=== PATIENT | female | born 1945 | race Caucasian/White ===

== ENCOUNTER → 2017-06-22 11:02 | Outpatient (CLI) | payer MEDICARE, SELFPAY ==
[2017-06-22 11:22] LABS: Anion Gap 8 (5-15); BUN 22 mg/dL (7-18); BUN/Creat Ratio 17.2 RATIO (10-20); Calcium,Total 9.9 mg/dL (8.5-10.1); Chloride 98 mmol/L (98-107); Creatinine, Serum 1.28 mg/dL (0.55-1.02); EST Glomerular Filtration Rate 43 mL/min (>60); Est Glom Filt Rate - Afr Amer 53 mL/min (>60); Glucose 176 mg/dL (74-106); Potassium 4.4 mmol/L (3.5-5.1); Sodium Level 137 mmol/L (136-145)
== END ==
PROVIDERS: Family Provider Internal Medicine; PCP Internal Medicine; Visit Provider Internal Medicine
DX: E87.5 Hyperkalemia (principal)
CPT/HCPCS: 80048

== ENCOUNTER → 2017-07-21 08:28 | Outpatient (CLI) | payer MEDICARE, SELFPAY ==
--- NOTE | 2017-07-21 08:35 | BD_ITS ---
STUDY: DUAL ENERGY X-RAY ABSORPTIOMETRY / DXA REASON FOR EXAM: Female, 72 years old. The patient is postmenopausal. Loss of height. TECHNIQUE: Bone Mineral Density (BMD) measurements of lumbar spine and bilateral hips were obtained. COMPARISON: Comparison is made with prior study dated April 03, 2015. FINDINGS: Lumbar Spine (L1-L4): g/cm2 (1.152) / T-score (-0.2) / Z-score (1.5) Findings are suggestive of normal bone density with a low fracture risk. Left Femur Total: g/cm2 (0.714) / T-score (-2.3) / Z-score (-0.7) Left Femoral Neck: g/cm2 (0.644) / T-score (-2.8) / Z-score (-1.0) Right Femur Total: g/cm2 (0.765) / T-score (-1.9) / Z-score (-0.3) Right Femoral Neck: g/cm2 (0.712) / T-score (-2.3) / Z-score (-0.5) The T-Scores on the most recent prior examination were: Lumbar Spine (L1-L4): There has been improvement of bone density since the previous examination. Left Femur Total: which represents no significant change. . Right Femur Total: which represents a worsening of 0.9%. BD/Dexa Bone Density Study IMPRESSION: The patient is considered osteoporotic as outlined below according to World [place] Organization (WHO) criteria with a high fracture risk. There has been improvement of bone density since the previous examination. Reference Information: The T-score is the number of standard deviations above or below the standard which is normal for young adults at their peak bone mineral density. The World Health Organization (WHO) interprets the T-scores as follows: Above -1 Normal bone density Between -1 and -2.5 Osteopenia Equal to / or below -2.5 Osteoporosis As a practical clinical guideline, osteopenia may be graded as follows: Mild -1 through -1.5 Moderate -1.6 through -2.0 Severe -2.1 through -2.4 The Z-score is the number of standard deviations above or below age-matched controls. A Z-score of less than -1.5 would be considered abnormal. References: 1. NIH Osteoporosis and Related Bone Diseases http://www.osteo.org 2. International Society for Clinical Densitometry http://www.iscd.org 3. National Osteoporosis Foundation http://www.nof.org Electronically Signed: Nishant Hansen MD at 10:28 EDT Tel [phone], Service support ,
== END ==
PROVIDERS: Family Provider Internal Medicine; PCP Internal Medicine; Visit Provider Internal Medicine
DX: M81.0 Age-related osteoporosis without current pathological fracture (principal)
CPT/HCPCS: 77080

== ENCOUNTER → 2018-12-01 05:00 | Outpatient (REF) | payer MEDICARE, SELFPAY ==
[2018-12-01 08:35] LABS: Hemoglobin A1c 6.4 % (4.2-6.3)
[2018-12-01 08:38] LABS: Anion Gap 5 (5-15); BUN 25 mg/dL (7-18); BUN/Creat Ratio 21.4 RATIO (10-20); Calcium,Total 9.2 mg/dL (8.5-10.1); Chloride 106 mmol/L (98-107); Cholesterol 166 mg/dL (200); Creatinine, Serum 1.17 mg/dL (0.55-1.02); EST Glomerular Filtration Rate 48 mL/min (>60); Est Glom Filt Rate - Afr Amer 58 mL/min (>60); Glucose 128 mg/dL (74-106); High Density Lipoprotein 37 mg/dL; Potassium 3.4 mmol/L (3.5-5.1); Sodium Level 138 mmol/L (136-145); Triglycerides 175 mg/dL; Very Low Density Lipoprotein 35 mg/dL (5-40)
[2018-12-02 08:31] LABS: Microalbumin,Random Urine 19.1 mg/L (NO RANGE EST.)
== END ==
LOC: OLS.BROOKB 05:00
PROVIDERS: Visit Provider Family Medicine
DX: E11.9 Type 2 diabetes mellitus without complications (principal)
CPT/HCPCS: 36415; 80048; 80061; 82043; 83036

== ENCOUNTER → 2019-01-06 05:00 | Outpatient (REF) | payer MEDICARE, SELFPAY ==
[2019-01-06 09:02] LABS: Absolute Lymphocyte Count 1.86 X10^3/uL (0.83-4.51); Absolute Neutrophil Count 5.8 X10^3/uL (2.0-7.7); Basophil# 0.06 X10^3/uL; Basophil% 0.7 % (0-1); Eosinophil# 0.38 X10^3/uL; Eosinophils% 4.3 % (0-5); Hematocrit 35.9 % (37-47); Hemoglobin 11.3 g/dL (12.0-15.0); Lymphocyte # 1.86 X10^3/ul (4.0); Lymphocyte % 21.1 % (19-41); Mean Corp Hgb Conc 31.5 g/dL (32-36); Mean Corpuscular Hgb 29.7 pg (27.0-32.0); Mean Corpuscular Volume 94.5 fL (81-99); Mean Platelet Vol. 10.2 fl (6.2-12.0); Monocyte# 0.65 X10^3/uL; Monocyte% 7.4 % (0-10); NRBC Flagged by Analyzer 0 % (0-5); Neutrophil # 5.84 X10^3/uL (2.7-7.7); Neutrophil % 66.2 % (47-70); Platelet Count 296 K/mm3 (150-450); RBC Distribution Width CV 14.5 % (11.6-14.6); RBC Distribution Width SD 49.9 fl (35.1-43.9); White Blood Count 8.8 K/mm3 (4.4-11.0)
[2019-01-06 09:08] LABS: ALB/GLOB Ratio 0.5 RATIO (0.9-2.4); AST(SGOT) 15 U/L (15-37); Alanine Aminotransfer ALT/SGPT 25 U/L (13-56); Albumin, Serum 2.6 g/dL (3.2-5.0); Alkaline Phosphatase 62 U/L (45-117); Anion Gap 8 (5-15); BUN 25 mg/dL (7-18); Calcium,Total 8.9 mg/dL (8.5-10.1); Chloride 105 mmol/L (98-107); Creatinine, Serum 1.19 mg/dL (0.55-1.02); EST Glomerular Filtration Rate 47 mL/min (>60); Est Glom Filt Rate - Afr Amer 57 mL/min (>60); Globulin 5.1 g/dL (2.2-4.2); Glucose 114 mg/dL (74-106); Potassium 4.1 mmol/L (3.5-5.1); Protein, Total 7.7 g/dL (6.4-8.2); Sodium Level 139 mmol/L (136-145)
[2019-01-06 09:56] LABS: Vitamin B12 227 pg/mL (211-911)
== END ==
LOC: OLS.BROOKB 05:00
PROVIDERS: Visit Provider Family Medicine
DX: F07.0 Personality change due to known physiological condition (principal)
CPT/HCPCS: 36415; 80053; 82607; 85025

== ENCOUNTER 2019-01-19 11:22 | Emergency (ER) | payer MEDICARE, SELFPAY ==
[2019-01-19 11:24] VITALS: BP 134/78; PULSE 108; RESP 18; TEMP 35.8; O2SAT 98; BMI 25.4
--- NOTE | 2019-01-19 13:05 | ED.VIS.GEN ---
History of Present Illness <Haroldo Keen - Last Filed: 01/19/19 15:37> Informant: Patient, Family, SNF Limited by: Dementia Onset: Today Context: Sudden Onset Timing: Continuous Quality: Bright red blood Location: diaper Current Severity: Mild Maximum Severity: Mild Worsened by: Nothing Relieved by: nothing Associated Symptoms: denies Narrative: 73-year-old female history of dementia [facility] the staff [facility] found bright red blood in her diaper. Patient at this time has no complaints but she does have a history of dementia and therefore history from the patient is limited. Family is at the bedside. Patient has not had any recent illnesses. She is not having abdominal pain or vomiting. No blood in her stool that they have noticed. She is not on blood thinners. No history of blood transfusion. Otherwise has been well and no other complaints at this time Prior similar symptoms: No Recent Illness/Hospitalization: No <Champ Yeboah - Last Filed: 01/19/19 17:50> Chief Complaint: Vag Bleeding Past Medical History <Haroldo Keen - Last Filed: 01/19/19 15:37> Prior records reviewed: Yes Past Medical History: - - Insulin-dependent diabetes Surgical History: no surgical history Lives: Skilled Nursing Smoking Status: Never smoker <Champ Yeboah - Last Filed: 01/19/19 17:50> - Allergies and Home Meds Allergies/Adverse Reactions: Allergies penicillin V [From Pen-Vee K] Allergy (Verified 01/19/19 11:26) Unknown Primary Care Physician: Libia Valdivia MD [Primary Care Provider] - Review of Systems All systems negative except as indicated General: Denies: Chills, Fever Eyes: Denies: Visual changes - left, Visual changes - right Cardiovascular: Denies: Chest pain Respiratory: Denies: Paroxysmal nocturnal dyspnea Gastrointestinal: Denies: Abdominal pain, Nausea, Vomiting, Melena, Hematochezia Genitourinary: Denies: Dysuria, Hematuria, Frequency Musculoskeletal: Denies: Neck pain, Back pain Skin: Reports: Rash Neurological: Denies: Headache, Weakness, Parasthesia <Champ Yeboah - Last Filed: 01/19/19 17:50> Physical Exam Vital Signs/Narrative: Vital Signs Temp Pulse Resp BP Pulse Ox 01/19/19 11:24 96.4 F L 108 H 18 134/78 H 98 Inital Vital Signs reviewed: Yes General: Well nourished, Well developed, No Acute Distress Head: Normocephalic, Atraumatic Eyes: Perrl, EOMI ENT: Moist mucous membranes Neck: Supple, Nontender, No lymphadenopathy, No JVD Cardiovascular: Regular rate, Regular rhythm Respiratory: No distress, CTA bilaterally, Chest nontender Abdomen: Soft, Nontender, Nondistended, Normal bowel sounds, No masses : - - Patient has an ulcerative rash in the folds of both groins. They are red lesions with 1 of them oozing blood. No sign of a yeast infection no vesicles no pustules no petechiae or purpura there are no lesions on the labia there are no lesions around the rectum and there is no necrotic or gangrenous skin or tissue noted. Back: Nontender, Normal Inspection Extremities: Nontender, No edema Skin: Rash Neurological: Alert - X1 which is baseline <Champ Yeboah - Last Filed: 01/19/19 17:50> Diagnostic/Tx/Re-eval - Medical Decision Making Patient evaluated with our physician university administrative assistant. Sent in for bleeding in her groin region. Patient is a demented female that they were changing her adult diaper today and noticed bleeding. Older female no acute distress. Lungs are clear. Heart regular rhythm. Abdomen soft and nontender. With female nurse is present in the room I examined her external area there is irritation of the skin lateral to both labia that could be early breakdown. There is really not cellulitis and there is no drainable abscess. Otherwise she is moving her extremities. At this time I do not see any obvious vaginal bleeding. Patient will be placed on Keflex 4 times daily for 10 days and follow-up. <Haroldo Keen - Last Filed: 01/19/19 15:37> ED Disposition <Haroldo Keen - Last Filed: 01/19/19 15:37> <Champ Yeboah - Last Filed: 01/19/19 17:50> - Plan for ED Patient: Disposition: Home or Assisted Living Diagnosis: Rash and nonspecific skin eruption Instructions: Cellulitis Prescriptions: Smz/Tmp Ds [Bactrim Ds] 1 tab PO BID #14 tab Prescription Printed Referrals: Libia Valdivia MD [Primary Care Provider] -
[2019-01-19 15:42] VITALS: BP 128/78; PULSE 79; RESP 16; O2SAT 99
--- NOTE | 2019-01-19 16:03 | ED.RN ---
ATTEMPTED TO CALL NURSE TO NURSE REPORT TO [facility]. PT'S PRIMARY NURSE ON ANOTHER PHONE CALL. STAMP MOUNTER STATES PRIMARY RN WILL CALL BACK FOR REPORT. THIS RN ADVISED THAT PT WAS ON HER WAY BACK TO FACILITY WITH SISTER.
== END 2019-01-19 15:42 | disposition home or self-care (01) ==
PROVIDERS: Emergency Provider Physician Assistant Medical; Family Provider Family Medicine; PCP Family Medicine
DX: R21 Rash and other nonspecific skin eruption (principal); F03.90 Unspecified dementia, unspecified severity, without behavioral disturbance, psychotic disturbance, mood disturbance, and anxiety; E11.9 Type 2 diabetes mellitus without complications; Z79.4 Long term (current) use of insulin
CPT/HCPCS: 99282

== ENCOUNTER → 2019-02-01 05:00 | Outpatient (REF) | payer MEDICARE, SELFPAY ==
[2019-01-19 11:24] VITALS: BMI 25.4
[2019-02-01 08:16] LABS: Anion Gap 9 (5-15); BUN 28 mg/dL (7-18); BUN/Creat Ratio 24.6 RATIO (10-20); Calcium,Total 8.5 mg/dL (8.5-10.1); Chloride 103 mmol/L (98-107); Creatinine, Serum 1.14 mg/dL (0.55-1.02); EST Glomerular Filtration Rate 49 mL/min (>60); Est Glom Filt Rate - Afr Amer 60 mL/min (>60); Glucose 103 mg/dL (74-106); Potassium 3.9 mmol/L (3.5-5.1); Sodium Level 136 mmol/L (136-145)
== END ==
LOC: OLS.BROOKB 05:00
PROVIDERS: Visit Provider Family Medicine
DX: R50.9 Fever, unspecified (principal)
CPT/HCPCS: 36415; 80048

== ENCOUNTER → 2019-04-05 05:00 | Outpatient (REF) | payer MEDICARE, SELFPAY ==
[2019-04-05 07:56] LABS: Absolute Lymphocyte Count 1.53 X10^3/uL (0.83-4.51); Absolute Neutrophil Count 5.3 X10^3/uL (2.0-7.7); Basophil# 0.07 X10^3/uL; Basophil% 0.9 % (0-1); Eosinophils% 6.2 % (0-5); Hematocrit 34.4 % (37-47); Hemoglobin 10.7 g/dL (12.0-15.0); Lymphocyte # 1.53 X10^3/ul (4.0); Lymphocyte % 18.9 % (19-41); Mean Corp Hgb Conc 31.1 g/dL (32-36); Mean Corpuscular Hgb 29.2 pg (27.0-32.0); Mean Corpuscular Volume 93.7 fL (81-99); Mean Platelet Vol. 9.5 fl (6.2-12.0); Monocyte# 0.66 X10^3/uL; Monocyte% 8.1 % (0-10); NRBC Flagged by Analyzer 0 % (0-5); Neutrophil # 5.34 X10^3/uL (2.7-7.7); Neutrophil % 65.8 % (47-70); Platelet Count 317 K/mm3 (150-450); RBC Distribution Width CV 14.3 % (11.6-14.6); RBC Distribution Width SD 49.5 fl (35.1-43.9); Red Blood Count 3.67 M/mm3 (4.2-5.4); White Blood Count 8.1 K/mm3 (4.4-11.0)
[2019-04-05 08:19] LABS: Anion Gap 4 (5-15); BUN 23 mg/dL (7-18); BUN/Creat Ratio 20.4 RATIO (10-20); Calcium,Total 8.7 mg/dL (8.5-10.1); Chloride 106 mmol/L (98-107); Creatinine, Serum 1.13 mg/dL (0.55-1.02); EST Glomerular Filtration Rate 50 mL/min (>60); Est Glom Filt Rate - Afr Amer 60 mL/min (>60); Glucose 99 mg/dL (74-106); Potassium 3.9 mmol/L (3.5-5.1); Sodium Level 138 mmol/L (136-145)
[2019-04-06 05:02] LABS: Ferritin 23 ng/mL (8-252); Iron 35 ug/dL (50-170); Iron Binding Capacity,Total 275 ug/dL (250-450)
== END ==
LOC: OLS.BROOKB 05:00
PROVIDERS: PCP Family Medicine; Visit Provider Family Medicine
DX: E10.9 Type 1 diabetes mellitus without complications (principal); F50.89 Other specified eating disorder
CPT/HCPCS: 36415; 80048; 82728; 82746; 83540; 83550; 85025

== ENCOUNTER → 2019-07-13 12:00 | Outpatient (REF) | payer MEDICARE, SELFPAY | LOC: OLS.BROOKB 12:00 | PROVIDERS: PCP Family Medicine; Referring Provider Family Medicine; Visit Provider Family Medicine | DX: R19.7 Diarrhea, unspecified (principal) | CPT/HCPCS: 87804 ==

== ENCOUNTER 2019-12-02 13:00 | Outpatient (RCR) | payer MEDICARE, SELFPAY ==
[2019-11-18 13:10] VITALS: BP 138/74; PULSE 108; RESP 20; TEMP 36.1
--- NOTE | 2019-11-18 13:26 | WC ---
PT WITH [facility]. DID NOT COMPLETE RISK ASSESSMENTS.
--- NOTE | 2019-11-18 14:16 | HP.PCM_ITS ---
(1) Vulval hidradenitis suppurativa Status: Chronic Current Visit: Yes Code(s): L73.2 - Hidradenitis suppurativa (2) Hidradenitis suppurativa Status: Chronic Current Visit: Yes Code(s): L73.2 - Hidradenitis suppurativa (3) Pressure ulcer of coccygeal region, stage 1 Status: Chronic Current Visit: Yes Code(s): L89.151 - Pressure ulcer of sacral region, stage 1 (4) Ulcer of left groin with fat layer exposed Status: Chronic Current Visit: Yes Code(s): L98.492 - Non-pressure chronic ulcer of skin of other sites with fat layer exposed History of Present Illness Date of Service: 11/18/19 Chief Complaint: Nonhealing ulcers of labia/groin bilaterally and coccyx History of Wound: Jovana is a pleasant 74 yo woman that presents to the wound healing center for evaluation and treatment of nonhealing ulcers to her groin/labia bilaterally and her coccyx. She is a poor histoian due to dementia. She is accompanied by her sister Faina who provides the majority of her history. The areas have been present for approx. 8 months and the staff at the SNF and other wound specialists have been consulted by the staff at the SNF for evaluation and treatment of the areas but there has not been healing. The areas have improved in size but have never healed. Most recently they have been applying triple antibiotic ointment to the areas and using Allevyn on her coccyx. She is unsure of other treatments that have been applied but knows that they have tried multiple different things. She is unsure of whether a wound culture has ever been performed. She has never been told she has hidradenitis. She has moderate drainage from the areas but denies erythema. They are sometimes painful. She has a history of diabetes and is on Trulicity for management. She is unsure of her most recent A1C. She is incontinent of urine and wears an adult diaper for management of her incontinence. She has been residing at [facility] for approx. one year. She denies fever, chills or other signs of infection. Past Medical History Past Medical History: Chronic Problems (Last Updated 10/01/17 @ 09:58 by nEa Estrada) Hypergammaglobulinemia (Chronic) Vulval hidradenitis suppurativa (Chronic) Hidradenitis suppurativa (Chronic) Pressure ulcer of coccygeal region, stage 1 (Chronic) Ulcer of left groin with fat layer exposed (Chronic) Surgical History: no surgical history Allergies/Adverse Reactions: Allergies penicillin V [From Pen-Vee K] Allergy (Verified 11/18/19 13:31) Unknown Home Medications: Ambulatory Orders Medication Instructions Recorded Allopurinol [Zyloprim] 100 mg PO DAILYCM 06/09/16 Torsemide [Demadex] 20 mg PO DAILY 06/09/16 metFORMIN HCl [Glucophage] 850 mg PO BIDCM 06/09/16 Dulaglutide [Trulicity] 0.75 mg SQ QWEEK 10/09/16 Cetirizine HCl 10 mg PO DAILY 01/19/19 Fluticasone 0.05% [Flonase Nasal 2 spray NASAL DAILY 01/19/19 [place]] Galantamine HBr 4 mg PO BID 01/19/19 Quetiapine Fumarate 25 mg PO BID 01/19/19 Sertraline HCl 50 mg PO QHS 01/19/19 Smz/Tmp Ds [Bactrim Ds] 1 tab PO BID #14 tab 01/19/19 Dulaglutide [Trulicity] 11/18/19 traMADol [Ultram (G)] 50 mg PO Q4H PRN PRN 11/18/19 - Family History Sibling Family History: Family History (Last Updated 10/01/17 @ 09:59 by Ena Estrada) Mother Bone cancer Father Heart disease Diabetes - - hidradenitis Lives: [facility] Smoking Status: Never smoker Tobacco Use: Non-smoker Alcohol: None Drugs: None Review of Systems Constitutional: Denies: Chills, Fever, Weight Change Eyes: Denies: Pain, Vision Change HEENT: Reports: Difficulty Swallowing. Denies: Difficulty Hearing, Sinus Congestion Cardiovascular: Denies: Chest Pain, Palpitations Respiratory: Denies: Cough, Shortness of Breath Gastrointestinal: Denies: Diarrhea, Nausea, Vomiting Genitourinary: Reports: Incontinence Skin: Reports: Wounds Psychiatric: Reports: Depression Endocrine: Denies: Heat/ Cold Intolerance, Polydipsia, Polyuria Hematologic/ Lymphatic: Denies: Easy Bruising, Easy Bleeding - Physical Exam Vital Signs Temp Pulse Resp BP 96.9 F L 108 H 20 H 138/74 H 11/18/19 13:10 11/18/19 13:10 11/18/19 13:10 11/18/19 13:10 General: Alert, Cooperative, No apparent distress HEENT: Atraumatic, Normocephalic Oral: Moist Mucosa Abdomen: Obese Extremities: No edema Skin: Ulcer/ Wound Wound Measurements and Assessment WC - Nurse 1 - General Ulcer Measurement Start: 11/18/19 13:09 Freq: Status: Active Protocol: Activity Type Activity Date Activity User E-Sign Co-Sign Detail Recorded Client Recorded Date Recorded By Document 11/18/19 13:10 [facility] [id number] 11/18/19 13:25 [facility] 11/18/19 13:10 Wound Center Nurse 1 [Ulcer Assessment] #3- R GROIN CLUSTER -Combined with other wound No -Current Size (cm) - Length 0.2 -Current Size (cm) - Width 0.2 -Current Size (cm) - Depth 0.2 -Total Square Cm 0.04 -Date of Last Picture (Recall this 11/18/19 field) -Photo Taken Yes -Epithelialization None Present -Tunneling No -Undermining/Tunneling No -Circular Undermining No -Exudate Amt None Present -Wound Margin Distinct, Outline Attached -Granulation Amt Large (67-100%) -Granulation Quality Red -Slough/Fibrin No -Necrosis Amt None Present (0 %) -Texture (Rachel-wound Skin Appearance) Assessed, Scarring -Moisture (Rachel-wound Skin Appearance Assessed ) -Color (Rachel-wound Skin Appearance) Assessed -Temperature (Rachel-wound Skin No Abnormality Appearance) (Pt Warm) -Tenderness on Palpation (Rachel-wound Yes Skin Appearance) -Ulcer Cleansing Rinsed/ Irrigated with Saline -Foul Odor after Cleansing No -Anesthetic Used 4% Lidocaine Solution #2- L GROIN CLUSTER -Combined with other wound No -Current Size (cm) - Length 0.5 -Current Size (cm) - Width 0.6 -Current Size (cm) - Depth 0.1 -Total Square Cm 0.30 -Date of Last Picture (Recall this 11/18/19 field) -Photo Taken Yes -Epithelialization None Present -Tunneling No -Undermining/Tunneling No -Circular Undermining No -Exudate Amt None Present -Wound Margin Distinct, Outline Attached -Granulation Amt Large (67-100%) -Granulation Quality Red -Slough/Fibrin No -Necrosis Amt None Present (0 %) -Texture (Rachel-wound Skin Appearance) Assessed, Scarring -Moisture (Rachel-wound Skin Appearance Assessed ) -Color (Rachel-wound Skin Appearance) Assessed -Temperature (Rachel-wound Skin No Abnormality Appearance) (Pt Warm) -Tenderness on Palpation (Rachel-wound Yes Skin Appearance) -Ulcer Cleansing Rinsed/ Irrigated with Saline -Foul Odor after Cleansing No -Anesthetic Used 4% Lidocaine Solution #1- coccyx -Combined with other wound No -Current Size (cm) - Length 0.8 -Current Size (cm) - Width 0.7 -Current Size (cm) - Depth 0.2 -Total Square Cm 0.56 -Date of Last Picture (Recall this 11/18/19 field) -Photo Taken Yes -Epithelialization None Present -Tunneling No -Undermining/Tunneling No -Circular Undermining No -Wound Margin Distinct, Outline Attached -Granulation Amt Large (67-100%) -Granulation Quality Red -Slough/Fibrin Yes -Necrosis Amt Small (1-33%) -Necrotic Tissue Type Adherent Slough -Texture (Rachel-wound Skin Appearance) Assessed, Scarring -Moisture (Rachel-wound Skin Appearance Assessed ) -Color (Rachel-wound Skin Appearance) Assessed -Temperature (Rachel-wound Skin No Abnormality Appearance) (Pt Warm) -Tenderness on Palpation (Rachel-wound Yes Skin Appearance) -Ulcer Cleansing soapy water -Foul Odor after Cleansing No -Anesthetic Used 4% Lidocaine Solution WC - Nurse 2 - General Ulcer CM Notes Start: 11/18/19 13:09 Freq: Status: Active Protocol: Activity Type Activity Date Activity User E-Sign Co-Sign Detail Recorded Client Recorded Date Recorded By Document 11/18/19 13:35 MW [id number] 11/18/19 13:55 MW 11/18/19 13:35 Wound Center Nurse 2 [Procedure/Treatment] #3- R GROIN CLUSTER -Time 13:51 -Correct Patient Yes -Correct Side, Site, Position Yes -Correct Procedure Yes -Procedure Performed No -Post Debridement (cm) - Length 0.2 -Post Debridement (cm) - Width 0.2 -Post Debridement (cm) - Depth 0.3 -Total Square (Post) (cm) 0.04 -Area of Debridement (cm) - Length 0.2 -Area of Debridement (cm) - Width 0.2 -Total Square (Area) (cm) 0.04 -Tunneling No -Undermining/Tunneling No -Circular Undermining No -Wound/Ulcer Outcome Not Healed -Ulcer Cleansing Rinsed/ Irrigated with Saline -Foul Odor after Cleansing No -Bioengineered Tissue No -Bleeding Controlled with NA -Offloading No #2- L GROIN CLUSTER -Time 13:52 -Correct Patient Yes -Correct Side, Site, Position Yes -Correct Procedure Yes -Procedure Performed No -Post Debridement (cm) - Length 0.5 -Post Debridement (cm) - Width 0.6 -Post Debridement (cm) - Depth 0.3 -Total Square (Post) (cm) 0.30 -Area of Debridement (cm) - Length 0.5 -Area of Debridement (cm) - Width 0.6 -Total Square (Area) (cm) 0.30 -Tunneling No -Undermining/Tunneling No -Circular Undermining No -Wound/Ulcer Outcome Not Healed -Offloading No -Treatment Response Procedure Tolerated Well #1- coccyx -Time 13:52 -Correct Patient Yes -Correct Side, Site, Position Yes -Correct Procedure Yes -Procedure Performed No -Post Debridement (cm) - Length 0.8 -Post Debridement (cm) - Width 0.7 -Post Debridement (cm) - Depth 0.2 -Total Square (Post) (cm) 0.56 -Area of Debridement (cm) - Length 0.8 -Area of Debridement (cm) - Width 0.7 -Total Square (Area) (cm) 0.56 -Tunneling No -Undermining/Tunneling No -Circular Undermining No -Wound/Ulcer Outcome Not Healed -Ulcer Cleansing Rinsed/ Irrigated with Saline -Foul Odor after Cleansing No -Bioengineered Tissue No -Bleeding Controlled with NA -Offloading No -Treatment Response Procedure Tolerated Well [See Physician Procedure note for Specifics] WC - Nurse 3 - General Ulcer D/C NN Start: 11/18/19 13:09 Freq: Status: Active Protocol: Activity Type Activity Date Activity User E-Sign Co-Sign Detail Recorded Client Recorded Date Recorded By Document 11/18/19 13:56 MW [id number] 11/18/19 13:58 MW 11/18/19 13:56 Wound Care Nurse 3 [Wound Dressing] #3- R GROIN CLUSTER -Ulcer Cleansing Rinsed/ Irrigated with Saline -Foul Odor after Cleansing No -Negative Pressure Wound Therapy N/A -Primary Dressing Covered/Secured Dry Gauze, with Secured with Tape #2- L GROIN CLUSTER -Ulcer Cleansing Rinsed/ Irrigated with Saline -Foul Odor after Cleansing No -Negative Pressure Wound Therapy N/A -Primary Dressing Applied Promogran -Primary Dressing Covered/Secured Dry Gauze, with Secured with Tape -Promogran 1 #1- coccyx -Ulcer Cleansing Rinsed/ Irrigated with Saline -Foul Odor after Cleansing No -Negative Pressure Wound Therapy N/A -Primary Dressing Applied Mepilex Border -Other Dressing PROMOGRAN -Mepilex Border 1 [Post Procedure Tolerated] -Treatment Response Procedure Tolerated Well Pain Scale: 0-10 Numeric [Pain] -Is Patient Pain Free? Yes Teaching: Wound Center [Wound Center Education] (Items with an * have Printed Materials Available- Please identify what is given to patient under the Teaching materials given to patient and caregiver Section. Dressing Your Wound -Person Taught Patient -Teaching Method Discussion -Response to teaching Verbalize understanding WC - Visit Discharge [Visit Discharge Information] -Discharge Condition Stable -Ambulatory Status Ambulatory -Transportation Private Auto -Accompanied by SISTER -Medication Reconcilliation completed No & provided to patient/care provider -Clinical Summary of Care Provided Yes Psych/Mental Status: Normal Affect, Appropriate Debridement Note Post-Debridement Measurements/Treatment WC - Nurse 2 - General Ulcer CM Notes Start: 11/18/19 13:09 Freq: Status: Active Protocol: Activity Type Activity Date Activity User E-Sign Co-Sign Detail Recorded Client Recorded Date Recorded By Document 11/18/19 13:35 MW [id number] 11/18/19 13:55 MW 11/18/19 13:35 Wound Center Nurse 2 #3- R GROIN CLUSTER -Time 13:51 -Correct Patient Yes -Correct Side, Site, Position Yes -Correct Procedure Yes -Procedure Performed No -Post Debridement (cm) - Length 0.2 -Post Debridement (cm) - Width 0.2 -Post Debridement (cm) - Depth 0.3 -Total Square (Post) (cm) 0.04 -Area of Debridement (cm) - Length 0.2 -Area of Debridement (cm) - Width 0.2 -Total Square (Area) (cm) 0.04 -Tunneling No -Undermining/Tunneling No -Circular Undermining No -Wound/Ulcer Outcome Not Healed -Ulcer Cleansing Rinsed/ Irrigated with Saline -Foul Odor after Cleansing No -Bioengineered Tissue No -Bleeding Controlled with NA -Offloading No #2- L GROIN CLUSTER -Time 13:52 -Correct Patient Yes -Correct Side, Site, Position Yes -Correct Procedure Yes -Procedure Performed No -Post Debridement (cm) - Length 0.5 -Post Debridement (cm) - Width 0.6 -Post Debridement (cm) - Depth 0.3 -Total Square (Post) (cm) 0.30 -Area of Debridement (cm) - Length 0.5 -Area of Debridement (cm) - Width 0.6 -Total Square (Area) (cm) 0.30 -Tunneling No -Undermining/Tunneling No -Circular Undermining No -Wound/Ulcer Outcome Not Healed -Offloading No -Treatment Response Procedure Tolerated Well #1- coccyx -Time 13:52 -Correct Patient Yes -Correct Side, Site, Position Yes -Correct Procedure Yes -Procedure Performed No -Post Debridement (cm) - Length 0.8 -Post Debridement (cm) - Width 0.7 -Post Debridement (cm) - Depth 0.2 -Total Square (Post) (cm) 0.56 -Area of Debridement (cm) - Length 0.8 -Area of Debridement (cm) - Width 0.7 -Total Square (Area) (cm) 0.56 -Tunneling No -Undermining/Tunneling No -Circular Undermining No -Wound/Ulcer Outcome Not Healed -Ulcer Cleansing Rinsed/ Irrigated with Saline -Foul Odor after Cleansing No -Bioengineered Tissue No -Bleeding Controlled with NA -Offloading No -Treatment Response Procedure Tolerated Well WC - Nurse 3 - General Ulcer D/C NN Start: 11/18/19 13:09 Freq: Status: Active Protocol: Activity Type Activity Date Activity User E-Sign Co-Sign Detail Recorded Client Recorded Date Recorded By Document 11/18/19 13:56 MW [id number] 11/18/19 13:58 MW 11/18/19 13:56 Wound Care Nurse 3 #3- R GROIN CLUSTER -Ulcer Cleansing Rinsed/ Irrigated with Saline -Foul Odor after Cleansing No -Negative Pressure Wound Therapy N/A -Primary Dressing Covered/Secured with Dry Gauze, Secured with Tape #2- L GROIN CLUSTER -Ulcer Cleansing Rinsed/ Irrigated with Saline -Foul Odor after Cleansing No -Negative Pressure Wound Therapy N/A -Primary Dressing Applied Promogran -Primary Dressing Covered/Secured with Dry Gauze, Secured with Tape -Promogran 1 #1- coccyx -Ulcer Cleansing Rinsed/ Irrigated with Saline -Foul Odor after Cleansing No -Negative Pressure Wound Therapy N/A -Primary Dressing Applied Mepilex Border -Other Dressing PROMOGRAN -Mepilex Border 1 Treatment Response Procedure Tolerated Well Pain Scale: 0-10 Numeric Is Patient Pain Free? Yes Teaching: Wound Center Dressing Your Wound -Person Taught Patient -Teaching Method Discussion -Response to teaching Verbalize understanding WC - Visit Discharge Discharge Condition Stable Ambulatory Status Ambulatory Transportation Private Auto Accompanied by SISTER Medication Reconcilliation completed & No provided to patient/care provider Clinical Summary of Care Provided Yes Wound debrided: right groin cluster Laterality: Right Patient tolerated procedure well no debridement completed as there was no slough or devitlaized tissue present - Additional Wound Wound debrided: left groin cluster Laterality: Left Patient tolerated procedure: Patient tolerated procedure well Operative Diagnosis: no debridement completed as there was no slough or devitlaized tissue - Additional Wound Wound debrided: coccyx Laterality: Not Applicable Wound Grade/Stage: Grade 1 Patient tolerated procedure: Patient tolerated procedure well Operative Diagnosis: no debridement completed as there was no slough or devitlaized tissue Assessment/Plan Active Problems (Last Updated 10/01/17 @ 09:58 by Ena Estrada) Vulval hidradenitis suppurativa (Chronic) Hidradenitis suppurativa (Chronic) Pressure ulcer of coccygeal region, stage 1 (Chronic) Ulcer of left groin with fat layer exposed (Chronic) Assessment: hidradenitis suppurativa of the groin and labia bilaterally. Pilonidal cyst. Pressure ulcer Stage 1 coccyx Plan: Jovana's ulcers were evaluated and examined today. The coccyx has an area that has a tunnel that communicates from one open area to an area that is open distally. There is no obvious purulence or depth to the areas. Wound culture was taken to evaluate for infection and will treat based on results. Will try treatment with Promogran to the larger areas and Clindamycin gel to the right groin areas. Will have her use Allevyn or optifoam to the coccyx area to help offload. Discussed offloading importance. Discussed that these areas are caused by a chronic condition that waxes and wanes and that resolution would require a significant surgery to remove tissue and sweat glands that may fail to heal or have a prolonged complicated healing time and I do not recommend this for her given her comorbidities and feel that she would benefit from a more palliative approach to treatment as opposed to aggressive treatment. Will consider surgical treatment if infection or worsening develops. She will be placed on palliative treatment plan at this time. Advised to call if worsening or increased erythema or drainage develop. F/U in 1 week.
[2019-11-25 11:41] VITALS: BP 130/65; PULSE 95; RESP 16; TEMP 36.5; BMI 25.4
--- NOTE | 2019-11-25 15:15 | PCM.WC.PN ---
(1) Vulval hidradenitis suppurativa Status: Chronic Current Visit: Yes Code(s): L73.2 - Hidradenitis suppurativa (2) Hidradenitis suppurativa Status: Chronic Current Visit: Yes Code(s): L73.2 - Hidradenitis suppurativa (3) Pressure ulcer of coccygeal region, stage 1 Status: Chronic Current Visit: Yes Code(s): L89.151 - Pressure ulcer of sacral region, stage 1 (4) Ulcer of left groin with fat layer exposed Status: Chronic Current Visit: Yes Code(s): L98.492 - Non-pressure chronic ulcer of skin of other sites with fat layer exposed Type of Wound Date of Service: 11/25/19 Chief Complaint: Nonhealing ulcers of labia/groin bilaterally and coccyx History of Wound: Jovana is a pleasant 74 yo woman that presents to the wound healing center for evaluation and treatment of nonhealing ulcers to her groin/labia bilaterally and her coccyx. She is a poor histoian due to dementia. She is accompanied by her sister Faina who provides the majority of her history. The areas have been present for approx. 8 months and the staff at the SNF and other wound specialists have been consulted by the staff at the SNF for evaluation and treatment of the areas but there has not been healing. The areas have improved in size but have never healed. Most recently they have been applying triple antibiotic ointment to the areas and using Allevyn on her coccyx. She is unsure of other treatments that have been applied but knows that they have tried multiple different things. She is unsure of whether a wound culture has ever been performed. She has never been told she has hidradenitis. She has moderate drainage from the areas but denies erythema. They are sometimes painful. She has a history of diabetes and is on Trulicity for management. She is unsure of her most recent A1C. She is incontinent of urine and wears an adult diaper for management of her incontinence. She has been residing at [facility] for approx. one year. She denies fever, chills or other signs of infection. Progress of Wound: Jovana is here for follow up of ulcers related to hidradenitis. She tolerated treatment with Promogran and clindamycin gel with improvement in the areas. She denies fever or chills or increased drainage or pain. - Physical Exam Vital Signs Temp Pulse Resp BP 97.7 F L 95 16 130/65 H 11/25/19 11:41 11/25/19 11:41 11/25/19 11:41 11/25/19 11:41 General: Alert, Oriented x3, Cooperative, No apparent distress HEENT: Atraumatic, Normocephalic Oral: Moist Mucosa Neck: Supple Abdomen: Obese Extremities: No edema Skin: Ulcer/ Wound Wound Measurements and Assessment WC - Nurse 1 - General Ulcer Measurement Start: 11/18/19 13:09 Freq: Status: Active Protocol: Activity Type Activity Date Activity User E-Sign Co-Sign Detail Recorded Client Recorded Date Recorded By Document 11/25/19 11:41 [facility] [id number] 11/25/19 11:55 [facility] 11/25/19 11:41 Wound Center Nurse 1 [Ulcer Assessment] #3- R GROIN CLUSTER -Combined with other wound No -Current Size (cm) - Length 0.1 -Current Size (cm) - Width 0.1 -Current Size (cm) - Depth 0.1 -Total Square Cm 0.01 -Photo Taken No -Epithelialization Large 67-100% -Tunneling No -Undermining/Tunneling No -Circular Undermining No -Exudate Amt None Present -Texture (Rachel-wound Skin Appearance) Assessed, Scarring -Moisture (Rachel-wound Skin Appearance Assessed ) -Color (Rachel-wound Skin Appearance) Assessed -Temperature (Rachel-wound Skin No Abnormality Appearance) (Pt Warm) -Tenderness on Palpation (Rachel-wound No Skin Appearance) -Ulcer Cleansing soapy water -Foul Odor after Cleansing No -Anesthetic Used 5% Lidocaine Gel #2- L GROIN CLUSTER -Combined with other wound No -Current Size (cm) - Length 0.6 -Current Size (cm) - Width 0.4 -Current Size (cm) - Depth 0.1 -Total Square Cm 0.24 -Photo Taken No -Epithelialization Small 1-33% -Tunneling No -Undermining/Tunneling No -Circular Undermining No -Exudate Amt Small -Exudate Type Serous -Wound Margin Distinct, Outline Attached -Granulation Amt Large (67-100%) -Granulation Quality Red -Slough/Fibrin No -Necrosis Amt None Present (0 %) -Texture (Rachel-wound Skin Appearance) Assessed, Scarring -Moisture (Rachel-wound Skin Appearance Assessed ) -Color (Rachel-wound Skin Appearance) Assessed -Temperature (Rachel-wound Skin No Abnormality Appearance) (Pt Warm) -Tenderness on Palpation (Rachel-wound Yes Skin Appearance) -Ulcer Cleansing soapy water -Foul Odor after Cleansing No -Anesthetic Used 5% Lidocaine Gel #1- coccyx -Combined with other wound No -Current Size (cm) - Length 0.6 -Current Size (cm) - Width 0.3 -Current Size (cm) - Depth 0.2 -Total Square Cm 0.18 -Photo Taken No -Epithelialization Small 1-33% -Tunneling No -Undermining/Tunneling No -Circular Undermining No -Exudate Amt Small -Exudate Type Serosanguineous -Wound Margin Distinct, Outline Attached -Granulation Amt Large (67-100%) -Granulation Quality Red -Slough/Fibrin No -Necrosis Amt None Present (0 %) -Texture (Rachel-wound Skin Appearance) Assessed, Scarring -Moisture (Rachel-wound Skin Appearance Assessed ) -Color (Rachel-wound Skin Appearance) Assessed -Temperature (Rachel-wound Skin No Abnormality Appearance) (Pt Warm) -Tenderness on Palpation (Rachel-wound Yes Skin Appearance) -Ulcer Cleansing soapy water -Foul Odor after Cleansing No -Anesthetic Used 5% Lidocaine Gel WC - Nurse 2 - General Ulcer CM Notes Start: 11/18/19 13:09 Freq: Status: Active Protocol: Activity Type Activity Date Activity User E-Sign Co-Sign Detail Recorded Client Recorded Date Recorded By Document 11/25/19 12:02 MW [id number] 11/25/19 12:11 MW 11/25/19 12:02 Wound Center Nurse 2 [Procedure/Treatment] #3- R GROIN CLUSTER -Time 12:08 -Correct Patient Yes -Correct Side, Site, Position Yes -Correct Procedure Yes -Procedure Performed No -Tunneling No -Undermining/Tunneling No -Circular Undermining No -Ulcer Cleansing Not Cleansed -Foul Odor after Cleansing No -Bioengineered Tissue No -Bleeding Controlled with NA -Offloading No -Treatment Response Procedure Tolerated Well #2- L GROIN CLUSTER -Time 12:08 -Correct Patient Yes -Correct Side, Site, Position Yes -Correct Procedure Yes -Procedure Performed No -Tunneling No -Undermining/Tunneling No -Circular Undermining No -Wound/Ulcer Outcome Not Healed -Ulcer Cleansing Not Cleansed -Foul Odor after Cleansing No -Bioengineered Tissue No -Bleeding Controlled with NA -Offloading No -Treatment Response Procedure Tolerated Well #1- coccyx -Time 12:05 -Correct Patient Yes -Correct Side, Site, Position Yes -Correct Procedure Yes -Procedure Performed No -Tunneling No -Undermining/Tunneling No -Circular Undermining No -Wound/Ulcer Outcome Not Healed -Ulcer Cleansing Rinsed/ Irrigated with Saline -Foul Odor after Cleansing No -Bioengineered Tissue No -Bleeding Controlled with NA -Offloading No [See Physician Procedure note for Specifics] Pain Scale: 0-10 Numeric [Pain] -Is Patient Pain Free? Yes - Nurse 3 - General Ulcer D/C NN Start: 11/18/19 13:09 Freq: Status: Active Protocol: Activity Type Activity Date Activity User E-Sign Co-Sign Detail Recorded Client Recorded Date Recorded By Document 11/25/19 12:20 [facility] [id number] 11/25/19 12:22 [facility] 11/25/19 12:20 Wound Care Nurse 3 [Wound Dressing] #3- R GROIN CLUSTER -Ulcer Cleansing Rinsed/ Irrigated with Saline -Foul Odor after Cleansing No -Primary Dressing Applied Other -Other Dressing staff to apply clindamycin oint at assisted living #2- L GROIN CLUSTER -Ulcer Cleansing Rinsed/ Irrigated with Saline -Foul Odor after Cleansing No -Primary Dressing Applied Promogran -Primary Dressing Covered/Secured Dry Gauze, with Secured with Tape -Promogran 1 #1- coccyx -Ulcer Cleansing Rinsed/ Irrigated with Saline -Foul Odor after Cleansing No -Primary Dressing Applied Mepilex Border, Promogran -Mepilex Border 1 -Promogran 0 [Post Procedure Tolerated] -Treatment Response Procedure Tolerated Well Pain Scale: 0-10 Numeric [Pain] -Is Patient Pain Free? Yes - Visit Discharge [Visit Discharge Information] -Discharge Condition Stable -Ambulatory Status Ambulatory -Transportation Private Auto -Accompanied by sister [Facility Notification] -Other assisted living Psych/Mental Status: Normal Affect, Appropriate Debridement Note Post-Debridement Measurements/Treatment JUSTIN - Nurse 2 - General Ulcer CM Notes Start: 11/18/19 13:09 Freq: Status: Active Protocol: Activity Type Activity Date Activity User E-Sign Co-Sign Detail Recorded Client Recorded Date Recorded By Document 11/18/19 13:35 MW [id number] 11/18/19 13:55 MW Document 11/25/19 12:02 MW [id number] 11/25/19 12:11 MW 11/18/19 11/25/19 13:35 12:02 Wound Center Nurse 2 #3- R GROIN CLUSTER -Time 13:51 12:08 -Correct Patient Yes Yes -Correct Side, Site, Position Yes Yes -Correct Procedure Yes Yes -Procedure Performed No No -Post Debridement (cm) - Length 0.2 -Post Debridement (cm) - Width 0.2 -Post Debridement (cm) - Depth 0.3 -Total Square (Post) (cm) 0.04 -Area of Debridement (cm) - Length 0.2 -Area of Debridement (cm) - Width 0.2 -Total Square (Area) (cm) 0.04 -Tunneling No No -Undermining/Tunneling No No -Circular Undermining No No -Wound/Ulcer Outcome Not Healed -Ulcer Cleansing Rinsed/ Not Cleansed Irrigated with Saline -Foul Odor after Cleansing No No -Bioengineered Tissue No No -Bleeding Controlled with NA NA -Offloading No No -Treatment Response Procedure Tolerated Well #2- L GROIN CLUSTER -Time 13:52 12:08 -Correct Patient Yes Yes -Correct Side, Site, Position Yes Yes -Correct Procedure Yes Yes -Procedure Performed No No -Post Debridement (cm) - Length 0.5 -Post Debridement (cm) - Width 0.6 -Post Debridement (cm) - Depth 0.3 -Total Square (Post) (cm) 0.30 -Area of Debridement (cm) - Length 0.5 -Area of Debridement (cm) - Width 0.6 -Total Square (Area) (cm) 0.30 -Tunneling No No -Undermining/Tunneling No No -Circular Undermining No No -Wound/Ulcer Outcome Not Healed Not Healed -Ulcer Cleansing Not Cleansed -Foul Odor after Cleansing No -Bioengineered Tissue No -Bleeding Controlled with NA -Offloading No No -Treatment Response Procedure Procedure Tolerated Well Tolerated Well #1- coccyx -Time 13:52 12:05 -Correct Patient Yes Yes -Correct Side, Site, Position Yes Yes -Correct Procedure Yes Yes -Procedure Performed No No -Post Debridement (cm) - Length 0.8 -Post Debridement (cm) - Width 0.7 -Post Debridement (cm) - Depth 0.2 -Total Square (Post) (cm) 0.56 -Area of Debridement (cm) - Length 0.8 -Area of Debridement (cm) - Width 0.7 -Total Square (Area) (cm) 0.56 -Tunneling No No -Undermining/Tunneling No No -Circular Undermining No No -Wound/Ulcer Outcome Not Healed Not Healed -Ulcer Cleansing Rinsed/ Rinsed/ Irrigated with Irrigated with Saline Saline -Foul Odor after Cleansing No No -Bioengineered Tissue No No -Bleeding Controlled with NA NA -Offloading No No -Treatment Response Procedure Tolerated Well Pain Scale: 0-10 Numeric Is Patient Pain Free? Yes WC - Nurse 3 - General Ulcer D/C NN Start: 11/18/19 13:09 Freq: Status: Active Protocol: Activity Type Activity Date Activity User E-Sign Co-Sign Detail Recorded Client Recorded Date Recorded By Document 11/18/19 13:56 MW [id number] 11/18/19 13:58 MW Document 11/25/19 12:20 BM [id number] 11/25/19 12:22 BM 11/18/19 11/25/19 13:56 12:20 Wound Care Nurse 3 #3- R GROIN CLUSTER -Ulcer Cleansing Rinsed/ Rinsed/ Irrigated with Irrigated with Saline Saline -Foul Odor after Cleansing No No -Negative Pressure Wound Therapy N/A -Primary Dressing Applied Other -Other Dressing staff to apply clindamycin oint at assisted living -Primary Dressing Covered/Secured with Dry Gauze, Secured with Tape #2- L GROIN CLUSTER -Ulcer Cleansing Rinsed/ Rinsed/ Irrigated with Irrigated with Saline Saline -Foul Odor after Cleansing No No -Negative Pressure Wound Therapy N/A -Primary Dressing Applied Promogran Promogran -Primary Dressing Covered/Secured with Dry Gauze, Dry Gauze, Secured with Secured with Tape Tape -Promogran 1 1 #1- coccyx -Ulcer Cleansing Rinsed/ Rinsed/ Irrigated with Irrigated with Saline Saline -Foul Odor after Cleansing No No -Negative Pressure Wound Therapy N/A -Primary Dressing Applied Mepilex Border Mepilex Border, Promogran -Other Dressing PROMOGRAN -Mepilex Border 1 1 -Promogran 0 Treatment Response Procedure Procedure Tolerated Well Tolerated Well Pain Scale: 0-10 Numeric Is Patient Pain Free? Yes Yes Teaching: Wound Center Dressing Your Wound -Person Taught Patient -Teaching Method Discussion -Response to teaching Verbalize understanding WC - Visit Discharge Discharge Condition Stable Stable Ambulatory Status Ambulatory Ambulatory Transportation Private Auto Private Auto Accompanied by SISTER sister Medication Reconcilliation completed & No provided to patient/care provider Clinical Summary of Care Provided Yes Other assisted living Wound debrided: right groin cluster Laterality: Right Severity: Limited To Skin Breakdown No debridement was completed today - Additional Wound Wound debrided: left groin cluster Laterality: Left Patient tolerated procedure: Patient tolerated procedure well Operative Diagnosis: no debridement completed today - no slough present - Additional Wound Wound debrided: coccyx Laterality: Not Applicable Type of Debridement: Selective debridement Anesthesia Used: 4% Lidocaine Solution, 5% Lidocaine Gel Depth: Down to and including healthy tissue, in the subcutaneous layer Percentage of wound debrided: 100 Instrument Used: - - gauze Tissue Removed: Yellow slough, devitalized tissue Severity: Fat Layer Exposed Amount of bleeding with debridement: Mild Bleeding Controlled with: Compression and gauze Patient tolerated procedure: Patient tolerated procedure well Assessment/Plan Active Problems (Last Updated 10/01/17 @ 09:58 by Ena Estrada) Vulval hidradenitis suppurativa (Chronic) Hidradenitis suppurativa (Chronic) Pressure ulcer of coccygeal region, stage 1 (Chronic) Ulcer of left groin with fat layer exposed (Chronic) Assessment: hidradenitis suppurativa of the groin and labia bilaterally. Pilonidal cyst. Pressure ulcer Stage 1 coccyx Plan: Jovana's ulcers were evaluated and examined today. The coccyx has an area that has a tunnel that communicates from one open area to an area that is open distally. There is no obvious purulence or depth to the areas. Wound culture was taken to evaluate for infection and she was started on Flagyl. Will continue treatment with Promogran to the larger areas and Clindamycin gel to the right groin areas. Will have her use Allevyn or optifoam to the coccyx area to help offload. Discussed offloading importance. Discussed that these areas are caused by a chronic condition that waxes and wanes and that resolution would require a significant surgery to remove tissue and sweat glands that may fail to heal or have a prolonged complicated healing time and I do not recommend this for her given her comorbidities and feel that she would benefit from a more palliative approach to treatment as opposed to aggressive treatment. Will consider surgical treatment if infection or worsening develops. She will be placed on palliative treatment plan at this time. Advised to call if worsening or increased erythema or drainage develop. F/U in 1 week.
[2019-12-02 13:25] VITALS: BP 142/72; PULSE 117; RESP 20; TEMP 36.9; BMI 25.4
--- NOTE | 2019-12-02 16:37 | PN.PCM_ITS ---
(1) Vulval hidradenitis suppurativa Status: Chronic Code(s): L73.2 - Hidradenitis suppurativa (2) Hidradenitis suppurativa Status: Chronic Code(s): L73.2 - Hidradenitis suppurativa (3) Pressure ulcer of coccygeal region, stage 1 Status: Chronic Code(s): L89.151 - Pressure ulcer of sacral region, stage 1 (4) Ulcer of left groin with fat layer exposed Status: Chronic Code(s): L98.492 - Non-pressure chronic ulcer of skin of other sites with fat layer exposed Type of Wound Date of Service: 12/02/19 Chief Complaint: Nonhealing ulcers of labia/groin bilaterally and coccyx History of Wound: Jovana is a pleasant 74 yo woman that presents to the wound healing center for evaluation and treatment of nonhealing ulcers to her groin/labia bilaterally and her coccyx. She is a poor histoian due to dementia. She is accompanied by her sister Faina who provides the majority of her history. The areas have been present for approx. 8 months and the staff at the SNF and other wound specialists have been consulted by the staff at the SNF for evaluation and treatment of the areas but there has not been healing. The areas have improved in size but have never healed. Most recently they have been applying triple antibiotic ointment to the areas and using Allevyn on her coccyx. She is unsure of other treatments that have been applied but knows that they have tried multiple different things. She is unsure of whether a wound cul ture has ever been performed. She has never been told she has hidradenitis. She has moderate drainage from the areas but denies erythema. They are sometimes painful. She has a history of diabetes and is on Trulicity for management. She is unsure of her most recent A1C. She is incontinent of urine and wears an adult diaper for management of her incontinence. She has been residing at [facility] for approx. one year. She denies fever, chills or other signs of infection. Progress of Wound: Jovana is here for follow up of ulcers related to hidradenitis. She tolerated treatment with Promogran and clindamycin gel with improvement in the areas and they are healed today. She denies fever or chills or increased drainage or pain. - Physical Exam Vital Signs Temp Pulse Resp BP 98.4 F 117 H 20 H 142/72 H 12/02/19 13:25 12/02/19 13:25 12/02/19 13:25 12/02/19 13:25 General: Alert, Oriented x3, Cooperative, No apparent distress HEENT: Atraumatic, Normocephalic Oral: Moist Mucosa Skin: Ulcer/ Wound Wound Measurements and Assessment WC - Nurse 1 - General Ulcer Measurement Start: 11/18/19 13:09 Freq: Status: Discharge Protocol: Activity Type Activity Date Activity User E-Sign Co-Sign Detail Recorded Client Recorded Date Recorded By Document 12/02/19 13:25 DL [id number] 12/02/19 13:38 DL Edit Status 12/02/19 14:19 BKG DAEMON Active=>Discharge [id number] 12/02/19 14:19 BKG DAEMON 12/02/19 13:25 Wound Center Nurse 1 [Ulcer Assessment] #3- R GROIN CLUSTER -Current Size (cm) - Length 0.1 -Current Size (cm) - Width 0.1 -Current Size (cm) - Depth 0.1 -Total Square Cm 0.01 -Photo Taken No -Exudate Amt Small -Exudate Type Serosanguineous -Wound Margin Thickened -Granulation Amt Large (67-100%) -Granulation Quality [place] -Necrosis Amt Small (1-33%) -Necrotic Tissue Type Adherent Slough -Structure Exposed N/A -Texture (Rachel-wound Skin Appearance) Scarring -Moisture (Rachel-wound Skin Appearance No Abnormality ) -Color (Rachel-wound Skin Appearance) Ecchymosis, Rubor -Temperature (Rachel-wound Skin No Abnormality Appearance) (Pt Warm) -Tenderness on Palpation (Rachel-wound Yes Skin Appearance) -Ulcer Cleansing Rinsed/ Irrigated with Saline -Foul Odor after Cleansing No -Anesthetic Used 4% Lidocaine Solution #2- L GROIN CLUSTER -Current Size (cm) - Length 0.2 -Current Size (cm) - Width 0.2 -Current Size (cm) - Depth 0.2 -Total Square Cm 0.04 -Photo Taken No -Exudate Amt None Present -Wound Margin Thickened -Granulation Amt Large (67-100%) -Granulation Quality [place] -Necrosis Amt None Present (0 %) -Structure Exposed N/A -Texture (Rachel-wound Skin Appearance) Scarring -Color (Rachel-wound Skin Appearance) Ecchymosis, Rubor -Temperature (Rachel-wound Skin No Abnormality Appearance) (Pt Warm) -Tenderness on Palpation (Rachel-wound Yes Skin Appearance) -Ulcer Cleansing Rinsed/ Irrigated with Saline -Foul Odor after Cleansing No -Anesthetic Used 4% Lidocaine Solution #1- coccyx -Current Size (cm) - Length 0.1 -Current Size (cm) - Width 0.1 -Current Size (cm) - Depth 0.1 -Total Square Cm 0.01 -Photo Taken No -Exudate Amt Small -Exudate Type Serosanguineous -Wound Margin Flat & Intact -Granulation Amt Large (67-100%) -Necrosis Amt None Present (0 %) -Structure Exposed N/A -Texture (Rachel-wound Skin Appearance) Excoriation, Scarring -Moisture (Rachel-wound Skin Appearance Weeping ) -Color (Rachel-wound Skin Appearance) Ecchymosis, Rubor -Tenderness on Palpation (Rachel-wound Yes Skin Appearance) -Ulcer Cleansing Rinsed/ Irrigated with Saline -Foul Odor after Cleansing No -Anesthetic Used 4% Lidocaine Solution WC - Nurse 2 - General Ulcer CM Notes Start: 11/18/19 13:09 Freq: Status: Discharge Protocol: Activity Type Activity Date Activity User E-Sign Co-Sign Detail Recorded Client Recorded Date Recorded By Document 12/02/19 14:06 MW [id number] 12/02/19 14:11 MW Edit Status 12/02/19 14:19 VICTORINO DAVILA Active=>Discharge [id number] 12/02/19 14:19 VICTORINO DAVILA 12/02/19 14:06 Wound Center Nurse 2 [Procedure/Treatment] #3- R GROIN CLUSTER -Time 14:09 -Correct Patient Yes -Correct Side, Site, Position Yes -Correct Procedure Yes -Procedure Performed No -Post Debridement (cm) - Length 0 -Post Debridement (cm) - Width 0 -Post Debridement (cm) - Depth 0 -Total Square (Post) (cm) 0 -Wound/Ulcer Outcome Healed- Epithelialized #2- L GROIN CLUSTER -Time 14:10 -Correct Patient Yes -Correct Side, Site, Position Yes -Correct Procedure Yes -Procedure Performed No -Post Debridement (cm) - Length 0 -Post Debridement (cm) - Width 0 -Post Debridement (cm) - Depth 0 -Total Square (Post) (cm) 0 -Wound/Ulcer Outcome Healed- Epithelialized #1- coccyx -Time 14:08 -Correct Patient Yes -Correct Side, Site, Position Yes -Correct Procedure Yes -Procedure Performed No -Post Debridement (cm) - Length 0 -Post Debridement (cm) - Width 0 -Post Debridement (cm) - Depth 0 -Total Square (Post) (cm) 0 -Wound/Ulcer Outcome Healed- Epithelialized [See Physician Procedure note for Specifics] Pain Scale: 0-10 Numeric [Pain] -Is Patient Pain Free? No WC - Nurse 3 - General Ulcer D/C NN Start: 11/18/19 13:09 Freq: Status: Discharge Protocol: Activity Type Activity Date Activity User E-Sign Co-Sign Detail Recorded Client Recorded Date Recorded By Document 12/02/19 14:18 RB [id number] 12/02/19 14:19 RB Edit Status 12/02/19 14:19 BKG DAEMON Active=>Discharge [id number] 12/02/19 14:19 BKG DAEMON 12/02/19 14:18 Wound Care Nurse 3 [Post Procedure Tolerated] -Treatment Response Procedure Tolerated Well Pain Scale: 0-10 Numeric [Pain] -Is Patient Pain Free? Yes Teaching: Wound Center [Wound Center Education] (Items with an * have Printed Materials Available- Please identify what is given to patient under the Teaching materials given to patient and caregiver Section. Discharge Instructions -Person Taught Patient -Teaching Method Discussion -Response to teaching Verbalize understanding WC - Visit Discharge [Visit Discharge Information] -Discharge Condition Stable -Ambulatory Status Ambulatory -Transportation Private Auto -Medication Reconcilliation completed No & provided to patient/care provider -Clinical Summary of Care Provided Yes -Notes: healed photos taken x3 Psych/Mental Status: Normal Affect, Appropriate Debridement Note Post-Debridement Measurements/Treatment WC - Nurse 2 - General Ulcer CM Notes Start: 11/18/19 13:09 Freq: Status: Discharge Protocol: Activity Type Activity Date Activity User E-Sign Co-Sign Detail Recorded Client Recorded Date Recorded By Document 11/18/19 13:35 MW [id number] 11/18/19 13:55 MW Document 11/25/19 12:02 MW [id number] 11/25/19 12:11 MW Document 12/02/19 14:06 MW [id number] 12/02/19 14:11 MW 11/18/19 11/25/19 12/02/19 13:35 12:02 14:06 Wound Center Nurse 2 #3- R GROIN CLUSTER -Time 13:51 12:08 14:09 -Correct Patient Yes Yes Yes -Correct Side, Site, Position Yes Yes Yes -Correct Procedure Yes Yes Yes -Procedure Performed No No No -Post Debridement (cm) - Length 0.2 0 -Post Debridement (cm) - Width 0.2 0 -Post Debridement (cm) - Depth 0.3 0 -Total Square (Post) (cm) 0.04 0 -Area of Debridement (cm) - Length 0.2 -Area of Debridement (cm) - Width 0.2 -Total Square (Area) (cm) 0.04 -Tunneling No No -Undermining/Tunneling No No -Circular Undermining No No -Wound/Ulcer Outcome Not Healed Healed- Epithelialized -Ulcer Cleansing Rinsed/ Not Cleansed Irrigated with Saline -Foul Odor after Cleansing No No -Bioengineered Tissue No No -Bleeding Controlled with NA NA -Offloading No No -Treatment Response Procedure Tolerated Well #2- L GROIN CLUSTER -Time 13:52 12:08 14:10 -Correct Patient Yes Yes Yes -Correct Side, Site, Position Yes Yes Yes -Correct Procedure Yes Yes Yes -Procedure Performed No No No -Post Debridement (cm) - Length 0.5 0 -Post Debridement (cm) - Width 0.6 0 -Post Debridement (cm) - Depth 0.3 0 -Total Square (Post) (cm) 0.30 0 -Area of Debridement (cm) - Length 0.5 -Area of Debridement (cm) - Width 0.6 -Total Square (Area) (cm) 0.30 -Tunneling No No -Undermining/Tunneling No No -Circular Undermining No No -Wound/Ulcer Outcome Not Healed Not Healed Healed- Epithelialized -Ulcer Cleansing Not Cleansed -Foul Odor after Cleansing No -Bioengineered Tissue No -Bleeding Controlled with NA -Offloading No No -Treatment Response Procedure Procedure Tolerated Well Tolerated Well #1- coccyx -Time 13:52 12:05 14:08 -Correct Patient Yes Yes Yes -Correct Side, Site, Position Yes Yes Yes -Correct Procedure Yes Yes Yes -Procedure Performed No No No -Post Debridement (cm) - Length 0.8 0 -Post Debridement (cm) - Width 0.7 0 -Post Debridement (cm) - Depth 0.2 0 -Total Square (Post) (cm) 0.56 0 -Area of Debridement (cm) - Length 0.8 -Area of Debridement (cm) - Width 0.7 -Total Square (Area) (cm) 0.56 -Tunneling No No -Undermining/Tunneling No No -Circular Undermining No No -Wound/Ulcer Outcome Not Healed Not Healed Healed- Epithelialized -Ulcer Cleansing Rinsed/ Rinsed/ Irrigated with Irrigated with Saline Saline -Foul Odor after Cleansing No No -Bioengineered Tissue No No -Bleeding Controlled with NA NA -Offloading No No -Treatment Response Procedure Tolerated Well Pain Scale: 0-10 Numeric Is Patient Pain Free? Yes No WC - Nurse 3 - General Ulcer D/C NN Start: 11/18/19 13:09 Freq: Status: Discharge Protocol: Activity Type Activity Date Activity User E-Sign Co-Sign Detail Recorded Client Recorded Date Recorded By Document 11/18/19 13:56 MW [id number] 11/18/19 13:58 MW Document 11/25/19 12:20 [facility] [id number] 11/25/19 12:22 BM Document 12/02/19 14:18 RB [id number] 12/02/19 14:19 RB 11/18/19 11/25/19 12/02/19 13:56 12:20 14:18 Wound Care Nurse 3 #3- R GROIN CLUSTER -Ulcer Cleansing Rinsed/ Rinsed/ Irrigated with Irrigated with Saline Saline -Foul Odor after Cleansing No No -Negative Pressure Wound Therapy N/A -Primary Dressing Applied Other -Other Dressing staff to apply clindamycin oint at assisted living -Primary Dressing Covered/Secured with Dry Gauze, Secured with Tape #2- L GROIN CLUSTER -Ulcer Cleansing Rinsed/ Rinsed/ Irrigated with Irrigated with Saline Saline -Foul Odor after Cleansing No No -Negative Pressure Wound Therapy N/A -Primary Dressing Applied Promogran Promogran -Primary Dressing Covered/Secured with Dry Gauze, Dry Gauze, Secured with Secured with Tape Tape -Promogran 1 1 #1- coccyx -Ulcer Cleansing Rinsed/ Rinsed/ Irrigated with Irrigated with Saline Saline -Foul Odor after Cleansing No No -Negative Pressure Wound Therapy N/A -Primary Dressing Applied Mepilex Border Mepilex Border, Promogran -Other Dressing PROMOGRAN -Mepilex Border 1 1 -Promogran 0 Treatment Response Procedure Procedure Procedure Tolerated Well Tolerated Well Tolerated Well Pain Scale: 0-10 Numeric Is Patient Pain Free? Yes Yes Yes Teaching: Wound Center Discharge Instructions -Person Taught Patient -Teaching Method Discussion -Response to teaching Verbalize understanding Dressing Your Wound -Person Taught Patient -Teaching Method Discussion -Response to teaching Verbalize understanding WC - Visit Discharge Discharge Condition Stable Stable Stable Ambulatory Status Ambulatory Ambulatory Ambulatory Transportation Private Auto Private Auto Private Auto Accompanied by SISTER sister Medication Reconcilliation completed & No No provided to patient/care provider Clinical Summary of Care Provided Yes Yes Notes: healed photos taken x3 Other assisted living Wound debrided: right groin cluster Laterality: Right Patient tolerated procedure well No debridement was completed today - Additional Wound Wound debrided: left groin cluster Laterality: Left Operative Diagnosis: no debridement completed. Healed - Additional Wound Wound debrided: coccyx Laterality: Not Applicable Operative Diagnosis: no debridement completed. Healed Assessment/Plan Assessment: hidradenitis suppurativa of the groin and labia bilaterally. Pilonidal cyst. Pressure ulcer Stage 1 coccyx Plan: Jovana's ulcers were evaluated and are healed today. Will continue Clidamycin to her groin as needed. Discussed offloading importance. Discussed that these areas are caused by a chronic condition that waxes and wanes and that resolution would require a significant surgery to remove tissue and sweat glands that may fail to heal or have a prolonged complicated healing time and I do not recommend this for her given her comorbidities and feel that she would benefit from a more palliative approach to treatment as opposed to aggressive treatment. Will consider surgical treatment if infection or worsening develops. She will be placed on palliative treatment plan at this time. Advised to call if worsening or increased erythema or drainage develop. F/U as needed. Discharged from treatment at this time.
== END 2019-12-02 14:19 | disposition home or self-care (01) ==
LOC: WC 13:00
PROVIDERS: PCP Family Medicine; Visit Provider Family Medicine
DX: L73.2 Hidradenitis suppurativa (principal); L89.151 Pressure ulcer of sacral region, stage 1; F03.90 Unspecified dementia, unspecified severity, without behavioral disturbance, psychotic disturbance, mood disturbance, and anxiety; E11.9 Type 2 diabetes mellitus without complications; R32 Unspecified urinary incontinence; L05.91 Pilonidal cyst without abscess; Z79.84 Long term (current) use of oral hypoglycemic drugs; Z79.899 Other long term (current) drug therapy; Z82.49 Family history of ischemic heart disease and other diseases of the circulatory system; Z88.0 Allergy status to penicillin
CPT/HCPCS: 87070; 87075; 87077; 87186; 87205; 99203; 99212; 99213; G0463

== ENCOUNTER → 2019-12-06 08:55 | Outpatient (REF) | payer MEDICARE, SELFPAY ==
[2019-12-02 13:25] VITALS: BMI 25.4
[2019-12-06 10:58] LABS: Absolute Neutrophil Count 5.2 X10^3/uL (2.0-7.7); Basophil# 0.04 X10^3/uL; Basophil% 0.5 % (0-1); Eosinophil# 0.31 X10^3/uL; Eosinophils% 4.1 % (0-5); Hematocrit 38.2 % (37-47); Hemoglobin 11.6 g/dL (12.0-15.0); Lymphocyte % 18.7 % (19-41); Mean Corp Hgb Conc 30.4 g/dL (32-36); Mean Corpuscular Volume 95.5 fL (81-99); Mean Platelet Vol. 10.3 fl (6.2-12.0); Monocyte# 0.48 X10^3/uL; Monocyte% 6.4 % (0-10); NRBC Flagged by Analyzer 0 % (0-5); Neutrophil # 5.22 X10^3/uL (2.7-7.7); Neutrophil % 69.8 % (47-70); Platelet Count 355 K/mm3 (150-450); RBC Distribution Width CV 14.9 % (11.6-14.6); RBC Distribution Width SD 51.8 fl (35.1-43.9); White Blood Count 7.5 K/mm3 (4.4-11.0)
[2019-12-06 11:00] LABS: Anion Gap 4 (5-15); BUN 26 mg/dL (7-18); BUN/Creat Ratio 24.5 RATIO (10-20); Calcium,Total 9.2 mg/dL (8.5-10.1); Chloride 106 mmol/L (98-107); Cholesterol 201 mg/dL (200); Creatinine, Serum 1.06 mg/dL (0.55-1.02); EST Glomerular Filtration Rate 54 mL/min (>60); Est Glom Filt Rate - Afr Amer 65 mL/min (>60); Glucose 101 mg/dL (74-106); High Density Lipoprotein 36 mg/dL; Iron 55 ug/dL (50-170); Potassium 3.7 mmol/L (3.5-5.1); Sodium Level 140 mmol/L (136-145); Triglycerides 197 mg/dL; Very Low Density Lipoprotein 39 mg/dL (5-40)
[2019-12-06 11:26] LABS: Hemoglobin A1c 6.1 % (3.8-5.6)
== END ==
LOC: OLS.BROOKB 08:55
PROVIDERS: PCP Family Medicine; Referring Provider Family Medicine; Visit Provider Family Medicine
DX: D64.9 Anemia, unspecified (principal); E11.9 Type 2 diabetes mellitus without complications
CPT/HCPCS: 80048; 80061; 83036; 83540; 85025

== ENCOUNTER → 2019-12-15 08:45 | Outpatient (REF) | payer MEDICARE, SELFPAY ==
[2019-12-02 13:25] VITALS: BMI 25.4
[2019-12-15 12:08] LABS: Anion Gap 8 (5-15); BUN 22 mg/dL (7-18); BUN/Creat Ratio 23.1 RATIO (10-20); Calcium,Total 8.7 mg/dL (8.5-10.1); Chloride 105 mmol/L (98-107); Creatinine, Serum 0.95 mg/dL (0.55-1.02); EST Glomerular Filtration Rate 61 mL/min (>60); Est Glom Filt Rate - Afr Amer 73 mL/min (>60); Glucose 88 mg/dL (74-106); Potassium 3.4 mmol/L (3.5-5.1); Sodium Level 139 mmol/L (136-145)
== END ==
LOC: OLS.BROOKB 08:45
PROVIDERS: PCP Family Medicine; Visit Provider Family Medicine
DX: E11.9 Type 2 diabetes mellitus without complications (principal); Z79.899 Other long term (current) drug therapy
CPT/HCPCS: 80048; 83036

== ENCOUNTER 2020-01-26 17:27 | Inpatient (IN) | payer MEDICARE, SELFPAY ==
[2020-01-26 17:28] VITALS: BP 197/96; PULSE 105; RESP 20; TEMP 36.6; O2SAT 98; BMI 26.9
--- NOTE | 2020-01-26 17:31 | EKG12_ITS ---
Test Reason : FALL Blood Pressure : / mmHG Vent. Rate : 092 BPM Atrial Rate : 092 BPM P-R Int : 170 ms QRS Dur : 088 ms QT Int : 388 ms P-R-T Axes : 008 -36 099 degrees QTc Int : 479 ms Normal sinus rhythm with sinus arrhythmia Left axis deviation Nonspecific T wave abnormality Prolonged QT Poor R wave progression Abnormal ECG Confirmed by SERA ADHIKARI, GARRETT ([id number]), loan expeditor IMELDA TORRES ([id number]) on 01/27/2020 11:11:03 AM Referred By: Eddy Burroughs Confirmed By:GARRETT ZAMORA MD
--- NOTE | 2020-01-26 17:35 | ED.VIS.GEN ---
History of Present Illness Chief Complaint: Fall Informant: Patient, Continuous Improvement Intern Onset: Today Timing: Continuous Current Severity: Moderate Maximum Severity: Moderate Narrative: The patient is a 74-year-old female that presents to the emergency department left hip pain. Patient has history of dementia. She lives at [facility]. She had a fall today. She was found on the ground complaining of significant pain in her left hip. She cannot recall the details of the fall. She was unable to stand or bear weight. She denies other injury. History is hard to gather from the patient given her history of dementia. She is not on anticoagulants. She has not received anything for pain prior. She denies headache or vision change. Prior similar symptoms: No Recent Illness/Hospitalization: No Past Medical History - Allergies and Home Meds Allergies/Adverse Reactions: Allergies penicillin V [From Pen-Vee K] Allergy (Verified 11/18/19 13:31) Unknown Primary Care Physician: Libia Valdivia MD [Primary Care Provider] - Prior records reviewed: Yes Past Medical History: - - Dementia, hypertension, diabetes Surgical History: no surgical history Smoking Status: Never smoker - Family History Sibling Family History: Family History (Last Updated 10/01/17 @ 09:59 by Ena Estrada) Mother Bone cancer Father Heart disease Diabetes Family History: Reports: - - hidradenitis Review of Systems General: Denies: Chills, Fever, Sweats Eyes: Denies: Visual changes - bilaterally, Diplopia ENT: Denies: Rhinorrhea, Sore throat Cardiovascular: Denies: Chest pain, Palpitations Respiratory: Denies: Dyspnea, Cough, Dyspnea on exertion Gastrointestinal: Denies: Abdominal pain, Nausea, Vomiting, Diarrhea, Melena, Hematochezia Genitourinary: Denies: Dysuria, Hematuria, Frequency Musculoskeletal: Denies: Back pain, Extremity Pain Skin: Denies: Rash, Wounds Neurological: Denies: Headache, Weakness, Numbness Physical Exam Vital Signs/Narrative: Vital Signs Temp Pulse Resp BP Pulse Ox 01/26/20 17:28 97.8 F 105 H 20 H 197/96 H 98 Inital Vital Signs reviewed: Yes General: Well nourished, Well developed, No Acute Distress Head: Normocephalic, Atraumatic Eyes: Perrl, EOMI ENT: Moist mucous membranes, No rhinorrhea Neck: Supple, Nontender Cardiovascular: Regular rate, Regular rhythm, No murmurs Respiratory: No distress, CTA bilaterally, Chest nontender Abdomen: Soft, Nontender, Nondistended, Normal bowel sounds Back: Nontender, Normal Inspection Extremities: No edema, Tenderness - Tender over the left hip. Shortened and externally rotated. Neurovascularly intact. Pelvis stable. Skin: Normal color, No rash Neurological: Alert, Oriented x3, Cranial nerves II-XII grossly intact, Normal Strength, Normal Sensation Psychological: Normal affect, Normal Mood Diagnostic/Tx/Re-eval Clinical Impression(s) from Imaging Studies Chest X-Ray 01/26/20 17:58 IMPRESSION: No acute cardiopulmonary findings or changes. Negative for pneumothorax, pleural effusion or other acute pulmonary findings. Normal heart size. Atherosclerotic changes of the thoracic aorta. Demineralized osseous structures are without a demonstrated thoracic fracture Electronically Signed: Theodora Campos MD at 18:22 EST , Service support , Hip/Pelvis X-Ray 01/26/20 17:58 IMPRESSION: Acute left intertrochanteric fracture with mild impaction and external rotation. Negative for pelvic fracture. Degenerative changes as stated above. Electronically Signed: Theodora Campos MD at 18:23 EST , Service support , Abnormal Lab Results 01/26/20 01/26/20 01/26/20 17:40 17:40 17:40 WBC 11.9 H RBC 4.02 L Hgb 11.9 L Hct 38.4 MCV 95.5 MCH 29.6 MCHC 31.0 L RDW Std Deviation 52.1 H RDW Coeff of Moy 15.0 H Plt Count 359 MPV 9.7 Immature Gran % (Auto) 0.500 Neut % (Auto) 60.1 Lymph % (Auto) 29.5 Stearns % (Auto) 6.7 Eos % (Auto) 2.6 Baso % (Auto) 0.6 Absolute Neuts (auto) 7.1 Absolute Lymphs (auto) 3.50 Nucleated RBC % 0 PT 12.6 INR 1.0 Sodium 140 Potassium 3.4 L Chloride 105 Carbon Dioxide 26.0 Anion Gap 9 BUN 27 H Creatinine 1.26 H Estim Creat Clear Calc 33.31 Est GFR (MDRD) Af Amer 53 L Est GFR (MDRD) Non-Af 44 L BUN/Creatinine Ratio 21.4 H Glucose 110 H Calcium 9.6 Total Bilirubin 0.20 AST 22 ALT 32 Alkaline Phosphatase 68 Total Protein 8.3 H Albumin 2.8 L Globulin 5.5 H Albumin/Globulin Ratio 0.5 L - Rhythm Strip Rhythm Strip: Sinus Rhythm Rate: 80 Ectopy: None - EKG Initial EKG Interpretation: Sinus Rhythm, No Acute Injury Pattern Prior: Unchanged - Medical Decision Making Patient presents after mechanical fall. She is complaining of pain in her hip. She cannot recall the details of the fall. She does have rather advanced dementia on review of the records. EKG was obtained. It showed sinus rhythm without acute ischemia. The patient underwent imaging. Chest x-ray reviewed by myself shows no acute abnormalities. X-ray of the hip and pelvis demonstrate a left mildly impacted intertrochanteric fracture. Screening labs are unremarkable. I did discuss this with Dr. Castaneda, on-call for orthopedics. He agreed with plan for hospitalization for orthopedic intervention. Patient was discussed with the hospitalist. Covid testing is pending. Impression 1. Mechanical fall 2. Left intertrochanteric hip fracture ED Disposition - Plan for ED Patient: Referrals: Libia Valdivia MD [Primary Care Provider] -
[2020-01-26] MEDS: Ondansetron 4 MG/2 ML Vial IV (17:41)
[2020-01-26] MEDS: fentaNYL 100 MCG/2 ML Ampul 25 MCG IV (17:41)
--- NOTE | 2020-01-26 17:43 | NURSING ---
NO OLD EKGS
[2020-01-26 17:53] LABS: Absolute Neutrophil Count 7.1 X10^3/uL (2.0-7.7); Basophil# 0.07 X10^3/uL; Basophil% 0.6 % (0-1); Eosinophil# 0.31 X10^3/uL; Eosinophils% 2.6 % (0-5); Hematocrit 38.4 % (37-47); Hemoglobin 11.9 g/dL (12.0-15.0); Lymphocyte % 29.5 % (19-41); Mean Corpuscular Hgb 29.6 pg (27.0-32.0); Mean Corpuscular Volume 95.5 fL (81-99); Mean Platelet Vol. 9.7 fl (6.2-12.0); Monocyte# 0.79 X10^3/uL; Monocyte% 6.7 % (0-10); NRBC Flagged by Analyzer 0 % (0-5); Neutrophil # 7.13 X10^3/uL (2.7-7.7); Neutrophil % 60.1 % (47-70); Platelet Count 359 K/mm3 (150-450); RBC Distribution Width SD 52.1 fl (35.1-43.9); Red Blood Count 4.02 M/mm3 (4.2-5.4); White Blood Count 11.9 K/mm3 (4.4-11.0)
--- NOTE | 2020-01-26 17:58 | RAD_ITS ---
STUDY: X-RAY CHEST REASON FOR EXAM: Female, 74 years old. COUGH; UNWITNESSED FALL TECHNIQUE: 1 view COMPARISON: Prior chest radiograph of 08/12/2013 FINDINGS: The lungs are clear and expanded. There is no demonstrated pleural abnormality. Normal size heart. Hiatal hernia. Normal visualized pulmonary arteries. There is atherosclerotic calcification of the aortic arch with tortuosity. There are diffuse degenerative changes of the visualized thoracic spine. Normal visualized ribs, clavicles, and shoulders. There is no demonstrated abnormality of the visualized soft tissue structures of the upper abdomen. RAD/Chest 1 View (Portable) IMPRESSION: No acute cardiopulmonary findings or changes. Negative for pneumothorax, pleural effusion or other acute pulmonary findings. Normal heart size. Atherosclerotic changes of the thoracic aorta. Demineralized osseous structures are without a demonstrated thoracic fracture Electronically Signed: Theodora Campos MD at 18:22 EST , Service support ,
--- NOTE | 2020-01-26 17:58 | RAD_ITS ---
STUDY: X-RAY - PELVIS AND LEFT HIP REASON FOR EXAM: Female, 74 years old. UNWITNESSED FALL; PAIN LEFT HIP/FEMUR TECHNIQUE: 3 views of the pelvis and hip. COMPARISON: None. FINDINGS: There is a non-specific bowel gas pattern. Normal visualized soft tissue structures. Atherosclerotic vascular calcifications. The pelvic ring is intact without acute fracture deformity. Degenerative changes of the sacroiliac joints. Normal bilateral superior and inferior pubic rami. There are degenerative changes of the pubic symphysis with articular narrowing and sclerosis. Normal bilateral ischial tuberosities. Acute intertrochanteric fracture of the proximal left femur with mild impaction and external rotation. Normal acetabulum. There is mild articular joint space narrowing of the hip. RAD/HIP, UNI W/ Pelvis 2-3 Views IMPRESSION: Acute left intertrochanteric fracture with mild impaction and external rotation. Negative for pelvic fracture. Degenerative changes as stated above. Electronically Signed: Theodora Campos MD at 18:23 EST , Service support ,
[2020-01-26 18:05] LABS: Prothrombin Time (Protime)PT. 12.6 SECONDS (11.7-14.9)
[2020-01-26 18:09] LABS: ALB/GLOB Ratio 0.5 RATIO (0.9-2.4); AST(SGOT) 22 U/L (15-37); Alanine Aminotransfer ALT/SGPT 32 U/L (13-56); Albumin, Serum 2.8 g/dL (3.2-5.0); Alkaline Phosphatase 68 U/L (45-117); Anion Gap 9 (5-15); BUN 27 mg/dL (7-18); BUN/Creat Ratio 21.4 RATIO (10-20); Calcium,Total 9.6 mg/dL (8.5-10.1); Chloride 105 mmol/L (98-107); Creatinine, Serum 1.26 mg/dL (0.55-1.02); EST Glomerular Filtration Rate 44 mL/min (>60); Est Glom Filt Rate - Afr Amer 53 mL/min (>60); Estimated Creatinine Clearance 33.31 ml/min; Globulin 5.5 g/dL (2.2-4.2); Glucose 110 mg/dL (74-106); Potassium 3.4 mmol/L (3.5-5.1); Protein, Total 8.3 g/dL (6.4-8.2); Sodium Level 140 mmol/L (136-145)
[2020-01-26] MEDS: fentaNYL 100 MCG/2 ML Ampul 50 MCG IV (20:28)
[2020-01-26 20:31] VITALS: BP 129/81; PULSE 108; RESP 17; O2SAT 96
--- NOTE | 2020-01-26 20:33 | PCM.HP.STD ---
Problem List (1) Intertrochanteric fracture Status: Acute Qualifiers: Encounter type: initial encounter Fracture type: closed Laterality: left (2) Hypergammaglobulinemia Status: Chronic (3) Left thyroid nodule Status: Chronic (4) Right thyroid nodule Status: Chronic (5) Vulval hidradenitis suppurativa Status: Chronic (6) Hidradenitis suppurativa Status: Chronic (7) Pressure ulcer of coccygeal region, stage 1 Status: Chronic (8) Ulcer of left groin with fat layer exposed Status: Chronic History of Present Illness Date of Admission: 01/26/20 Chief Complaint: fall The patient is a 74 year old F with a significant history of diabetes; gout; hypergammaglobulinemia; hypertension; and short-term memory loss who presented to emergency department with a fall. [facility] and she walks with an assistive device. Reportedly she had a mechanical fall. History was taken for emergency department doctor because patient has dementia and is unable to provide accurate information. Patient thinks that she may have fallen but she is normal 100% sure. She reports pain in her left hip. She described the pain as 'it is just there'. Past Medical History Past Medical History (Chronic Problems): Chronic Problems (Last Reviewed 01/26/20 @ 22:[address] Eddy Burroughs MD) Hypergammaglobulinemia (Chronic) Left thyroid nodule (Chronic) Right thyroid nodule (Chronic) Vulval hidradenitis suppurativa (Chronic) Hidradenitis suppurativa (Chronic) Pressure ulcer of coccygeal region, stage 1 (Chronic) Ulcer of left groin with fat layer exposed (Chronic) Medical History: Medical History (Last Reviewed 01/26/20 @ 22:[address] Eddy Burroughs MD) Diabetes E11.9 Gout M10.9 Hypergammaglobulinemia D89.2 Short-term memory loss R41.3 Hypertension I10 Allergies penicillin V [From Pen-Vee K] Allergy (Verified 11/18/19 13:31) Unknown Home Medications: Ambulatory Orders Medication Instructions Recorded Allopurinol [Zyloprim] 100 mg PO DAILY 06/09/16 Torsemide [Demadex] 20 mg PO DAILY 06/09/16 metFORMIN HCl [Glucophage] 850 mg PO BIDCM 06/09/16 Dulaglutide [Trulicity] 0.75 mg SQ TU 10/09/16 Cetirizine HCl 10 mg PO DAILY 01/19/19 Galantamine HBr 4 mg PO BID 01/19/19 Quetiapine Fumarate 12.5 mg PO DAILY 01/19/19 Ferrous Sulfate 325 mg PO DAILY 01/26/20 Fluoxetine HCl 40 mg PO DAILY PRN PRN 01/26/20 Multivitamins,Therapeutic 1 tab PO DAILY 01/26/20 [Multivitamin] Quetiapine Fumarate [Seroquel] 50 mg PO QHS 01/26/20 Surgical History: Surgical History (Last Reviewed 01/26/20 @ 22:[address] Eddy Burroughs MD) History of cholecystectomy Z90.49 History of hysterectomy Z90.710 Smoking Status: Never smoker - *Family History Sibling Family History: Family History (Last Reviewed 01/26/20 @ 22:[address] Eddy Burroughs MD) Mother Bone cancer Father Heart disease Diabetes History Items: - - hidradenitis Review of Systems Constitutional: Denies: Chills, Fever, Weight Change HEENT: Denies: Head Aches, Sinus Congestion, Sinus Drainage Cardiovascular: Denies: Chest Pain, Palpitations Respiratory: Denies: Cough, Shortness of breath at rest, Sputum production Gastrointestinal: Denies: Abdominal Pain, Nausea, Vomiting Genitourinary: Denies: Dysuria Musculoskeletal: Reports: Joint Pain - Left hip, Joint Tenderness - Left Hip Skin: Denies: Rash, Wounds Neurological: Denies: Numbness, Tingling, Focal weakness Psychiatric: Denies: Anxiety, Depression, Homicidal Ideations, Suicidal Ideations Hematologic/ Lymphatic: Denies: Easy Bruising, Easy Bleeding VTE Information - Inpt Only VTE Present on Admission: No VTE Mechan Device Prophylaxis: SCD's VTE Pharm Prophylaxis ordered?: No Patient Problems: Active and Suspected Problems (Last Reviewed 01/26/20 @ 22:[address] Eddy Burroughs MD) Intertrochanteric fracture (Acute) - Physical Exam Vitals/I&O's: Vital Signs Temp Pulse Resp BP Pulse Ox 97.8 F 108 H 17 129/81 H 96 01/26/20 17:28 01/26/20 20:31 01/26/20 20:31 01/26/20 20:31 01/26/20 20:31 Oxygen Delivery Method Room Air Weight: 71.3 kg Body Mass Index (BMI) 26.9 General: Alert, Oriented x3, Cooperative HEENT: Atraumatic, PERRLA, EOMI, Normocephalic Neck: Supple, No JVD, Negative Carotid Bruits Lungs: Clear to auscultation, Normal air movement Cardiovascular: Regular rate, No murmurs Abdomen: Bowel Sounds Present, Soft, Non Tender Extremities: No edema, Capillary Refill Less than 3 Seconds Skin: No rashes, No breakdown Musculoskeletal: - - Rotated left leg. Neurological: Cranial nerves II-XII grossly intact Psych/Mental Status: Normal Affect, Appropriate Laboratory Results 01/26/20 17:40: WBC 11.9 H, RBC 4.02 L, Hgb 11.9 L, Hct 38.4, MCV 95.5, MCH 29.6, MCHC 31.0 L, RDW Std Deviation 52.1 H, RDW Coeff of Moy 15.0 H, Plt Count 359, MPV 9.7, Immature Gran % (Auto) 0.500, Neut % (Auto) 60.1, Lymph % (Auto) 29.5, Hodgeman % (Auto) 6.7, Eos % (Auto) 2.6, Baso % (Auto) 0.6, Absolute Neuts (auto) 7.1, Absolute Lymphs (auto) 3.50, Nucleated RBC % 0 01/26/20 17:40: PT 12.6, INR 1.0 01/26/20 17:40: Sodium 140, Potassium 3.4 L, Chloride 105, Carbon Dioxide 26.0, Anion Gap 9, BUN 27 H, Creatinine 1.26 H, Estim Creat Clear Calc 33.31, Est GFR (MDRD) Af Amer 53 L, Est GFR (MDRD) Non-Af 44 L, BUN/Creatinine Ratio 21.4 H, Glucose 110 H, Calcium 9.6, Total Bilirubin 0.20, AST 22, ALT 32, Alkaline Phosphatase 68, Total Protein 8.3 H, Albumin 2.8 L, Globulin 5.5 H, Albumin/Globulin Ratio 0.5 L 01/26/20 18:30: COVID-19 ([facility]) Pending Assessment/Plan All Active Problems (Last Reviewed 01/26/20 @ 22:[address] Eddy Burroughs MD) Intertrochanteric fracture (Acute) Fall with acute left intertrochanteric fracture Radiologist impression of hip/pelvis x-ray: Acute left intertrochanteric fracture with mild impaction and external rotation. Actual hip/pelvis x-ray image was independently reviewed. I agree with radiologist interpretation. Emergency department doctor reported discussed the case with Dr. Sadi Castaneda, orthopedic surgeon who will follow on consult. Orthopedic surgery consult placed. We will keep patient n.p.o. except meds for possible surgical intervention. Covid test was negative. Vitamin B12 and vitamin D level ordered. EKG showed sinus rhythm with nonspecific T wave abnormalities. ACS NSQIP stratification showed above average risk for cardiac complications; she has complications and any other complication. Will place patient at PCU cardiac telemetry for lisa-operative management. Received of fentanyl at emergency department. As needed morphine ordered. Bowel protocol and antiemetics in place. No weightbearing on left leg. Depression/anxiety Fluoxetine continued Quetiapine continued. History of bilateral leg edema Hold home torsemide in the setting of patient being kept n.p.o. Resume when appropriate. Leukocytosis white count of 11.9 Likely reactive. Trend. Complete urinalysis ordered. Hypertensive urgency With blood pressure of 197/96. Likely pain contributing. As needed labetalol ordered. Diabetes mellitus Blood glucose was elevated on presentation On home Trulicity weekly Metformin held in the hospital settings Accu-Chek with correction scale insulin ordered. Dementia Galantamine continued. DVT prophylaxis SCD ordered no chemical thromboprophylaxis because of possible surgical intervention. Inpatient E&M: 17753 Init Hosp L3
[2020-01-26 21:38] VITALS: BP 174/84; PULSE 97; RESP 16; TEMP 36.6; O2SAT 96
[2020-01-26 22:25] VITALS: BMI 26.1
[2020-01-26 22:30] VITALS: BP 164/100; PULSE 97; RESP 18; TEMP 36.9; O2SAT 97
[2020-01-26 22:48] VITALS: PULSE 115
[2020-01-26] MEDS: Acetaminophen 325 MG Tablet 650 MG PO (22:51)
[2020-01-26] MEDS: Morphine 2 MG/ML Syringe 1 MG IV (22:52)
[2020-01-26 23:24] LABS: Bacteria 0 SEEN /hpf (None Seen); Mucous, Urine 0 SEEN /hpf (<or=2+); White Blood Cells 0 SEEN /hpf (0-5)
[2020-01-26 23:27] LABS: Color, Urine Yellow (Yellow); Glucose, Dipstick Normal (Normal); Ketone-Dipstick Negative (Negative); Leukocyte Esterase-Dipstick 500 /ul (Negative); Nitrite-Dipstick Negative (Negative); Occult Blood-Urine 50 /ul (Negative); Protein-Dipstick 30 mg/dl (Negative); Urine Bilirubin Dipstick Negative (Negative); Urine Clarity Clear (Clear); Urine Urobilinogen Normal (Normal)
[2020-01-26 23:36] LABS: Bedside Glucose 150 mg/dL (70-110)
[2020-01-26 23:37] LABS: Red Blood Cells-Urine 5-10 SEEN /hpf (0-5); Squamous Epithelial Cells - UA 25-50 SEEN /hpf (5-10)
[2020-01-26] MEDS: Galantamine Hydrobromide 4 MG Tablet PO (23:38)
[2020-01-26] MEDS: QUEtiapine 25 MG Tablet 50 MG PO (23:39)
[2020-01-27] VITALS (14 sets, daily range): BP systolic 108–170; BP diastolic 60–89; PULSE 75–117; RESP 13–18; TEMP 36.3–36.9; O2SAT 88–98; BMI 26.1
[2020-01-27] MEDS: Morphine 2 MG/ML Syringe 1 MG IV ×2 (04:06→11:51)
[2020-01-27] MEDS: 0.9% Saline Lock 10 ML Syringe IV (04:07)
[2020-01-27 06:03] LABS: Absolute Lymphocyte Count 1.58 X10^3/uL (0.83-4.51); Absolute Neutrophil Count 11.4 X10^3/uL (2.0-7.7); Basophil# 0.05 X10^3/uL; Basophil% 0.4 % (0-1); Eosinophils% 1.4 % (0-5); Hematocrit 36.4 % (37-47); Hemoglobin 11.2 g/dL (12.0-15.0); Lymphocyte # 1.58 X10^3/ul (4.0); Lymphocyte % 11.3 % (19-41); Mean Corp Hgb Conc 30.8 g/dL (32-36); Mean Corpuscular Hgb 29.4 pg (27.0-32.0); Mean Corpuscular Volume 95.5 fL (81-99); Monocyte# 0.82 X10^3/uL; Monocyte% 5.8 % (0-10); NRBC Flagged by Analyzer 0 % (0-5); Neutrophil # 11.36 X10^3/uL (2.7-7.7); Neutrophil % 80.9 % (47-70); Platelet Count 305 K/mm3 (150-450); RBC Distribution Width CV 15.1 % (11.6-14.6); RBC Distribution Width SD 53.3 fl (35.1-43.9); Red Blood Count 3.81 M/mm3 (4.2-5.4)
[2020-01-27 06:26] LABS: Bedside Glucose 141 mg/dL (70-110)
[2020-01-27 06:28] LABS: Anion Gap 5 (5-15); BUN 26 mg/dL (7-18); BUN/Creat Ratio 23.6 RATIO (10-20); Calcium,Total 9.1 mg/dL (8.5-10.1); Chloride 110 mmol/L (98-107); EST Glomerular Filtration Rate 51 mL/min (>60); Est Glom Filt Rate - Afr Amer 62 mL/min (>60); Estimated Creatinine Clearance 36.55 ml/min; Glucose 132 mg/dL (74-106); Potassium 4.2 mmol/L (3.5-5.1); Sodium Level 142 mmol/L (136-145)
[2020-01-27 10:11] LABS: Vitamin B12 282 pg/mL (211-911); Vitamin D,25 Hydroxy 26.8 ng/mL
--- NOTE | 2020-01-27 10:46 | NURSING ---
Was asked to see patient for pressure injury to sacrum. pt refusing to let this nurse turn patient at this time d/t left hip pain. pt has a left intertrochanteric fracture according to the x-ray. pt is NPO for possible surgical intervention later today. this nurse will try to reassess sacrum after surgery. pattern finisher RN had placed dressing last pm. according to report, pressure injury appears to be small.
[2020-01-27] MEDS: Multivitamins,Therapeutic Tablet 1 TABLET PO (11:46)
[2020-01-27] MEDS: Ferrous Sulfate 325 MG Tablet PO (11:46)
[2020-01-27] MEDS: Allopurinol 100 MG Tablet PO (11:47)
[2020-01-27] MEDS: Loratadine 10 MG Tablet PO (11:47)
[2020-01-27] MEDS: QUEtiapine 25 MG Tablet 12.5 MG PO (11:50)
[2020-01-27] MEDS: Galantamine Hydrobromide 4 MG Tablet PO ×2 (11:50→20:25)
--- NOTE | 2020-01-27 12:01 | CASEMGMT ---
Pt is here from [facility], she has dementia as documented in the chart. As per chart, pt's sister Vita Ochoa is the POA for healthcare, form is on chart. SW called Vita to inquire about pt's prior level of function and discharge plan. Vita has not spoken w/the doctor yet, and is focused on that; she has not heard yet what type of surgery pt will be having. SW explained we will be back in touch with her after the surgery to discuss the plan, as pt will likely not be able to return to [facility] at discharge. Pt's sister states understanding, but at this point is focused on the next steps here and at this time not appropriate for SW to proceed with conversation about halfway choices. SW let RN and PA know sister is concerned about what is going on and would like to speak w/the surgeon. SW will follow up w/pt's sister after surgery. RADHA [address]
[2020-01-27 12:26] LABS: Bedside Glucose 117 mg/dL (70-110)
--- NOTE | 2020-01-27 13:47 | PN_ITS ---
<Michelet Jade - Last Filed: 01/27/20 13:47> Patient Problems: Active and Suspected Problems (Last Reviewed 01/26/20 @ 22:[address] Eddy Burroughs MD) Intertrochanteric fracture (Acute) Reason for Visit: Hip fracture-left Subjective: Patient resting comfortably in bed no acute distress. Seen and examined prior to surgery. No shortness of breath, cough, fever, chill, chest pain, lightheadedness, dizziness, lower extremity edema, nausea, vomiting, abdominal pain. She states she has no pain at rest, and states that she has mild pain when moving in bed. She denies numbness or tingling in the lower extremities. Vitals/I&O's: Vital Signs Temp Pulse Resp BP Pulse Ox 97.8 F 83 13 134/60 H 95 01/27/20 09:45 01/27/20 09:45 01/27/20 09:45 01/27/20 09:45 01/27/20 09:45 Oxygen Delivery Method Room Air Weight: 147 lb 7.828 oz Body Mass Index (BMI) 26.1 Intake and Output for Last 24 Hours 01/25/20 01/26/20 01/27/20 23:59 23:59 23:59 Intake Total 30 / 30 Output Total 900 / 900 Balance -870 / -870 General: Alert, Oriented x3, Cooperative HEENT: Atraumatic, PERRLA, EOMI, Normocephalic Neck: Supple, No JVD, Negative Carotid Bruits Lungs: Clear to auscultation, Normal air movement Cardiovascular: Regular rate, No murmurs Abdomen: Bowel Sounds Present, Soft, Non Tender Extremities: No edema, Capillary Refill Less than 3 Seconds Skin: No rashes, No breakdown Musculoskeletal: No Tenderness to Palpation of Joints or Extremities Neurological: Cranial nerves II-XII grossly intact Psych/Mental Status: Normal Affect, Appropriate, Alert and oriented to time, p lace, person, mood and affect Laboratory Results 01/26/20 17:40: WBC 11.9 H, RBC 4.02 L, Hgb 11.9 L, Hct 38.4, MCV 95.5, MCH 29.6, MCHC 31.0 L, RDW Std Deviation 52.1 H, RDW Coeff of Moy 15.0 H, Plt Count 359, MPV 9.7, Immature Gran % (Auto) 0.500, Neut % (Auto) 60.1, Lymph % (Auto) 29.5, Greenlee % (Auto) 6.7, Eos % (Auto) 2.6, Baso % (Auto) 0.6, Absolute Neuts (auto) 7.1, Absolute Lymphs (auto) 3.50, Nucleated RBC % 0 01/26/20 17:40: PT 12.6, INR 1.0 01/26/20 17:40: Sodium 140, Potassium 3.4 L, Chloride 105, Carbon Dioxide 26.0, Anion Gap 9, BUN 27 H, Creatinine 1.26 H, Estim Creat Clear Calc 33.31, Est GFR (MDRD) Af Amer 53 L, Est GFR (MDRD) Non-Af 44 L, BUN/Creatinine Ratio 21.4 H, Glucose 110 H, Calcium 9.6, Total Bilirubin 0.20, AST 22, ALT 32, Alkaline Phosphatase 68, Total Protein 8.3 H, Albumin 2.8 L, Globulin 5.5 H, Albumin/Globulin Ratio 0.5 L 01/26/20 18:30: COVID-19 ([facility]) Not Detected 01/26/20 23:15: Urine Color Yellow, Urine Clarity Clear, Urine pH 6.0, Ur Specific [place] 1.010, Urine Protein 30 H, Urine Glucose (UA) Normal, Urine Ketones Negative, Urine Occult Blood 50 H, Urine Nitrite Negative, Urine Bilirubin Negative, Urine Urobilinogen Normal, Ur Leukocyte Esterase 500 H, Urine RBC 5-10 SEEN, Urine WBC 0 SEEN, Ur Squamous Epith Cells 25-50 SEEN, Urine Bacteria 0 SEEN, Urine Mucus 0 SEEN 01/26/20 23:28: POC Glucose 150 H 01/27/20 05:17: Vitamin B12 282, Vitamin D 25-Hydroxy 26.8 01/27/20 05:17: WBC 14.0 H, RBC 3.81 L, Hgb 11.2 L, Hct 36.4 L, MCV 95.5, MCH 29.4, MCHC 30.8 L, RDW Std Deviation 53.3 H, RDW Coeff of Moy 15.1 H, Plt Count 305, MPV 10.0, Immature Gran % (Auto) 0.200, Neut % (Auto) 80.9 H, Lymph % (Auto) 11.3 L, Greenlee % (Auto) 5.8, Eos % (Auto) 1.4, Baso % (Auto) 0.4, Absolute Neuts (auto) 11.4 H, Absolute Lymphs (auto) 1.58, Nucleated RBC % 0 01/27/20 05:17: Sodium 142, Potassium 4.2, Chloride 110 H, Carbon Dioxide 27.0, Anion Gap 5, BUN 26 H, Creatinine 1.10 H, Estim Creat Clear Calc 36.55, Est GFR (MDRD) Af Amer 62, Est GFR (MDRD) Non-Af 51 L, BUN/Creatinine Ratio 23.6 H, Glucose 132 H, Calcium 9.1 01/27/20 06:15: POC Glucose 141 H 01/27/20 12:19: POC Glucose 117 H Current Medications Acetaminophen (Acetaminophen 325 Mg Tablet) 650 mg PO Q6H PRN PRN PRN Reason: Pain Score 1-10/Temp > 100.7 F Last Admin: 01/26/20 22:51 Dose: 650 mg Documented by: Allopurinol (Allopurinol 100 Mg Tablet) [facility] Last Admin: 01/27/20 11:47 Dose: 100 mg Documented by: Dextrose (Dextrose 50%-Water 25 Gm/50 Ml Disp.Syrin) 0 gm IV X1 PRN; Protocol PRN Reason: Hypoglycemia Ferrous Sulfate (Ferrous Sulfate 325 Mg Tablet) 325 [facility] Last Admin: 01/27/20 11:46 Dose: 325 mg Documented by: Fluoxetine HCl (Fluoxetine 20 Mg Capsule) 40 mg PO DAILY PRN PRN PRN Reason: depression Galantamine Hydrobromide (Galantamine Hydrobromide 4 Mg Tablet) 4 mg PO BID [facility] Last Admin: 01/27/20 11:50 Dose: 4 mg Documented by: Glucagon (Glucagon 1 Mg/Ml Syringe) 1 mg IM .X1 PRN PRN Reason: Hypoglycemia Sodium Chloride () 250 mls @ 15 mls/hr IV .[id number] PRN PRN Reason: Saline Flush Sodium Chloride () 250 mls @ 15 mls/hr IV .[id number] PRN PRN Reason: Additional IVPB Infusion Insulin Human Lispro (Insulin Lispro 100 Unit/Ml Insuln.Pen) 0 unit SC Q6 [facility]; Protocol Last Admin: 01/27/20 13:17 Dose: Not Given Documented by: Labetalol HCl (Labetalol (Prefilled) 20 Mg/4 Ml) 10 mg IV Q6H PRN PRN PRN Reason: SBP > 160; OR DBP > 120 Loratadine (Loratadine 10 Mg Tablet) 10 mg PO DAILY [facility] Last Admin: 01/27/20 11:47 Dose: 10 mg Documented by: Melatonin (Melatonin 3 Mg Tablet) 3 mg PO QHS PRN PRN PRN Reason: INSOMNIA Morphine Sulfate (Morphine 2 Mg/Ml Syringe) 1 mg IV Q3H PRN PRN PRN Reason: Pain Score 6-10 Last Admin: 01/27/20 11:51 Dose: 1 mg Documented by: Multivitamins (Multivitamins,Therapeutic Tablet) [facility] Last Admin: 01/27/20 11:46 Dose: 1 tablet Documented by: Ondansetron HCl (Ondansetron 4 Mg/2 Ml Vial) 4 mg IV Q8H PRN PRN PRN Reason: NAUSEA/VOMITING Quetiapine Fumarate (Quetiapine 25 Mg Tablet) 12.5 mg PO DAILY [facility] Last Admin: 01/27/20 11:50 Dose: 12.5 mg Documented by: Quetiapine Fumarate (Quetiapine 25 Mg Tablet) 50 mg PO QHS [facility] Last Admin: 01/26/20 23:39 Dose: 50 mg Documented by: Senna/Docusate Sodium (Senna/Docusate Sodium 1 Tablet) 2 tablet PO DAILY PRN P RN PRN Reason: CONSTIPATION Sodium Chloride (0.9% Saline Lock 10 Ml Syringe) 10 - 40 ml IV UD PRN PRN Reason: SALINE FLUSH Last Admin: 01/27/20 04:07 Dose: 10 ml Documented by: Medical Necessity - Tobacco Use Smoking Status: Never smoker Tobacco Use: Non-smoker Assessment/Plan All Active Problems (Last Reviewed 01/26/20 @ 22:[address] Eddy Burroughs MD) Intertrochanteric fracture (Acute) 1. Acute left intertrochanteric fracture-orthopedics consulted. Minimal pain. 2. Leukocytosis-likely reactive to fall and fracture, no evidence of acute infectious process at this time. 3. Hypertensive urgency-resolved 4. Dementia-at baseline. Continue galantamine. 5. Type 2 diabetes mellitus-Metformin held. Continue sliding scale insulin. Resume Trulicity at discharge. DVT prophylaxis: Per orthopedics. Discharge planning: SNF This patient was seen by Michelet Jade PA-C under the supervision of Doctor Cary. <Juana Townsend - Last Filed: 01/27/20 18:26> Vitals/I&O's: Vital Signs Temp Pulse Resp BP Pulse Ox 97.8 F 87 13 134/60 H 95 01/27/20 09:45 01/27/20 14:52 01/27/20 09:45 01/27/20 09:45 01/27/20 09:45 Oxygen Delivery Method Room Air Weight: 66.9 kg Body Mass Index (BMI) 26.1 Intake and Output for Last 24 Hours 01/25/20 01/26/20 01/27/20 23:59 23:59 23:59 Intake Total 30 / 30 Output Total 900 / 900 Balance -870 / -870 Laboratory Results 01/26/20 18:30: COVID-19 ([facility]) Not Detected 01/26/20 23:15: Urine Color Yellow, Urine Clarity Clear, Urine pH 6.0, Ur Specific [place] 1.010, Urine Protein 30 H, Urine Glucose (UA) Normal, Urine Ketones Negative, Urine Occult Blood 50 H, Urine Nitrite Negative, Urine Bilirubin Negative, Urine Urobilinogen Normal, Ur Leukocyte Esterase 500 H, Urine RBC 5-10 SEEN, Urine WBC 0 SEEN, Ur Squamous Epith Cells 25-50 SEEN, Urine Bacteria 0 SEEN, Urine Mucus 0 SEEN 01/26/20 23:28: POC Glucose 150 H 01/27/20 05:17: Vitamin B12 282, Vitamin D 25-Hydroxy 26.8 01/27/20 05:17: WBC 14.0 H, RBC 3.81 L, Hgb 11.2 L, Hct 36.4 L, MCV 95.5, MCH 29.4, MCHC 30.8 L, RDW Std Deviation 53.3 H, RDW Coeff of Moy 15.1 H, Plt Count 305, MPV 10.0, Immature Gran % (Auto) 0.200, Neut % (Auto) 80.9 H, Lymph % (Auto) 11.3 L, Greenlee % (Auto) 5.8, Eos % (Auto) 1.4, Baso % (Auto) 0.4, Absolute Neuts (auto) 11.4 H, Absolute Lymphs (auto) 1.58, Nucleated RBC % 0 01/27/20 05:17: Sodium 142, Potassium 4.2, Chloride 110 H, Carbon Dioxide 27.0, Anion Gap 5, BUN 26 H, Creatinine 1.10 H, Estim Creat Clear Calc 36.55, Est GFR (MDRD) Af Amer 62, Est GFR (MDRD) Non-Af 51 L, BUN/Creatinine Ratio 23.6 H, Glucose 132 H, Calcium 9.1 01/27/20 06:15: POC Glucose 141 H 01/27/20 12:19: POC Glucose 117 H Current Medications Acetaminophen (Acetaminophen 325 Mg Tablet) 650 mg PO Q6H PRN PRN PRN Reason: Pain Score 1-10/Temp > 100.7 F Last Admin: 01/26/20 22:51 Dose: 650 mg Documented by: Allopurinol (Allopurinol 100 Mg Tablet) [facility] Last Admin: 01/27/20 11:47 Dose: 100 mg Documented by: Dextrose (Dextrose 50%-Water 25 Gm/50 Ml Disp.Syrin) 0 gm IV X1 PRN; Protocol PRN Reason: Hypoglycemia Ferrous Sulfate (Ferrous Sulfate 325 Mg Tablet) 325 [facility] Last Admin: 01/27/20 11:46 Dose: 325 mg Documented by: Fluoxetine HCl (Fluoxetine 20 Mg Capsule) 40 mg PO DAILY PRN PRN PRN Reason: depression Galantamine Hydrobromide (Galantamine Hydrobromide 4 Mg Tablet) 4 mg PO BID [facility] Last Admin: 01/27/20 11:50 Dose: 4 mg Documented by: Glucagon (Glucagon 1 Mg/Ml Syringe) 1 mg IM .X1 PRN PRN Reason: Hypoglycemia Sodium Chloride () 250 mls @ 15 mls/hr IV .[id number] PRN PRN Reason: Saline Flush Sodium Chloride () 250 mls @ 15 mls/hr IV .[id number] PRN PRN Reason: Additional IVPB Infusion Lactated Ringer's () 1,000 mls @ 100 mls/hr IV .Q10H [facility] Last Admin: 01/27/20 16:10 Dose: 100 mls/hr Documented by: Insulin Human Lispro (Insulin Lispro 100 Unit/Ml Insuln.Pen) 0 unit SC Q6 [facility]; Protocol Last Admin: 01/27/20 13:17 Dose: Not Given Documented by: Labetalol HCl (Labetalol (Prefilled) 20 Mg/4 Ml) 10 mg IV Q6H PRN PRN PRN Reason: SBP > 160; OR DBP > 120 Loratadine (Loratadine 10 Mg Tablet) 10 mg PO DAILY [facility] Last Admin: 01/27/20 11:47 Dose: 10 mg Documented by: Melatonin (Melatonin 3 Mg Tablet) 3 mg PO QHS PRN PRN PRN Reason: INSOMNIA Morphine Sulfate (Morphine 2 Mg/Ml Syringe) 1 mg IV Q3H PRN PRN PRN Reason: Pain Score 6-10 Last Admin: 01/27/20 11:51 Dose: 1 mg Documented by: Multivitamins (Multivitamins,Therapeutic Tablet) [facility] Last Admin: 01/27/20 11:46 Dose: 1 tablet Documented by: Ondansetron HCl (Ondansetron 4 Mg/2 Ml Vial) 4 mg IV Q8H PRN PRN PRN Reason: NAUSEA/VOMITING Quetiapine Fumarate (Quetiapine 25 Mg Tablet) 12.5 mg PO DAILY [facility] Last Admin: 01/27/20 11:50 Dose: 12.5 mg Documented by: Quetiapine Fumarate (Quetiapine 25 Mg Tablet) 50 mg PO QHS [facility] Last Admin: 01/26/20 23:39 Dose: 50 mg Documented by: Senna/Docusate Sodium (Senna/Docusate Sodium 1 Tablet) 2 tablet PO DAILY PRN PRN PRN Reason: CONSTIPATION Sodium Chloride (0.9% Saline Lock 10 Ml Syringe) 10 - 40 ml IV UD PRN PRN Reason: SALINE FLUSH Last Admin: 01/27/20 04:07 Dose: 10 ml Documented by: STROKE Vital Signs/Narrative: Vital Signs Pulse 01/27/20 14:52 87 Assessment/Plan This patient was seen in conjunction with SAMANTA Pulliam. I have independently interviewed and examined the patient and reviewed pertinent historical, laboratory, and other data. Please refer to SAMANTA Pulliam note for his patient's presentation, findings, and recommendations. I have reviewed and his note and concur with his documentation Patient was seen and examined. Her pain is fairly controlled. No other acute events overnight. Physical Exam: Gen: Comfortable, not pale, not jaundiced CVS:HS I +II, regular, no murmurs RESP: Diminished at lung bases GI: BS present and normal, soft, nontender, no palpable organs EXT:No edema, tenderness over the left hip ASSESSMENT: 1. Acute left intertrochanteric hip fracture 2. Leukocytosis, likely reactive 3. Uncontrolled hypertension, resolved 4. Dementia 5. Type II DM Plan: Continue per orthopedic recommendations Continue to monitor blood sugars Inpatient E&M: [id number] Subs Hosp L2
--- NOTE | 2020-01-27 14:31 | NURSING ---
Read and reviewed SN documentation
[2020-01-27] MEDS: Lactated Ringers 1,000 ML 100 ML IV ×2 (16:10→19:22)
--- NOTE | 2020-01-27 16:58 | PCM.CONS.GEN ---
Reason for Consult Date of Consultation: 01/27/20 History of Present Illness: The patient is a 74 year old female resident of local [place] [facility] that reportedly fell yesterday fracturing her left hip. She was brought to [facility] and diagnosed with a left hip intertrochanteric fracture. Orthopedics was consulted. She is undergoing evaluation by the medical service. She has been cleared for surgery. [] Past Medical History Past Medical History (Chronic Problems): Chronic Problems (Last Reviewed 01/26/20 @ 22:[address] Eddy Burroughs MD) Hypergammaglobulinemia (Chronic) Left thyroid nodule (Chronic) Right thyroid nodule (Chronic) Vulval hidradenitis suppurativa (Chronic) Hidradenitis suppurativa (Chronic) Pressure ulcer of coccygeal region, stage 1 (Chronic) Ulcer of left groin with fat layer exposed (Chronic) Medical History: Medical History (Last Reviewed 01/26/20 @ 22:[address] Eddy Burroughs MD) Diabetes E11.9 Gout M10.9 Hypergammaglobulinemia D89.2 Short-term memory loss R41.3 Hypertension I10 Allergies penicillin V [From Pen-Vee K] Allergy (Verified 11/18/19 13:31) Unknown Home Medications: Ambulatory Orders Medication Instructions Recorded Allopurinol [Zyloprim] 100 mg PO DAILYCM 06/09/16 Torsemide [Demadex] 20 mg PO DAILY 06/09/16 metFORMIN HCl [Glucophage] 850 mg PO BIDCM 06/09/16 Dulaglutide [Trulicity] 0.75 mg SQ TU 10/09/16 Cetirizine HCl 10 mg PO DAILY 01/19/19 Galantamine HBr 4 mg PO BID 01/19/19 Quetiapine Fumarate 12.5 mg PO DAILY 01/19/19 Ferrous Sulfate 325 mg PO DAILY 01/26/20 Fluoxetine HCl 40 mg PO DAILY PRN PRN 01/26/20 Multivitamins,Therapeutic 1 tab PO DAILY 01/26/20 [Multivitamin] Quetiapine Fumarate [Seroquel] 50 mg PO QHS 01/26/20 Surgical History: Surgical History (Last Reviewed 01/26/20 @ 22:[address] Eddy Burroughs MD) History of cholecystectomy Z90.49 History of hysterectomy Z90.710 Surgical History: no surgical history Smoking Status: Never smoker Tobacco Use: Non-smoker - *Family History Sibling Family History: Family History (Last Reviewed 01/26/20 @ 22:[address] Eddy Burroughs MD) Mother Bone cancer Father Heart disease Diabetes History Items: - - hidradenitis Patient Problems: Active and Suspected Problems (Last Reviewed 01/26/20 @ 22:[address] Eddy Burroughs MD) Intertrochanteric fracture (Acute) Objective: Left hip has shortening and mild external rotation. Left hip has pain on palpation. Right hip had no pain on palpation. Right hip has no pain with rotation or axial loading. Distally pulses and sensation are intact. She can plantarflex and dorsiflex toes and ankles nicely. No calf pain. Skin is intact about the left hip. Review of systems patient is a poor historian and could not answer questions. X-rays AP pelvis AP and lateral of left hip shows a mildly displaced intertrochanteric left hip fracture. Some osteoporosis noted. No severe arthritis noted. Laboratory work reviewed - Physical Exam Vitals/I&O's: Vital Signs Temp Pulse Resp BP Pulse Ox 97.8 F 87 13 134/60 H 95 01/27/20 09:45 01/27/20 14:52 01/27/20 09:45 01/27/20 09:45 01/27/20 09:45 Oxygen Delivery Method Room Air Weight: 66.9 kg Body Mass Index (BMI) 26.1 Intake and Output for Last 24 Hours 01/25/20 01/26/20 01/27/20 23:59 23:59 23:59 Intake Total 30 / 30 Output Total 900 / 900 Balance -870 / -870 Laboratory Results 01/26/20 17:40: WBC 11.9 H, RBC 4.02 L, Hgb 11.9 L, Hct 38.4, MCV 95.5, MCH 29.6, MCHC 31.0 L, RDW Std Deviation 52.1 H, RDW Coeff of Moy 15.0 H, Plt Count 359, MPV 9.7, Immature Gran % (Auto) 0.500, Neut % (Auto) 60.1, Lymph % (Auto) 29.5, [place] % (Auto) 6.7, Eos % (Auto) 2.6, Baso % (Auto) 0.6, Absolute Neuts (auto) 7.1, Absolute Lymphs (auto) 3.50, Nucleated RBC % 0 01/26/20 17:40: PT 12.6, INR 1.0 01/26/20 17:40: Sodium 140, Potassium 3.4 L, Chloride 105, Carbon Dioxide 26.0, Anion Gap 9, BUN 27 H, Creatinine 1.26 H, Estim Creat Clear Calc 33.31, Est GFR (MDRD) Af Amer 53 L, Est GFR (MDRD) Non-Af 44 L, BUN/Creatinine Ratio 21.4 H, Glucose 110 H, Calcium 9.6, Total Bilirubin 0.20, AST 22, ALT 32, Alkaline Phosphatase 68, Total Protein 8.3 H, Albumin 2.8 L, Globulin 5.5 H, Albumin/Globulin Ratio 0.5 L 01/26/20 18:30: COVID-19 (STEPHON) Not Detected 01/26/20 23:15: Urine Color Yellow, Urine Clarity Clear, Urine pH 6.0, Ur Specific [facility] 1.010, Urine Protein 30 H, Urine Glucose (UA) Normal, Urine Ketones Negative, Urine Occult Blood 50 H, Urine Nitrite Negative, Urine Bilirubin Negative, Urine Urobilinogen Normal, Ur Leukocyte Esterase 500 H, Urine RBC 5-10 SEEN, Urine WBC 0 SEEN, Ur Squamous Epith Cells 25-50 SEEN, Urine Bacteria 0 SEEN, Urine Mucus 0 SEEN 01/26/20 23:28: POC Glucose 150 H 01/27/20 05:17: Vitamin B12 282, Vitamin D 25-Hydroxy 26.8 01/27/20 05:17: WBC 14.0 H, RBC 3.81 L, Hgb 11.2 L, Hct 36.4 L, MCV 95.5, MCH 29.4, MCHC 30.8 L, RDW Std Deviation 53.3 H, RDW Coeff of Moy 15.1 H, Plt Count 305, MPV 10.0, Immature Gran % (Auto) 0.200, Neut % (Auto) 80.9 H, Lymph % (Auto) 11.3 L, [place] % (Auto) 5.8, Eos % (Auto) 1.4, Baso % (Auto) 0.4, Absolute Neuts (auto) 11.4 H, Absolute Lymphs (auto) 1.58, Nucleated RBC % 0 01/27/20 05:17: Sodium 142, Potassium 4.2, Chloride 110 H, Carbon Dioxide 27.0, Anion Gap 5, BUN 26 H, Creatinine 1.10 H, Estim Creat Clear Calc 36.55, Est GFR (MDRD) Af Amer 62, Est GFR (MDRD) Non-Af 51 L, BUN/Creatinine Ratio 23.6 H, Glucose 132 H, Calcium 9.1 01/27/20 06:15: POC Glucose 141 H 01/27/20 12:19: POC Glucose 117 H Current Medications Acetaminophen (Acetaminophen 325 Mg Tablet) 650 mg PO Q6H PRN PRN PRN Reason: Pain Score 1-10/Temp > 100.7 F Last Admin: 01/26/20 22:51 Dose: 650 mg Documented by: Allopurinol ([facility] 100 Mg Tablet) [facility] Last Admin: 01/27/20 11:47 Dose: 100 mg Documented by: Dextrose (Dextrose 50%-Water 25 Gm/50 Ml Disp.Syrin) 0 gm IV X1 PRN; Protocol PRN Reason: Hypoglycemia Ferrous Sulfate (Ferrous Sulfate 325 Mg Tablet) 325 mg PO DAILYCM [facility] Last Admin: 01/27/20 11:46 Dose: 325 mg Documented by: Fluoxetine HCl (Fluoxetine 20 Mg Capsule) 40 mg PO DAILY PRN PRN PRN Reason: depression Galantamine Hydrobromide (Galantamine Hydrobromide 4 Mg Tablet) 4 mg PO BID [facility] Last Admin: 01/27/20 11:50 Dose: 4 mg Documented by: Glucagon (Glucagon 1 Mg/Ml Syringe) 1 mg IM .X1 PRN PRN Reason: Hypoglycemia Sodium Chloride () 250 mls @ 15 mls/hr IV .[id number] PRN PRN Reason: Saline Flush Sodium Chloride () 250 mls @ 15 mls/hr IV .[id number] PRN PRN Reason: Additional IVPB Infusion Lactated Ringer's () 1,000 mls @ 100 mls/hr IV .Q10H [facility] Last Admin: 01/27/20 16:10 Dose: 100 mls/hr Documented by: Insulin Human Lispro (Insulin Lispro 100 Unit/Ml Insuln.Pen) 0 unit SC Q6 [facility]; Protocol Last Admin: 01/27/20 13:17 Dose: Not Given Documented by: Labetalol HCl (Labetalol (Prefilled) 20 Mg/4 Ml) 10 mg IV Q6H PRN PRN PRN Reason: SBP > 160; OR DBP > 120 Loratadine (Loratadine 10 Mg Tablet) 10 mg PO DAILY [facility] Last Admin: 01/27/20 11:47 Dose: 10 mg Documented by: Melatonin (Melatonin 3 Mg Tablet) 3 mg PO QHS PRN PRN PRN Reason: INSOMNIA Morphine Sulfate (Morphine 2 Mg/Ml Syringe) 1 mg IV Q3H PRN PRN PRN Reason: Pain Score 6-10 Last Admin: 01/27/20 11:51 Dose: 1 mg Documented by: Multivitamins (Multivitamins,Therapeutic Tablet) [facility] Last Admin: 01/27/20 11:46 Dose: 1 tablet Documented by: Ondansetron HCl (Ondansetron 4 Mg/2 Ml Vial) 4 mg IV Q8H PRN PRN PRN Reason: NAUSEA/VOMITING Quetiapine Fumarate (Quetiapine 25 Mg Tablet) 12.5 mg PO DAILY [facility] Last Admin: 01/27/20 11:50 Dose: 12.5 mg Documented by: Quetiapine Fumarate (Quetiapine 25 Mg Tablet) 50 mg PO QHS [facility] Last Admin: 01/26/20 23:39 Dose: 50 mg Documented by: Senna/Docusate Sodium (Senna/Docusate Sodium 1 Tablet) 2 tablet PO DAILY PRN PRN PRN Reason: CONSTIPATION Sodium Chloride (0.9% Saline Lock 10 Ml Syringe) 10 - 40 ml IV UD PRN PRN Reason: SALINE FLUSH Last Admin: 01/27/20 04:07 Dose: 10 ml Documented by: Assessment/Plan All Active Problems (Last Reviewed 01/26/20 @ 22:[address] Eddy Burroughs MD) Intertrochanteric fracture (Acute) Left hip intertrochanteric fracture case was discussed with her and her sister Vita. Surgical intervention, short intramedullary nail was recommended. Risk of surgery including but not limited to from operative or postoperative complications. Risk of anesthetic complications such as heart attacks, strokes, seizures, or . Risk of infections. Risk of damage to nerves arteries tendons. Risk of inadvertent fractures or dislocations. Risk of bone or wound healing complications. Possibility of nonunion malunion pain stiffness weakness. Possible need for further surgery such as hardware removal. Risk of DVT PE and other potential complications could lead to or disability explained. No guarantees were stated or implied. All of their questions were answered. Appropriate informed consent was obtained and signed for surgical intervention. Patient and her sister would like to proceed with surgical intervention. She will continue on the medical service for medical management. We are planning [facility] for the perioperative antibiotic. Most likely aspirin postoperatively for DVT prevention.
--- NOTE | 2020-01-27 17:25 | RAD_ITS ---
STUDY: X-RAY - PELVIS AND LEFT HIP REASON FOR EXAM: Female, 74 years old. post op left hip TECHNIQUE: 15 fluoroscopic views of the pelvis and hip. COMPARISON: Pelvic and hip x-ray dated January 26, 2020 FINDINGS: The fluoroscopic view shows surgical instrumentation of the left hip with subsequent placement of an intramedullary kadie and proximal locking blade screw along the long axis of the intertrochanteric region, femoral neck, and femoral head. Interval reduction and surgical fixation of the intertrochanteric fracture fragments. RAD/Hip Min 2 Views (Portable) IMPRESSION: Status post intramedullary nailing of the left hip. Electronically Signed: Herman Peng MD at 19:55 EST , Service support ,
[2020-01-27] MEDS: Cefazolin 1 GM/50 ML BAG IV ×2 (17:27→23:59)
--- NOTE | 2020-01-27 18:21 | PRO.PCM_ITS ---
Procedure Report Date of Procedure: 01/27/20 Preoperative diagnosis: Left hip displaced intertrochanteric fracture Postoperative diagnosis: Same Title of operation: Left hip open reduction internal fixation, intramedullary nail fixation, locked Surgeon: Dr. Sadi [employer] Teacher: Haroldo KULKARNI Anesthesia: General Medications: [facility] Anesthesiologist: Dr. Milner Complications: None EBL: 50 Indications for surgery: Patient is an 74-year-old female sustained a hip fracture yesterday. Patient and their family explained diagnosis and treatment options. Patient evaluated by the medical services. Patient did wish to have surgery. Appropriate informed consent obtained and signed. Findings: Patient had a displaced intertrochanteric hip fracture. They underwent standard reduction, internal fixation using a Johnston short gamma nail. X-rays taken throughout. bilingual legal assistant, CAYLA, was utilized throughout the entire procedure. They were vital to the procedure from beginning to end. They help with patient transfer, patient padding and positioning, fracture reduction, maintenance of fracture reduction, internal fixation of implants, wound closure, bandage application, patient transfer. Without ophthalmology surgical technician, surgical time would have been significantly increased and surgical outcome could have been less optimal. Procedure: Patient was taken to the operating room. Placed under a general anesthetic and transferred to the operating table with the help of the chemistry research assistant. With the help of the chemistry research assistant patient was prepped and padded for surgery. Operative side foot was well-padded and placed in the traction boot. Uninjured lower extremity was abducted and flexed out of harms way. NIRMALA hose and SCDs utilized. Fluoroscopy was brought in. With the help of the chemistry research assistant and manipulation of the limb, reduction was nicely obtained as verified under AP lateral and oblique fluoroscopic images. . Operative hip/thigh was prepped padded draped in usual orthopedic sterile fashion for the procedure. Longitudinal incision was made just proximal to the greater trochanter. Taken through skin and subcutaneous tissue. Sharp awl was placed on the tip of the greater trochanter. Position verified under AP and lateral fluoroscopic images. This was then taken down inside the bone. Slightly bent ball-tipped guide kadie was then placed from the tip of the greater trochanter into the intra-medullary canal of the femur. Its position verified radiographically. Reamer was then done over the tip of this with the help of the chemistry research assistant holding the soft tissue protector appropriately. Once reaming was done we placed the short 125? angle device over the guidepin. This was easily introduced. Guide kadie removed. Outrigger device was utilized to position a guidepin from the lateral cortex of the femur across the fracture site and into the femoral head in a good position centrally, as noted on AP lateral and oblique fluoroscopic images. This was measured. Appropriate reaming done. Appreciate length lag screw was placed from the lateral cortex of the femur into the femoral head. A small amount of the screw was noted to be protruding laterally as planned. No cartilage penetration of the femoral head noted on any x-ray. Fracture was then compressed with the outrigger device. Proximal cap screw was placed by the chemistry research assistant seated down completely, confirmed, and then loosened one fourth turn. We then used the outrigger device to place distal cross locking screw under sta ndard technique. This was confirmed to be of adequate length in good position on AP and lateral images. Outrigger device removed. Final set of AP and lateral proximal x-rays taken and saved. Incisions thoroughly irrigated. Closing by the chemistry research assistant with deep 0 Vicryl, mid layer 0 Vicryl, inverted 2-0 Vicryl, skin amanda. Puncture wounds closed with inverted 2-0 Vicryl and amanda. Xeroform 4 x 4's ABD tape applied. Patient was awoken from their anesthetic, transferred back to their own bed with the help of the chemistry research assistant and into recovery room in satisfactory condition. Patient will continue to be admitted to the hospital under the hospitalist service. Ancef 1 g was given IV preoperatively. Aspirin 81 mg twice daily will be started postoperatively for DVT prevention This note was generated with [employer] dictation software. It may contain incorrect words, spelling, and punctuation that were not noted in checking the note before signing.
[2020-01-27 19:31] LABS: Bedside Glucose 157 mg/dL (70-110)
[2020-01-27] MEDS: QUEtiapine 25 MG Tablet 50 MG PO (20:25)
[2020-01-27 20:36] LABS: Bedside Glucose 166 mg/dL (70-110)
[2020-01-28] VITALS (12 sets, daily range): BP systolic 136–161; BP diastolic 55–79; PULSE 89–113; RESP 16–18; TEMP 37.2–37.8; O2SAT 88–98
[2020-01-28 00:31] LABS: Bedside Glucose 137 mg/dL (70-110)
[2020-01-28] MEDS: 0.9% Saline Lock 10 ML Syringe IV ×2 (02:49→06:45)
[2020-01-28] MEDS: Morphine 2 MG/ML Syringe 1 MG IV ×2 (02:49→06:45)
[2020-01-28] MEDS: HYDROcodone Bitartrate/Apap 5/325 Tablet PO ×2 (05:18→16:43)
[2020-01-28] MEDS: Cefazolin 1 GM/50 ML BAG IV ×2 (05:24→11:33)
[2020-01-28 06:06] LABS: Bedside Glucose 124 mg/dL (70-110)
[2020-01-28] MEDS: Lactated Ringers 1,000 ML 100 ML IV ×2 (06:45→16:50)
--- NOTE | 2020-01-28 08:17 | CPS ---
Pt placed on 2 lpm. Nurse aware of change
[2020-01-28] MEDS: Ferrous Sulfate 325 MG Tablet PO (08:18)
[2020-01-28] MEDS: Galantamine Hydrobromide 4 MG Tablet PO ×2 (08:18→22:28)
[2020-01-28] MEDS: Loratadine 10 MG Tablet PO (08:18)
[2020-01-28] MEDS: Allopurinol 100 MG Tablet PO (08:18)
[2020-01-28] MEDS: QUEtiapine 25 MG Tablet 12.5 MG PO (08:18)
[2020-01-28] MEDS: Multivitamins,Therapeutic Tablet 1 TABLET PO (08:18)
[2020-01-28] MEDS: Aspirin E.C. 81 MG Tablet PO ×2 (08:18→16:43)
[2020-01-28 08:55] LABS: Absolute Lymphocyte Count 1.49 X10^3/uL (0.83-4.51); Absolute Neutrophil Count 9.2 X10^3/uL (2.0-7.7); Basophil# 0.06 X10^3/uL; Basophil% 0.5 % (0-1); Eosinophil# 0.48 X10^3/uL; Hematocrit 33.4 % (37-47); Hemoglobin 10.2 g/dL (12.0-15.0); Lymphocyte # 1.49 X10^3/ul (4.0); Lymphocyte % 12.3 % (19-41); Mean Corp Hgb Conc 30.5 g/dL (32-36); Mean Corpuscular Hgb 29.8 pg (27.0-32.0); Mean Corpuscular Volume 97.7 fL (81-99); Mean Platelet Vol. 10.2 fl (6.2-12.0); Monocyte# 0.85 X10^3/uL; NRBC Flagged by Analyzer 0 % (0-5); Neutrophil # 9.19 X10^3/uL (2.7-7.7); Neutrophil % 75.7 % (47-70); Platelet Count 229 K/mm3 (150-450); RBC Distribution Width CV 15.2 % (11.6-14.6); RBC Distribution Width SD 54.7 fl (35.1-43.9); Red Blood Count 3.42 M/mm3 (4.2-5.4); White Blood Count 12.1 K/mm3 (4.4-11.0)
[2020-01-28 09:14] LABS: Anion Gap 6 (5-15); BUN 16 mg/dL (7-18); BUN/Creat Ratio 15.4 RATIO (10-20); Calcium,Total 8.4 mg/dL (8.5-10.1); Chloride 106 mmol/L (98-107); Creatinine, Serum 1.04 mg/dL (0.55-1.02); EST Glomerular Filtration Rate 55 mL/min (>60); Est Glom Filt Rate - Afr Amer 66 mL/min (>60); Estimated Creatinine Clearance 38.66 ml/min; Glucose 118 mg/dL (74-106); Potassium 3.7 mmol/L (3.5-5.1); Sodium Level 138 mmol/L (136-145)
--- NOTE | 2020-01-28 10:37 | PCM.PN.ORT ---
Patient Problems: Active and Suspected Problems (Last Reviewed 01/26/20 @ 22:[address] Eddy Burroughs MD) Intertrochanteric fracture (Acute) Subjective: Patient is postoperative day #1 from left hip intertrochanteric fracture surgery. She denies rest pain. She states her hip does hurt if she moves it. Better than before surgery. Pain currently 0 out of 10 resting. Patient denies chest pain shortness of breath or productive cough. Objective: Left hip bandages are on clean and dry. Left lower extremity clinically is well aligned. Hip flexion to 45 degrees did cause some discomfort. Hip internal and external rotation 20 degrees did cause mild discomfort. No severe pain with axial loading the hip. Legs are neurovascular intact. No calf pain or swelling bilaterally. Negative Homans' sign bilaterally. Distal pulses and sensation intact. Laboratory work and vital signs reviewed - Physical Exam Vitals/I&O's: Vital Signs Temp Pulse Resp BP Pulse Ox 99.7 F H 102 H 18 136/62 H 95 01/28/20 08:08 01/28/20 10:05 01/28/20 08:08 01/28/20 08:08 01/28/20 08:08 Oxygen Flow Rate (L/min) 2 Oxygen Delivery Method Room Air Weight: 66.9 kg Body Mass Index (BMI) 26.1 Finger Stick Blood Glucose 157 Intake and Output for Last 24 Hours 01/26/20 01/27/20 01/28/20 23:59 23:59 23:59 Intake Total 1080 / 1080 1100.00 / 1100.00 Output Total 1150 / 1350 450 / 450 Balance -70 / -270 650.00 / 650.00 Laboratory Results 01/27/20 12:19: POC Glucose 117 H 01/27/20 19:24: POC Glucose 157 H 01/27/20 20:24: POC Glucose 166 H 01/27/20 23:56: POC Glucose 137 H 01/28/20 05:22: POC Glucose 124 H 01/28/20 08:28: WBC 12.1 H, RBC 3.42 L, Hgb 10.2 L, Hct 33.4 L, MCV 97.7, MCH 29.8, MCHC 30.5 L, RDW Std Deviation 54.7 H, RDW Coeff of Moy 15.2 H, Plt Count 229, MPV 10.2, Immature Gran % (Auto) 0.500, Neut % (Auto) 75.7 H, Lymph % (Auto) 12.3 L, [place] % (Auto) 7.0, Eos % (Auto) 4.0, Baso % (Auto) 0.5, Absolute Neuts (auto) 9.2 H, Absolute Lymphs (auto) 1.49, Nucleated RBC % 0 01/28/20 08:28: Sodium 138, Potassium 3.7, Chloride 106, Carbon Dioxide 26.0, Anion Gap 6, BUN 16, Creatinine 1.04 H, Estim Creat Clear Calc 38.66, Est GFR (MDRD) Af Amer 66, Est GFR (MDRD) Non-Af 55 L, BUN/Creatinine Ratio 15.4, Glucose 118 H, Calcium 8.4 L Current Medications Acetaminophen (Acetaminophen 325 Mg Tablet) 650 mg PO Q6H PRN PRN PRN Reason: Pain Score 1-10/Temp > 100.7 F Last Admin: 01/26/20 22:51 Dose: 650 mg Documented by: Hydrocodone Bitart/Acetaminophen (Hydrocodone Bitartrate/Apap 5/325 Tablet) 1 tablet PO Q4H PRN PRN PRN Reason: Pain Score 4-10 Last Admin: 01/28/20 05:18 Dose: 1 tablet Documented by: Allopurinol ([facility]ol 100 Mg Tablet) [facility] Last Admin: 01/28/20 08:18 Dose: 100 mg Documented by: Aspirin (Aspirin E.C. 81 Mg Tablet) [facility] Last Admin: 01/28/20 08:18 Dose: 81 mg Documented by: Dextrose (Dextrose 50%-Water 25 Gm/50 Ml Disp.Syrin) 0 gm IV X1 PRN; Protocol PRN Reason: Hypoglycemia Ferrous Sulfate (Ferrous Sulfate 325 Mg Tablet) [facility] Last Admin: 01/28/20 08:18 Dose: 325 mg Documented by: Fluoxetine HCl (Fluoxetine 20 Mg Capsule) 40 mg PO DAILY PRN PRN PRN Reason: depression Galantamine Hydrobromide (Galantamine Hydrobromide 4 Mg Tablet) 4 mg PO BID [facility] Last Admin: 01/28/20 08:18 Dose: 4 mg Documented by: Glucagon (Glucagon 1 Mg/Ml Syringe) 1 mg IM .X1 PRN PRN Reason: Hypoglycemia Sodium Chloride () 250 mls @ 15 mls/hr IV .[id number] PRN PRN Reason: Saline Flush Sodium Chloride () 250 mls @ 15 mls/hr IV .[id number] PRN PRN Reason: Additional IVPB Infusion Lactated Ringer's () 1,000 mls @ 100 mls/hr IV .Q10H [facility] Last Admin: 01/28/20 06:45 Dose: 100 mls/hr Documented by: Cefazolin Sodium () 1 gm in 50 mls @ 100 mls/hr IV Q6 [facility] Stop: 01/28/20 12:29 Last Infusion: 01/28/20 05:59 Dose: Infused Documented by: Insulin Human Lispro (Insulin Lispro 100 Unit/Ml Insuln.Pen) 0 unit SC Q6 [facility]; Protocol Last Admin: 01/28/20 05:24 Dose: Not Given Documented by: Labetalol HCl (Labetalol (Prefilled) 20 Mg/4 Ml) 10 mg IV Q6H PRN PRN PRN Reason: SBP > 160; OR DBP > 120 Loratadine (Loratadine 10 Mg Tablet) 10 mg PO DAILY [facility] Last Admin: 01/28/20 08:18 Dose: 10 mg Documented by: Melatonin (Melatonin 3 Mg Tablet) 3 mg PO QHS PRN PRN PRN Reason: INSOMNIA Morphine Sulfate (Morphine 2 Mg/Ml Syringe) 1 mg IV Q3H PRN PRN PRN Reason: Pain Score 6-10 Last Admin: 01/28/20 06:45 Dose: 1 mg Documented by: Multivitamins (Multivitamins,Therapeutic Tablet) [facility] Last Admin: 01/28/20 08:18 Dose: 1 tablet Documented by: Ondansetron HCl (Ondansetron 4 Mg/2 Ml Vial) 4 mg IV Q8H PRN PRN PRN Reason: NAUSEA/VOMITING Quetiapine Fumarate (Quetiapine 25 Mg Tablet) 12.5 mg PO DAILY [facility] Last Admin: 01/28/20 08:18 Dose: 12.5 mg Documented by: Quetiapine Fumarate (Quetiapine 25 Mg Tablet) 50 mg PO QHS [facility] Last Admin: 01/27/20 20:25 Dose: 50 mg Documented by: Senna/Docusate Sodium (Senna/Docusate Sodium 1 Tablet) 2 tablet PO DAILY PRN PRN PRN Reason: CONSTIPATION Sodium Chloride (0.9% Saline Lock 10 Ml Syringe) 10 - 40 ml IV UD PRN PRN Reason: SALINE FLUSH Last Admin: 01/28/20 06:45 Dose: 10 ml Documented by: Medical Necessity - Tobacco Use Smoking Status: Never smoker Tobacco Use: Non-smoker Assessment/Plan All Active Problems (Last Reviewed 01/26/20 @ 22:[address] Eddy Burroughs MD) Intertrochanteric fracture (Acute) Postoperative day #1 left hip internal fixation for intertrochanteric fracture. Continue aspirin 81 mg twice a day for DVT prevention for 1 month. Ice. Pain medication as needed. Okay for weightbearing as tolerated on the left hip. Okay for full range of motion of the left hip. Can shower over the current adhesive bandages in 1 to 2 days. Bandages can be removed in 7 days and new bandages applied if needed. Williamson can be removed in 2 weeks. Can schedule a telemedicine visit with our office to be seen in 2 to 3 weeks with hopeful portable x-rays of the left hip just prior to that appointment. Orthopedic service signing off and can be renotified if needed. Continue medical management for her other comorbidities
--- NOTE | 2020-01-28 10:37 | PCM.PN.HOSP ---
<Michelet Jade - Last Filed: 01/28/20 10:37> Patient Problems: Active and Suspected Problems (Last Reviewed 01/26/20 @ 22:[address] Eddy Burroughs MD) Intertrochanteric fracture (Acute) Reason for Visit: hip fx Subjective: Pt pleasantly confused. A/Ox2 at this time. Denies cough, fever, chills, dysuria, n/v/d. Reports that she at breakfast without issue but cannot remember what she ate. She reports minimal pain in the hip. Vitals/I&O's: Vital Signs Temp Pulse Resp BP Pulse Ox 99.7 F H 102 H 18 136/62 H 95 01/28/20 08:08 01/28/20 10:05 01/28/20 08:08 01/28/20 08:08 01/28/20 08:08 Oxygen Flow Rate (L/min) 2 Oxygen Delivery Method Room Air Weight: 147 lb 7.828 oz Body Mass Index (BMI) 26.1 Finger Stick Blood Glucose 157 Intake and Output for Last 24 Hours 01/26/20 01/27/20 01/28/20 23:59 23:59 23:59 Intake Total 1080 / 1080 1100.00 / 1100.00 Output Total 1150 / 1350 450 / 450 Balance -70 / -270 650.00 / 650.00 General: Alert, Cooperative, Confused HEENT: Atraumatic, PERRLA, EOMI, Normocephalic Neck: Supple, No JVD, Negative Carotid Bruits Lungs: Clear to auscultation, Normal air movement Cardiovascular: Regular rate, No murmurs Abdomen: Bowel Sounds Present, Soft, Non Tender Extremities: No edema, Capillary Refill Less than 3 Seconds Skin: No rashes, No breakdown Musculoskeletal: No Tenderness to Palpation of Joints or Extremities Neurological: Cranial nerves II-XII grossly intact Psych/Mental Status: Normal Affect, Appropriate Laboratory Results 01/27/20 12:19: POC Glucose 117 H 01/27/20 19:24: POC Glucose 157 H 01/27/20 20:24: POC Glucose 166 H 01/27/20 23:56: POC Glucose 137 H 01/28/20 05:22: POC Glucose 124 H 01/28/20 08:28: WBC 12.1 H, RBC 3.42 L, Hgb 10.2 L, Hct 33.4 L, MCV 97.7, MCH 29.8, MCHC 30.5 L, RDW Std Deviation 54.7 H, RDW Coeff of Moy 15.2 H, Plt Count 229, MPV 10.2, Immature Gran % (Auto) 0.500, Neut % (Auto) 75.7 H, Lymph % (Auto) 12.3 L, [place] % (Auto) 7.0, Eos % (Auto) 4.0, Baso % (Auto) 0.5, Absolute Neuts (auto) 9.2 H, Absolute Lymphs (auto) 1.49, Nucleated RBC % 0 01/28/20 08:28: Sodium 138, Potassium 3.7, Chloride 106, Carbon Dioxide 26.0, Anion Gap 6, BUN 16, Creatinine 1.04 H, Estim Creat Clear Calc 38.66, Est GFR (MDRD) Af Amer 66, Est GFR (MDRD) Non-Af 55 L, BUN/Creatinine Ratio 15.4, Glucose 118 H, Calcium 8.4 L Current Medications Acetaminophen (Acetaminophen 325 Mg Tablet) 650 mg PO Q6H PRN PRN PRN Reason: Pain Score 1-10/Temp > 100.7 F Last Admin: 01/26/20 22:51 Dose: 650 mg Documented by: Hydrocodone Bitart/Acetaminophen (Hydrocodone Bitartrate/Apap 5/325 Tablet) 1 tablet PO Q4H PRN PRN PRN Reason: Pain Score 4-10 Last Admin: 01/28/20 05:18 Dose: 1 tablet Documented by: Allopurinol (All[facility]ol 100 Mg Tablet) [facility] Last Admin: 01/28/20 08:18 Dose: 100 mg Documented by: Aspirin (Aspirin E.C. 81 Mg Tablet) 81 [facility] Last Admin: 01/28/20 08:18 Dose: 81 mg Documented by: Dextrose (Dextrose 50%-Water 25 Gm/50 Ml Disp.Syrin) 0 gm IV X1 PRN; Protocol PRN Reason: Hypoglycemia Ferrous Sulfate (Ferrous Sulfate 325 Mg Tablet) 325 [facility] Last Admin: 01/28/20 08:18 Dose: 325 mg Documented by: Fluoxetine HCl (Fluoxetine 20 Mg Capsule) 40 mg PO DAILY PRN PRN PRN Reason: depression Galantamine Hydrobromide (Galantamine Hydrobromide 4 Mg Tablet) 4 mg PO BID [facility] Last Admin: 01/28/20 08:18 Dose: 4 mg Documented by: Glucagon (Glucagon 1 Mg/Ml Syringe) 1 mg IM .X1 PRN PRN Reason: Hypoglycemia Sodium Chloride () 250 mls @ 15 mls/hr IV .[id number] PRN PRN Reason: Saline Flush Sodium Chloride () 250 mls @ 15 mls/hr IV .[id number] PRN PRN Reason: Additional IVPB Infusion Lactated Ringer's () 1,000 mls @ 100 mls/hr IV .Q10H [facility] Last Admin: 01/28/20 06:45 Dose: 100 mls/hr Documented by: Cefazolin Sodium () 1 gm in 50 mls @ 100 mls/hr IV Q6 [facility] Stop: 01/28/20 12:29 Last Infusion: 01/28/20 05:59 Dose: Infused Documented by: Insulin Human Lispro (Insulin Lispro 100 Unit/Ml Insuln.Pen) 0 unit SC Q6 [facility]; Protocol Last Admin: 01/28/20 05:24 Dose: Not Given Documented by: Labetalol HCl (Labetalol (Prefilled) 20 Mg/4 Ml) 10 mg IV Q6H PRN PRN PRN Reason: SBP > 160; OR DBP > 120 Loratadine (Loratadine 10 Mg Tablet) 10 mg PO DAILY [facility] Last Admin: 01/28/20 08:18 Dose: 10 mg Documented by: Melatonin (Melatonin 3 Mg Tablet) 3 mg PO QHS PRN PRN PRN Reason: INSOMNIA Morphine Sulfate (Morphine 2 Mg/Ml Syringe) 1 mg IV Q3H PRN PRN PRN Reason: Pain Score 6-10 Last Admin: 01/28/20 06:45 Dose: 1 mg Documented by: Multivitamins (Multivitamins,Therapeutic Tablet) 1 tablet PO [facility]ILYB[facility] Last Admin: 01/28/20 08:18 Dose: 1 tablet Documented by: Ondansetron HCl (Ondansetron 4 Mg/2 Ml Vial) 4 mg IV Q8H PRN PRN PRN Reason: NAUSEA/VOMITING Quetiapine Fumarate (Quetiapine 25 Mg Tablet) 12.5 mg PO DAILY [facility] Last Admin: 01/28/20 08:18 Dose: 12.5 mg Documented by: Quetiapine Fumarate (Quetiapine 25 Mg Tablet) 50 mg PO QHS [facility] Last Admin: 01/27/20 20:25 Dose: 50 mg Documented by: Senna/Docusate Sodium (Senna/Docusate Sodium 1 Tablet) 2 tablet PO DAILY PRN PRN PRN Reason: CONSTIPATION Sodium Chloride (0.9% Saline Lock 10 Ml Syringe) 10 - 40 ml IV UD PRN PRN Reason: SALINE FLUSH Last Admin: 01/28/20 06:45 Dose: 10 ml Documented by: STROKE Vital Signs/Narrative: Vital Signs Temp Pulse Resp BP Pulse Ox 01/28/20 10:05 102 H 01/28/20 08:11 89 01/28/20 08:08 99.7 F H 89 18 136/62 H 95 01/28/20 07:55 88 01/28/20 06:44 99.6 F H 100 18 151/59 H 94 Medical Necessity - Tobacco Use Smoking Status: Never smoker Tobacco Use: Non-smoker Assessment/Plan All Active Problems (Last Reviewed 01/26/20 @ 22:[address] Eddy Burroughs MD) Intertrochanteric fracture (Acute) 1. Acute left intertrochanteric fracture-orthopedics consulted. Minimal pain. POD#1 left hip ORIF with intramedullary nail fixation. 2. Leukocytosis-likely reactive to fall and fracture, improved. Temp 100.1. Mild hypoxia overnight. Will obtain CXR. Suspect atelectasis. 3. Hypertensive urgency-resolved 4. Dementia-at baseline. Continue galantamine. 5. Type 2 diabetes mellitus-Metformin held. Continue sliding scale insulin. Resume Trulicity at discharge. DVT prophylaxis: Per orthopedics. Discharge planning: SNF This patient was seen by Michelet Jade PA-C under the supervision of Doctor Townsend. <CaryDenton - Last Filed: 01/28/20 14:57> Vitals/I&O's: Vital Signs Temp Pulse Resp BP Pulse Ox 99.9 F H 102 H 18 144/55 H 93 01/28/20 14:09 01/28/20 14:09 01/28/20 14:09 01/28/20 14:09 01/28/20 14:09 Oxygen Flow Rate (L/min) 3 Oxygen Delivery Method Room Air Weight: 66.9 kg Body Mass Index (BMI) 26.1 Finger Stick Blood Glucose 157 Intake and Output for Last 24 Hours 01/26/20 01/27/20 01/28/20 23:59 23:59 23:59 Intake Total 1080 / 1080 2030.00 / 2030.00 Output Total 1150 / 1350 700 / 700 Balance -70 / -270 1330.00 / 1330.00 Laboratory Results 01/27/20 19:24: POC Glucose 157 H 01/27/20 20:24: POC Glucose 166 H 01/27/20 23:56: POC Glucose 137 H 01/28/20 05:22: POC Glucose 124 H 01/28/20 08:28: WBC 12.1 H, RBC 3.42 L, Hgb 10.2 L, Hct 33.4 L, MCV 97.7, MCH 29.8, MCHC 30.5 L, RDW Std Deviation 54.7 H, RDW Coeff of Moy 15.2 H, Plt Count 229, MPV 10.2, Immature Gran % (Auto) 0.500, Neut % (Auto) 75.7 H, Lymph % (Auto) 12.3 L, [place] % (Auto) 7.0, Eos % (Auto) 4.0, Baso % (Auto) 0.5, Absolute Neuts (auto) 9.2 H, Absolute Lymphs (auto) 1.49, Nucleated RBC % 0 01/28/20 08:28: Sodium 138, Potassium 3.7, Chloride 106, Carbon Dioxide 26.0, Anion Gap 6, BUN 16, Creatinine 1.04 H, Estim Creat Clear Calc 38.66, Est GFR (MDRD) Af Amer 66, Est GFR (MDRD) Non-Af 55 L, BUN/Creatinine Ratio 15.4, Glucose 118 H, Calcium 8.4 L 01/28/20 11:35: POC Glucose 144 H Current Medications Acetaminophen (Acetaminophen 325 Mg Tablet) 650 mg PO Q6H PRN PRN PRN Reason: Pain Score 1-10/Temp > 100.7 F Last Admin: 01/26/20 22:51 Dose: 650 mg Documented by: Hydrocodone Bitart/Acetaminophen (Hydrocodone Bitartrate/Apap 5/325 Tablet) 1 tablet PO Q4H PRN PRN PRN Reason: Pain Score 4-10 Last Admin: 01/28/20 05:18 Dose: 1 tablet Documented by: Allopurinol (Allopurinol 100 Mg Tablet) [facility] Last Admin: 01/28/20 08:18 Dose: 100 mg Documented by: Aspirin (Aspirin E.C. 81 Mg Tablet) 81 [facility] Last Admin: 01/28/20 08:18 Dose: 81 mg Documented by: Dextrose (Dextrose 50%-Water 25 Gm/50 Ml Disp.Syrin) 0 gm IV X1 PRN; Protocol PRN Reason: Hypoglycemia Ferrous Sulfate (Ferrous Sulfate 325 Mg Tablet) 325 mg PO [facility]ILYB[facility] Last Admin: 01/28/20 08:18 Dose: 325 mg Documented by: Fluoxetine HCl (Fluoxetine 20 Mg Capsule) 40 mg PO DAILY PRN PRN PRN Reason: depression Galantamine Hydrobromide (Galantamine Hydrobromide 4 Mg Tablet) 4 mg PO BID [facility] Last Admin: 01/28/20 08:18 Dose: 4 mg Documented by: Glucagon (Glucagon 1 Mg/Ml Syringe) 1 mg IM .X1 PRN PRN Reason: Hypoglycemia Sodium Chloride () 250 mls @ 15 mls/hr IV .[id number] PRN PRN Reason: Saline Flush Sodium Chloride () 250 mls @ 15 mls/hr IV .[id number] PRN PRN Reason: Additional IVPB Infusion Lactated Ringer's () 1,000 mls @ 100 mls/hr IV .Q10H [facility] Last Infusion: 01/28/20 12:05 Dose: 100 mls/hr Documented by: Insulin Human Lispro (Insulin Lispro 100 Unit/Ml Insuln.Pen) 0 unit SC Q6 [facility]; Protocol Last Admin: 01/28/20 11:36 Dose: Not Given Documented by: Labetalol HCl (Labetalol (Prefilled) 20 Mg/4 Ml) 10 mg IV Q6H PRN PRN PRN Reason: SBP > 160; OR DBP > 120 Loratadine (Loratadine 10 Mg Tablet) 10 mg PO DAILY [facility] Last Admin: 01/28/20 08:18 Dose: 10 mg Documented by: Melatonin (Melatonin 3 Mg Tablet) 3 mg PO QHS PRN PRN PRN Reason: INSOMNIA Morphine Sulfate (Morphine 2 Mg/Ml Syringe) 1 mg IV Q3H PRN PRN PRN Reason: Pain Score 6-10 Last Admin: 01/28/20 06:45 Dose: 1 mg Documented by: Multivitamins (Multivitamins,Therapeutic Tablet) 1 tablet PO DAILYCM [facility] Last Admin: 01/28/20 08:18 Dose: 1 tablet Documented by: Ondansetron HCl (Ondansetron 4 Mg/2 Ml Vial) 4 mg IV Q8H PRN PRN PRN Reason: NAUSEA/VOMITING Quetiapine Fumarate (Quetiapine 25 Mg Tablet) 12.5 mg PO DAILY [facility] Last Admin: 01/28/20 08:18 Dose: 12.5 mg Documented by: Quetiapine Fumarate (Quetiapine 25 Mg Tablet) 50 mg PO QHS [facility] Last Admin: 01/27/20 20:25 Dose: 50 mg Documented by: Senna/Docusate Sodium (Senna/Docusate Sodium 1 Tablet) 2 tablet PO DAILY PRN PRN PRN Reason: CONSTIPATION Sodium Chloride (0.9% Saline Lock 10 Ml Syringe) 10 - 40 ml IV UD PRN PRN Reason: SALINE FLUSH Last Admin: 01/28/20 06:45 Dose: 10 ml Documented by: STROKE Vital Signs/Narrative: Vital Signs Temp Pulse Resp BP Pulse Ox 01/28/20 14:09 99.9 F H 102 H 18 144/55 H 93 Assessment/Plan This patient was seen in conjunction with SAMANTA Pulliam. I have independently interviewed and examined the patient and reviewed pertinent historical, laboratory, and other data. Please refer to SAMANTA Pulliam note for his patient's presentation, findings, and recommendations. I have reviewed and his note and concur with his documentation Patient was seen and examined. She had left hip open reduction internal fixation, intramedullary nail fixation done yesterday. No acute events overnight. Patient denies any acute pain. Physical Exam: Gen: Comfortable, not pale, not jaundiced CVS:HS I +II, regular, no murmurs RESP: Diminished at lung bases GI: BS present and normal, soft, nontender, no palpable organs EXT:No edema, tenderness over the left hip ASSESSMENT: 1. POD #1, status post left hip ORIF/intra-medullary nailing for acute left intertrochanteric hip fracture 2. Leukocytosis, likely reactive 3. Uncontrolled hypertension, resolved 4. Dementia 5. Type II DM Plan: Continue per orthopedic recommendations Continue to monitor blood sugars PT/OT to evaluate and treat Inpatient E&M: [id number] Subs Hosp L2
--- NOTE | 2020-01-28 11:00 | RAD_ITS ---
STUDY: X-RAY CHEST REASON FOR EXAM: Female, 74 years old. hypoxia TECHNIQUE: Single AP portable view of the chest. COMPARISON: 01/26/2020 FINDINGS: The lungs are clear and expanded. There is no demonstrated pleural abnormality. Normal size heart. Normal mediastinum and alexys. Normal visualized pulmonary arteries. Normal visualized aortic arch and descending thoracic aorta. Normal visualized thoracic spine. Normal visualized ribs, clavicles, and shoulders. There is no demonstrated abnormality of the visualized soft tissue structures of the upper abdomen. RAD/Chest 1 View (Portable) IMPRESSION: Normal x-ray examination of the chest. Electronically Signed: Dashawn Giang MD at 11:19 EST Tel , Service support ,
[2020-01-28 11:55] LABS: Bedside Glucose 144 mg/dL (70-110)
--- NOTE | 2020-01-28 13:59 | CASEMGMT ---
Social Work Telephone call to patient sister/Vita DENISE. No answer. This social service technician left voicemail requesting return phone call. Sanju JANE, ELAS
--- NOTE | 2020-01-28 15:47 | CASEMGMT ---
Social Work Return phone call received from patient sister, Vita (HCPOA). Vita requesting for referral to be made to [facility]. Telephone call to TCU referral line, voicemail left with referral information. Sanju JANE, RADHA
[2020-01-28 17:16] LABS: Bedside Glucose 145 mg/dL (70-110)
[2020-01-28] MEDS: Acetaminophen 325 MG Tablet 650 MG PO (22:27)
[2020-01-28] MEDS: QUEtiapine 25 MG Tablet 50 MG PO (22:28)
[2020-01-29] VITALS (10 sets, daily range): BP systolic 136–176; BP diastolic 61–65; PULSE 79–93; RESP 16–17; TEMP 36.7–37.1; O2SAT 94–98
[2020-01-29 00:51] LABS: Bedside Glucose 126 mg/dL (70-110)
[2020-01-29] MEDS: Lactated Ringers 1,000 ML 100 ML IV (02:54)
[2020-01-29 06:35] LABS: Bedside Glucose 114 mg/dL (70-110)
[2020-01-29 06:36] LABS: Absolute Lymphocyte Count 1.81 X10^3/uL (0.83-4.51); Absolute Neutrophil Count 6.7 X10^3/uL (2.0-7.7); Basophil# 0.05 X10^3/uL; Basophil% 0.5 % (0-1); Eosinophil# 0.54 X10^3/uL; Eosinophils% 5.4 % (0-5); Hematocrit 31.2 % (37-47); Hemoglobin 9.8 g/dL (12.0-15.0); Lymphocyte # 1.81 X10^3/ul (4.0); Lymphocyte % 18.3 % (19-41); Mean Corp Hgb Conc 31.4 g/dL (32-36); Mean Corpuscular Hgb 30.2 pg (27.0-32.0); Mean Corpuscular Volume 96.3 fL (81-99); Mean Platelet Vol. 10.3 fl (6.2-12.0); Monocyte# 0.81 X10^3/uL; Monocyte% 8.2 % (0-10); NRBC Flagged by Analyzer 0 % (0-5); Neutrophil # 6.67 X10^3/uL (2.7-7.7); Neutrophil % 67.3 % (47-70); Platelet Count 203 K/mm3 (150-450); RBC Distribution Width CV 14.9 % (11.6-14.6); RBC Distribution Width SD 52.7 fl (35.1-43.9); Red Blood Count 3.24 M/mm3 (4.2-5.4); White Blood Count 9.9 K/mm3 (4.4-11.0)
[2020-01-29] MEDS: QUEtiapine 25 MG Tablet 12.5 MG PO (08:57)
[2020-01-29] MEDS: Galantamine Hydrobromide 4 MG Tablet PO ×2 (08:57→20:55)
[2020-01-29] MEDS: Loratadine 10 MG Tablet PO (08:58)
[2020-01-29] MEDS: Aspirin E.C. 81 MG Tablet PO ×2 (08:58→17:13)
[2020-01-29] MEDS: Ferrous Sulfate 325 MG Tablet PO (08:58)
[2020-01-29] MEDS: Allopurinol 100 MG Tablet PO (08:58)
[2020-01-29] MEDS: Multivitamins,Therapeutic Tablet 1 TABLET PO (08:58)
--- NOTE | 2020-01-29 10:57 | PCM.PN.HOSP ---
<Michelet Jade - Last Filed: 01/29/20 10:57> Patient Problems: Active and Suspected Problems (Last Reviewed 01/26/20 @ 22:[address] Eddy Burroughs MD) Intertrochanteric fracture (Acute) Reason for Visit: Left hip fx Subjective: No pain today. No fever/chills/cough/sob/nausea/vomiting. Doing well with no complaints. Vitals/I&O's: Vital Signs Temp Pulse Resp BP Pulse Ox 98.2 F 93 16 176/65 H 95 01/29/20 08:50 01/29/20 08:50 01/29/20 08:50 01/29/20 08:50 01/29/20 08:50 Oxygen Flow Rate (L/min) 2 Oxygen Delivery Method Room Air Weight: 147 lb 7.828 oz Body Mass Index (BMI) 26.1 Finger Stick Blood Glucose 157 Intake and Output for Last 24 Hours 01/27/20 01/28/20 01/29/20 23:59 23:59 23:59 Intake Total 1080 / 1080 3005.00 / 3505.00 1740 / 1740 Output Total 1150 / 1350 1300 / 1700 700 / 700 Balance -70 / -270 1705.00 / 1805.00 1040 / 1040 General: Alert, Cooperative HEENT: Atraumatic, PERRLA, EOMI, Normocephalic Neck: Supple, No JVD, Negative Carotid Bruits Lungs: Clear to auscultation, Normal air movement Cardiovascular: Regular rate, No murmurs Abdomen: Bowel Sounds Present, Soft, Non Tender Extremities: No edema, Capillary Refill Less than 3 Seconds Skin: No rashes, No breakdown Musculoskeletal: No Tenderness to Palpation of Joints or Extremities Neurological: Cranial nerves II-XII grossly intact Psych/Mental Status: Normal Affect, Appropriate Laboratory Results 01/28/20 11:35: POC Glucose 144 H 01/28/20 16:47: POC Glucose 145 H 01/29/20 00:42: POC Glucose 126 H 01/29/20 05:40: WBC 9.9, RBC 3.24 L, Hgb 9.8 L, Hct 31.2 L, MCV 96.3, MCH 30.2, MCHC 31.4 L, RDW Std Deviation 52.7 H, RDW Coeff of Moy 14.9 H, Plt Count 203, MPV 10.3, Immature Gran % (Auto) 0.300, Neut % (Auto) 67.3, Lymph % (Auto) 18.3 L, [place] % (Auto) 8.2, Eos % (Auto) 5.4 H, Baso % (Auto) 0.5, Absolute Neuts (auto) 6.7, Absolute Lymphs (auto) 1.81, Nucleated RBC % 0 01/29/20 06:20: POC Glucose 114 H Current Medications Acetaminophen (Acetaminophen 325 Mg Tablet) 650 mg PO Q6H PRN PRN PRN Reason: Pain Score 1-10/Temp > 100.7 F Last Admin: 01/28/20 22:27 Dose: 650 mg Documented by: Hydrocodone Bitart/Acetaminophen (Hydrocodone Bitartrate/Apap 5/325 Tablet) 1 tablet PO Q4H PRN PRN PRN Reason: Pain Score 4-10 Last Admin: 01/28/20 16:43 Dose: 1 tablet Documented by: Allopurinol (Allopurinol 100 Mg Tablet) [facility] Last Admin: 01/29/20 08:58 Dose: 100 mg Documented by: Aspirin (Aspirin E.C. 81 Mg Tablet) 81 [facility] Last Admin: 01/29/20 08:58 Dose: 81 mg Documented by: Dextrose (Dextrose 50%-Water 25 Gm/50 Ml Disp.Syrin) 0 gm IV X1 PRN; Protocol PRN Reason: Hypoglycemia Ferrous Sulfate (Ferrous Sulfate 325 Mg Tablet) 325 mg [facility] Last Admin: 01/29/20 08:58 Dose: 325 mg Documented by: Fluoxetine HCl (Fluoxetine 20 Mg Capsule) 40 mg PO DAILY PRN PRN PRN Reason: depression Galantamine Hydrobromide (Galantamine Hydrobromide 4 Mg Tablet) 4 mg PO BID [facility] Last Admin: 01/29/20 08:57 Dose: 4 mg Documented by: Glucagon (Glucagon 1 Mg/Ml Syringe) 1 mg IM .X1 PRN PRN Reason: Hypoglycemia Sodium Chloride () 250 mls @ 15 mls/hr IV .[id number] PRN PRN Reason: Saline Flush Sodium Chloride () 250 mls @ 15 mls/hr IV .[id number] PRN PRN Reason: Additional IVPB Infusion Insulin Human Lispro (Insulin Lispro 100 Unit/Ml Insuln.Pen) 0 unit SC Q6 [facility]; Protocol Last Admin: 01/29/20 06:21 Dose: Not Given Documented by: Labetalol HCl (Labetalol (Prefilled) 20 Mg/4 Ml) 10 mg IV Q6H PRN PRN PRN Reason: SBP > 160; OR DBP > 120 Loratadine (Loratadine 10 Mg Tablet) 10 mg PO DAILY [facility] Last Admin: 01/29/20 08:58 Dose: 10 mg Documented by: Melatonin (Melatonin 3 Mg Tablet) 3 mg PO QHS PRN PRN PRN Reason: INSOMNIA Morphine Sulfate (Morphine 2 Mg/Ml Syringe) 1 mg IV Q3H PRN PRN PRN Reason: Pain Score 6-10 Last Admin: 01/28/20 06:45 Dose: 1 mg Documented by: Multivitamins (Multivitamins,Therapeutic Tablet) 1 tablet [facility] Last Admin: 01/29/20 08:58 Dose: 1 tablet Documented by: Ondansetron HCl (Ondansetron 4 Mg/2 Ml Vial) 4 mg IV Q8H PRN PRN PRN Reason: NAUSEA/VOMITING Quetiapine Fumarate (Quetiapine 25 Mg Tablet) 12.5 mg PO DAILY [facility] Last Admin: 01/29/20 08:57 Dose: 12.5 mg Documented by: Quetiapine Fumarate (Quetiapine 25 Mg Tablet) 50 mg PO QHS [facility] Last Admin: 01/28/20 22:28 Dose: 50 mg Documented by: Senna/Docusate Sodium (Senna/Docusate Sodium 1 Tablet) 2 tablet PO DAILY PRN PRN PRN Reason: CONSTIPATION Sodium Chloride (0.9% Saline Lock 10 Ml Syringe) 10 - 40 ml IV UD PRN PRN Reason: SALINE FLUSH Last Admin: 01/28/20 06:45 Dose: 10 ml Documented by: STROKE Vital Signs/Narrative: Vital Signs Temp Pulse Resp BP Pulse Ox 01/29/20 08:50 98.2 F 93 16 176/65 H 95 01/29/20 07:30 94 01/29/20 06:59 79 Medical Necessity - Tobacco Use Smoking Status: Never smoker Tobacco Use: Non-smoker Assessment/Plan All Active Problems (Last Reviewed 01/26/20 @ 22:[address] Eddy Burroughs MD) Intertrochanteric fracture (Acute) 1. Acute left intertrochanteric fracture-orthopedics consulted. No pain today. POD#2 left hip ORIF with intramedullary nail fixation. 2. Leukocytosis-likely reactive to fall and fracture, resolved. no further fever. cxr negative. UA negative. 3. Hypertensive urgency-resolved 4. Dementia-at baseline. Continue galantamine. 5. Type 2 diabetes mellitus-Metformin held. Continue sliding scale insulin. Resume Trulicity at discharge. DVT prophylaxis: Per orthopedics. Discharge planning: SNF This patient was seen by Michelet Jade PA-C under the supervision of Doctor Townsend. <Cary,Emerson - Last Filed: 01/29/20 13:20> Vitals/I&O's: Vital Signs Temp Pulse Resp BP Pulse Ox 98.2 F 93 16 176/65 H 95 01/29/20 08:50 01/29/20 08:50 01/29/20 08:50 01/29/20 08:50 01/29/20 08:50 Oxygen Flow Rate (L/min) 2 Oxygen Delivery Method Room Air Weight: 66.9 kg Body Mass Index (BMI) 26.1 Finger Stick Blood Glucose 157 Intake and Output for Last 24 Hours 01/27/20 01/28/20 01/29/20 23:59 23:59 23:59 Intake Total 1080 / 1080 3005.00 / 3505.00 2681.67 / 2681.67 Output Total 1150 / 1350 1300 / 1700 925 / 925 Balance -70 / -270 1705.00 / 1805.00 1756.67 / 1756.67 Laboratory Results 01/28/20 16:47: POC Glucose 145 H 01/29/20 00:42: POC Glucose 126 H 01/29/20 05:40: WBC 9.9, RBC 3.24 L, Hgb 9.8 L, Hct 31.2 L, MCV 96.3, MCH 30.2, MCHC 31.4 L, RDW Std Deviation 52.7 H, RDW Coeff of Moy 14.9 H, Plt Count 203, MPV 10.3, Immature Gran % (Auto) 0.300, Neut % (Auto) 67.3, Lymph % (Auto) 18.3 L, Pan[place] % (Auto) 8.2, Eos % (Auto) 5.4 H, Baso % (Auto) 0.5, Absolute Neuts (auto) 6.7, Absolute Lymphs (auto) 1.81, Nucleated RBC % 0 01/29/20 06:20: POC Glucose 114 H 01/29/20 12:11: POC Glucose 125 H Current Medications Acetaminophen (Acetaminophen 325 Mg Tablet) 650 mg PO Q6H PRN PRN PRN Reason: Pain Score 1-10/Temp > 100.7 F Last Admin: 01/28/20 22:27 Dose: 650 mg Documented by: Hydrocodone Bitart/Acetaminophen (Hydrocodone Bitartrate/Apap 5/325 Tablet) 1 tablet PO Q4H PRN PRN PRN Reason: Pain Score 4-10 Last Admin: 01/28/20 16:43 Dose: 1 tablet Documented by: Allopurinol (Allopurinol 100 Mg Tablet) [facility] Last Admin: 01/29/20 08:58 Dose: 100 mg Documented by: Aspirin (Aspirin E.C. 81 Mg Tablet) 81 [facility] Last Admin: 01/29/20 08:58 Dose: 81 mg Documented by: Dextrose (Dextrose 50%-Water 25 Gm/50 Ml Disp.Syrin) 0 gm IV X1 PRN; Protocol PRN Reason: Hypoglycemia Ferrous Sulfate (Ferrous Sulfate 325 Mg Tablet) 325 mg PO [facility] Last Admin: 01/29/20 08:58 Dose: 325 mg Documented by: Fluoxetine HCl (Fluoxetine 20 Mg Capsule) 40 mg PO DAILY PRN PRN PRN Reason: depression Galantamine Hydrobromide (Galantamine Hydrobromide 4 Mg Tablet) 4 mg PO BID [facility] Last Admin: 01/29/20 08:57 Dose: 4 mg Documented by: Glucagon (Glucagon 1 Mg/Ml Syringe) 1 mg IM .X1 PRN PRN Reason: Hypoglycemia Sodium Chloride () 250 mls @ 15 mls/hr IV .[id number] PRN PRN Reason: Saline Flush Sodium Chloride () 250 mls @ 15 mls/hr IV .[id number] PRN PRN Reason: Additional IVPB Infusion Insulin Human Lispro (Insulin Lispro 100 Unit/Ml Insuln.Pen) 0 unit SC Q6 [facility]; Protocol Last Admin: 01/29/20 12:27 Dose: Not Given Documented by: Labetalol HCl (Labetalol (Prefilled) 20 Mg/4 Ml) 10 mg IV Q6H PRN PRN PRN Reason: SBP > 160; OR DBP > 120 Loratadine (Loratadine 10 Mg Tablet) 10 mg PO DAILY [facility] Last Admin: 01/29/20 08:58 Dose: 10 mg Documented by: Melatonin (Melatonin 3 Mg Tablet) 3 mg PO QHS PRN PRN PRN Reason: INSOMNIA Morphine Sulfate (Morphine 2 Mg/Ml Syringe) 1 mg IV Q3H PRN PRN PRN Reason: Pain Score 6-10 Last Admin: 01/28/20 06:45 Dose: 1 mg Documented by: Multivitamins (Multivitamins,Therapeutic Tablet) 1 tablet PO DAILYCM [facility] Last Admin: 01/29/20 08:58 Dose: 1 tablet Documented by: Ondansetron HCl (Ondansetron 4 Mg/2 Ml Vial) 4 mg IV Q8H PRN PRN PRN Reason: NAUSEA/VOMITING Quetiapine Fumarate (Quetiapine 25 Mg Tablet) 12.5 mg PO DAILY [facility] Last Admin: 01/29/20 08:57 Dose: 12.5 mg Documented by: Quetiapine Fumarate (Quetiapine 25 Mg Tablet) 50 mg PO QHS [facility] Last Admin: 01/28/20 22:28 Dose: 50 mg Documented by: Senna/Docusate Sodium (Senna/Docusate Sodium 1 Tablet) 2 tablet PO DAILY PRN PRN PRN Reason: CONSTIPATION Sodium Chloride (0.9% Saline Lock 10 Ml Syringe) 10 - 40 ml IV UD PRN PRN Reason: SALINE FLUSH Last Admin: 01/28/20 06:45 Dose: 10 ml Documented by: Assessment/Plan This patient was seen in conjunction with SAMANTA Pulliam. I have independently interviewed and examined the patient and reviewed pertinent historical, laboratory, and other data. Please refer to SAMANTA Pulliam note for his patient's presentation, findings, and recommendations. I have reviewed and his note and concur with his documentation Patient was seen and examined. She denies any pain. No acute events overnight. Physical Exam: Gen: Comfortable, not pale, not jaundiced CVS:HS I +II, regular, no murmurs RESP: Diminished at lung bases GI: BS present and normal, soft, nontender, no palpable organs EXT:No edema, tenderness over the left hip ASSESSMENT: 1. POD #2, status post left hip ORIF/intra-medullary nailing for acute left intertrochanteric hip fracture 2. Leukocytosis, likely reactive 3. Uncontrolled hypertension, resolved 4. Dementia 5. Type II DM Plan: Continue per orthopedic recommendations Resume back on her home Metformin PT/OT to evaluate and treat Awaiting discharge planning Inpatient E&M: [id number] [facility] Hosp L2
[2020-01-29 12:20] LABS: Bedside Glucose 125 mg/dL (70-110)
[2020-01-29] MEDS: HYDROcodone Bitartrate/Apap 5/325 Tablet PO ×2 (14:10→20:54)
[2020-01-29] MEDS: metFORMIN HCl 850 MG Tablet PO (17:13)
[2020-01-29 17:20] LABS: Bedside Glucose 115 mg/dL (70-110)
[2020-01-29] MEDS: QUEtiapine 25 MG Tablet 50 MG PO (20:55)
[2020-01-30] VITALS (8 sets, daily range): BP systolic 141–166; BP diastolic 58–74; PULSE 85–106; RESP 16–18; TEMP 36.6–37; O2SAT 95–98
[2020-01-30 00:50] LABS: Bedside Glucose 130 mg/dL (70-110)
[2020-01-30] MEDS: 0.9% Saline Lock 10 ML Syringe IV (03:09)
[2020-01-30] MEDS: Morphine 2 MG/ML Syringe 1 MG IV (03:09)
[2020-01-30 06:08] LABS: Absolute Lymphocyte Count 1.38 X10^3/uL (0.83-4.51); Absolute Neutrophil Count 7.4 X10^3/uL (2.0-7.7); Basophil# 0.03 X10^3/uL; Basophil% 0.3 % (0-1); Eosinophil# 0.51 X10^3/uL; Hematocrit 30.3 % (37-47); Hemoglobin 9.5 g/dL (12.0-15.0); Lymphocyte # 1.38 X10^3/ul (4.0); Lymphocyte % 13.6 % (19-41); Mean Corp Hgb Conc 31.4 g/dL (32-36); Mean Corpuscular Hgb 30.1 pg (27.0-32.0); Mean Corpuscular Volume 95.9 fL (81-99); Monocyte# 0.79 X10^3/uL; Monocyte% 7.8 % (0-10); NRBC Flagged by Analyzer 0 % (0-5); Neutrophil # 7.43 X10^3/uL (2.7-7.7); Platelet Count 238 K/mm3 (150-450); RBC Distribution Width SD 52.8 fl (35.1-43.9); Red Blood Count 3.16 M/mm3 (4.2-5.4); White Blood Count 10.2 K/mm3 (4.4-11.0)
[2020-01-30 06:11] LABS: Bedside Glucose 131 mg/dL (70-110)
[2020-01-30 06:38] LABS: ALB/GLOB Ratio 0.4 RATIO (0.9-2.4); AST(SGOT) 24 U/L (15-37); Alanine Aminotransfer ALT/SGPT 23 U/L (13-56); Alkaline Phosphatase 72 U/L (45-117); Anion Gap 5 (5-15); BUN 16 mg/dL (7-18); BUN/Creat Ratio 21.5 RATIO (10-20); Calcium,Total 8.8 mg/dL (8.5-10.1); Chloride 109 mmol/L (98-107); Creatinine, Serum 0.74 mg/dL (0.55-1.02); EST Glomerular Filtration Rate 81 mL/min (>60); Est Glom Filt Rate - Afr Amer 98 mL/min (>60); Estimated Creatinine Clearance 40.21 ml/min; Glucose 113 mg/dL (74-106); Potassium 3.6 mmol/L (3.5-5.1); Sodium Level 141 mmol/L (136-145)
[2020-01-30] MEDS: Aspirin E.C. 81 MG Tablet PO ×2 (09:20→16:34)
[2020-01-30] MEDS: Allopurinol 100 MG Tablet PO (09:20)
[2020-01-30] MEDS: metFORMIN HCl 850 MG Tablet PO ×2 (09:20→16:34)
[2020-01-30] MEDS: Galantamine Hydrobromide 4 MG Tablet PO (09:20)
[2020-01-30] MEDS: QUEtiapine 25 MG Tablet 12.5 MG PO (09:20)
[2020-01-30] MEDS: Multivitamins,Therapeutic Tablet 1 TABLET PO (09:20)
[2020-01-30] MEDS: Loratadine 10 MG Tablet PO (09:20)
[2020-01-30] MEDS: Ferrous Sulfate 325 MG Tablet PO (09:21)
--- NOTE | 2020-01-30 10:37 | CASEMGMT ---
Addendum entered by Loraine Wallace 01/30/20 10:51: MATEUS called patient's sister Vita and let her know TCU can take patient and we are just waiting on insurance to approve. MATEUS told her she can drop off clothing for patient as she will be able to wear regular clothes. MATEUS told her SW will let her know when SW hears something. MATEUS also faxed information to [facility] to keep them updated. MATEUS wrote on fax face sheet that patient will be going to [facility] at d/c for rehab. Loraine JANE Original Note: MATEUS received a return call from [facility] in TCU and they can accept patient. She will start the pre-cert. MATEUS will notify patient's sister, Vita. Plan: [facility] pending insurance approval. Loraine JANE
[2020-01-30] MEDS: HYDROcodone Bitartrate/Apap 5/325 Tablet PO (12:11)
[2020-01-30] MEDS: Insulin Lispro 100 UNIT/ML INSULN.PEN SC (12:14)
[2020-01-30 12:21] LABS: Bedside Glucose 162 mg/dL (70-110)
--- NOTE | 2020-01-30 12:54 | TREXTCA.CO_ITS ---
- Diet 01/30/20 11:57 Diet: Carbohydrate Controlled Dietary Modifications:: Cardiac / Heart Healthy Is pt able to select menu?: No - Routine Orders/Code Status Suppository Type: Dulcolax 10mg Suppository Frequency: Daily PRN Routine Lab Work: CBC - 5 days, BMP - 5 days Code Status: Full Code - Wound(s) Coccyx Wound Type: Pressure Injury LEFT HIP Wound Type: Surgical Incision - Therapies Weight Bearing: full Physical Therapy: Eval and Treat Occupational Therapy: Eval and Treat - Problem/Diagnosis (1) Intertrochanteric fracture Status: Acute (2) Dementia Status: Chronic - Allergies/Procedures Done in Hospital Allergies/Adverse Reactions: Allergies penicillin V [From Pen-Vee K] Allergy (Verified 11/18/19 13:31) Unknown Procedures: None - Type of Care/Length of Stay Estimated LOS: Convalescent Care Less Than 30 days Type of Care Needed: Skilled Rehab Potential: Fair Prognosis: Fair - Additional Orders/Day of Discharge Day of Discharge: 01/30/20 - Dietary and Speech Recommendations Dietitian Recommendations/Changes: Will change diet to Carbohydrate- Controlled/Cardiac. Will add Anshu bid & 120 ml glucerna shake TID w/ meals for extra protein/wound healing. - Follow Up Care Primary Care Physician: Libia Valdivia MD [Primary Care Provider] - Please follow up with your Primary Care Physician in: 2 weeks Please Follow Up With: Sadi Castaneda MD When: 2 weeks
--- NOTE | 2020-01-30 13:12 | CASEMGMT ---
MATEUS received call from [facility] and patient was approved. MATEUS notified physician. Plan: d/c to [facility]. Loraien JANE
--- NOTE | 2020-01-30 13:58 | NURSING ---
wound photo: sacrum
--- NOTE | 2020-01-30 14:04 | DS.PCM_ITS ---
Discharge Date and Diagnosis - Problem List Patient Problems: Active and Suspected Problems (Last Reviewed 01/26/20 @ 22:[address] Eddy Burroughs MD) Intertrochanteric fracture (Acute) Date of Admission: 01/26/20 Date of Discharge: 01/30/20 - Primary Discharge Diagnosis Acute Problems: Active Problems (Last Reviewed 01/26/20 @ 22:[address] Eddy Burroughs MD) Acute left intertrochanteric fracture (Acute) secondary to mechanical fall Dementia - Secondary Discharge Diagnosis Chronic Problems: Chronic Problems (Last Reviewed 01/26/20 @ 22:[address] Eddy Burroughs MD) Hypergammaglobulinemia (Chronic) Left thyroid nodule (Chronic) Right thyroid nodule (Chronic) Vulval hidradenitis suppurativa (Chronic) Hidradenitis suppurativa (Chronic) Pressure ulcer of coccygeal region, stage 1 (Chronic) Ulcer of left groin with fat layer exposed (Chronic) Dementia (Chronic) Hospital Course and Treatment Imaging Results: RAD/Chest 1 View (Portable) IMPRESSION: No acute cardiopulmonary findings or changes. Negative for pneumothorax, pleural effusion or other acute pulmonary findings. Normal heart size. Atherosclerotic changes of the thoracic aorta. Demineralized osseous structures are without a demonstrated thoracic fracture RAD/HIP, UNI W/ Pelvis 2-3 Views IMPRESSION: Acute left intertrochanteric fracture with mild impaction and external rotation. Negative for pelvic fracture. Degenerative changes as stated above. RAD/Hip Min 2 Views (Portable) IMPRESSION: Status post intramedullary nailing of the left hip. RAD/Chest 1 View (Portable) IMPRESSION: Normal x-ray examination of the chest. 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 Procedures: None Summary of Care Provided: Hospital course: The patient is a 74 year old F past medical history significant for dementia from assisted living who sustained a left hip fracture after mechanical fall. She was sent to the emergency room, fracture was confirmed with x-ray. She was admitted to the PCU and orthopedic surgery was consulted. She underwent a left hip ORIF intramedullary nail fixation on 01/27/2020 and tolerated the procedure well. She has minimal pain at this time. She has significant dementia and is pleasantly confused. She will need ongoing PT and OT and fci was recommended. She was discharged to [facility] in stable condition and will need to follow-up with her PCP in 2 weeks, orthopedic surgery in 2 weeks. She was placed on baby aspirin aspirin twice daily by orthopedics for DVT prophylaxis. This patient was seen by Michelet Jade PA-C under the supervision of Doctor Nguyen. [] Patient Problems: Active and Suspected Problems (Last Reviewed 01/26/20 @ 22:[address] Eddy Burroughs MD) Intertrochanteric fracture (Acute) - Physical Exam Vitals/I&O's: Vital Signs Temp Pulse Resp BP Pulse Ox 98.0 F 95 16 141/58 H 96 01/30/20 09:17 01/30/20 09:17 01/30/20 09:17 01/30/20 09:17 01/30/20 09:52 Oxygen Flow Rate (L/min) 2 Oxygen Delivery Method Room Air Weight: 147 lb 7.828 oz Body Mass Index (BMI) 26.1 Finger Stick Blood Glucose 157 Intake and Output for Last 24 Hours 01/28/20 01/29/20 01/30/20 23:59 23:59 23:59 Intake Total 3005.00 / 3505.00 2801.67 / 2861.67 180 / 180 Output Total 1300 / 1700 925 / 1025 700 / 700 Balance 1705.00 / 1805.00 1876.67 / 1836.67 -520 / -520 General: Alert, Oriented x3, Cooperative HEENT: Atraumatic, PERRLA, EOMI, Normocephalic Neck: Supple, No JVD, Negative Carotid Bruits Lungs: Clear to auscultation, Normal air movement Cardiovascular: Regular rate, No murmurs Abdomen: Bowel Sounds Present, Soft, Non Tender Extremities: No edema, Capillary Refill Less than 3 Seconds Skin: No rashes, No breakdown Musculoskeletal: No Tenderness to Palpation of Joints or Extremities Neurological: Cranial nerves II-XII grossly intact Psych/Mental Status: Normal Affect, Appropriate, Alert and oriented to time, place, person, mood and affect Laboratory Results 01/29/20 17:12: POC Glucose 115 H 01/30/20 00:44: POC Glucose 130 H 01/30/20 05:43: WBC 10.2, RBC 3.16 L, Hgb 9.5 L, Hct 30.3 L, MCV 95.9, MCH 30.1, MCHC 31.4 L, RDW Std Deviation 52.8 H, RDW Coeff of Moy 15.0 H, Plt Count 238, MPV 10.0, Immature Gran % (Auto) 0.300, Neut % (Auto) 73.0 H, Lymph % (Auto) 13.6 L, Russell % (Auto) 7.8, Eos % (Auto) 5.0, Baso % (Auto) 0.3, Absolute Neuts (auto) 7.4, Absolute Lymphs (auto) 1.38, Nucleated RBC % 0 01/30/20 05:43: Sodium 141, Potassium 3.6, Chloride 109 H, Carbon Dioxide 27.0, Anion Gap 5, BUN 16, Creatinine 0.74, Estim Creat Clear Calc 40.21, Est GFR (MDRD) Af Amer 98, Est GFR (MDRD) Non-Af 81, BUN/Creatinine Ratio 21.5 H, Glucose 113 H, Calcium 8.8, Total Bilirubin 0.40, AST 24, ALT 23, Alkaline Phosphatase 72, Total Protein 7.0, Albumin 2.0 L, Globulin 5.0 H, Albumin/Globulin Ratio 0.4 L 01/30/20 06:07: POC Glucose 131 H 01/30/20 12:09: POC Glucose 162 H Current Medications Acetaminophen (Acetaminophen 325 Mg Tablet) 650 mg PO Q6H PRN PRN PRN Reason: Pain Score 1-10/Temp > 100.7 F Last Admin: 01/28/20 22:27 Dose: 650 mg Documented by: Hydrocodone Bitart/Acetaminophen (Hydrocodone Bitartrate/Apap 5/325 Tablet) 1 tablet PO Q4H PRN PRN PRN Reason: Pain Score 4-10 Last Admin: 01/30/20 12:11 Dose: 1 tablet Documented by: Allopurinol (Allopurinol 100 Mg Tablet) 100 mg PO DAILYCM [facility] Last Admin: 01/30/20 09:20 Dose: 100 mg Documented by: Aspirin (Aspirin E.C. 81 Mg Tablet) [facility] Admin: 01/30/20 09:20 Dose: 81 mg Documented by: Dextrose (Dextrose 50%-Water 25 Gm/50 Ml Disp.Syrin) 0 gm IV X1 PRN; Protocol PRN Reason: Hypoglycemia Ferrous Sulfate (Ferrous Sulfate 325 Mg Tablet) [facility] Last Admin: 01/30/20 09:21 Dose: 325 mg Documented by: Fluoxetine HCl (Fluoxetine 20 Mg Capsule) 40 mg PO DAILY PRN PRN PRN Reason: depression Galantamine Hydrobromide (Galantamine Hydrobromide 4 Mg Tablet) 4 mg PO BID [facility] Last Admin: 01/30/20 09:20 Dose: 4 mg Documented by: Glucagon (Glucagon 1 Mg/Ml Syringe) 1 mg IM .X1 PRN PRN Reason: Hypoglycemia Sodium Chloride () 250 mls @ 15 mls/hr IV .[id number] PRN PRN Reason: Saline Flush Sodium Chloride () 250 mls @ 15 mls/hr IV .[id number] PRN PRN Reason: Additional IVPB Infusion Insulin Human Lispro (Insulin Lispro 100 Unit/Ml Insuln.Pen) 0 unit SC Q6 [facility]; Protocol Last Admin: 01/30/20 12:14 Dose: 1 u Documented by: Labetalol HCl (Labetalol (Prefilled) 20 Mg/4 Ml) 10 mg IV Q6H PRN PRN PRN Reason: SBP > 160; OR DBP > 120 Loratadine (Loratadine 10 Mg Tablet) 10 mg PO DAILY [facility] Last Admin: 01/30/20 09:20 Dose: 10 mg Documented by: Melatonin (Melatonin 3 Mg Tablet) 3 mg PO QHS PRN PRN PRN Reason: INSOMNIA Metformin HCl (Metformin Hcl 850 Mg Tablet) [facility] Last Admin: 01/30/20 09:20 Dose: 850 mg Documented by: Morphine Sulfate (Morphine 2 Mg/Ml Syringe) 1 mg IV Q3H PRN PRN PRN Reason: Pain Score 6-10 Last Admin: 01/30/20 03:09 Dose: 1 mg Documented by: Multivitamins (Multivitamins,Therapeutic Tablet) [facility] Last Admin: 01/30/20 09:20 Dose: 1 tablet Documented by: Nutritional Formula (Nutritional Supplement (Anshu) Packet) [facility] Ondansetron HCl (Ondansetron 4 Mg/2 Ml Vial) 4 mg IV Q8H PRN PRN PRN Reason: NAUSEA/VOMITING Quetiapine Fumarate (Quetiapine 25 Mg Tablet) 12.5 mg PO DAILY [facility] Last Admin: 01/30/20 09:20 Dose: 12.5 mg Documented by: Quetiapine Fumarate (Quetiapine 25 Mg Tablet) 50 mg PO QHS [facility] Last Admin: 01/29/20 20:55 Dose: 50 mg Documented by: Senna/Docusate Sodium (Senna/Docusate Sodium 1 Tablet) 2 tablet PO DAILY PRN PRN PRN Reason: CONSTIPATION Sodium Chloride (0.9% Saline Lock 10 Ml Syringe) 10 - 40 ml IV UD PRN PRN Reason: SALINE FLUSH Last Admin: 01/30/20 03:09 Dose: 10 ml Documented by: Discharge Diet: Low fat/ Low Cholesterol, 2000 mg Sodium Diet Discharge Activity: Return to Normal Activity Home Medications: Medications to take at Discharge Allopurinol [Zyloprim] 100 mg PO DAILY 06/09/16 Torsemide [Demadex] 20 mg PO DAILY 06/09/16 metFORMIN HCl [Glucophage] 850 mg PO BID 06/09/16 Dulaglutide [Trulicity] 0.75 mg SQ TU 10/09/16 Cetirizine HCl 10 mg PO DAILY 01/19/19 Galantamine HBr 4 mg PO BID 01/19/19 Quetiapine Fumarate 12.5 mg PO DAILY 01/19/19 Ferrous Sulfate 325 mg PO DAILY 01/26/20 Fluoxetine HCl 40 mg PO DAILY PRN PRN 01/26/20 Multivitamins,Therapeutic [Multivitamin] 1 tab PO DAILY 01/26/20 Quetiapine Fumarate [Seroquel] 50 mg PO QHS 01/26/20 Acetaminophen [Tylenol Tablet] 650 mg PO Q6H PRN PRN tab 01/30/20 Aspirin E.C. [Ecotrin] 81 mg PO BIDCM tab 01/30/20 Nutritional Supplement [Anshu - ORANGE FLAVOR] 1 packet PO BID packet 1 03/31/19 Oxycodone [Oxyir] 5 mg PO Q6H PRN PRN 3 Days #12 tab 01/30/20 Senna/Docusate Sodium [Senokot-S] 2 tab PO DAILY PRN PRN tab 01/30/20 Following Prescriptions Were Given to Patient: Oxycodone [Oxyir] 5 mg PO Q6H PRN PRN 3 Days #12 tab PRN Reason: Pain Score 6-10 Prescription Printed Primary Care Physician: Libia Valdivia MD [Primary Care Provider] - Please follow up with your Primary Care Physician in: 2 weeks Please Follow Up With: Sadi Castaneda MD When: 2 weeks Disposition: Correction facility Minutes spent on discharge:: 35 Patient Condition:: Stable Medical Necessity - Tobacco Use Smoking Status: Never smoker Tobacco Use: Non-smoker Meaningful Use Info Meaningful Use Diagnoses (Choose all that apply): None applicable
--- NOTE | 2020-01-30 14:05 | PHA.DC.MR ---
Pharmacy Service has performed discharge medication reconciliation for this patient upon transfer to [facility]. The patient's discharge medication list was reviewed for discrepancies and discrepancies were resolved. Note: last QTc 01/25 was 479, possible interaction with fluoxetine and quetiapine. Please continue to monitor at facility, no action needed at this time. Home Medications Allopurinol [Zyloprim] 100 mg PO DAILYCM 06/09/16 Torsemide [Demadex] 20 mg PO DAILY 06/09/16 metFORMIN HCl [Glucophage] 850 mg PO BIDCM 06/09/16 Dulaglutide [Trulicity] 0.75 mg SQ TU 10/09/16 Cetirizine HCl 10 mg PO DAILY 01/19/19 Galantamine HBr 4 mg PO BID 01/19/19 Quetiapine Fumarate 12.5 mg PO DAILY 01/19/19 Ferrous Sulfate 325 mg PO DAILY 01/26/20 Fluoxetine HCl 40 mg PO DAILY PRN PRN 01/26/20 Multivitamins,Therapeutic [Multivitamin] 1 tab PO DAILY 01/26/20 Quetiapine Fumarate [Seroquel] 50 mg PO QHS 01/26/20 Acetaminophen [Tylenol Tablet] 650 mg PO Q6H PRN PRN tab 01/30/20 Aspirin E.C. [Ecotrin] 81 mg PO BIDCM tab 01/30/20 Nutritional Supplement [Anshu - ORANGE FLAVOR] 1 packet PO BIDCM packet 01/30/20 Oxycodone [Oxyir] 5 mg PO Q6H PRN PRN 3 Days #12 tab 01/30/20 Senna/Docusate Sodium [Senokot-S] 2 tab PO DAILY PRN PRN tab 01/30/20
--- NOTE | 2020-01-30 14:40 | CASEMGMT ---
MATEUS called patient's sister, Vita and left her a voice mail letting her know patient will be discharged to [facility] today as her insurance approved her. Plan: [facility] under skilled level of care. Loraine JANE
== END 2020-01-30 17:30 | disposition skilled nursing facility (03) | DRG 482 ==
LOC: ED 17:44 → PCU 21:51
PROVIDERS: Internal Medicine; Orthopaedic Surgery; Physician Assistant; Admitting Provider Hospitalist; Emergency Provider Emergency Medicine; PCP Family Medicine; Referring Provider Hospitalist; Visit Provider Internal Medicine
PROC: 0QS706Z Reposition Left Upper Femur with Intramedullary Internal Fixation Device, Open Approach (ICD-10-PCS; CPT 27245; principal; 2020-01-27 07:30)
DX: S72.142A Displaced intertrochanteric fracture of left femur, initial encounter for closed fracture (principal); F03.90 Unspecified dementia, unspecified severity, without behavioral disturbance, psychotic disturbance, mood disturbance, and anxiety; I10 Essential (primary) hypertension; Z79.84 Long term (current) use of oral hypoglycemic drugs; Z79.899 Other long term (current) drug therapy; F32.9 Major depressive disorder, single episode, unspecified; F41.9 Anxiety disorder, unspecified; R60.0 Localized edema; D72.829 Elevated white blood cell count, unspecified; I16.0 Hypertensive urgency; E11.65 Type 2 diabetes mellitus with hyperglycemia; R09.02 Hypoxemia; W18.30XA Fall on same level, unspecified, initial encounter; Y93.89 Activity, other specified; Y92.129 Unspecified place in nursing home as the place of occurrence of the external cause; Y99.8 Other external cause status; Z23 Encounter for immunization
CPT/HCPCS: 36415; 71045; 73502; 76000; 80048; 80053; 81001; 82306; 82607; 82962; 85025; 85610; 87426; 87635; 93005; 97110; 97162; 97166; 97530; 97535; 99251; 99285; C1713; G0008; J7120; 90686; A4216; G0463; J2405; U0002

== ENCOUNTER 2020-01-30 17:44 | Inpatient (IN) | payer MEDICARE, SELFPAY ==
[2020-01-27 12:28] VITALS: BMI 26.1
[2020-01-30 17:53] VITALS: BP 180/83; PULSE 102; RESP 16; RESP 18; TEMP 37; O2SAT 96
[2020-01-30 18:30] VITALS: BMI 27.6
--- NOTE | 2020-01-30 20:36 | HP.PCM_ITS ---
Problem List (1) Debility Status: Acute (2) Fall Status: Acute (3) Closed left hip fracture Status: Acute (4) Diabetes mellitus Status: Chronic (5) Hypertension Status: Chronic (6) Alzheimer's disease Status: Chronic (7) Hypogammaglobulinemia Status: Chronic (8) Thyroid nodule Status: Chronic (9) Gout Status: Chronic (10) Edema Status: Chronic (11) Depression Status: Chronic (12) Hidradenitis suppurativa Status: Chronic History of Present Illness Date of Admission: 01/30/20 Chief Complaint: Here for rehabilitation, strengthening, prior to discharge to [facility]. 01/26/20 The patient is a 74 year old Female with below past medical history presented to [facility] Emergency Department with fall. 01/26/20 EKG normal sinus rhythm with sinus arrhythmia, left axis deviation, nonspecific T wave abnormality, Prolonged QT, Poor R wave progression. Fell at [place], Left hip pain. X-ray shows left hip fracture. 01/26/20 Admit to Hospital. Prepare for surgery. 01/27/20 Dr. Sadi Castaneda performed left hip open reduction internal fixation, intramedullary nail fixation, locked. Pain well controlled. Pleasantly confused. Aspirin 81MG twice daily for DVT prophylaxis. 01/30/20 Admit to TCU with debility, here for rehabilitation, strengthening, prior to discharge to [facility]. Past Medical History Past Medical History (Chronic Problems): Chronic Problems (Last Reviewed 01/26/20 @ 22:[address] Eddy Burroughs MD) Hypergammaglobulinemia (Chronic) Left thyroid nodule (Chronic) Right thyroid nodule (Chronic) Vulval hidradenitis suppurativa (Chronic) Hidradenitis suppurativa (Chronic) Pressure ulcer of coccygeal region, stage 1 (Chronic) Ulcer of left groin with fat layer exposed (Chronic) Dementia (Chronic) Diabetes mellitus (Chronic) Hypertension (Chronic) Alzheimer's disease (Chronic) Hypogammaglobulinemia (Chronic) Thyroid nodule (Chronic) Gout (Chronic) Edema (Chronic) Depression (Chronic) Medical History: Medical History (Last Reviewed 01/26/20 @ 22:[address] Eddy Burroughs MD) Diabetes E11.9 Gout M10.9 Hypergammaglobulinemia D89.2 Short-term memory loss R41.3 Hypertension I10 Allergies penicillin V [From Pen-Vee K] Allergy (Verified 11/18/19 13:31) Unknown Home Medications: Ambulatory Orders Medication Instructions Recorded Allopurinol [Zyloprim] 100 mg PO DAILYCM 06/09/16 Torsemide [Demadex] 20 mg PO DAILY 06/09/16 metFORMIN HCl [Glucophage] 850 mg PO BIDCM 06/09/16 Dulaglutide [Trulicity] 0.75 mg SQ TU 10/09/16 Cetirizine HCl 10 mg PO DAILY 01/19/19 Galantamine HBr 4 mg PO BID 01/19/19 Quetiapine Fumarate 12.5 mg PO DAILY 01/19/19 Ferrous Sulfate 325 mg PO DAILY 01/26/20 Fluoxetine HCl 40 mg PO DAILY PRN PRN 01/26/20 Multivitamins,Therapeutic 1 tab PO DAILY 01/26/20 [Multivitamin] Quetiapine Fumarate [Seroquel] 50 mg PO QHS 01/26/20 Acetaminophen [Tylenol Tablet] 650 mg PO Q6H PRN PRN tab 01/30/20 Aspirin E.C. [Ecotrin] 81 mg PO BIDCM 01/30/20 Nutritional Supplement [Anshu - 1 packet PO BIDCM 01/30/20 ORANGE FLAVOR] Oxycodone [Oxyir] 5 mg PO Q6H PRN PRN 3 Days #12 tab 01/30/20 Senna/Docusate Sodium [Senokot-S] 2 tab PO DAILY PRN PRN tab 01/30/20 Surgical History: Surgical History (Last Reviewed 01/26/20 @ 22:[address] Eddy Burroughs MD) History of cholecystectomy Z90.49 History of hysterectomy Z90.710 Surgical History: cholecystectomy, hysterectomy, - - Left hip ORIF, intramedullary nail. Psychiatric History: Depression ALUMINIZER History: No pertinent ALUMINIZER history Lives: Longterm - [facility]. Smoking Status: Never smoker Tobacco Use: Non-smoker Alcohol: None Drugs: None - *Family History Sibling Family History: Family History (Last Reviewed 01/26/20 @ 22:[address] Eddy Burroughs MD) Mother Bone cancer Father Heart disease Diabetes History Items: - - hidradenitis Review of Systems Constitutional: Denies: Chills, Fever, Weight Change HEENT: Denies: Head Aches, Sinus Congestion, Sinus Drainage Cardiovascular: Denies: Chest Pain, Palpitations Respiratory: Denies: Cough, Shortness of breath at rest, Sputum production Gastrointestinal: Denies: Abdominal Pain, Nausea, Vomiting Genitourinary: Denies: Dysuria Musculoskeletal: Denies: Joint Pain, Joint Tenderness Skin: Denies: Rash, Wounds Neurological: Denies: Numbness, Tingling, Focal weakness Psychiatric: Denies: Anxiety, Depression, Homicidal Ideations, Suicidal Ideations Hematologic/ Lymphatic: Denies: Easy Bruising, Easy Bleeding VTE Information - Inpt Only VTE Present on Admission: No VTE Mechan Device Prophylaxis: Knee High NIRMALA Hose VTE Pharm Prophylaxis ordered?: Yes Patient Problems: Active and Suspected Problems (Last Reviewed 01/26/20 @ 22:[address] Eddy Burroughs MD) Debility (Acute) Fall (Acute) Closed left hip fracture (Acute) - Physical Exam Vitals/I&O's: Vital Signs Temp Pulse Resp BP Pulse Ox 98.6 F 102 H 16 180/83 H 96 01/30/20 17:53 01/30/20 17:53 01/30/20 17:53 01/30/20 17:53 01/30/20 17:53 Oxygen Delivery Method Room Air Weight: 70.76 kg Body Mass Index (BMI) 27.6 Finger Stick Blood Glucose 157 General: Alert, Oriented x3, Cooperative HEENT: Atraumatic, PERRLA, EOMI, Normocephalic Neck: Supple, No JVD, Negative Carotid Bruits Lungs: Clear to auscultation, Normal air movement Cardiovascular: Regular rate, No murmurs Abdomen: Bowel Sounds Present, Soft, Non Tender Extremities: No edema, Capillary Refill Less than 3 Seconds Skin: No rashes, No breakdown Musculoskeletal: No Tenderness to Palpation of Joints or Extremities Neurological: Cranial nerves II-XII grossly intact Psych/Mental Status: Normal Affect, Appropriate Current Medications Acetaminophen (Acetaminophen 325 Mg Tablet) 650 mg PO Q6H PRN PRN PRN Reason: Pain Score 1-10/Temp > 100.7 F Allopurinol (Allopurinol 100 Mg Tablet) 100 mg PO DAILYCM [facility] Aspirin (Aspirin E.C. 81 Mg Tablet) 81 mg PO BIDCM [facility] Bisacodyl (Bisacodyl 10 Mg Suppository) 10 mg RECTAL DAILY PRN PRN Reason: Constipation Ferrous Sulfate (Ferrous Sulfate 325 Mg Tablet) 325 mg PO DAILY@1200 [facility] Fluoxetine HCl (Fluoxetine 20 Mg Capsule) 40 mg PO DAILY PRN PRN PRN Reason: depression Furosemide (Furosemide 40 Mg Tablet) 40 mg PO DAILY [facility] Galantamine Hydrobromide (Galantamine Hydrobromide 4 Mg Tablet) 4 mg PO BID [facility] Loratadine (Loratadine 10 Mg Tablet) 10 mg PO DAILY [facility] Metformin HCl (Metformin Hcl 850 Mg Tablet) 850 mg PO BIDCM [facility] Multivitamins (Multivitamins,Therapeutic Tablet) 1 tablet PO DAILY@0800 [facility] Non-Formulary Medication (Dulaglutide) 0.75 mg SQ TU [facility] Nutritional Formula (Nutritional Supplement (Anshu) Packet) 1 packet PO BIDCM [facility] Nutritional Formula (Lactose Free) (Glucerna Shake 120 Ml Liquid) 120 ml PO TIDCM [facility] Oxycodone HCl (Oxycodone 5 Mg Tablet) 5 mg PO Q6H PRN PRN PRN Reason: Pain Score 6-10 Quetiapine Fumarate (Quetiapine 25 Mg Tablet) 12.5 mg PO DAILY [facility] Quetiapine Fumarate (Quetiapine 25 Mg Tablet) 50 mg PO QHS [facility] Senna/Docusate Sodium (Senna/Docusate Sodium 1 Tablet) 2 tablet PO DAILY PRN PRN PRN Reason: CONSTIPATION Tuberculin PPD (Tuberculin,Purif.Prot.Deriv. 50 Tu/Ml Vial) 5 tu ID X1 ONE Stop: 01/31/20 10:01 Tuberculin PPD (Tuberculin,Purif.Prot.Deriv. 50 Tu/Ml Vial) 5 tu ID X1 ONE Stop: 02/07/20 10:01 Assessment/Plan All Active Problems (Last Reviewed 01/26/20 @ 22:[address] Eddy Burroughs MD) Intertrochanteric fracture (Acute) Debility (Acute) Fall (Acute) Closed left hip fracture (Acute) 74 year old female with below past medical history hospitalized for left hip fracture, underwent left hip ORIF, intramedullary nail fixation, 01/27/20, admitted to TCU with debility, here for rehabilitation, strengthening, prior to discharge to [facility]. * Debility - PT/OT. * Pain - Tylenol 1000MG Q6H PRN pain (1-5), Oxycodone 5MG Q6H PRN pain (6-10). * Bowel - Miralax 17GM daily, Senna/colace 2 tablets BID, MOM 30ML daily PRN. Du lcolax 10MG NH daily PRN. * Adult immunization - Administer Prevnar 13, Pneumovax 23, Fluzone as appropriate. * DVT prophylaxis - Aspirin 81MG BID thru 02/27/20. * Gout - Allopurinol 100MG daily. * Iron deficiency anemia - Ferrex 150MG daily. * Depression - Fluoxetine 40MG daily, stable chronic long-term use, GDR not recommended. * Edema - Lasix 40MG BID. * Alzheimer Disease - Galantamine 4MG BID. 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 * Nutrition - Glucerna 120ML TIDCM, Anshu 1 packet BID, MVI daily. * Allergic Rhinitis - Loratadine 10MG daily. * Diabetes Mellitus II - Metformin 850MG BID, monitor blood sugars.
[2020-01-30] MEDS: QUEtiapine 25 MG Tablet 50 MG PO (20:56)
[2020-01-30] MEDS: oxyCODONE 5 MG Tablet PO (20:59)
[2020-01-30 21:41] LABS: Bedside Glucose 106 mg/dL (70-110)
[2020-01-30 23:00] VITALS: BMI 27.6
[2020-01-31 04:28] VITALS: BP 149/82; PULSE 102; RESP 16; TEMP 36.8; O2SAT 95
[2020-01-31] MEDS: Furosemide 40 MG Tablet PO (04:29)
[2020-01-31] MEDS: FLUoxetine 20 MG Capsule 40 MG PO (04:29)
[2020-01-31] MEDS: QUEtiapine 25 MG Tablet 12.5 MG PO (04:29)
[2020-01-31] MEDS: Loratadine 10 MG Tablet PO (04:30)
[2020-01-31] MEDS: Galantamine Hydrobromide 4 MG Tablet PO ×2 (04:30→16:56)
[2020-01-31] MEDS: Polyethylene Glycol 3350 17 GM PACKET PO (04:33)
[2020-01-31 05:44] LABS: Absolute Lymphocyte Count 1.75 X10^3/uL (0.83-4.51); Absolute Neutrophil Count 6.8 X10^3/uL (2.0-7.7); Basophil# 0.04 X10^3/uL; Basophil% 0.4 % (0-1); Eosinophil# 0.35 X10^3/uL; Eosinophils% 3.5 % (0-5); Hemoglobin 9.1 g/dL (12.0-15.0); Lymphocyte # 1.75 X10^3/ul (4.0); Lymphocyte % 17.7 % (19-41); Mean Corp Hgb Conc 31.4 g/dL (32-36); Mean Corpuscular Hgb 29.7 pg (27.0-32.0); Mean Corpuscular Volume 94.8 fL (81-99); Mean Platelet Vol. 9.9 fl (6.2-12.0); Monocyte# 0.88 X10^3/uL; Monocyte% 8.9 % (0-10); NRBC Flagged by Analyzer 0 % (0-5); Neutrophil # 6.83 X10^3/uL (2.7-7.7); Platelet Count 253 K/mm3 (150-450); RBC Distribution Width CV 14.9 % (11.6-14.6); RBC Distribution Width SD 52.2 fl (35.1-43.9); Red Blood Count 3.06 M/mm3 (4.2-5.4); White Blood Count 9.9 K/mm3 (4.4-11.0)
[2020-01-31 06:33] LABS: Anion Gap 6 (5-15); BUN 13 mg/dL (7-18); Calcium,Total 8.1 mg/dL (8.5-10.1); Chloride 106 mmol/L (98-107); Creatinine, Serum 0.76 mg/dL (0.55-1.02); EST Glomerular Filtration Rate 78 mL/min (>60); Est Glom Filt Rate - Afr Amer 95 mL/min (>60); Estimated Creatinine Clearance 40.21 ml/min; Glucose 106 mg/dL (74-106); Potassium 3.4 mmol/L (3.5-5.1); Sodium Level 138 mmol/L (136-145)
[2020-01-31 06:36] LABS: Bedside Glucose 113 mg/dL (70-110)
[2020-01-31] MEDS: Glucerna Shake 120 ML LIQUID PO ×4 (08:46→20:30)
[2020-01-31] MEDS: metFORMIN HCl 850 MG Tablet PO ×2 (08:52→16:56)
[2020-01-31] MEDS: Multivitamins,Therapeutic Tablet 1 TABLET PO (08:52)
[2020-01-31] MEDS: Iron Polysaccharide Complex 150 MG CAPSULE PO (08:52)
[2020-01-31] MEDS: Aspirin E.C. 81 MG Tablet PO ×2 (08:52→16:56)
[2020-01-31] MEDS: Allopurinol 100 MG Tablet PO (08:52)
[2020-01-31 09:02] VITALS: PULSE 95; RESP 18; O2SAT 97
[2020-01-31] MEDS: Tuberculin,Purif.prot.deriv. 50 TU/ML Vial 5 ML ID (09:50)
[2020-01-31 11:11] LABS: Bedside Glucose 164 mg/dL (70-110)
[2020-01-31] MEDS: oxyCODONE 5 MG Tablet PO ×2 (11:50→20:28)
--- NOTE | 2020-01-31 13:27 | PCM.PN.RX ---
<CarmonaHarsha poweri - Last Filed: 01/31/20 13:27> Progress Note - Pharmacy Subjective: TCU Admission Objective: Allergies penicillin V [From [employer]le[employer] Abdulaziz] Allergy (Verified 11/18/19 13:31) Unknown Current Medications Generic Name Dose Route Start Last Admin Trade Name Freq PRN Reason Stop Dose Admin Acetaminophen 1,000 mg 01/30/20 20:51 Acetaminophen 500 Mg Tablet PO Q6H PRN PRN Pain Score 1-5 Allopurinol 100 mg 01/31/20 08:00 01/31/20 08:52 Allopurinol 100 Mg Tablet PO 100 mg DAILYCM ANA LAURA Administration Aspirin 81 mg 01/31/20 08:00 01/31/20 08:52 Aspirin E.C. 81 Mg Tablet PO 02/27/20 23:59 81 mg BIDCM ANA LAURA Administration Bisacodyl 10 mg 01/30/20 18:12 Bisacodyl 10 Mg Suppository RECTAL DAILY PRN Constipation Fluoxetine HCl 40 mg 01/31/20 06:00 01/31/20 04:29 Fluoxetine 20 Mg Capsule PO 40 mg DAILY ANA LAURA Administration Furosemide 40 mg 01/31/20 06:00 01/31/20 04:29 Furosemide 40 Mg Tablet PO 40 mg DAILY ANA LAURA Administration Galantamine Hydrobromide 4 mg 01/31/20 06:00 01/31/20 04:30 Galantamine Hydrobromide 4 Mg Tablet PO 4 mg BID ANA LAURA Administration Loratadine 10 mg 01/31/20 06:00 01/31/20 04:30 Loratadine 10 Mg Tablet PO 10 mg DAILY ANA LAURA Administration Magnesium Hydroxide 30 ml 01/30/20 20:50 Magnesium Hydroxide 30 Ml Udc PO DAILY PRN Constipation Metformin HCl 850 mg 01/31/20 08:00 01/31/20 08:52 Metformin Hcl 850 Mg Tablet PO 850 mg BIDCM ANA LAURA Administration Multivitamins 1 tablet 01/31/20 08:00 01/31/20 08:52 Multivitamins,Therapeutic Tablet PO 1 tablet DAILY@0800 ANA LAURA Administration Nutritional Formula 1 packet 01/31/20 08:00 01/31/20 08:49 Nutritional Supplement (Anshu) Packet PO 1 packet BIDCM ANA LAURA Administration Nutritional Formula (Lactose Free) 120 ml 01/31/20 12:00 01/31/20 12:00 Glucerna Shake 120 Ml Liquid PO Not Given 4X/DAY ANA LAURA Oxycodone HCl 5 mg 01/30/20 18:05 01/31/20 11:50 Oxycodone 5 Mg Tablet PO 5 mg Q6H PRN PRN Administration Pain Score 6-10 Polyethylene Glycol 17 gm 01/31/20 06:00 01/31/20 04:33 Polyethylene Glycol 3350 17 Gm Packet PO 17 gm DAILY ANA LAURA Administration Polysaccharide Iron Complex 150 mg 01/31/20 08:00 01/31/20 08:52 Iron Polysaccharide Complex 150 Mg Capsule PO 150 mg DAILYCM ANA LAURA Administration Potassium Chloride 20 meq 01/31/20 08:00 01/31/20 08:52 Potassium Chloride 20 Meq Tablet PO 20 meq DAILYCM ANA LAURA Administration Quetiapine Fumarate 12.5 mg 01/31/20 06:00 01/31/20 04:29 Quetiapine 25 Mg Tablet PO 12.5 mg DAILY ANA LAURA Administration Quetiapine Fumarate 50 mg 01/30/20 22:00 01/30/20 20:56 Quetiapine 25 Mg Tablet PO 50 mg QHS ANA LAURA Administration Senna/Docusate Sodium 2 tablet 01/30/20 18:05 Senna/Docusate Sodium 1 Tablet PO DAILY PRN PRN CONSTIPATION Tuberculin PPD 5 tu 02/07/20 10:00 Tuberculin,Purif.Prot.Deriv. 50 Tu/Ml Vial ID 02/07/20 10:01 X1 ONE Problem List (Last Reviewed 01/26/20 @ 22:[address] Eddy Burroughs MD) Hidradenitis suppurativa (Chronic) Debility (Acute) Fall (Acute) Closed left hip fracture (Acute) Diabetes mellitus (Chronic) Hypertension (Chronic) Alzheimer's disease (Chronic) Hypogammaglobulinemia (Chronic) Thyroid nodule (Chronic) Gout (Chronic) Edema (Chronic) Depression (Chronic) Vital Signs Temp Pulse Resp BP Pulse Ox 98.3 F 95 18 149/82 H 97 01/31/20 04:28 01/31/20 09:02 01/31/20 09:02 01/31/20 04:28 01/31/20 09:02 Oxygen Delivery Method Room Air Weight: 70.76 kg Body Mass Index (BMI) 27.6 Finger Stick Blood Glucose 157 Sodium 138 mmol/L (136-145) 01/31/20 05:23 Potassium 3.4 mmol/L (3.5-5.1) L 01/31/20 05:23 Chloride 106 mmol/L (98-107) 01/31/20 05:23 Carbon Dioxide 26.0 mmol/L (21.0-32.0) 01/31/20 05:23 Anion Gap 6 (5-15) 01/31/20 05:23 BUN 13 mg/dL (7-18) 01/31/20 05:23 Creatinine 0.76 mg/dL (0.55-1.02) 01/31/20 05:23 Est GFR (MDRD) Af Amer 95 mL/min (>60) 01/31/20 05:23 Est GFR (MDRD) Non-Af 78 mL/min (>60) 01/31/20 05:23 BUN/Creatinine Ratio 17.0 RATIO (-20) 01/31/20 05:23 Glucose 106 mg/dL (74-106) 01/31/20 05:23 Assessment/Plan: 1. Pain: acetaminophen 1000mg PO Q6H PRN pain 1-5/10 and oxycodone 5mg PO Q6H PRN pain 6-10/10. Please continue to monitor for increased pain, PRN usage, constipation and respiratory depression. 2. DVT prophylaxis: aspirin 81mg PO BIDCM thru 02/27/2020. Please continue to monitor for S/S of bleeding/DVT and upset stomach. 3. Gout: allopurinol 100mg PO DAILYCM. Please continue to monitor for S/S of gout and renal function. 4. Iron deficiency anemia: Ferrex 150mg PO DAILYCM. Please continue to monitor hemoglobin (last 9.1g/dL) and for dark stools. 5. Edema/hypokalemia: furosemide 40mg PO daily and potassium chloride 20mEq PO DALYCM. Please continue to monitor for edema, renal function, and potassium (last 3.4mmol/L). 6. Alzheimer disease: galantamine 4mg PO BID. Please continue to monitor for GI symptoms. 7. Diabetes mellitus: metformin 850mg PO BIDCM. Please continue to monitor blood sugars (last 106), hemoglobin A1c (last 6%), diarrhea, and S/S of hypoglycemia. 8. Allergic rhinitis: loratadine 10mg PO daily. Please continue to monitor for S/S of allergic rhinitis. 9. Nutrition: multivitamin 1T PO DAILYCM. Please continue to monitor. Psychotropic Medications: 1. Depression: fluoxetine 40mg PO daily. Please see physician note regarding GDR. 2. 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 Please see physician note regarding GDR. Unnecessary Medications: None Bowel Regimen: Miralax 17gm PO daily, senna/docusate 2T PO BID PRN constipation, bisacodyl 10mg DC daily PRN constipation, and MOM 30ML PO daily PRN constipation. Please continue to monitor for S/S of constipation, diarrhea and PRN usage. Date of Note:: 01/31/20 - Provider Comments Provider responsibility: Provider responsible to enter orders to implement recommendations <Reza King Chi - Last Filed: 01/31/20 14:44> Progress Note - Pharmacy Subjective: [] Objective: Allergies penicillin V [From [employer]eg[employer] K] Allergy (Verified 11/18/19 13:31) Unknown Current Medications Generic Name Dose Route Start Last Admin Trade Name Freq PRN Reason Stop Dose Admin Acetaminophen 1,000 mg 01/30/20 20:51 Acetaminophen 500 Mg Tablet PO Q6H PRN PRN Pain Score 1-5 Allopurinol 100 mg 01/31/20 08:00 01/31/20 08:52 Allopurinol 100 Mg Tablet PO 100 mg DAILYCM ANA LAURA Administration Aspirin 81 mg 01/31/20 08:00 01/31/20 08:52 Aspirin E.C. 81 Mg Tablet PO 02/27/20 23:59 81 mg BIDCM ANA LAURA Administration Bisacodyl 10 mg 01/30/20 18:12 Bisacodyl 10 Mg Suppository RECTAL DAILY PRN Constipation Fluoxetine HCl 40 mg 01/31/20 06:00 01/31/20 04:29 Fluoxetine 20 Mg Capsule PO 40 mg DAILY ANA LAURA Administration Furosemide 40 mg 01/31/20 06:00 01/31/20 04:29 Furosemide 40 Mg Tablet PO 40 mg DAILY ANA LAURA Administration Galantamine Hydrobromide 4 mg 01/31/20 06:00 01/31/20 04:30 Galantamine Hydrobromide 4 Mg Tablet PO 4 mg BID ANA LAURA Administration Loratadine 10 mg 01/31/20 06:00 01/31/20 04:30 Loratadine 10 Mg Tablet PO 10 mg DAILY ANA LAURA Administration Magnesium Hydroxide 30 ml 01/30/20 20:50 Magnesium Hydroxide 30 Ml Udc PO DAILY PRN Constipation Metformin HCl 850 mg 01/31/20 08:00 01/31/20 08:52 Metformin Hcl 850 Mg Tablet PO 850 mg BIDCM [facility] Administration Multivitamins 1 tablet 01/31/20 08:00 01/31/20 08:52 Multivitamins,Therapeutic Tablet PO 1 tablet DAILY@0800 [facility] Administration Nutritional Formula 1 packet 01/31/20 08:00 01/31/20 08:49 Nutritional Supplement (Anshu) Packet PO 1 packet BIDCM [facility] Administration Nutritional Formula (Lactose Free) 120 ml 01/31/20 12:00 01/31/20 12:00 Glucerna Shake 120 Ml Liquid PO Not Given 4X/DAY [facility] Oxycodone HCl 5 mg 01/30/20 18:05 01/31/20 11:50 Oxycodone 5 Mg Tablet PO 5 mg Q6H PRN PRN Administration Pain Score 6-10 Polyethylene Glycol 17 gm 01/31/20 06:00 01/31/20 04:33 Polyethylene Glycol 3350 17 Gm Packet PO 17 gm DAILY [facility] Administration Polysaccharide Iron Complex 150 mg 01/31/20 08:00 01/31/20 08:52 Iron Polysaccharide Complex 150 [facility] Administration Potassium Chloride 20 meq 01/31/20 08:00 01/31/20 08:52 Potassium Chloride 20 Meq Tablet PO 20 meq DAILYCM [facility] Administration Quetiapine Fumarate 12.5 mg 01/31/20 06:00 01/31/20 04:29 Quetiapine 25 Mg Tablet PO 12.5 mg DAILY [facility] Administration Quetiapine Fumarate 50 mg 01/30/20 22:00 01/30/20 20:56 Quetiapine 25 Mg Tablet PO 50 mg QHS [facility] Administration Senna/Docusate Sodium 2 tablet 01/30/20 18:05 Senna/Docusate Sodium 1 Tablet PO DAILY PRN PRN CONSTIPATION Tuberculin PPD 5 tu 02/07/20 10:00 Tuberculin,Purif.Prot.Deriv. 50 Tu/Ml Vial ID 02/07/20 10:01 X1 ONE Problem List (Last Reviewed 01/26/20 @ 22:[address] Eddy Burroughs MD) Hidradenitis suppurativa (Chronic) Debility (Acute) Fall (Acute) Closed left hip fracture (Acute) Diabetes mellitus (Chronic) Hypertension (Chronic) Alzheimer's disease (Chronic) Hypogammaglobulinemia (Chronic) Thyroid nodule (Chronic) Gout (Chronic) Edema (Chronic) Depression (Chronic) Vital Signs Temp Pulse Resp BP Pulse Ox 97.5 F L 95 16 147/72 H 96 01/31/20 13:37 01/31/20 13:37 01/31/20 13:37 01/31/20 13:37 01/31/20 13:37 Oxygen Delivery Method Room Air Weight: 70.76 kg Body Mass Index (BMI) 27.6 Finger Stick Blood Glucose 157 Sodium 138 mmol/L (136-145) 01/31/20 05:23 Potassium 3.4 mmol/L (3.5-5.1) L 01/31/20 05:23 Chloride 106 mmol/L (98-107) 01/31/20 05:23 Carbon Dioxide 26.0 mmol/L (21.0-32.0) 01/31/20 05:23 Anion Gap 6 (5-15) 01/31/20 05:23 BUN 13 mg/dL (7-18) 01/31/20 05:23 Creatinine 0.76 mg/dL (0.55-1.02) 01/31/20 05:23 Est GFR (MDRD) Af Amer 95 mL/min (>60) 01/31/20 05:23 Est GFR (MDRD) Non-Af 78 mL/min (>60) 01/31/20 05:23 BUN/Creatinine Ratio 17.0 RATIO (10-20) 01/31/20 05:23 Glucose 106 mg/dL (74-106) 01/31/20 05:23 Assessment/Plan: Psychotropic Medications: Unnecessary Medications: Bowel Regimen: - Provider Comments Provider responsibility: Provider responsible to enter orders to implement recommendations Provider Comments to Recommendations by Pharmacy: Agree
[2020-01-31 13:37] VITALS: BP 147/72; PULSE 95; RESP 16; TEMP 36.4; O2SAT 96
--- NOTE | 2020-01-31 14:17 | NURSING ---
Attempted to call [facility]Ra, but no answer.
[2020-01-31 16:25] LABS: Bedside Glucose 109 mg/dL (70-110)
[2020-01-31] MEDS: QUEtiapine 25 MG Tablet 50 MG PO (20:28)
[2020-01-31 21:25] LABS: Bedside Glucose 135 mg/dL (70-110)
[2020-02-01 05:00] VITALS: BP 157/81; PULSE 89; RESP 18; TEMP 36; O2SAT 94
[2020-02-01] MEDS: QUEtiapine 25 MG Tablet 12.5 MG PO (06:16)
[2020-02-01] MEDS: FLUoxetine 20 MG Capsule 40 MG PO (06:16)
[2020-02-01] MEDS: Polyethylene Glycol 3350 17 GM PACKET PO (06:16)
[2020-02-01] MEDS: Loratadine 10 MG Tablet PO (06:17)
[2020-02-01] MEDS: Glucerna Shake 120 ML LIQUID PO ×4 (06:17→20:13)
[2020-02-01] MEDS: Furosemide 40 MG Tablet PO (06:17)
[2020-02-01] MEDS: Galantamine Hydrobromide 4 MG Tablet PO ×2 (06:17→17:16)
[2020-02-01] MEDS: oxyCODONE 5 MG Tablet PO ×2 (06:30→20:18)
[2020-02-01 06:40] LABS: Bedside Glucose 116 mg/dL (70-110)
[2020-02-01] MEDS: Iron Polysaccharide Complex 150 MG CAPSULE PO (09:07)
[2020-02-01] MEDS: metFORMIN HCl 850 MG Tablet PO ×2 (09:07→17:15)
[2020-02-01] MEDS: Multivitamins,Therapeutic Tablet 1 TABLET PO (09:07)
[2020-02-01] MEDS: Aspirin E.C. 81 MG Tablet PO ×2 (09:07→17:15)
[2020-02-01] MEDS: Allopurinol 100 MG Tablet PO (09:07)
[2020-02-01 11:05] LABS: Bedside Glucose 131 mg/dL (70-110)
[2020-02-01] MEDS: Acetaminophen 500 MG Tablet 1000 MG PO (13:52)
[2020-02-01 17:00] LABS: Bedside Glucose 120 mg/dL (70-110)
[2020-02-01] MEDS: QUEtiapine 25 MG Tablet 50 MG PO (20:14)
[2020-02-01 20:20] VITALS: PULSE 86; RESP 16; O2SAT 96
[2020-02-01 21:46] LABS: Bedside Glucose 119 mg/dL (70-110)
[2020-02-02 05:41] VITALS: BP 138/79; PULSE 86; RESP 18; TEMP 37; O2SAT 95
[2020-02-02] MEDS: Polyethylene Glycol 3350 17 GM PACKET PO (05:42)
[2020-02-02] MEDS: QUEtiapine 25 MG Tablet 12.5 MG PO (05:43)
[2020-02-02] MEDS: Galantamine Hydrobromide 4 MG Tablet PO ×2 (05:44→16:45)
[2020-02-02] MEDS: Furosemide 40 MG Tablet PO (05:44)
[2020-02-02] MEDS: Loratadine 10 MG Tablet PO (05:44)
[2020-02-02] MEDS: FLUoxetine 20 MG Capsule 40 MG PO (05:47)
[2020-02-02 06:24] LABS: Anion Gap 7 (5-15); BUN 39 mg/dL (7-18); BUN/Creat Ratio 39.1 RATIO (10-20); Calcium,Total 8.8 mg/dL (8.5-10.1); Chloride 108 mmol/L (98-107); EST Glomerular Filtration Rate 58 mL/min (>60); Est Glom Filt Rate - Afr Amer 70 mL/min (>60); Estimated Creatinine Clearance 40.21 ml/min; Glucose 103 mg/dL (74-106); Potassium 3.9 mmol/L (3.5-5.1); Sodium Level 141 mmol/L (136-145)
[2020-02-02 06:26] LABS: Bedside Glucose 109 mg/dL (70-110)
[2020-02-02] MEDS: Aspirin E.C. 81 MG Tablet PO ×2 (08:00→16:45)
[2020-02-02] MEDS: Allopurinol 100 MG Tablet PO (08:00)
[2020-02-02] MEDS: metFORMIN HCl 850 MG Tablet PO ×2 (08:00→16:45)
[2020-02-02] MEDS: Multivitamins,Therapeutic Tablet 1 TABLET PO (08:00)
[2020-02-02] MEDS: Iron Polysaccharide Complex 150 MG CAPSULE PO (08:01)
[2020-02-02 11:00] LABS: Bedside Glucose 118 mg/dL (70-110)
[2020-02-02] MEDS: Glucerna Shake 120 ML LIQUID PO ×3 (12:04→20:20)
[2020-02-02 12:38] VITALS: BP 136/68; PULSE 96; RESP 14; TEMP 35.8; O2SAT 99
[2020-02-02] MEDS: oxyCODONE 5 MG Tablet PO ×2 (12:46→18:48)
--- NOTE | 2020-02-02 14:18 | NURSING ---
Spoke with LOUISE Loredo, received verbal consent for TCU admission paperwork.
[2020-02-02 14:45] VITALS: PULSE 84; RESP 18; O2SAT 95
[2020-02-02] MEDS: Bisacodyl 10 MG Suppository RECTAL (15:07)
--- NOTE | 2020-02-02 15:55 | NURSING ---
wound photo: sacrum
--- NOTE | 2020-02-02 16:01 | CHAPLAIN ---
Type of Pastoral Visit _x__ Initial Visit ___ Follow-up Visit ___ On-call Visit ___ General Patient Visit ___ Spiritual Assessment ___ Family Conference ___ Bereavement ___ Rapid Response ___ Code Blue ___ Other (describe below) Pastoral Care Referral From _x__ Patient ___ Family ___ Nurse ___ Physician ___ Coal Trimmer ___ Geophysics Professor ___ Other (describe below) Sacrament/Intervention _x__ Active listening ___ Anointing ___ Samaritan ___ Bereavement ___ Communion ___ Anali exploration ___ ___ Life review _x__ Prayer ___ Reconciliation ___ Sacrament of Sick _x__ Supportive presence ___ Wedding ___ Other (describe below) Pastoral Comments patient states that I am just a normal person, not much to say; pt says she is closest to her sister and likes it when she is around; pt is a member of [employer]; pt welcomes a prayer
[2020-02-02] MEDS: Menthol/Lanolin/Calamine/Znox 113 GM Tube 1 APPLIC TOPICAL (16:46)
[2020-02-02 17:05] LABS: Bedside Glucose 111 mg/dL (70-110)
[2020-02-02] MEDS: QUEtiapine 25 MG Tablet 50 MG PO (20:21)
[2020-02-02 21:26] LABS: Bedside Glucose 114 mg/dL (70-110)
[2020-02-03 05:57] VITALS: BP 138/58; PULSE 87; RESP 18; TEMP 36.6; O2SAT 96
[2020-02-03] MEDS: Polyethylene Glycol 3350 17 GM PACKET PO (06:01)
[2020-02-03] MEDS: Loratadine 10 MG Tablet PO (06:02)
[2020-02-03] MEDS: Furosemide 40 MG Tablet PO (06:02)
[2020-02-03] MEDS: FLUoxetine 20 MG Capsule 40 MG PO (06:02)
[2020-02-03] MEDS: Glucerna Shake 120 ML LIQUID PO ×4 (06:02→21:59)
[2020-02-03] MEDS: Galantamine Hydrobromide 4 MG Tablet PO ×2 (06:02→16:57)
[2020-02-03] MEDS: QUEtiapine 25 MG Tablet 12.5 MG PO (06:03)
[2020-02-03] MEDS: Menthol/Lanolin/Calamine/Znox 113 GM Tube 1 APPLIC TOPICAL ×2 (06:05→17:34)
[2020-02-03 06:30] LABS: Bedside Glucose 106 mg/dL (70-110)
[2020-02-03] MEDS: Iron Polysaccharide Complex 150 MG CAPSULE PO (07:53)
[2020-02-03] MEDS: Aspirin E.C. 81 MG Tablet PO ×2 (07:53→16:57)
[2020-02-03] MEDS: metFORMIN HCl 850 MG Tablet PO ×2 (07:53→16:57)
[2020-02-03] MEDS: Allopurinol 100 MG Tablet PO (07:54)
[2020-02-03] MEDS: Multivitamins,Therapeutic Tablet 1 TABLET PO (07:54)
[2020-02-03 10:46] LABS: Bedside Glucose 155 mg/dL (70-110)
[2020-02-03] MEDS: oxyCODONE 5 MG Tablet PO ×2 (13:06→21:58)
[2020-02-03 14:55] VITALS: BP 116/62; PULSE 96; RESP 16; TEMP 36.4; O2SAT 89
[2020-02-03 16:36] LABS: Bedside Glucose 92 mg/dL (70-110)
[2020-02-03 21:16] LABS: Bedside Glucose 152 mg/dL (70-110)
[2020-02-03] MEDS: QUEtiapine 25 MG Tablet 50 MG PO (22:02)
[2020-02-04 04:38] VITALS: BP 117/74; PULSE 76; RESP 15; TEMP 36.8; O2SAT 99
[2020-02-04] MEDS: Glucerna Shake 120 ML LIQUID PO ×3 (04:40→21:21)
[2020-02-04] MEDS: Menthol/Lanolin/Calamine/Znox 113 GM Tube 1 APPLIC TOPICAL ×2 (04:41→17:03)
[2020-02-04] MEDS: Galantamine Hydrobromide 4 MG Tablet PO ×2 (04:42→17:03)
[2020-02-04] MEDS: QUEtiapine 25 MG Tablet 12.5 MG PO (04:42)
[2020-02-04] MEDS: Loratadine 10 MG Tablet PO (04:42)
[2020-02-04] MEDS: Polyethylene Glycol 3350 17 GM PACKET PO (04:42)
[2020-02-04] MEDS: FLUoxetine 20 MG Capsule 40 MG PO (04:42)
[2020-02-04] MEDS: Furosemide 40 MG Tablet PO (04:43)
[2020-02-04 06:31] LABS: Bedside Glucose 126 mg/dL (70-110)
[2020-02-04] MEDS: Allopurinol 100 MG Tablet PO (09:21)
[2020-02-04] MEDS: Aspirin E.C. 81 MG Tablet PO ×2 (09:21→17:04)
[2020-02-04] MEDS: Iron Polysaccharide Complex 150 MG CAPSULE PO (09:21)
[2020-02-04] MEDS: metFORMIN HCl 850 MG Tablet PO ×2 (09:21→17:03)
[2020-02-04] MEDS: Multivitamins,Therapeutic Tablet 1 TABLET PO (09:21)
[2020-02-04 09:25] VITALS: PULSE 86; RESP 18; O2SAT 97
[2020-02-04 14:24] VITALS: BP 160/68; PULSE 89; RESP 16; TEMP 36.4; O2SAT 97
[2020-02-04 17:25] LABS: Bedside Glucose 135 mg/dL (70-110)
[2020-02-04] MEDS: oxyCODONE 5 MG Tablet PO (21:20)
[2020-02-04] MEDS: QUEtiapine 25 MG Tablet 50 MG PO (21:21)
[2020-02-04 21:35] LABS: Bedside Glucose 125 mg/dL (70-110)
--- NOTE | 2020-02-04 23:34 | NURSING ---
Mepliex to sacrum replaced dt pt being inc of stool, pt reluctant to reposition on side, educated about need to offload
[2020-02-05 05:46] VITALS: BP 136/57; PULSE 77; RESP 16; TEMP 36.7; O2SAT 96
[2020-02-05] MEDS: Polyethylene Glycol 3350 17 GM PACKET PO (05:46)
[2020-02-05] MEDS: Glucerna Shake 120 ML LIQUID PO ×4 (05:46→19:51)
[2020-02-05] MEDS: Galantamine Hydrobromide 4 MG Tablet PO ×2 (05:47→17:15)
[2020-02-05] MEDS: FLUoxetine 20 MG Capsule 40 MG PO (05:47)
[2020-02-05] MEDS: Furosemide 40 MG Tablet PO (05:47)
[2020-02-05] MEDS: Loratadine 10 MG Tablet PO (05:47)
[2020-02-05] MEDS: QUEtiapine 25 MG Tablet 12.5 MG PO (05:47)
[2020-02-05] MEDS: Menthol/Lanolin/Calamine/Znox 113 GM Tube 1 APPLIC TOPICAL ×2 (05:49→17:15)
[2020-02-05 06:36] LABS: Bedside Glucose 113 mg/dL (70-110)
[2020-02-05] MEDS: Iron Polysaccharide Complex 150 MG CAPSULE PO (08:39)
[2020-02-05] MEDS: Aspirin E.C. 81 MG Tablet PO ×2 (08:39→17:15)
[2020-02-05] MEDS: metFORMIN HCl 850 MG Tablet PO ×2 (08:39→17:15)
[2020-02-05] MEDS: Allopurinol 100 MG Tablet PO (08:40)
[2020-02-05] MEDS: Multivitamins,Therapeutic Tablet 1 TABLET PO (08:40)
[2020-02-05 11:01] LABS: Bedside Glucose 124 mg/dL (70-110)
[2020-02-05] MEDS: oxyCODONE 5 MG Tablet PO ×2 (11:21→19:54)
[2020-02-05 14:15] VITALS: BP 141/62; PULSE 87; RESP 17; TEMP 36.7; O2SAT 96
[2020-02-05 16:51] LABS: Bedside Glucose 116 mg/dL (70-110)
[2020-02-05] MEDS: Acetaminophen 500 MG Tablet 1000 MG PO (17:19)
--- NOTE | 2020-02-05 17:25 | NURSING ---
new mepilex placed on bottom, old 4x4 mepilex rolled up and unable to reapply.
[2020-02-05] MEDS: QUEtiapine 25 MG Tablet 50 MG PO (19:52)
[2020-02-06 05:40] VITALS: BP 127/96; PULSE 74; RESP 17; TEMP 36.6; O2SAT 96
[2020-02-06] MEDS: Glucerna Shake 120 ML LIQUID PO ×4 (05:43→20:07)
[2020-02-06] MEDS: Menthol/Lanolin/Calamine/Znox 113 GM Tube 1 APPLIC TOPICAL ×2 (05:43→16:57)
[2020-02-06] MEDS: Polyethylene Glycol 3350 17 GM PACKET PO (05:44)
[2020-02-06] MEDS: Galantamine Hydrobromide 4 MG Tablet PO ×2 (05:44→16:57)
[2020-02-06] MEDS: QUEtiapine 25 MG Tablet 12.5 MG PO (05:44)
[2020-02-06] MEDS: Furosemide 40 MG Tablet PO (05:44)
[2020-02-06] MEDS: FLUoxetine 20 MG Capsule 40 MG PO (05:44)
[2020-02-06] MEDS: Loratadine 10 MG Tablet PO (05:44)
[2020-02-06] MEDS: Acetaminophen 500 MG Tablet 1000 MG PO (05:47)
[2020-02-06 06:21] LABS: Bedside Glucose 124 mg/dL (70-110)
[2020-02-06] MEDS: metFORMIN HCl 850 MG Tablet PO ×2 (09:01→16:56)
[2020-02-06] MEDS: Allopurinol 100 MG Tablet PO (09:01)
[2020-02-06] MEDS: Iron Polysaccharide Complex 150 MG CAPSULE PO (09:02)
[2020-02-06] MEDS: Aspirin E.C. 81 MG Tablet PO ×2 (09:02→16:56)
[2020-02-06] MEDS: Multivitamins,Therapeutic Tablet 1 TABLET PO (09:02)
[2020-02-06 10:00] VITALS: PULSE 80; RESP 18; O2SAT 96
--- NOTE | 2020-02-06 11:05 | NURSING ---
wound photo: sacrum
--- NOTE | 2020-02-06 12:09 | CASEMGMT ---
Social Work IDT met with patient and sister via conference call for care plan meeting. Discussed patient's progress in therapy. Pt is ambulating 10ft CGA with FWW, max for supine to sit, max x1 1-2 sit to supine for bed mobility, min for tx, CGA-min SPT, modA for shower tx, dependent for clothing/hygiene, SBA for UE bathing, min UE dressing, max LE bathing, dependent LE dressing. Pt is on a regular diet, receiving Glucerna shake, Anshu, blood sugars remain controlled. Pt is out of room [id number]. The goal is for pt to return to [facility]. Explained [employer] NRD 02/06, and continued stay is not guaranteed. Explained and provided care plan with [facility] 02/16. Will continue to follow. LUCINDA Pina TOBACCO STRIPPER
[2020-02-06 13:47] VITALS: BP 114/72; PULSE 79; RESP 14; TEMP 36.1; O2SAT 98
[2020-02-06] MEDS: QUEtiapine 25 MG Tablet 50 MG PO (20:07)
[2020-02-06] MEDS: oxyCODONE 5 MG Tablet PO (20:07)
[2020-02-07 05:01] VITALS: BP 150/53; PULSE 77; RESP 16; TEMP 36; O2SAT 96
[2020-02-07] MEDS: Polyethylene Glycol 3350 17 GM PACKET PO (05:02)
[2020-02-07] MEDS: Glucerna Shake 120 ML LIQUID PO ×4 (05:02→22:15)
[2020-02-07] MEDS: QUEtiapine 25 MG Tablet 12.5 MG PO (05:03)
[2020-02-07] MEDS: Loratadine 10 MG Tablet PO (05:04)
[2020-02-07] MEDS: FLUoxetine 20 MG Capsule 40 MG PO (05:04)
[2020-02-07] MEDS: Galantamine Hydrobromide 4 MG Tablet PO ×2 (05:04→16:56)
[2020-02-07] MEDS: Furosemide 40 MG Tablet PO (05:04)
[2020-02-07] MEDS: Menthol/Lanolin/Calamine/Znox 113 GM Tube 1 APPLIC TOPICAL ×2 (05:06→16:57)
[2020-02-07 06:31] LABS: Bedside Glucose 107 mg/dL (70-110)
[2020-02-07 08:16] LABS: Absolute Lymphocyte Count 2.56 X10^3/uL (0.83-4.51); Absolute Neutrophil Count 7.3 X10^3/uL (2.0-7.7); Basophil# 0.09 X10^3/uL; Basophil% 0.8 % (0-1); Eosinophil# 0.68 X10^3/uL; Eosinophils% 5.8 % (0-5); Hematocrit 35.4 % (37-47); Hemoglobin 10.6 g/dL (12.0-15.0); Lymphocyte # 2.56 X10^3/ul (4.0); Mean Corp Hgb Conc 29.9 g/dL (32-36); Mean Corpuscular Hgb 29.7 pg (27.0-32.0); Mean Corpuscular Volume 99.2 fL (81-99); Mean Platelet Vol. 9.5 fl (6.2-12.0); Monocyte# 0.94 X10^3/uL; Monocyte% 8.1 % (0-10); NRBC Flagged by Analyzer 0 % (0-5); Neutrophil # 7.33 X10^3/uL (2.7-7.7); Neutrophil % 62.8 % (47-70); Platelet Count 562 K/mm3 (150-450); RBC Distribution Width CV 15.7 % (11.6-14.6); RBC Distribution Width SD 57.1 fl (35.1-43.9); Red Blood Count 3.57 M/mm3 (4.2-5.4); White Blood Count 11.7 K/mm3 (4.4-11.0)
[2020-02-07] MEDS: Acetaminophen 500 MG Tablet 1000 MG PO (08:31)
[2020-02-07] MEDS: metFORMIN HCl 850 MG Tablet PO ×2 (08:33→16:56)
[2020-02-07] MEDS: Allopurinol 100 MG Tablet PO (08:34)
[2020-02-07] MEDS: Aspirin E.C. 81 MG Tablet PO ×2 (08:34→16:56)
[2020-02-07] MEDS: Iron Polysaccharide Complex 150 MG CAPSULE PO (08:34)
[2020-02-07 08:35] LABS: Anion Gap 5 (5-15); BUN 50 mg/dL (7-18); Calcium,Total 10.1 mg/dL (8.5-10.1); Chloride 102 mmol/L (98-107); Creatinine, Serum 1.22 mg/dL (0.55-1.02); EST Glomerular Filtration Rate 46 mL/min (>60); Est Glom Filt Rate - Afr Amer 55 mL/min (>60); Estimated Creatinine Clearance 32.96 ml/min; Glucose 134 mg/dL (74-106); Potassium 4.3 mmol/L (3.5-5.1); Sodium Level 135 mmol/L (136-145)
[2020-02-07] MEDS: Multivitamins,Therapeutic Tablet 1 TABLET PO (09:32)
[2020-02-07] MEDS: oxyCODONE 5 MG Tablet PO (10:21)
[2020-02-07] MEDS: Tuberculin,Purif.prot.deriv. 50 TU/ML Vial 5 ML ID (10:25)
[2020-02-07 14:00] VITALS: BP 141/64; PULSE 97; RESP 16; TEMP 36.9; O2SAT 98
--- NOTE | 2020-02-07 15:06 | NURSING ---
MEPILEX CHANGED TO BOTTOM.
--- NOTE | 2020-02-07 16:32 | NURSING ---
Resident and family notified of staff member testing positive for COVID.
[2020-02-07] MEDS: QUEtiapine 25 MG Tablet 50 MG PO (22:15)
[2020-02-08 05:41] VITALS: BP 150/65; RESP 16; TEMP 36.1; O2SAT 99
[2020-02-08] MEDS: Loratadine 10 MG Tablet PO (05:44)
[2020-02-08] MEDS: FLUoxetine 20 MG Capsule 40 MG PO (05:44)
[2020-02-08] MEDS: QUEtiapine 25 MG Tablet 12.5 MG PO (05:44)
[2020-02-08] MEDS: Furosemide 40 MG Tablet PO (05:44)
[2020-02-08] MEDS: Polyethylene Glycol 3350 17 GM PACKET PO (05:44)
[2020-02-08] MEDS: Galantamine Hydrobromide 4 MG Tablet PO ×2 (05:44→17:56)
[2020-02-08] MEDS: Glucerna Shake 120 ML LIQUID PO ×4 (05:45→21:23)
[2020-02-08] MEDS: Menthol/Lanolin/Calamine/Znox 113 GM Tube 1 APPLIC TOPICAL ×2 (05:45→17:56)
[2020-02-08 06:35] LABS: Bedside Glucose 138 mg/dL (70-110)
[2020-02-08] MEDS: Iron Polysaccharide Complex 150 MG CAPSULE PO (07:58)
[2020-02-08] MEDS: metFORMIN HCl 850 MG Tablet PO ×2 (07:58→17:54)
[2020-02-08] MEDS: Multivitamins,Therapeutic Tablet 1 TABLET PO (07:58)
[2020-02-08] MEDS: Aspirin E.C. 81 MG Tablet PO ×2 (07:58→17:54)
[2020-02-08] MEDS: Allopurinol 100 MG Tablet PO (07:59)
[2020-02-08] MEDS: oxyCODONE 5 MG Tablet PO (08:50)
--- NOTE | 2020-02-08 09:44 | MDS.RN ---
Information for the mds was obtained from review of the clinical record, interview of resident, staff, and direct observation of resident's care.
[2020-02-08 13:45] VITALS: BP 143/59; PULSE 83; RESP 17; TEMP 36.6; O2SAT 93
[2020-02-08] MEDS: QUEtiapine 25 MG Tablet 50 MG PO (21:23)
[2020-02-09 05:56] VITALS: BP 154/75; PULSE 96; RESP 18; TEMP 36.4; O2SAT 98
[2020-02-09] MEDS: Polyethylene Glycol 3350 17 GM PACKET PO (05:59)
[2020-02-09] MEDS: FLUoxetine 20 MG Capsule 40 MG PO (06:00)
[2020-02-09] MEDS: Glucerna Shake 120 ML LIQUID PO ×4 (06:00→19:31)
[2020-02-09] MEDS: Loratadine 10 MG Tablet PO (06:00)
[2020-02-09] MEDS: Furosemide 40 MG Tablet PO (06:00)
[2020-02-09] MEDS: Galantamine Hydrobromide 4 MG Tablet PO ×2 (06:00→16:57)
[2020-02-09] MEDS: QUEtiapine 25 MG Tablet 12.5 MG PO (06:01)
[2020-02-09] MEDS: Menthol/Lanolin/Calamine/Znox 113 GM Tube 1 APPLIC TOPICAL ×2 (06:03→16:59)
[2020-02-09 06:26] LABS: Bedside Glucose 99 mg/dL (70-110)
[2020-02-09 07:30] LABS: Anion Gap 5 (5-15); BUN 46 mg/dL (7-18); BUN/Creat Ratio 42.2 RATIO (10-20); Calcium,Total 9.8 mg/dL (8.5-10.1); Chloride 104 mmol/L (98-107); Creatinine, Serum 1.09 mg/dL (0.55-1.02); EST Glomerular Filtration Rate 52 mL/min (>60); Est Glom Filt Rate - Afr Amer 63 mL/min (>60); Estimated Creatinine Clearance 36.89 ml/min; Glucose 107 mg/dL (74-106); Potassium 4.3 mmol/L (3.5-5.1); Sodium Level 136 mmol/L (136-145)
[2020-02-09] MEDS: metFORMIN HCl 850 MG Tablet PO ×2 (08:32→16:57)
[2020-02-09] MEDS: Aspirin E.C. 81 MG Tablet PO ×2 (08:32→16:57)
[2020-02-09] MEDS: Iron Polysaccharide Complex 150 MG CAPSULE PO (08:32)
[2020-02-09] MEDS: Multivitamins,Therapeutic Tablet 1 TABLET PO (08:33)
[2020-02-09] MEDS: Allopurinol 100 MG Tablet PO (08:33)
[2020-02-09 13:41] VITALS: BP 113/79; PULSE 96; RESP 18; TEMP 36.4; O2SAT 98
--- NOTE | 2020-02-09 13:52 | NURSING ---
mepilex applied to coccyx wound. pt incont of stool, needed changed.
[2020-02-09] MEDS: QUEtiapine 25 MG Tablet 50 MG PO (19:31)
[2020-02-10 04:58] VITALS: BP 167/79; PULSE 77; RESP 18; TEMP 36.3; O2SAT 98
[2020-02-10] MEDS: Menthol/Lanolin/Calamine/Znox 113 GM Tube 1 APPLIC TOPICAL ×2 (05:01→17:32)
[2020-02-10] MEDS: Polyethylene Glycol 3350 17 GM PACKET PO (05:02)
[2020-02-10] MEDS: Loratadine 10 MG Tablet PO (05:02)
[2020-02-10] MEDS: Galantamine Hydrobromide 4 MG Tablet PO ×2 (05:02→17:31)
[2020-02-10] MEDS: FLUoxetine 20 MG Capsule 40 MG PO (05:02)
[2020-02-10] MEDS: Furosemide 40 MG Tablet PO (05:02)
[2020-02-10] MEDS: QUEtiapine 25 MG Tablet 12.5 MG PO (05:03)
[2020-02-10] MEDS: Glucerna Shake 120 ML LIQUID PO ×4 (05:04→20:54)
[2020-02-10 06:26] LABS: Bedside Glucose 97 mg/dL (70-110)
[2020-02-10] MEDS: Aspirin E.C. 81 MG Tablet PO ×2 (07:40→17:32)
[2020-02-10] MEDS: Multivitamins,Therapeutic Tablet 1 TABLET PO (07:40)
[2020-02-10] MEDS: Iron Polysaccharide Complex 150 MG CAPSULE PO (07:40)
[2020-02-10] MEDS: metFORMIN HCl 850 MG Tablet PO ×2 (07:40→17:31)
[2020-02-10] MEDS: Allopurinol 100 MG Tablet PO (07:40)
--- NOTE | 2020-02-10 13:36 | CASEMGMT ---
Social Work Faxed updated clinicals 02/06 to [facility] to ensure pt can return. Followed up this date. Spoke with Keri whom stated pt can return. Explained insurance update 02/13 with expected DC 02/16. Will continue to keep [facility] updated. Shahnaz Sneed, DIRECTOR TECHNICAL SOFT SUGAR SUPERVISOR
[2020-02-10 13:47] VITALS: BP 145/62; PULSE 83; RESP 15; TEMP 36.2; O2SAT 96
[2020-02-10] MEDS: QUEtiapine 25 MG Tablet 50 MG PO (20:55)
[2020-02-11 05:39] VITALS: BP 125/59; PULSE 76; RESP 18; TEMP 36.5; O2SAT 98
[2020-02-11] MEDS: QUEtiapine 25 MG Tablet 12.5 MG PO (05:43)
[2020-02-11] MEDS: Galantamine Hydrobromide 4 MG Tablet PO ×2 (05:44→17:33)
[2020-02-11] MEDS: Furosemide 40 MG Tablet PO (05:44)
[2020-02-11] MEDS: Loratadine 10 MG Tablet PO (05:44)
[2020-02-11] MEDS: FLUoxetine 20 MG Capsule 40 MG PO (05:44)
[2020-02-11] MEDS: Menthol/Lanolin/Calamine/Znox 113 GM Tube 1 APPLIC TOPICAL ×2 (05:45→17:33)
[2020-02-11] MEDS: Polyethylene Glycol 3350 17 GM PACKET PO (05:45)
[2020-02-11] MEDS: Glucerna Shake 120 ML LIQUID PO ×4 (05:47→19:44)
[2020-02-11 06:10] LABS: Bedside Glucose 94 mg/dL (70-110)
[2020-02-11] MEDS: Iron Polysaccharide Complex 150 MG CAPSULE PO (07:40)
[2020-02-11] MEDS: metFORMIN HCl 850 MG Tablet PO ×2 (07:40→17:33)
[2020-02-11] MEDS: Aspirin E.C. 81 MG Tablet PO ×2 (07:40→17:33)
[2020-02-11] MEDS: Allopurinol 100 MG Tablet PO (07:45)
[2020-02-11] MEDS: Multivitamins,Therapeutic Tablet 1 TABLET PO (07:45)
[2020-02-11 14:10] VITALS: BP 150/53; PULSE 90; RESP 16; TEMP 37.1; O2SAT 99
[2020-02-11] MEDS: QUEtiapine 25 MG Tablet 50 MG PO (19:45)
[2020-02-12 04:53] VITALS: BP 140/51; PULSE 80; RESP 16; TEMP 36.7; O2SAT 98
[2020-02-12] MEDS: Furosemide 40 MG Tablet PO (04:55)
[2020-02-12] MEDS: Galantamine Hydrobromide 4 MG Tablet PO ×2 (04:55→17:25)
[2020-02-12] MEDS: FLUoxetine 20 MG Capsule 40 MG PO (04:55)
[2020-02-12] MEDS: Loratadine 10 MG Tablet PO (04:55)
[2020-02-12] MEDS: QUEtiapine 25 MG Tablet 12.5 MG PO (04:55)
[2020-02-12] MEDS: Polyethylene Glycol 3350 17 GM PACKET PO (04:57)
[2020-02-12] MEDS: Glucerna Shake 120 ML LIQUID PO ×4 (04:58→20:10)
[2020-02-12] MEDS: Menthol/Lanolin/Calamine/Znox 113 GM Tube 1 APPLIC TOPICAL ×2 (04:59→17:25)
[2020-02-12 06:21] LABS: Bedside Glucose 108 mg/dL (70-110)
[2020-02-12] MEDS: Iron Polysaccharide Complex 150 MG CAPSULE PO (07:34)
[2020-02-12] MEDS: Allopurinol 100 MG Tablet PO (07:34)
[2020-02-12] MEDS: Multivitamins,Therapeutic Tablet 1 TABLET PO (07:34)
[2020-02-12] MEDS: Aspirin E.C. 81 MG Tablet PO ×2 (07:34→17:25)
[2020-02-12] MEDS: metFORMIN HCl 850 MG Tablet PO ×2 (07:34→17:26)
[2020-02-12 09:15] VITALS: PULSE 87; RESP 18; O2SAT 98
[2020-02-12 13:12] VITALS: BP 158/77; PULSE 99; RESP 17; TEMP 36.6; O2SAT 98
[2020-02-12] MEDS: QUEtiapine 25 MG Tablet 50 MG PO (20:10)
[2020-02-13] MEDS: Menthol/Lanolin/Calamine/Znox 113 GM Tube 1 APPLIC TOPICAL ×2 (05:27→15:38)
[2020-02-13] MEDS: Glucerna Shake 120 ML LIQUID PO ×4 (05:28→19:42)
[2020-02-13] MEDS: Polyethylene Glycol 3350 17 GM PACKET PO (05:28)
[2020-02-13] MEDS: QUEtiapine 25 MG Tablet 12.5 MG PO (05:29)
[2020-02-13] MEDS: FLUoxetine 20 MG Capsule 40 MG PO (05:29)
[2020-02-13] MEDS: Furosemide 40 MG Tablet PO (05:29)
[2020-02-13] MEDS: Galantamine Hydrobromide 4 MG Tablet PO ×2 (05:30→17:09)
[2020-02-13] MEDS: Loratadine 10 MG Tablet PO (05:30)
[2020-02-13 05:33] VITALS: BP 179/69; PULSE 77; RESP 16; TEMP 36.6; O2SAT 99
[2020-02-13 06:20] LABS: Bedside Glucose 127 mg/dL (70-110)
[2020-02-13] MEDS: Iron Polysaccharide Complex 150 MG CAPSULE PO (08:33)
[2020-02-13] MEDS: Aspirin E.C. 81 MG Tablet PO ×2 (08:33→17:09)
[2020-02-13] MEDS: Multivitamins,Therapeutic Tablet 1 TABLET PO (08:33)
[2020-02-13] MEDS: Allopurinol 100 MG Tablet PO (08:33)
[2020-02-13] MEDS: metFORMIN HCl 850 MG Tablet PO ×2 (08:33→17:09)
[2020-02-13 11:35] VITALS: BP 139/61; PULSE 77; RESP 18; TEMP 36.2; O2SAT 97
[2020-02-13] MEDS: Acetaminophen 500 MG Tablet 1000 MG PO (15:37)
[2020-02-13] MEDS: QUEtiapine 25 MG Tablet 50 MG PO (19:42)
[2020-02-14 05:05] VITALS: BP 158/59; PULSE 75; RESP 16; TEMP 36.1; O2SAT 99
[2020-02-14] MEDS: Polyethylene Glycol 3350 17 GM PACKET PO (05:07)
[2020-02-14] MEDS: Menthol/Lanolin/Calamine/Znox 113 GM Tube 1 APPLIC TOPICAL ×2 (05:07→17:53)
[2020-02-14] MEDS: Acetaminophen 500 MG Tablet 1000 MG PO (05:08)
[2020-02-14] MEDS: Furosemide 40 MG Tablet PO (05:09)
[2020-02-14] MEDS: Loratadine 10 MG Tablet PO (05:09)
[2020-02-14] MEDS: QUEtiapine 25 MG Tablet 12.5 MG PO (05:09)
[2020-02-14] MEDS: Glucerna Shake 120 ML LIQUID PO ×4 (05:09→20:17)
[2020-02-14] MEDS: Galantamine Hydrobromide 4 MG Tablet PO ×2 (05:09→17:52)
[2020-02-14] MEDS: FLUoxetine 20 MG Capsule 40 MG PO (05:11)
[2020-02-14 05:41] LABS: Absolute Lymphocyte Count 2.46 X10^3/uL (0.83-4.51); Absolute Neutrophil Count 4.6 X10^3/uL (2.0-7.7); Basophil# 0.08 X10^3/uL; Basophil% 0.9 % (0-1); Eosinophil# 0.62 X10^3/uL; Eosinophils% 7.3 % (0-5); Hematocrit 35.8 % (37-47); Hemoglobin 10.9 g/dL (12.0-15.0); Lymphocyte # 2.46 X10^3/ul (4.0); Mean Corp Hgb Conc 30.4 g/dL (32-36); Mean Corpuscular Hgb 30.1 pg (27.0-32.0); Mean Corpuscular Volume 98.9 fL (81-99); Mean Platelet Vol. 9.8 fl (6.2-12.0); Monocyte# 0.71 X10^3/uL; Monocyte% 8.4 % (0-10); NRBC Flagged by Analyzer 0 % (0-5); Neutrophil # 4.57 X10^3/uL (2.7-7.7); Neutrophil % 53.9 % (47-70); Platelet Count 530 K/mm3 (150-450); RBC Distribution Width CV 15.3 % (11.6-14.6); RBC Distribution Width SD 55.5 fl (35.1-43.9); Red Blood Count 3.62 M/mm3 (4.2-5.4); White Blood Count 8.5 K/mm3 (4.4-11.0)
[2020-02-14 06:05] LABS: Anion Gap 5 (5-15); BUN 58 mg/dL (7-18); BUN/Creat Ratio 51.8 RATIO (10-20); Calcium,Total 9.7 mg/dL (8.5-10.1); Chloride 107 mmol/L (98-107); Creatinine, Serum 1.12 mg/dL (0.55-1.02); EST Glomerular Filtration Rate 50 mL/min (>60); Est Glom Filt Rate - Afr Amer 61 mL/min (>60); Glucose 100 mg/dL (74-106); Potassium 4.2 mmol/L (3.5-5.1); Sodium Level 137 mmol/L (136-145)
[2020-02-14 06:21] LABS: Bedside Glucose 104 mg/dL (70-110)
[2020-02-14] MEDS: metFORMIN HCl 850 MG Tablet PO ×2 (08:00→17:52)
[2020-02-14] MEDS: Aspirin E.C. 81 MG Tablet PO ×2 (08:00→17:53)
[2020-02-14] MEDS: Allopurinol 100 MG Tablet PO (08:00)
[2020-02-14] MEDS: Multivitamins,Therapeutic Tablet 1 TABLET PO (08:00)
[2020-02-14] MEDS: Iron Polysaccharide Complex 150 MG CAPSULE PO (08:00)
--- NOTE | 2020-02-14 08:45 | RAD_ITS ---
STUDY: X-RAY - PELVIS AND LEFT HIP REASON FOR EXAM: Female, 74 years old. 2 weeks postop. TECHNIQUE: 3 views of the pelvis and hip. COMPARISON: The pelvis and left hip, 01/25/2019. FINDINGS: There is a non-specific bowel gas pattern. Normal visualized soft tissue structures. Normal bilateral iliac wings, sacroiliac joints and visualized sacrum. Normal bilateral superior and inferior pubic rami. Normal pubic symphysis. Normal bilateral ischial tuberosities. There is a medullary kadie in the proximal femur with transfixing cortical screws tending into the femoral head and neck. The intertrochanteric fracture is in normal alignment. There is no evidence of callus formation to suggest healing. Normal acetabulum. There is mild articular joint space narrowing of the hip. RAD/HIP, UNI W/ Pelvis 2-3 Views IMPRESSION: Status post internal fixation of the intertrochanteric fracture seen on the prior study. There is no evidence of callus formation to suggest healing. Electronically Signed: Tito Peres DO at 23:58 EST Tel [phone], Service support ,
[2020-02-14 13:18] VITALS: BP 155/69; PULSE 78; RESP 16; TEMP 36.7; O2SAT 97
--- NOTE | 2020-02-14 14:01 | CASEMGMT ---
Social Work Insurance issued LCD 02/15, DC 02/16. Spoke with pt's sister about DC date, sister agreeable, and can transport pt to [facility]. Left message with Amarilys about pt return on 02/16 and sister to transport. No therapy or DME needs for pt. Plan: DC home to [facility] 02/16, no needs. Shahnaz Sneed, SENIOR ANALYSIS SPECIALIST [employer]
--- NOTE | 2020-02-14 19:30 | PCM.DC ---
- Discharge Diagnoses Current Active Problems: Current Active and Chronic Problems (Last Reviewed 01/26/20 @ 22:[address] Eddy Burroughs MD) Hidradenitis suppurativa (Chronic) Debility (Acute) Fall (Acute) Closed left hip fracture (Acute) Diabetes mellitus (Chronic) Hypertension (Chronic) Alzheimer's disease (Chronic) Hypogammaglobulinemia (Chronic) Thyroid nodule (Chronic) Gout (Chronic) Edema (Chronic) Depression (Chronic) You will use the following diet at home:: No restrictions, Regular Your food should be the consistency of: Regular Your liquids should be the consistency of: Regular/Thin Discharge Activity: Return to Normal Activity, May Shower, Use Walker Weight Bearing Status: Weight bearing as tolerated Call your doctor if you observe: Fever of 101 or Higher, Inability to urinate, Inability to have a bowel movement, Shortness of breath, Chest pain, Uncontrolled pain Allergies/Adverse Reactions: Allergies penicillin V [From Pen-Vee K] Allergy (Verified 11/18/19 13:31) Unknown Medications to take at Discharge Allopurinol [Zyloprim] 100 mg PO DAILYCM 06/09/16 Torsemide [Demadex] 20 mg PO DAILY 06/09/16 metFORMIN HCl [Glucophage] 850 mg PO BIDCM 06/09/16 Dulaglutide [Trulicity] 0.75 mg SQ TU 10/09/16 Cetirizine HCl 10 mg PO DAILY 01/19/19 Galantamine HBr 4 mg PO BID 01/19/19 Quetiapine Fumarate 12.5 mg PO DAILY 01/19/19 Fluoxetine HCl 40 mg PO DAILY PRN PRN 01/26/20 Multivitamins,Therapeutic [Multivitamin] 1 tab PO DAILY 01/26/20 Quetiapine Fumarate [Seroquel] 50 mg PO QHS 01/26/20 Acetaminophen [Tylenol Tablet] 650 mg PO Q6H PRN PRN tab 01/30/20 Aspirin E.C. [Ecotrin] 81 mg PO BIDCM #20 02/14/20 Iron Polysaccharide Complex [Ferrex 150] 150 mg PO DAILYCM #30 cap 02/14/20 Menthol/Lanolin/Calamine/Znox [Calmoseptine Ointment] 1 applic TOPICAL BID tube 02/14/20 Nutritional Supplement [Anshu - ORANGE FLAVOR] 1 packet PO BIDCM #60 packet 02/14/20 Potassium Chloride [K-Dur] 20 meq PO DAILYCM #30 tab 02/14/20 The following prescriptions were given: Iron Polysaccharide Complex [Ferrex 150] 150 mg PO DAILYCM #30 cap Transmission Status: Pending to [id number] Nutritional Supplement [Anshu - ORANGE FLAVOR] 1 packet PO BIDCM #60 packet Transmission Status: Pending to [facility] [id number] Potassium Chloride [K-Dur] 20 meq PO DAILYCM #30 tab Transmission Status: Pending to [facility] Primary Care Physician: Libia Valdivia MD [Primary Care Provider] - Please follow up with your Primary Care Physician in: 1 week. Test Results: Test results from this visit will be discussed in further detail at your follow-up appointment, if applicable. Please Follow Up With: Sadi Castaneda MD When: 2-3 weeks Please Follow Up With: Libia Kennedy MD When: 1 week. Proposed Discharge Date: 02/17/20
--- NOTE | 2020-02-14 19:32 | PCM.DC.SUM ---
Discharge Date and Diagnosis - Problem List Patient Problems: Active and Suspected Problems (Last Reviewed 01/26/20 @ 22:[address] Eddy Burroughs MD) Debility (Acute) Fall (Acute) Closed left hip fracture (Acute) Date of Admission: 01/30/20 Date of Discharge: 02/17/20 - Primary Discharge Diagnosis Acute Problems: Active Problems (Last Reviewed 01/26/20 @ 22:[address] Eddy Burroughs MD) Debility (Acute) Fall (Acute) Closed left hip fracture (Acute) - Secondary Discharge Diagnosis Chronic Problems: Chronic Problems (Last Reviewed 01/26/20 @ 22:[address] Eddy Burroughs MD) Hypergammaglobulinemia (Chronic) Left thyroid nodule (Chronic) Right thyroid nodule (Chronic) Vulval hidradenitis suppurativa (Chronic) Hidradenitis suppurativa (Chronic) Pressure ulcer of coccygeal region, stage 1 (Chronic) Ulcer of left groin with fat layer exposed (Chronic) Dementia (Chronic) Diabetes mellitus (Chronic) Hypertension (Chronic) Alzheimer's disease (Chronic) Hypogammaglobulinemia (Chronic) Thyroid nodule (Chronic) Gout (Chronic) Edema (Chronic) Depression (Chronic) Hospital Course and Treatment Imaging Results: 02/07/20 09:24 Diet: Carbohydrate Controlled Food consistency:: Regular Liquid Consistency:: Regular/Thin Dietary Modifications:: Cardiac / Heart Healthy Is pt able to select menu?: No Labs (Last 48 Hours) 02/13/20 02/14/20 02/14/20 06:13 05:10 05:10 WBC 8.5 RBC 3.62 L Hgb 10.9 L Hct 35.8 L MCV 98.9 MCH 30.1 MCHC 30.4 L RDW Std Deviation 55.5 H RDW Coeff of Moy 15.3 H Plt Count 530 H MPV 9.8 Immature Gran % (Auto) 0.500 Neut % (Auto) 53.9 Lymph % (Auto) 29.0 Crawford % (Auto) 8.4 Eos % (Auto) 7.3 H Baso % (Auto) 0.9 Absolute Neuts (auto) 4.6 Absolute Lymphs (auto) 2.46 Nucleated RBC % 0 Sodium 137 Potassium 4.2 Chloride 107 Carbon Dioxide 25.0 Anion Gap 5 BUN 58 H Creatinine 1.12 H Estim Creat Clear Calc 35.90 Est GFR (MDRD) Af Amer 61 Est GFR (MDRD) Non-Af 50 L BUN/Creatinine Ratio 51.8 H Glucose 100 Calcium 9.7 POC Glucose 127 H 02/14/20 06:17 WBC RBC Hgb Hct MCV MCH MCHC RDW Std Deviation RDW Coeff of Moy Plt Count MPV Immature Gran % (Auto) Neut % (Auto) Lymph % (Auto) Crawford % (Auto) Eos % (Auto) Baso % (Auto) Absolute Neuts (auto) Absolute Lymphs (auto) Nucleated RBC % Sodium Potassium Chloride Carbon Dioxide Anion Gap BUN Creatinine Estim Creat Clear Calc Est GFR (MDRD) Af Amer Est GFR (MDRD) Non-Af BUN/Creatinine Ratio Glucose Calcium POC Glucose 104 Consultations 01/30/20 18:14 Consult: Onc/Wound/survey manager Routine Comment: Reason for Consult:: Pressure Ulcer on Coccyx Operations: None, - - Left hip open reduction internal fixation, intramedullary nail fixation on 01/27/2020. Procedures: None Summary of Care Provided: The patient is a 74 year old Female with below past medical history hospitalized for left hip fracture, underwent left hip ORIF, intramedullary nail fixation, 01/27/20, admitted to TCU with debility, here for rehabilitation, strengthening, prior to discharge to [facility]. Discharge home to [facility], No needs. Patient Problems: Active and Suspected Problems (Last Reviewed 01/26/20 @ 22:[address] Eddy Burroughs MD) Debility (Acute) Fall (Acute) Closed left hip fracture (Acute) - Physical Exam Vitals/I&O's: Vital Signs Temp Pulse Resp BP Pulse Ox 98.0 F 78 16 155/69 H 97 02/14/20 13:18 02/14/20 13:18 02/14/20 13:18 02/14/20 13:18 02/14/20 13:18 Oxygen Delivery Method Room Air Weight: 66.82 kg Body Mass Index (BMI) 27.6 Finger Stick Blood Glucose 157 Intake and Output for Last 24 Hours 02/12/20 02/13/20 02/14/20 23:59 23:59 23:59 Intake Total 720 / 720 1080 / 1080 720 / 720 Balance 720 / 720 1080 / 1080 720 / 720 Laboratory Results 02/14/20 05:10: WBC 8.5, RBC 3.62 L, Hgb 10.9 L, Hct 35.8 L, MCV 98.9, MCH 30.1, MCHC 30.4 L, RDW Std Deviation 55.5 H, RDW Coeff of Moy 15.3 H, Plt Count 530 H, MPV 9.8, Immature Gran % (Auto) 0.500, Neut % (Auto) 53.9, Lymph % (Auto) 29.0, Crawford % (Auto) 8.4, Eos % (Auto) 7.3 H, Baso % (Auto) 0.9, Absolute Neuts (auto) 4.6, Absolute Lymphs (auto) 2.46, Nucleated RBC % 0 02/14/20 05:10: Sodium 137, Potassium 4.2, Chloride 107, Carbon Dioxide 25.0, Anion Gap 5, BUN 58 H, Creatinine 1.12 H, Estim Creat Clear Calc 35.90, Est GFR (MDRD) Af Amer 61, Est GFR (MDRD) Non-Af 50 L, BUN/Creatinine Ratio 51.8 H, Glucose 100, Calcium 9.7 02/14/20 06:17: POC Glucose 104 Current Medications Acetaminophen (Acetaminophen 500 Mg Tablet) 1,000 mg PO Q6H PRN PRN PRN Reason: Pain Score 1-5 Last Admin: 02/14/20 05:08 Dose: 1,000 mg Documented by: Allopurinol (All[facility]ol 100 Mg Tablet) [facility] Admin: 02/14/20 08:00 Dose: 100 mg Documented by: Aspirin (Aspirin E.C. 81 Mg Tablet) [facility] Stop: 02/27/20 23:59 Last Admin: 02/14/20 17:53 Dose: 81 mg Documented by: Bisacodyl (Bisacodyl 10 Mg Suppository) 10 mg RECTAL DAILY PRN PRN Reason: Constipation Last Admin: 02/02/20 15:07 Dose: 10 mg Documented by: Calamine/Phenol (Menthol/Lanolin/Calamine/Znox 113 Gm Tube) 1 applic TOPICAL BID [facility]; Protocol Last Admin: 02/14/20 17:53 Dose: 1 applicatio Documented by: Fluoxetine HCl (Fluoxetine 20 Mg Capsule) 40 mg PO DAILY [facility] Last Admin: 02/14/20 05:11 Dose: 40 mg Documented by: Furosemide (Furosemide 40 Mg Tablet) 40 mg PO DAILY [facility] Last Admin: 02/14/20 05:09 Dose: 40 mg Documented by: Galantamine Hydrobromide (Galantamine Hydrobromide 4 Mg Tablet) 4 mg PO BID [facility] Last Admin: 02/14/20 17:52 Dose: 4 mg Documented by: Loratadine (Loratadine 10 Mg Tablet) 10 mg PO DAILY [facility] Last Admin: 02/14/20 05:09 Dose: 10 mg Documented by: Magnesium Hydroxide (Magnesium Hydroxide 30 Ml Udc) 30 ml PO DAILY PRN PRN Reason: Constipation Metformin HCl (Metformin Hcl 850 Mg Tablet) [facility] Last Admin: 02/14/20 17:52 Dose: 850 mg Documented by: Multivitamins (Multivitamins,Therapeutic Tablet) 1 tablet PO DAILY@0800 [facility] Last Admin: 02/14/20 08:00 Dose: 1 tablet Documented by: Nutritional Formula (Nutritional Supplement (Anshu) Packet) [facility] Last Admin: 02/14/20 17:53 Dose: 1 packet Documented by: Nutritional Formula (Lactose Free) (Glucerna Shake 120 Ml Liquid) 120 ml PO 4X/DAY [facility] Last Admin: 02/14/20 17:53 Dose: 120 ml Documented by: Oxycodone HCl (Oxycodone 5 Mg Tablet) 5 mg PO Q6H PRN PRN PRN Reason: Pain Score 6-10 Last Admin: 02/08/20 08:50 Dose: 5 mg Documented by: Polyethylene Glycol (Polyethylene Glycol 3350 17 Gm Packet) 17 gm PO DAILY [facility] Last Admin: 02/14/20 05:07 Dose: 17 gm Documented by: Polysaccharide Iron Complex (Iron Polysaccharide Complex 150 Mg Capsule) 150 mg [facility]ILY[facility] Last Admin: 02/14/20 08:00 Dose: 150 mg Documented by: Potassium Chloride (Potassium Chloride 20 Meq Tablet) 20 meq PO [facility]ILYB[facility] Last Admin: 02/14/20 08:00 Dose: 20 meq Documented by: Quetiapine Fumarate (Quetiapine 25 Mg Tablet) 12.5 mg PO DAILY [facility] Last Admin: 02/14/20 05:09 Dose: 12.5 mg Documented by: Quetiapine Fumarate (Quetiapine 25 Mg Tablet) 50 mg PO QHS [facility] Last Admin: 02/13/20 19:42 Dose: 50 mg Documented by: Senna/Docusate Sodium (Senna/Docusate Sodium 1 Tablet) 2 tablet PO DAILY PRN PRN PRN Reason: CONSTIPATION Discharge Diet: No Restrictions Discharge Activity: Return to Normal Activity, May Shower, Use Walker Weight Bearing Status: Weight bearing as tolerated Call your doctor if you observe: Fever of 101 or Higher, Inability to urinate, Inability to have a bowel movement, Shortness of breath, Chest pain, Uncontrolled pain Home Medications: Medications to take at Discharge Allopurinol [Zyloprim] 100 mg PO DAILYCM 06/09/16 Torsemide [Demadex] 20 mg PO DAILY 06/09/16 metFORMIN HCl [Glucophage] 850 mg PO BIDCM 06/09/16 Dulaglutide [Trulicity] 0.75 mg SQ TU 10/09/16 Cetirizine HCl 10 mg PO DAILY 01/19/19 Galantamine HBr 4 mg PO BID 01/19/19 Quetiapine Fumarate 12.5 mg PO DAILY 01/19/19 Fluoxetine HCl 40 mg PO DAILY PRN PRN 01/26/20 Multivitamins,Therapeutic [Multivitamin] 1 tab PO DAILY 01/26/20 Quetiapine Fumarate [Seroquel] 50 mg PO QHS 01/26/20 Acetaminophen [Tylenol Tablet] 650 mg PO Q6H PRN PRN tab 01/30/20 Aspirin E.C. [Ecotrin] 81 mg PO BIDCM #20 02/14/20 Iron Polysaccharide Complex [Ferrex 150] 150 mg PO DAILYCM #30 cap 02/14/20 Menthol/Lanolin/Calamine/Znox [Calmoseptine Ointment] 1 applic TOPICAL BID tube 02/14/20 Nutritional Supplement [Anshu - ORANGE FLAVOR] 1 packet PO BIDCM #60 packet 02/14/20 Potassium Chloride [K-Dur] 20 meq PO DAILYCM #30 tab 02/14/20 Following Prescriptions Were Given to Patient: Iron Polysaccharide Complex [Ferrex 150] 150 mg PO DAILYCM #30 cap Transmission Status: Pending to [facility]11 Nutritional Supplement [Anshu - ORANGE FLAVOR] 1 packet PO BIDCM #60 packet Transmission Status: Pending to [facility] 1811 Potassium Chloride [K-Dur] 20 meq PO DAILYCM #30 tab Transmission Status: Pending to [facility] 181 Primary Care Physician: Libia Valdivia MD [Primary Care Provider] - Please follow up with your Primary Care Physician in: 1 week. Please Follow Up With: Sadi Castaneda MD When: 2-3 weeks Please Follow Up With: Libia Kennedy MD When: 1 week. Disposition: Asstd Living/Non-Skill [facility] Minutes spent on discharge:: 35 Patient Condition:: Stable Medical Necessity - Tobacco Use Smoking Status: Never smoker Tobacco Use: Non-smoker Meaningful Use Info Meaningful Use Diagnoses (Choose all that apply): None applicable
--- NOTE | 2020-02-14 19:33 | TREXTCAR_ITS ---
- Diet 02/07/20 09:24 Diet: Carbohydrate Controlled Food consistency:: Regular Liquid Consistency:: Regular/Thin Dietary Modifications:: Cardiac / Heart Healthy Is pt able to select menu?: No - Routine Orders/Code Status Code Status: Full Code - Wound(s) coccyx Wound Type: healing pilonidal cyst with surrounding pressure Dressing Change: Mepilex left hip Wound Type: Surgical Incision Dressing Change: Surgical - Therapies Weight Bearing: Weight bearing as tolerated - Problem/Diagnosis (1) Debility Status: Acute (2) Fall Status: Acute (3) Closed left hip fracture Status: Acute (4) Diabetes mellitus Status: Chronic (5) Hypertension Status: Chronic (6) Alzheimer's disease Status: Chronic (7) Hypogammaglobulinemia Status: Chronic (8) Thyroid nodule Status: Chronic (9) Gout Status: Chronic (10) Edema Status: Chronic (11) Depression Status: Chronic (12) Hidradenitis suppurativa Status: Chronic - Allergies/Procedures Done in Hospital Allergies/Adverse Reactions: Allergies penicillin V [From Pen-Vee K] Allergy (Verified 11/18/19 13:31) Unknown - Type of Care/Length of Stay Estimated LOS: More Than 30 Days Type of Care Needed: Senior Care/Assisted Living Rehab Potential: Fair Prognosis: Fair - Additional Orders/Day of Discharge Day of Discharge: 02/17/20 - Dietary and Speech Recommendations Dietitian Recommendations/Changes: Continue liberalized diet and ONS Glucerna 120mL 4x/day. Continue Anshu BID - Follow Up Care Primary Care Physician: Libia Valdivia MD [Primary Care Provider] - Please follow up with your Primary Care Physician in: 1 week. Please Follow Up With: Sadi Castaneda MD When: 2-3 weeks Please Follow Up With: Libia Kennedy MD When: 1 week.
[2020-02-14] MEDS: QUEtiapine 25 MG Tablet 50 MG PO (20:17)
[2020-02-15 06:04] VITALS: BP 142/73; PULSE 79; RESP 18; TEMP 37; O2SAT 95
[2020-02-15] MEDS: Loratadine 10 MG Tablet PO (06:06)
[2020-02-15] MEDS: QUEtiapine 25 MG Tablet 12.5 MG PO (06:06)
[2020-02-15] MEDS: Polyethylene Glycol 3350 17 GM PACKET PO (06:06)
[2020-02-15] MEDS: Furosemide 40 MG Tablet PO (06:07)
[2020-02-15] MEDS: FLUoxetine 20 MG Capsule 40 MG PO (06:07)
[2020-02-15] MEDS: Galantamine Hydrobromide 4 MG Tablet PO ×2 (06:08→17:05)
[2020-02-15] MEDS: Menthol/Lanolin/Calamine/Znox 113 GM Tube 1 APPLIC TOPICAL ×2 (06:09→17:05)
[2020-02-15] MEDS: Glucerna Shake 120 ML LIQUID PO ×4 (06:10→20:20)
[2020-02-15 06:46] LABS: Bedside Glucose 108 mg/dL (70-110)
[2020-02-15] MEDS: Iron Polysaccharide Complex 150 MG CAPSULE PO (08:29)
[2020-02-15] MEDS: Multivitamins,Therapeutic Tablet 1 TABLET PO (08:29)
[2020-02-15] MEDS: Allopurinol 100 MG Tablet PO (08:29)
[2020-02-15] MEDS: Aspirin E.C. 81 MG Tablet PO ×2 (08:29→17:05)
[2020-02-15] MEDS: metFORMIN HCl 850 MG Tablet PO ×2 (08:29→17:05)
[2020-02-15 08:35] VITALS: PULSE 86; RESP 16; O2SAT 97
--- NOTE | 2020-02-15 15:59 | NURSING ---
returned from Dr blanca appt, WBAT LT hip, follow up in 6-8 wks for eval and xrays
[2020-02-15 16:00] VITALS: BP 145/70; PULSE 76; RESP 16; TEMP 36.4; O2SAT 97
[2020-02-15] MEDS: QUEtiapine 25 MG Tablet 50 MG PO (20:20)
[2020-02-16 04:55] VITALS: BP 150/57; PULSE 78; RESP 16; TEMP 36.6; O2SAT 97
[2020-02-16] MEDS: Glucerna Shake 120 ML LIQUID PO ×4 (04:56→20:41)
[2020-02-16] MEDS: Furosemide 40 MG Tablet PO (04:58)
[2020-02-16] MEDS: Polyethylene Glycol 3350 17 GM PACKET PO (04:58)
[2020-02-16] MEDS: Loratadine 10 MG Tablet PO (04:58)
[2020-02-16] MEDS: QUEtiapine 25 MG Tablet 12.5 MG PO (04:58)
[2020-02-16] MEDS: Galantamine Hydrobromide 4 MG Tablet PO ×2 (04:59→17:36)
[2020-02-16] MEDS: FLUoxetine 20 MG Capsule 40 MG PO (05:00)
[2020-02-16] MEDS: Menthol/Lanolin/Calamine/Znox 113 GM Tube 1 APPLIC TOPICAL ×2 (05:02→17:36)
[2020-02-16 06:15] LABS: Bedside Glucose 109 mg/dL (70-110)
[2020-02-16] MEDS: metFORMIN HCl 850 MG Tablet PO ×2 (07:58→17:37)
[2020-02-16] MEDS: Allopurinol 100 MG Tablet PO (07:58)
[2020-02-16] MEDS: Multivitamins,Therapeutic Tablet 1 TABLET PO (07:58)
[2020-02-16] MEDS: Iron Polysaccharide Complex 150 MG CAPSULE PO (07:58)
[2020-02-16] MEDS: Aspirin E.C. 81 MG Tablet PO ×2 (07:58→17:36)
[2020-02-16 13:45] VITALS: BP 138/60; PULSE 88; RESP 16; TEMP 36.6; O2SAT 96
--- NOTE | 2020-02-16 15:39 | NURSING ---
Resident and family notified of staff member testing positive for COVID
[2020-02-16] MEDS: Acetaminophen 500 MG Tablet 1000 MG PO (17:40)
[2020-02-16] MEDS: QUEtiapine 25 MG Tablet 50 MG PO (20:41)
[2020-02-17 05:16] VITALS: BP 154/62; PULSE 65; RESP 16; TEMP 36.8; O2SAT 98
[2020-02-17] MEDS: Polyethylene Glycol 3350 17 GM PACKET PO (05:19)
[2020-02-17] MEDS: Loratadine 10 MG Tablet PO (05:19)
[2020-02-17] MEDS: Menthol/Lanolin/Calamine/Znox 113 GM Tube 1 APPLIC TOPICAL (05:20)
[2020-02-17] MEDS: Furosemide 40 MG Tablet PO (05:20)
[2020-02-17] MEDS: Galantamine Hydrobromide 4 MG Tablet PO (05:20)
[2020-02-17] MEDS: QUEtiapine 25 MG Tablet 12.5 MG PO (05:20)
[2020-02-17] MEDS: Glucerna Shake 120 ML LIQUID PO (05:20)
[2020-02-17] MEDS: FLUoxetine 20 MG Capsule 40 MG PO (05:21)
[2020-02-17 06:20] LABS: Bedside Glucose 106 mg/dL (70-110)
[2020-02-17] MEDS: Iron Polysaccharide Complex 150 MG CAPSULE PO (07:47)
[2020-02-17] MEDS: Multivitamins,Therapeutic Tablet 1 TABLET PO (07:47)
[2020-02-17] MEDS: Aspirin E.C. 81 MG Tablet PO (07:47)
[2020-02-17] MEDS: metFORMIN HCl 850 MG Tablet PO (07:47)
[2020-02-17] MEDS: Allopurinol 100 MG Tablet PO (07:48)
--- NOTE | 2020-02-17 08:04 | NURSING ---
Pt being discharged today to assisted living. Mepilex dressing remains intact.
[2020-02-17 10:11] VITALS: PULSE 89; RESP 18; O2SAT 95
--- NOTE | 2020-02-17 11:32 | PHA.DC.MR ---
Pharmacy Service has performed discharge medication reconciliation for this patient. The patient's discharge medication list was reviewed for discrepancies and discrepancies were resolved. Home Medications Allopurinol [Zyloprim] 100 mg PO DAILYCM 06/09/16 Torsemide [Demadex] 20 mg PO DAILY 06/09/16 metFORMIN HCl [Glucophage] 850 mg PO BIDCM 06/09/16 Dulaglutide [Trulicity] 0.75 mg SQ TU 10/09/16 Cetirizine HCl 10 mg PO DAILY 01/19/19 Galantamine HBr 4 mg PO BID 01/19/19 Quetiapine Fumarate 12.5 mg PO DAILY 01/19/19 Fluoxetine HCl 40 mg PO DAILY PRN PRN 01/26/20 Multivitamins,Therapeutic [Multivitamin] 1 tab PO DAILY 01/26/20 Quetiapine Fumarate [Seroquel] 50 mg PO QHS 01/26/20 Acetaminophen [Tylenol Tablet] 650 mg PO Q6H PRN PRN tab 01/30/20 Aspirin E.C. [Ecotrin] 81 mg PO BIDCM #20 02/14/20 Iron Polysaccharide Complex [Ferrex 150] 150 mg PO DAILYCM #30 cap 02/14/20 Menthol/Lanolin/Calamine/Znox [Calmoseptine Ointment] 1 applic TOPICAL BID tube 02/14/20 Nutritional Supplement [Anshu - ORANGE FLAVOR] 1 packet PO BIDCM #60 packet 02/14/20 Potassium Chloride [K-Dur] 20 meq PO DAILYCM #30 tab 02/14/20
[2020-02-17 12:00] VITALS: BP 146/53; PULSE 89; RESP 18; TEMP 36.8; O2SAT 95
== END 2020-02-17 12:10 | disposition home or self-care (01) | DRG 560 ==
PROVIDERS: Admitting Provider Family Medicine Geriatric Medicine; PCP Family Medicine; Visit Provider Family Medicine Geriatric Medicine
DX: S72.142D Displaced intertrochanteric fracture of left femur, subsequent encounter for closed fracture with routine healing (principal); F02.81 Dementia in other diseases classified elsewhere, unspecified severity, with behavioral disturbance; D80.1 Nonfamilial hypogammaglobulinemia; W19.XXXD Unspecified fall, subsequent encounter; L73.2 Hidradenitis suppurativa; Z23 Encounter for immunization; F32.9 Major depressive disorder, single episode, unspecified; G30.9 Alzheimer's disease, unspecified; E11.9 Type 2 diabetes mellitus without complications; I10 Essential (primary) hypertension; E04.1 Nontoxic single thyroid nodule; L89.151 Pressure ulcer of sacral region, stage 1; M1A.9XX0 Chronic gout, unspecified, without tophus (tophi); D50.9 Iron deficiency anemia, unspecified
CPT/HCPCS: 36415; 73502; 80048; 82962; 85025; 87426; 87635; 90732; 97110; 97116; 97162; 97166; 97530; 97535; G0009; U0003

== ENCOUNTER 2020-03-02 11:24 | Outpatient (RCR) | payer MEDICARE, SELFPAY ==
[2020-03-02 12:28] VITALS: BP 152/77; PULSE 119; TEMP 36.3; BMI 27.6
--- NOTE | 2020-03-02 14:19 | PCM.WC.HP ---
(1) Alzheimer's disease Status: Chronic Code(s): G30.9 - Alzheimer's disease, unspecified; F02.80 - Dementia in other diseases classified elsewhere without behavioral disturbance (2) Dementia Status: Chronic Qualifiers: Dementia type: Alzheimer's disease Code(s): F03.90 - Unspecified dementia without behavioral disturbance (3) Diabetes mellitus Status: Chronic Qualifiers: Diabetes mellitus type: type 2 Diabetes mellitus halfway insulin use: without halfway use Diabetes mellitus complication status: with skin complications Diabetes mellitus complication detail: with other skin complication Qualified Code(s): E11.628 - Type 2 diabetes mellitus with other skin complications Code(s): E11.9 - Type 2 diabetes mellitus without complications (4) Hidradenitis suppurativa Status: Chronic Code(s): L73.2 - Hidradenitis suppurativa (5) Ulcer of left groin with fat layer exposed Status: Chronic Code(s): L98.492 - Non-pressure chronic ulcer of skin of other sites with fat layer exposed (6) Vulval hidradenitis suppurativa Status: Chronic Code(s): L73.2 - Hidradenitis suppurativa History of Present Illness Date of Service: 03/02/20 Chief Complaint: Nonhealing ulcers of labia/groin bilaterally and coccyx History of Wound: Jovana is a pleasant 74 yo woman that presents to the wound healing center for evaluation and treatment of nonhealing ulcers to her left groin/labia. She was recently seen here and treated with improvement in her condition but was recently hospitalized for a left hip fracture and has since had a flare up and exacerbation. The area has become more painful and there is purulent discharge. We have been consulted to aid in management/treatment. She is a poor histoian due to dementia. She is accompanied by her sister Faina who provides the majority of her history. She has a history of diabetes and is on Trulicity for management. She is unsure of her most recent A1C. She is incontinent of urine and wears an adult diaper for management of her incontinence. She has been residing at [facility] for approx. one year. She denies fever, chills or other signs of infection. Past Medical History Past Medical History: Chronic Problems (Last Reviewed 01/26/20 @ 22:[address] Eddy Burroughs MD) Hypergammaglobulinemia (Chronic) Left thyroid nodule (Chronic) Right thyroid nodule (Chronic) Vulval hidradenitis suppurativa (Chronic) Hidradenitis suppurativa (Chronic) Pressure ulcer of coccygeal region, stage 1 (Chronic) Ulcer of left groin with fat layer exposed (Chronic) Dementia (Chronic) Diabetes mellitus (Chronic) Hypertension (Chronic) Alzheimer's disease (Chronic) Hypogammaglobulinemia (Chronic) Thyroid nodule (Chronic) Gout (Chronic) Edema (Chronic) Depression (Chronic) Surgical History: cholecystectomy, hysterectomy, - - Left hip ORIF, intramedullary nail. Allergies/Adverse Reactions: Allergies penicillin V [From Pen-Vee K] Allergy (Verified 11/18/19 13:31) Unknown Home Medications: Ambulatory Orders Medication Instructions Recorded Allopurinol [Zyloprim] 100 mg PO DAILYCM 06/09/16 Torsemide [Demadex] 20 mg PO DAILY 06/09/16 metFORMIN HCl [Glucophage] 850 mg PO BIDCM 06/09/16 Dulaglutide [Trulicity] 0.75 mg SQ TU 10/09/16 Cetirizine HCl 10 mg PO DAILY 01/19/19 Galantamine HBr 4 mg PO BID 01/19/19 Quetiapine Fumarate 12.5 mg PO DAILY 01/19/19 Fluoxetine HCl 40 mg PO DAILY PRN PRN 01/26/20 Multivitamins,Therapeutic 1 tab PO DAILY 01/26/20 [Multivitamin] Quetiapine Fumarate [Seroquel] 50 mg PO QHS 01/26/20 Acetaminophen [Tylenol Tablet] 650 mg PO Q6H PRN PRN tab 01/30/20 Aspirin E.C. [Ecotrin] 81 mg PO BIDCM #20 02/14/20 Iron Polysaccharide Complex 150 mg PO DAILYCM #30 cap 02/14/20 [Ferrex 150] Menthol/Lanolin/Calamine/Znox 1 applic TOPICAL BID tube 02/14/20 [Calmoseptine Ointment] Nutritional Supplement [Anshu - 1 packet PO BIDCM #60 packet 02/14/20 ORANGE FLAVOR] Potassium Chloride [K-Dur] 20 meq PO DAILYCM #30 tab 02/14/20 - Family History Sibling Family History: Family History (Last Reviewed 01/26/20 @ 22:[address] Eddy Burroughs MD) Mother Bone cancer Father Heart disease Diabetes - - hidradenitis Lives: [facility] Smoking Status: Never smoker Tobacco Use: Non-smoker Alcohol: None Drugs: None Review of Systems Constitutional: Denies: Chills, Fever, Weight Change Eyes: Denies: Pain, Vision Change HEENT: Denies: Difficulty Hearing, Difficulty Swallowing, Sinus Congestion Cardiovascular: Denies: Chest Pain, Palpitations Respiratory: Denies: Cough, Shortness of Breath Gastrointestinal: Denies: Diarrhea, Nausea, Vomiting Genitourinary: Reports: Incontinence. Denies: Dysuria, Hematuria Musculoskeletal: Reports: Leg Pain Skin: Reports: Wounds Psychiatric: Reports: Depression. Denies: Anxiety Hematologic/ Lymphatic: Denies: Easy Bruising, Easy Bleeding - Physical Exam Vital Signs Temp Pulse BP 97.3 F L 119 H 152/77 H 03/02/20 12:28 03/02/20 12:28 03/02/20 12:28 General: Alert, Cooperative, No apparent distress, Confused HEENT: PERRLA, EOMI Oral: Moist Mucosa Lungs: Clear to auscultation Cardiovascular: Regular rate, Regular Rhythm Abdomen: Soft, Non Tender Extremities: No edema Skin: Ulcer/ Wound, - - hidradenitis changes of groin area, erythema and thickening of skin of left inferior labia/buttock Wound Measurements and Assessment WC - Nurse 1 - General Ulcer Measurement Start: 03/02/20 12:28 Freq: Status: Active Protocol: Activity Type Activity Date Activity User E-Sign Co-Sign Detail Recorded Client Recorded Date Recorded By Document 03/02/20 12:28 MASON [id number] 03/02/20 12:44 MASON 03/02/20 12:28 Wound Center Nurse 1 [Ulcer Assessment] #4 L labia -Current Size (cm) - Length 0.1 -Current Size (cm) - Width 0.1 -Current Size (cm) - Depth 0.1 -Total Square Cm 0.01 -Tunneling No -Undermining/Tunneling No -Circular Undermining No -Exudate Amt Small -Exudate Type Purulent -Wound Margin Flat & Intact -Granulation Amt Medium (34-66%) -Granulation Quality [place] -Slough/Fibrin Yes -Necrosis Amt Small (1-33%) -Necrotic Tissue Type Adherent Slough -Structure Exposed N/A -Texture (Rachel-wound Skin Appearance) Assessed, Excoriation, Localized Edema -Moisture (Rachel-wound Skin Appearance Assessed ) -Color (Rachel-wound Skin Appearance) Assessed, Erythema -Temperature (Rachel-wound Skin No Abnormality Appearance) (Pt Warm) -Tenderness on Palpation (Rachel-wound No Skin Appearance) -Ulcer Cleansing Wound Cleanser -Foul Odor after Cleansing No -Anesthetic Used 5% Lidocaine Gel WC - Nurse 2 - General Ulcer CM Notes Start: 03/02/20 12:28 Freq: Status: Active Protocol: Activity Type Activity Date Activity User E-Sign Co-Sign Detail Recorded Client Recorded Date Recorded By Document 03/02/20 12:48 MW [id number] 03/02/20 12:59 MW 03/02/20 12:48 Wound Center Nurse 2 [Procedure/Treatment] -Time 12:55 -Correct Patient Yes -Correct Side, Site, Position Yes -Correct Procedure Yes -Procedure Performed No -Tunneling No -Undermining/Tunneling No -Circular Undermining No -Wound/Ulcer Outcome Not Healed -Ulcer Cleansing Rinsed/ Irrigated with Saline -Bleeding Controlled with NA -Offloading No [See Physician Procedure note for Specifics] Pain Scale: 0-10 Numeric [Pain] -Is Patient Pain Free? Yes WC - Nurse 3 - General Ulcer D/C NN Start: 03/02/20 12:28 Freq: Status: Active Protocol: Activity Type Activity Date Activity User E-Sign Co-Sign Detail Recorded Client Recorded Date Recorded By Document 03/02/20 13:02 MW [id number] 03/02/20 13:03 MW 03/02/20 13:02 Wound Care Nurse 3 [Wound Dressing] #4 L labia -Ulcer Cleansing Rinsed/ Irrigated with Saline -Foul Odor after Cleansing No -Negative Pressure Wound Therapy N/A -Primary Dressing Applied Promogran Jenn Matter -Primary Dressing Covered/Secured Dry Gauze, with Secured with Tape -Promogran Jenn Matter 1 [Post Procedure Tolerated] -Treatment Response Procedure Tolerated Well Teaching: Wound Center [Wound Center Education] (Items with an * have Printed Materials Available- Please identify what is given to patient under the Teaching materials given to patient and caregiver Section. Dressing Your Wound -Person Taught Patient,Family -Teaching Method Discussion, Demonstration -Response to teaching Verbalize understanding WC - Visit Discharge [Visit Discharge Information] -Discharge Condition Stable -Ambulatory Status Ambulatory, Walker -Transportation Private Auto -Accompanied by sister -Medication Reconcilliation completed No & provided to patient/care provider -Clinical Summary of Care Provided Yes Psych/Mental Status: Normal Affect, Appropriate Debridement Note Post-Debridement Measurements/Treatment - Nurse 2 - General Ulcer CM Notes Start: 03/02/20 12:28 Freq: Status: Active Protocol: Activity Type Activity Date Activity User E-Sign Co-Sign Detail Recorded Client Recorded Date Recorded By Document 03/02/20 12:48 MW [id number] 03/02/20 12:59 MW 03/02/20 12:48 Wound Center Nurse 2 #4 L labia -Time 12:55 -Correct Patient Yes -Correct Side, Site, Position Yes -Correct Procedure Yes -Procedure Performed No -Tunneling No -Undermining/Tunneling No -Circular Undermining No -Wound/Ulcer Outcome Not Healed -Ulcer Cleansing Rinsed/ Irrigated with Saline -Bleeding Controlled with NA -Offloading No Pain Scale: 0-10 Numeric Is Patient Pain Free? Yes WC - Nurse 3 - General Ulcer D/C NN Start: 03/02/20 12:28 Freq: Status: Active Protocol: Activity Type Activity Date Activity User E-Sign Co-Sign Detail Recorded Client Recorded Date Recorded By Document 03/02/20 13:02 MW [id number] 03/02/20 13:03 MW 03/02/20 13:02 Wound Care Nurse 3 #4 L labia -Ulcer Cleansing Rinsed/ Irrigated with Saline -Foul Odor after Cleansing No -Negative Pressure Wound Therapy N/A -Primary Dressing Applied Promogran Jenn Matter -Primary Dressing Covered/Secured with Dry Gauze, Secured with Tape -Promogran Jenn Matter 1 Treatment Response Procedure Tolerated Well Teaching: Wound Center Dressing Your Wound -Person Taught Patient,Family -Teaching Method Discussion, Demonstration -Response to teaching Verbalize understanding WC - Visit Discharge Discharge Condition Stable Ambulatory Status Ambulatory, Walker Transportation Private Auto Accompanied by sister Medication Reconcilliation completed & No provided to patient/care provider Clinical Summary of Care Provided Yes Wound debrided: left labia Laterality: Left Operative Diagnosis: wound culture taken No debridement was completed today - No open ulcer Assessment/Plan Assessment: hidradenitis suppurativa of the groin and labia bilaterally. Pilonidal cyst Plan: Jovana's ulcers were evaluated and are healed today. Will continue Clindamycin to her groin as needed. Wound culture taken of purulent drainage expressed from opening of one of her hidradenitis lesions. Will start her on Bactrim DS orally and adjust if needed. Discussed that these areas are caused by a chronic condition that waxes and wanes and that resolution would require a significant surgery to remove tissue and sweat glands that may fail to heal or have a prolonged complicated healing time and I do not recommend this for her given her comorbidities and feel that she would benefit from a more palliative approach to treatment as opposed to aggressive treatment. Will consider surgical treatment if infection or worsening develops. She will be placed on palliative treatment plan at this time. Advised to call if worsening or increased erythema or drainage develop. F/U in 3 weeks.
== END 2020-03-15 23:59 ==
LOC: WC 11:24
PROVIDERS: PCP Family Medicine; Visit Provider Family Medicine
DX: L73.2 Hidradenitis suppurativa (principal); L05.91 Pilonidal cyst without abscess; L98.492 Non-pressure chronic ulcer of skin of other sites with fat layer exposed; F02.80 Dementia in other diseases classified elsewhere, unspecified severity, without behavioral disturbance, psychotic disturbance, mood disturbance, and anxiety; F32.9 Major depressive disorder, single episode, unspecified; G30.9 Alzheimer's disease, unspecified; I10 Essential (primary) hypertension; R32 Unspecified urinary incontinence; M10.9 Gout, unspecified; E11.621 Type 2 diabetes mellitus with foot ulcer; Z79.82 Long term (current) use of aspirin; Z79.84 Long term (current) use of oral hypoglycemic drugs; Z82.49 Family history of ischemic heart disease and other diseases of the circulatory system; Z83.3 Family history of diabetes mellitus; Z88.0 Allergy status to penicillin; Z90.49 Acquired absence of other specified parts of digestive tract; Z90.710 Acquired absence of both cervix and uterus
CPT/HCPCS: 87070; 87075; 87077; 87186; 87205; 99213; G0463

== ENCOUNTER 2020-03-11 06:45 | Emergency (ER) | payer MEDICARE, SELFPAY ==
[2020-03-11 06:46] VITALS: BP 156/75; PULSE 116; RESP 16; TEMP 37.1; O2SAT 98; BMI 26.4
--- NOTE | 2020-03-11 07:06 | RAD_ITS ---
STUDY: X-RAY - RIGHT HUMERUS REASON FOR EXAM: Female, 74 years old. fall, painful right shoulder TECHNIQUE: 2 view(s) of the humerus. COMPARISON: None. FINDINGS: Acute comminuted fracture of the humeral neck. There is no demonstrated fracture or osseous destructive process. There is no demonstrated soft tissue abnormality. RAD/Humerus min 2 Views IMPRESSION: Acute comminuted humeral neck fracture. Electronically Signed: Dashawn Giang MD at 7:52 EST Tel , Service support ,
--- NOTE | 2020-03-11 07:07 | ED.DCSUM_ITS ---
History of Present Illness Chief Complaint: Fall Informant: Patient Narrative: Patient is a 74-year-old female who presents to the emergency department after she had an outpatient x-ray showing a right humerus fracture. She is currently a resident at a snf. She was sent in to see a surgeon. Patient's fall was around 530. They got the x-ray report last night and told her to wait to come in. She is having pain in the right shoulder region. Any movement of the right arm makes it worse. She denies any loss of sensation. She denies hitting her head or losing consciousness. She denies any neck pain. No chest pain or shortness of breath. No back pain. No abdominal pain. She has not tried taking anything for this yet. She is not on any blood thinning medications. Past Medical History - Allergies and Home Meds Allergies/Adverse Reactions: Allergies penicillin V [From Pen-Vee K] Allergy (Verified 03/11/20 06:48) Unknown Primary Care Physician: Libia Valdivia MD [Primary Care Provider] - Isidoro Ware DO [STAFF PHYSICIAN] - 3-5 Days Prior records reviewed: Yes Past Medical History: - - Dementia Surgical History: cholecystectomy, hysterectomy, - - Left hip ORIF, intramedullary nail. Smoking Status: Never smoker - Family History Sibling Family History: Family History (Last Reviewed 01/26/20 @ 22:[address] Eddy Burroughs MD) Mother Bone cancer Father Heart disease Diabetes Family History: Reports: - - hidradenitis Review of Systems All systems negative except as indicated General: Denies: Chills, Fever, Sweats Eyes: Denies: Visual changes - bilaterally, Diplopia ENT: Denies: Rhinorrhea, Sore throat Cardiovascular: Denies: Chest pain, Palpitations Respiratory: Denies: Dyspnea, Cough, Dyspnea on exertion Gastrointestinal: Denies: Abdominal pain, Nausea, Vomiting Musculoskeletal: Reports: Swelling, Extremity Pain. Denies: Back pain Skin: Denies: Rash, Wounds Neurological: Denies: Headache, Weakness, Numbness Physical Exam Vital Signs/Narrative: Vital Signs Temp Pulse Resp BP Pulse Ox 03/11/20 06:46 98.7 F 116 H 16 156/75 H 98 Inital Vital Signs reviewed: Yes General: Well nourished, Well developed, No Acute Distress Head: Normocephalic, Atraumatic Eyes: Perrl, EOMI ENT: No rhinorrhea, Dry mucous membranes Neck: Supple, Nontender Cardiovascular: Regular rhythm, No murmurs, Tachycardia Respiratory: No distress, CTA bilaterally, Chest nontender Abdomen: Soft, Nontender, Nondistended, Normal bowel sounds Back: Nontender, Normal Inspection Extremities: Tenderness - Right proximal humerus, - - 2+ radial pulse. Brisk capillary refill. Sensation intact. 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 Patient refused to move the arm at the shoulder. There is edema around the hand. Skin: Normal color, No rash Neurological: Alert, Normal Sensation Psychological: Normal affect, Normal Mood Diagnostic/Tx/Re-eval - Medical Decision Making Patient presents the ED after a fall yesterday. She had outpatient x-ray showing a proximal humerus fracture. She was sent in for further evaluation. She is in pain currently. Her arms not wrapped. Will obtain our own x-ray for her orthopedic referral and give a [place] for symptomatic relief. She is placed in a sling. X-ray of the hand showed proximal phalanx finger of the fourth and fifth digit. These are nondisplaced. These were nila taped together. Will discharge her back to the snf. She is given a prescription for [place] to only take as needed. She is to follow-up with orthopedic surgery. Warning signs and symptoms which to return to the ED are reviewed. She is discharged home in stable condition. All questions answered. ED Disposition - Plan for ED Patient: Disposition: Home or Assisted Living Diagnosis: Proximal humerus fracture, Phalanx, proximal fracture of finger Instructions: ED Fracture, Upper Extremity Prescriptions: Hydrocodone Bitart/Apap 5-325 [[place] 5MG-325MG] 1 tab PO Q6H PRN PRN 3 Days #10 tab PRN Reason: Pain Transmission Status: Received by [id number] Referrals: Libia Valdivia MD [Primary Care Provider] - Isidoro Ware DO [STAFF PHYSICIAN] - 3-5 Days
[2020-03-11] MEDS: HYDROcodone Bitartrate/Apap 5/325 Tablet PO (07:35)
--- NOTE | 2020-03-11 07:44 | RAD_ITS ---
STUDY: X-RAY - RIGHT HAND REASON FOR EXAM: Female, 74 years old. fall. bruising over distal metacarpals TECHNIQUE: 3 view(s) of the hand. COMPARISON: None. FINDINGS: Normal radiocarpal articulation. Normal distal radioulnar joint. Normal visualized carpal bones. Normal carpal articulations Normal carpometacarpal articulation of the thumb. Normal second through fifth carpometacarpal joints. Normal metacarpi. Normal metacarpophalangeal joint of the thumb. 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 Normal proximal and distal phalanges of the thumb. Normal metacarpophalangeal joints of the second through fifth fingers. There is diffuse articular joint space narrowing of the proximal and distal interphalangeal joints of the second through fifth fingers, but without erosive changes or periarticular soft tissue swelling. Acute nondisplaced oblique fractures of the base of the fourth and fifth proximal phalanges. The soft tissue structures are unremarkable. RAD/Hand Min 3 Views IMPRESSION: Acute nondisplaced oblique fractures of the base of the fourth and fifth proximal phalanges. Electronically Signed: Dashawn Giang MD at 7:51 EST Tel , Service support ,
[2020-03-11 08:03] VITALS: BP 134/82; PULSE 73; RESP 16; O2SAT 97
== END 2020-03-11 08:52 | disposition home or self-care (01) ==
LOC: ED 07:27
PROVIDERS: Emergency Provider Emergency Medicine; PCP Family Medicine
DX: S42.301A Unspecified fracture of shaft of humerus, right arm, initial encounter for closed fracture (principal); S62.644A Nondisplaced fracture of proximal phalanx of right ring finger, initial encounter for closed fracture; S62.646A Nondisplaced fracture of proximal phalanx of right little finger, initial encounter for closed fracture; W18.30XA Fall on same level, unspecified, initial encounter; Y93.89 Activity, other specified; Y92.129 Unspecified place in nursing home as the place of occurrence of the external cause; Y99.8 Other external cause status; F03.90 Unspecified dementia, unspecified severity, without behavioral disturbance, psychotic disturbance, mood disturbance, and anxiety
CPT/HCPCS: 73060; 73130; 99285

== ENCOUNTER 2020-03-13 03:07 | Inpatient (IN) | payer MEDICARE, SELFPAY ==
[2020-03-13] VITALS (47 sets, daily range): BP systolic 44–140; BP diastolic 22–90; PULSE 0–171; RESP 14–258; TEMP 34.2–36.3; O2SAT 17–100; BMI 25.0; BMI 27.5
--- NOTE | 2020-03-13 03:15 | RAD_ITS ---
STUDY: X-RAY CHEST REASON FOR EXAM: Female, 74 years old. stemi -- et and og tube placements TECHNIQUE: AP COMPARISON: None. FINDINGS: Endotracheal tube is present with tip approximately 4.7 cm from the palomo. Gastric tube tracks into the stomach. The lungs appear clear. There are defibrillator pads overlying the left hemithorax. There is degenerative changes of the thoracic spine. There is fracture involving the proximal right humerus. There is no demonstrated abnormality of the visualized soft tissue structures of the upper abdomen. RAD/Chest 1 View (Portable) IMPRESSION: Support line and tube placement as described. No focal lung consolidative changes. Acute appearing fracture involving the proximal right humerus. Electronically Signed: Philip Brooke, at 3:57 EST Tel , Service support ,
[2020-03-13] MEDS: Atropine Sulfate 1 MG/10 ML Syringe 0.5 MG IV (03:37)
--- NOTE | 2020-03-13 03:50 | CPS ---
CRITICAL ABG RESULTS READ TO DR SIMMS
--- NOTE | 2020-03-13 04:06 | CT_ITS ---
STUDY: CTA CHEST REASON FOR EXAM: Female, 74 years old. CARDIAC ARREST,ELEVATED WBC AND DDIMER,PT INTUBATED -- HX:DIABETES RADIATION DOSAGE (If Supplied By Facility): CTDIvol = ( 11.83 ) mGy, DLP = ( 440.07 ) mGycm TECHNIQUE: The examination was performed with the intravenous administration of IV 75mL Isovue-370. Post-processing of the angiographic images was performed, with multiplanar reformation and 3D reconstruction. Individualized dose optimization techniques were used for this CT. COMPARISON: None. FINDINGS: Endotracheal tube is present tracking into the distal trachea. Gastric tube tracks into the stomach. Normal enhancement of the main pulmonary artery and right and left pulmonary arteries. Normal enhancement of the bilateral peripheral pulmonary arteries. There is no demonstrated pulmonary embolism. Normal thoracic aorta and visualized great vessels. There is no demonstrated aortic dissection. There are calcifications of the coronary arteries. Normal mediastinum. Normal hilar regions. Normal visualized trachea and bronchi. The lungs demonstrate mild right greater than left lung base patchy opacities Normal pulmonary parenchyma. Normal pleura. Normal chest wall structures. Right humerus fracture is partially visualized. Right anterior fifth rib fracture. Normal visualized upper abdomen. CT/CTA Chest W/WO Contrast IMPRESSION: No demonstrated pulmonary embolism or arterial dissection. Mild right greater than left lower lobe medial lung base opacities likely due to underlying atelectasis. Infectious process considered less likely. Electronically Signed: Philip Brooke, at 5:44 EST Tel , Service support ,
[2020-03-13 04:16] LABS: Blood Gas Specimen Type ART; Mode A-C; SITE L RADIAL
[2020-03-13 04:17] LABS: Bicarbonate 5.8 mmol/L (22-26); FI02 100; O2 Delivery Device ADULT VENTILATOR; PEEP 5; PO2 285 mmHG (75-100); RR 16; Time Given 346; Vt 450; pCO2 55.5 mmHg (35-45); pH 6.63 (7.35-7.45)
--- NOTE | 2020-03-13 04:17 | PCM.HP.STD ---
Problem List (1) Lactic acidosis Status: Acute (2) Coagulopathy Status: Acute (3) Shock liver Status: Acute (4) Hyperkalemia Status: Acute (5) Severe metabolic acidosis Status: Acute (6) Acute renal failure superimposed on stage 3 chronic kidney disease Status: Acute (7) Cardiopulmonary arrest Status: Acute History of Present Illness Date of Admission: 03/13/20 Chief Complaint: Cardiopulmonary arrest The patient is a 74 year old F with past medical history of type 2 diabetes mellitus, hypertension, Alzheimer's disease and stage III chronic kidney disease was brought to the emergency department from the longterm because of cardiopulmonary arrest. She was brought by the squad from the longterm, squad stated that patient was having agonal breathing. After patient was transferred to the ambulance, she became unresponsive and she went into cardiac arrest. CPR was started and patient arrived with the ED. CPR continued and she received couple of rounds of IV epinephrine, was intubated and started on mechanical ventilation. Currently, patient is intubated, on mechanical ventilation, unresponsive. Suction of the ET tube retrieved coffee-ground emesis. She has history of type 2 diabetes mellitus and her blood sugar has been under fair control with Metformin and Trulicity and her hemoglobin A1c was 6% on December,. She has history of Alzheimer's dementia and she has been on galantamine. She had a history of depression and she has been on fluoxetine and Seroquel. She presented to the emergency department on March 11, 2020 because of mechanical fall and she was found to have acute comminuted humeral neck fracture and acute nondisplaced oblique fracture of the base of the fourth and fifth proximal phalanx, she was discharged back to the longterm on pain medicine and plan to follow-up with orthopedic surgery as outpatient. She was discharged from the hospital on January 26, 2020 after admission for displaced left hip intertrochanteric fracture status post open reduction and internal fixation with intramedullary nail which was done on January 27, 2020. She was discharged to intermediate facility for PT OT. Currently, left femoral line inserted and patient was started on IV Levophed drip. Her blood pressure improved but she still tachycardic. Initial EKG revealed sinus tachycardia with wide because complexes, questionable ST elevation in lateral chest leads. Repeat EKG revealed sinus bradycardia and there was no evidence of acute ST elevation. Initially, STEMI alert called and after consultation with cardiology, decision was made by cardiology to cancel the STEMI alert. Her routine blood work was remarkable for leukocytosis, hemoglobin of 8 g/dL. BMP revealed potassium of 7.7, BUN 81, creatinine is 4.43. Lactic acid was 22.1. LFT revealed elevated liver transaminases and alkaline phosphatase. D-dimer was 11.8 which is very high. Pro time was 20.6 and INR was 1.8. ABG revealed pH of 7.63, PCO2 of 55 and PO2 of 285. Chest x-ray showed no acute infiltrate or consolidation. She is being admitted for cardiopulmonary arrest with multiorgan failure including respiratory failure, acute renal failure, hyperkalemia and shock liver and also found to have GI bleed/coffee-ground emesis. Past Medical History Allergies Penicillins Allergy (Verified 03/13/20 03:39) NEEDS FOLLOW-UP Surgical History: cholecystectomy, hysterectomy Psychiatric History: Depression [employer] History: No pertinent [employer] history Lives: Assisted Smoking Status: Never smoker Alcohol: None Drugs: None - *Family History Maternal History Items: No pertinent history Paternal History Items: No pertinent history Review of Systems Constitutional: Reports: - - Unobtainable, patient is intubated. Eyes: Reports: - - Unobtainable, patient is intubated. HEENT: Reports: - - Unobtainable, patient is intubated. Cardiovascular: Reports: - - Unobtainable, patient is intubated. Respiratory: Reports: - - Unobtainable, patient is intubated. Gastrointestinal: Reports: - - Unobtainable, patient is intubated. Genitourinary: Reports: - - Unobtainable, patient is intubated. Musculoskeletal: Reports: - - Unobtainable, patient is intubated. Skin: Reports: - - Unobtainable, patient is intubated. Neurological: Reports: - - Unobtainable, patient is intubated. Endocrine: Reports: - - Unobtainable, patient is intubated. VTE Information - Inpt Only VTE Present on Admission: No VTE Mechan Device Prophylaxis: SCD's VTE Pharm Prophylaxis ordered?: No Patient Problems: Active and Suspected Problems Lactic acidosis (Acute) Coagulopathy (Acute) Shock liver (Acute) Hyperkalemia (Acute) Severe metabolic acidosis (Acute) Acute renal failure superimposed on stage 3 chronic kidney disease (Acute) Cardiopulmonary arrest (Acute) - Physical Exam Vitals/I&O's: Vital Signs Temp Pulse Resp BP Pulse Ox 97.4 F L 99 22 H 101/39 L 83 03/13/20 04:00 03/13/20 04:00 03/13/20 04:00 03/13/20 04:00 03/13/20 04:00 Oxygen Delivery Method Mechanical Ventilator Weight: 155 lb 6.814 oz Body Mass Index (BMI) 25.0 Finger Stick Blood Glucose 83 General: - - Unresponsive, on mechanical ventilation. [place] Coma Scale is 0. HEENT: Atraumatic, Normocephalic, Sluggish Pupils Oral: Moist Mucosa, No Gingival or Mucosal Lesions/ Ulcerations Neck: Supple, No JVD, Negative Carotid Bruits, Trachea Midline, Thyroid Normal Size and Texture Lungs: Clear to auscultation, No rhonchi, No wheeze, No rales, Diminished Cardiovascular: Regular rate, Regular Rhythm, Normal S1, Normal S2, PMI Normal, Tachycardic Abdomen: Bowel Sounds Present, Soft, Non Tender, Non-Distended, No Hepato-splenomegaly, Obese Extremities: No clubbing, No cyanosis, No edema Skin: No rashes, No breakdown, - - Extensive bruises and ecchymosis of the right upper arm and right hand. Lymphatic: No Cervical, Supraclavicular, or Inguinal Adenopathy Neurological: - - Unable to assess, she is unresponsive. [place] Coma Scale is 0. Laboratory Results 03/13/20 03:30: WBC Pending, RBC Pending, Hgb Pending, Hct Pending, MCV Pending, MCH Pending, MCHC Pending, RDW Std Deviation Pending, RDW Coeff of Moy Pending, Plt Count Pending, Neut % (Auto) Pending, Absolute Neuts (auto) Pending 03/13/20 03:30: PT Pending, INR Pending, APTT Pending, Fibrinogen Pending, D-Dimer Quant (PE/DVT) Pending 03/13/20 03:30: Sodium Pending, Potassium Pending, Chloride Pending, Carbon Dioxide Pending, Anion Gap Pending, BUN Pending, Creatinine Pending, Est GFR (MDRD) Af Amer Pending, Est GFR (MDRD) Non-Af Pending, BUN/Creatinine Ratio Pending, Glucose Pending, Calcium Pending, Total Bilirubin Pending, AST Pending, ALT Pending, Alkaline Phosphatase Pending, Lactate Dehydrogenase Pending, Troponin I Pending, C-React Prot Ext Range Pending, Total Protein Pending, Albumin Pending 03/13/20 03:30: Lactic Acid Pending 03/13/20 03:30: Total Creatine Kinase Pending 03/13/20 03:30: Procalcitonin Pending 03/13/20 03:44: pH Pending, Bicarbonate Actual Pending, Total CO2 Pending, Base Excess Pending, O2 Saturation Pending, ABG pCO2 Pending, ABG pO2 Pending Microbiology 03/13/20 04:35 SARS-CoV-2 Antigen (Rapid) - Final Mucosa - Nose Laboratory Tests 03/13/20 03/13/20 03/13/20 Range/Units 03:44 03:30 03:30 WBC (4.4-11.0) K/mm3 RBC (4.2-5.4) M/mm3 Hgb (12.0-15.0) g/dL Hct (37-47) % MCV (81-99) fL MCH (27.0-32.0) pg MCHC (32-36) g/dL RDW Std Deviation (35.1-43.9) fl RDW Coeff of Moy (11.6-14.6) % Plt Count (150-450) K/mm3 MPV (6.2-12.0) fl Immature Gran % (Auto) (0.0-0.9) % Neut % (Auto) (47-70) % Lymph % (Auto) (19-41) % [place] % (Auto) (0-10) % Eos % (Auto) (0-5) % Baso % (Auto) (0-1) % Absolute Neuts (auto) (2.0-7.7) X10^3/uL Absolute Lymphs (auto) (0.83-4.51) X10^3/uL Nucleated RBC % (0-5) % PT (11.7-14.9) SECONDS INR APTT (24.1-36.2) Seconds Fibrinogen (203-444) mg/dl D-Dimer Quant (PE/DVT) (0.27-0.49) FEU/ug/m Specimen Type ART Sample Site L RADIAL pH 6.63 L* (7.35-7.45) Bicarbonate Actual 5.8 L (22-26) mmol/L Total CO2 8 mmol/L Base Excess < -30 L (-2 to +2) mmol/L O2 Saturation 99 (95-99) % O2 % 100 ABG pCO2 55.5 H (35-45) mmHg ABG pO2 285 H (75-100) mmHG Bhavin Test N/A Respiration Rate 16 O2 Delivery Device ADULT VENTILATOR Vent Mode A-C Tidal Volume 450 POC PEEP 5 Blood Gas Notified Whom ED Blood Gas Notified Time 346 Sodium (136-145) mmol/L Potassium (3.5-5.1) mmol/L Chloride (98-107) mmol/L Carbon Dioxide (21.0-32.0) mmol/L Anion Gap (5-15) BUN (7-18) mg/dL Creatinine (0.55-1.02) mg/dL Estim Creat Clear Calc ml/min Est GFR (MDRD) Af Amer (>60) mL/min Est GFR (MDRD) Non-Af (>60) mL/min BUN/Creatinine Ratio (10-20) RATIO Glucose (74-106) mg/dL Lactic Acid (0.4-1.9) mmol/L Calcium (8.5-10.1) mg/dL Total Bilirubin (0.20-1.00) mg/dL AST (15-37) U/L ALT (13-56) U/L Alkaline Phosphatase (45-117) U/L Lactate Dehydrogenase (84-246) U/L Total Creatine Kinase 128 (26-192) U/L Troponin I (<0.045) ng/mL C-React Prot Ext Range (0.0-3.0) mg/L Total Protein (6.4-8.2) g/dL Albumin (3.2-5.0) g/dL Globulin (2.2-4.2) g/dL Albumin/Globulin Ratio (0.9-2.4) RATIO Procalcitonin 0.77 H (0.00-0.09) ng/mL 03/13/20 03/13/20 03/13/20 Range/Units 03:30 03:30 03:30 WBC (4.4-11.0) K/mm3 RBC (4.2-5.4) M/mm3 Hgb (12.0-15.0) g/dL Hct (37-47) % MCV (81-99) fL MCH (27.0-32.0) pg MCHC (32-36) g/dL RDW Std Deviation (35.1-43.9) fl RDW Coeff of Moy (11.6-14.6) % Plt Count (150-450) K/mm3 MPV (6.2-12.0) fl Immature Gran % (Auto) (0.0-0.9) % Neut % (Auto) (47-70) % Lymph % (Auto) (19-41) % [place] % (Auto) (0-10) % Eos % (Auto) (0-5) % Baso % (Auto) (0-1) % Absolute Neuts (auto) (2.0-7.7) X10^3/uL Absolute Lymphs (auto) (0.83-4.51) X10^3/uL Nucleated RBC % (0-5) % PT 20.6 H (11.7-14.9) SECONDS INR 1.8 APTT 46.9 H (24.1-36.2) Seconds Fibrinogen 260 (203-444) mg/dl D-Dimer Quant (PE/DVT) 11.08 H* (0.27-0.49) FEU/ug/m Specimen Type Sample Site pH (7.35-7.45) Bicarbonate Actual (22-26) mmol/L Total CO2 mmol/L Base Excess (-2 to +2) mmol/L O2 Saturation (95-99) % O2 % ABG pCO2 (35-45) mmHg ABG pO2 (75-100) mmHG Bhavin Test Respiration Rate O2 Delivery Device Vent Mode Tidal Volume POC PEEP Blood Gas Notified Whom Blood Gas Notified Time Sodium 141 (136-145) mmol/L Potassium 7.7 H* (3.5-5.1) mmol/L Chloride 102 (98-107) mmol/L Carbon Dioxide 12.0 L (21.0-32.0) mmol/L Anion Gap 27 H (5-15) BUN 81 H (7-18) mg/dL Creatinine 4.43 H (0.55-1.02) mg/dL Estim Creat Clear Calc 10.27 ml/min Est GFR (MDRD) Af Amer 12 L (>60) mL/min Est GFR (MDRD) Non-Af 10 L (>60) mL/min BUN/Creatinine Ratio 18.3 (10-20) RATIO Glucose 53 L (74-106) mg/dL Lactic Acid 22.1 H* (0.4-1.9) mmol/L Calcium 7.2 L (8.5-10.1) mg/dL Total Bilirubin 0.20 (0.20-1.00) mg/dL AST 153 H (15-37) U/L ALT 118 H (13-56) U/L Alkaline Phosphatase 61 (45-117) U/L Lactate Dehydrogenase 360 H (84-246) U/L Total Creatine Kinase (26-192) U/L Troponin I 0.017 (<0.045) ng/mL C-React Prot Ext Range 44.00 H (0.0-3.0) mg/L Total Protein 4.6 L (6.4-8.2) g/dL Albumin 1.5 L (3.2-5.0) g/dL Globulin 3.1 (2.2-4.2) g/dL Albumin/Globulin Ratio 0.5 L (0.9-2.4) RATIO Procalcitonin (0.00-0.09) ng/mL 03/13/20 Range/Units 03:30 WBC 13.4 H (4.4-11.0) K/mm3 RBC 2.70 L (4.2-5.4) M/mm3 Hgb 8.0 L (12.0-15.0) g/dL Hct 27.1 L (37-47) % MCV 100.4 H (81-99) fL MCH 29.6 (27.0-32.0) pg MCHC 29.5 L (32-36) g/dL RDW Std Deviation 55.6 H (35.1-43.9) fl RDW Coeff of Moy 15.0 H (11.6-14.6) % Plt Count 176 (150-450) K/mm3 MPV 11.2 (6.2-12.0) fl Immature Gran % (Auto) 1.900 H (0.0-0.9) % Neut % (Auto) 79.5 H (47-70) % Lymph % (Auto) 14.2 L (19-41) % [place] % (Auto) 4.2 (0-10) % Eos % (Auto) 0.1 (0-5) % Baso % (Auto) 0.1 (0-1) % Absolute Neuts (auto) 10.7 H (2.0-7.7) X10^3/uL Absolute Lymphs (auto) 1.90 (0.83-4.51) X10^3/uL Nucleated RBC % 0.1 (0-5) % PT (11.7-14.9) SECONDS INR APTT (24.1-36.2) Seconds Fibrinogen (203-444) mg/dl D-Dimer Quant (PE/DVT) (0.27-0.49) FEU/ug/m Specimen Type Sample Site pH (7.35-7.45) Bicarbonate Actual (22-26) mmol/L Total CO2 mmol/L Base Excess (-2 to +2) mmol/L O2 Saturation (95-99) % O2 % ABG pCO2 (35-45) mmHg ABG pO2 (75-100) mmHG Bhavin Test Respiration Rate O2 Delivery Device Vent Mode Tidal Volume POC PEEP Blood Gas Notified Whom Blood Gas Notified Time Sodium (136-145) mmol/L Potassium (3.5-5.1) mmol/L Chloride (98-107) mmol/L Carbon Dioxide (21.0-32.0) mmol/L Anion Gap (5-15) BUN (7-18) mg/dL Creatinine (0.55-1.02) mg/dL Estim Creat Clear Calc ml/min Est GFR (MDRD) Af Amer (>60) mL/min Est GFR (MDRD) Non-Af (>60) mL/min BUN/Creatinine Ratio (10-20) RATIO Glucose (74-106) mg/dL Lactic Acid (0.4-1.9) mmol/L Calcium (8.5-10.1) mg/dL Total Bilirubin (0.20-1.00) mg/dL AST (15-37) U/L ALT (13-56) U/L Alkaline Phosphatase (45-117) U/L Lactate Dehydrogenase (84-246) U/L Total Creatine Kinase (26-192) U/L Troponin I (<0.045) ng/mL C-React Prot Ext Range (0.0-3.0) mg/L Total Protein (6.4-8.2) g/dL Albumin (3.2-5.0) g/dL Globulin (2.2-4.2) g/dL Albumin/Globulin Ratio (0.9-2.4) RATIO Procalcitonin (0.00-0.09) ng/mL Clinical Impression(s) from Imaging Studies Chest X-Ray 03/13/20 03:15 IMPRESSION: Support line and tube placement as described. No focal lung consolidative changes. Acute appearing fracture involving the proximal right humerus. Electronically Signed: Philip Mendy, at 3:57 EST Tel , Service support , Current Medications Norepinephrine Bitartrate 8 mg (/ Sodium Chloride) 250 mls @ 9.375 mls/hr CONT INF .[id number] [facility]; Protocol Last Admin: 03/13/20 03:56 Dose: 5 mcg/min, 9.4 mls/hr Documented by: Sodium Bicarbonate 150 meq/ (Dextrose) 1,150 mls @ 150 mls/hr IV .[id number] [facility] Assessment/Plan All Active Problems Lactic acidosis (Acute) Coagulopathy (Acute) Shock liver (Acute) Hyperkalemia (Acute) Severe metabolic acidosis (Acute) Acute renal failure superimposed on stage 3 chronic kidney disease (Acute) Cardiopulmonary arrest (Acute) Is a 74 years old female patient was brought to the emergency department from the longterm by squad because of agonal breathing, followed by unresponsiveness and she went into cardiac arrest, status post CPR, found to have abnormal EKG, consultation was made with cardiology and stated that there is no evidence of acute ST elevation, STEMI alert was canceled, patient was found to have multiorgan failure as below. #1 acute cardiopulmonary arrest/acute hypercapnic respiratory failure/severe acidosis: Unclear etiology of this acute respiratory arrest which was followed by cardiac arrest, status post CPR. Currently, patient is on mechanical ventilation, started on IV Levophed drip. Initial EKG revealed wide complex tachycardia, questionable ST elevation on lateral chest leads and after consultation with cardiology, STEMI alert was canceled. Chest x-ray showed no acute findings. COVID-19 antigen came back negative. ABG reviewed as above. Plan: Admit to ICU, critical care monitoring, complete bedrest, n.p.o., Padgett catheter, start IV propofol for sedation, continue IV Levophed, blood culture, urinalysis, urine culture, repeat CBC and CMP today at 1 PM, critical care consult, cardiology consult, repeat CBC and CMP tomorrow morning, PT OT evaluation and treatment when appropriate. #2 GI bleed/coffee-ground emesis: During intubation, suction was done and dark coffee-ground emesis came out. Large amount. Hemoglobin is 8 g/dL. Plan: H&H every 6 hours, type and crossmatch 2 units of packed RBCs, start IV Protonix drip, general surgery consult, transfuse if hemoglobin less than 8 g/dL. #3 severe metabolic acidosis/lactic acidosis: Due to cardiopulmonary arrest and severe tissue hypoxia. ABG revealed severe acidosis which is probably metabolic, PCO2 was 55 which is not high elevated. She received 150 mEq of IV sodium bicarb in the ED. Currently, patient is on IV Levophed drip. Plan as above. #4 acute renal failure on top of stage III chronic kidney disease/hyperkalemia: Again, due to tissue hypoperfusion and cardiopulmonary arrest. Baseline creatinine has been around 1.1 to 1.4 mg/dL. She received calcium gluconate IV, D50 and IV insulin in the ED. Plan for IV fluids, input output chart, repeat CBC and BMP around 1 PM. #5 shock liver: Secondary to #1. Liver transaminases and alkaline phosphatase are elevated. Plan to treat underlying cause, monitor. #6 abnormal EKG: EKG reviewed as above, there was questionable ST elevation in lateral chest leads. Consultation with cardiology was made and recommended to cancel STEMI alert. Repeat EKG revealed undetermined rhythm, heart rate has been in the 80s, no evidence of acute ST elevation. Troponin is negative. Plan for 2D echocardiogram. #7 acute traumatic comminuted humeral neck fracture/acute nondisplaced oblique fracture of the base of the fifth and fourth proximal phalanx: This was diagnosed 2 days ago, was discharged on pain medicine and the plan was to follow-up with orthopedic surgery as outpatient. Plan: Orthopedic surgery consult. #8 recent history of displaced left hip intertrochanteric fracture: Status post open reduction and internal fixation which was done on January 27, 2020. Stable, no acute issues. #9 type 2 diabetes mellitus: N.p.o., Accu-Cheks, insulin sliding scale. #10 hypertension: Currently, she is on IV Levophed drip. #11 Alzheimer's dementia: Hold galantamine. #12 gout: Hold allopurinol. #13 depression: Hold fluoxetine and Seroquel. #14 DVT prophylaxis: SCDs, INR is 1.8. This note was generated with [employer] dictation software. It may contain incorrect words, spelling, and punctuation that were not noted in checking the note before signing. Inpatient E&M: 90122 Init Hosp L3
[2020-03-13 04:18] LABS: Absolute Neutrophil Count 10.7 X10^3/uL (2.0-7.7); Basophil# 0.02 X10^3/uL; Basophil% 0.1 % (0-1); Eosinophil# 0.01 X10^3/uL; Eosinophils% 0.1 % (0-5); Hematocrit 27.1 % (37-47); Lymphocyte % 14.2 % (19-41); Mean Corp Hgb Conc 29.5 g/dL (32-36); Mean Corpuscular Hgb 29.6 pg (27.0-32.0); Mean Corpuscular Volume 100.4 fL (81-99); Mean Platelet Vol. 11.2 fl (6.2-12.0); Monocyte# 0.56 X10^3/uL; Monocyte% 4.2 % (0-10); NRBC Flagged by Analyzer 0.1 % (0-5); Neutrophil # 10.67 X10^3/uL (2.7-7.7); Neutrophil % 79.5 % (47-70); POSITIVE MORPHOLOGY YES; Platelet Count 176 K/mm3 (150-450); RBC Distribution Width SD 55.6 fl (35.1-43.9); White Blood Count 13.4 K/mm3 (4.4-11.0)
[2020-03-13 04:18] LABS: Base Excess < -30 mmol/L (-2 to +2); SO2 99 % (95-99); Total Carbon Dioxide 8 mmol/L
[2020-03-13 04:20] LABS: Differential Indicated SCAN CRITERIA MET; International Normalized Ratio 1.8; Partial Thromboplast Time 46.9 Seconds (24.1-36.2); Prothrombin Time (Protime)PT. 20.6 SECONDS (11.7-14.9)
[2020-03-13 04:21] LABS: Fibrinogen 260 mg/dl (203-444)
--- NOTE | 2020-03-13 04:28 | EKG12_ITS ---
Test Reason : REPEAT Blood Pressure : / mmHG Vent. Rate : 165 BPM Atrial Rate : 000 BPM P-R Int : 000 ms QRS Dur : 100 ms QT Int : 226 ms P-R-T Axes : 000 109 -09 degrees QTc Int : 374 ms Possible Sinus Tachycardia Right ventricular hypertrophy with repolarization abnormality Nonspecific intraventricular conduction delay Abnormal ECG Confirmed by CARLOS ADHIKARI, EAGLE ([id number]), marketing editor IMELDA TORRES ([id number]) on 03/19/2020 9:16:56 AM Referred By: Gilmar Carednas Confirmed By:TRUNG CARDENAS MD
[2020-03-13 04:29] LABS: D-Dimer Quantitative (DVT/PE) 11.08 FEU/ug/m (0.27-0.49)
--- NOTE | 2020-03-13 04:29 | ED.VIS.GEN ---
History of Present Illness Chief Complaint: CPR Narrative: Patient presenting from the custodial is under arrest. Initial history was that the patient is full code, that the custodial secondary to a recent right humerus fracture. EMS was dispatched secondary to difficulty breathing. Upon their arrival they noted the patient to have agonal respirations but to still have a pulse. Patient was immediately brought to the emergency department, in route while they were performing [id number] ventilation on the patient, she did lose pulses and BLS was initiated as the patient did not have any IV access. Patient was brought to the emergency department to the resuscitation bay without further history available. Past Medical History - Allergies and Home Meds Allergies/Adverse Reactions: Allergies Penicillins Allergy (Verified 03/13/20 03:39) NEEDS FOLLOW-UP Prior records reviewed: Yes Past Medical History: - - Hypergammaglobulinemia, dementia, diabetes, hypertension Lives: Longterm Smoking Status: Never smoker - Family History Maternal Family History: Reports: No pertinent history Paternal Family History: Reports: No pertinent history Review of Systems ROS: Unable to Obtain Physical Exam Vital Signs/Narrative: Vital Signs Temp Pulse Pulse Pulse Pulse Pulse Pulse 03/13/20 04:00 97.4 F L 99 03/13/20 03:56 97.4 F L 102 H 03/13/20 03:53 97.4 F L 95 03/13/20 03:51 113 H 03/13/20 03:31 97.4 F L 82 03/13/20 03:30 112 H 03/13/20 03:24 03/13/20 03:07 141 H 126 H 130 H 135 H 129 H Pulse Resp Resp Resp Resp Resp Resp 03/13/20 04:00 22 H 03/13/20 03:56 15 03/13/20 03:53 17 03/13/20 03:51 16 03/13/20 03:31 25 H 03/13/20 03:30 14 03/13/20 03:24 03/13/20 03:07 160 H 23 H 22 H 43 H 30 H 35 H Resp BP BP BP Pulse Ox 03/13/20 04:00 101/39 L 83 03/13/20 03:56 76/39 L 91 03/13/20 03:53 76/39 L 87 03/13/20 03:51 76/39 L 95 03/13/20 03:31 64/40 L 98 03/13/20 03:30 99 03/13/20 03:24 91 03/13/20 03:07 19 H 110/90 H 110/90 H Inital Vital Signs reviewed: Yes General: - - Patient is being bagged, pulses are present with compressions, GCS is 3 Head: Normocephalic, Atraumatic Eyes: - - Fixed at about 8 mm and nonreactive ENT: - - Copious coffee-ground emesis noted in the patient's airway Cardiovascular: - - Ulcers or presents with compressions Respiratory: - - Coarse breath sounds bilaterally with bagging Abdomen: Soft Extremities: - - Right upper arm bruising noted consistent with the patient's history of recent humerus fracture Neurological: - - GCS is 3 Diagnostic/Tx/Re-eval Chest X-Ray - ED: 1 View, Read by ED Physician Clinical Impression(s) from Imaging Studies Chest X-Ray 03/13/20 03:15 IMPRESSION: Support line and tube placement as described. No focal lung consolidative changes. Acute appearing fracture involving the proximal right humerus. Electronically Signed: Philip Brooke, at 3:57 EST Tel , Service support , Laboratory Data 03/13/20 03/13/20 03/13/20 03:30 03:30 03:30 WBC 13.4 H RBC 2.70 L Hgb 8.0 L Hct 27.1 L MCV 100.4 H MCH 29.6 MCHC 29.5 L RDW Std Deviation 55.6 H RDW Coeff of Moy 15.0 H Plt Count 176 MPV 11.2 Immature Gran % (Auto) 1.900 H Neut % (Auto) 79.5 H Lymph % (Auto) 14.2 L Paul[place] % (Auto) 4.2 Eos % (Auto) 0.1 Baso % (Auto) 0.1 Absolute Neuts (auto) 10.7 H Absolute Lymphs (auto) 1.90 Nucleated RBC % 0.1 PT 20.6 H INR 1.8 APTT 46.9 H Fibrinogen 260 D-Dimer Quant (PE/DVT) 11.08 H* Specimen Type Sample Site pH Bicarbonate Actual Total CO2 Base Excess O2 Saturation O2 % ABG pCO2 ABG pO2 Bhavin Test Respiration Rate O2 Delivery Device Vent Mode Tidal Volume POC PEEP Blood Gas Notified Whom Blood Gas Notified Time Sodium 141 Potassium 7.7 H* Chloride 102 Carbon Dioxide 12.0 L Anion Gap 27 H BUN 81 H Creatinine 4.43 H Estim Creat Clear Calc 10.27 Est GFR (MDRD) Af Amer 12 L Est GFR (MDRD) Non-Af 10 L BUN/Creatinine Ratio 18.3 Glucose 53 L Lactic Acid Calcium 7.2 L Total Bilirubin 0.20 AST 153 H ALT 118 H Alkaline Phosphatase 61 Lactate Dehydrogenase 360 H Total Creatine Kinase Troponin I 0.017 C-React Prot Ext Range 44.00 H Total Protein 4.6 L Albumin 1.5 L Globulin 3.1 Albumin/Globulin Ratio 0.5 L Procalcitonin 03/13/20 03/13/20 03/13/20 03:30 03:30 03:30 WBC RBC Hgb Hct MCV MCH MCHC RDW Std Deviation RDW Coeff of Moy Plt Count MPV Immature Gran % (Auto) Neut % (Auto) Lymph % (Auto) Paul[place] % (Auto) Eos % (Auto) Baso % (Auto) Absolute Neuts (auto) Absolute Lymphs (auto) Nucleated RBC % PT INR APTT Fibrinogen D-Dimer Quant (PE/DVT) Specimen Type Sample Site pH Bicarbonate Actual Total CO2 Base Excess O2 Saturation O2 % ABG pCO2 ABG pO2 Bhavin Test Respiration Rate O2 Delivery Device Vent Mode Tidal Volume POC PEEP Blood Gas Notified Whom Blood Gas Notified Time Sodium Potassium Chloride Carbon Dioxide Anion Gap BUN Creatinine Estim Creat Clear Calc Est GFR (MDRD) Af Amer Est GFR (MDRD) Non-Af BUN/Creatinine Ratio Glucose Lactic Acid 22.1 H* Calcium Total Bilirubin AST ALT Alkaline Phosphatase Lactate Dehydrogenase Total Creatine Kinase 128 Troponin I C-React Prot Ext Range Total Protein Albumin Globulin Albumin/Globulin Ratio Procalcitonin 0.77 H 03/13/20 03:44 WBC RBC Hgb Hct MCV MCH MCHC RDW Std Deviation RDW Coeff of Moy Plt Count MPV Immature Gran % (Auto) Neut % (Auto) Lymph % (Auto) [place] % (Auto) Eos % (Auto) Baso % (Auto) Absolute Neuts (auto) Absolute Lymphs (auto) Nucleated RBC % PT INR APTT Fibrinogen D-Dimer Quant (PE/DVT) Specimen Type ART Sample Site L RADIAL pH 6.63 L* Bicarbonate Actual 5.8 L Total CO2 8 Base Excess < -30 L O2 Saturation 99 O2 % 100 ABG pCO2 55.5 H ABG pO2 285 H Bhavin Test N/A Respiration Rate 16 O2 Delivery Device ADULT VENTILATOR Vent Mode A-C Tidal Volume 450 POC PEEP 5 Blood Gas Notified Whom ED MD Blood Gas Notified Time 346 Sodium Potassium Chloride Carbon Dioxide Anion Gap BUN Creatinine Estim Creat Clear Calc Est GFR (MDRD) Af Amer Est GFR (MDRD) Non-Af BUN/Creatinine Ratio Glucose Lactic Acid Calcium Total Bilirubin AST ALT Alkaline Phosphatase Lactate Dehydrogenase Total Creatine Kinase Troponin I C-React Prot Ext Range Total Protein Albumin Globulin Albumin/Globulin Ratio Procalcitonin - EKG Initial EKG Interpretation: - - Wide-complex tachycardia with left bundle branch morphology and discordant elevation anteriorly concerning for ST elevation myocardial infarction. Ventricular rate is 132 Follow-up EKG Interpretation: - - Wide-complex tachycardia with left bundle branch block morphology and ST elevation noted anteriorly, ventricular rate 165 - Medical Decision Making Patient presented as a prehospital respiratory arrest followed by a cardiac arrest. She presented to the resuscitation bay with compressions in progress. High-quality compressions were continued upon the patient's arrival to the emergency department. Airway control was obtained as noted in the procedure note. Patient underwent 3 rounds of ACLS with bicarbonate and epinephrine as noted in the nursing notes. Return of spontaneous circulation was obtained. Patient's initial EKG showed a wide complex sinus tachycardia with discordance elevation in the precordium concerning for the possibility of a ST elevation myocardial infarction. Patient started having some runs of ventricular tachycardia, she was given 150 mg of amiodarone, and did receive a synchronized cardioversion. Morphology on telemetry at that time appeared more consistent with a more typical anterior ST elevation myocardial infarction. Repeat EKG performed at [address] elevation anteriorly with morphology more consistent with myocardial infarction. STEMI team was activated at that time. I discussed the patient's case with Dr. Cardenas. He reviewed the EKGs and the patient's case and requested an additional EKG performed. Additional EKG shows a junctional bradycardia with no evidence of acute ST segment changes and a continued left bundle branch block. Decision was made at that time that the catheterization lab would not be mobilized. The patient developed bradycardia and did require a dose of atropine. Due to the patient's recent humerus fracture, I did have strong concern for the possibility of pulmonary embolism and considered empiric TPA administration but the patient was also having evidence of an upper GI bleed with coffee-ground emesis coming out of her OG tube. Decision was made to hold off at that time as the risks likely outweigh the benefits. Laboratory work-up started to become available at that time, patient was profoundly acidotic and a bicarbonate drip was ordered. Patient was noted to be hyperkalemic at 7.7, calcium gluconate as well as dextrose and insulin were ordered for cardiac stabilization. Patient's most recent hemoglobin was 9.5, it is 8.0 today likely associated with the patient's GI bleed. Patient was started on a Protonix bolus and drip. She was typed and screened. Patient required Levophed for management of blood pressure. Repeat evaluation of the patient at 0515 shows her to have some pupillary response specifically in the right pupil. Chest x-ray by my personal review as well as radiology shows good placement of endotracheal tube and no obvious evidence of discrete infiltrate. She is also having some agonal respirations. Lactic acid was noted to be 22, and patient also has some evidence of potential shock liver. Due to the patient's GI bleed, I discussed patient's case with general surgery, Dr. Bingham who is aware that the patient will be going to the intensive care unit. My leading consideration on the patient currently is that she likely had a GI bleed and an aspiration event that led to a respiratory arrest followed by cardiac arrest. CT angiogram of the chest did not result in the patient having a pulmonary embolism and demonstrated some atelectasis. Patient will be admitted to intensive care for further treatment. - Critical Care Time Critical care time (excluding procedures): 30-74 minutes Procedures Procedure(s): Endotracheal intubation: CPR was in progress, airway control was needed to continue ACLS. Premedication note was not necessary, preoxygenation was not able to be performed due to the patient's level of emesis. Direct laryngoscopy utilizing a Jean Claude 3 blade was performed. Copious amounts of coffee-ground emesis were suctioned out of the patient's airway. There was good visualization of the cords, 7.5 ET tube was advanced to 23 cm at the teeth. This was secured in place with a tube parra via respiratory. There were bilateral breath sounds and good color change. Large amounts of coffee grounds were suctioned from the ET tube. Left femoral central line placement: Patient required central venous access due to management with multiple medications and limited access. Area was assessed with ultrasound, patient's venous system seems amenable to access. Patient was prepped with chlorhexidine. She was draped head to toe with a sterile drape. Ultrasound guidance was utilized, modified Seldinger technique was performed. There was dark red nonpulsatile blood, triple-lumen catheter was able to be placed with both good return and good flush. Placement was confirmed via ultrasound. Dressing was placed by nursing care. ED Disposition - Plan for ED Patient: Disposition: Acute Care Hospital [facility] Diagnosis: Acute renal failure superimposed on stage 3 chronic kidney disease, Cardiopulmonary arrest, Coagulopathy, Hyperkalemia, Severe metabolic acidosis, GI bleed, Anemia, Lactic acidosis, Shock liver, Aspiration into airway
--- NOTE | 2020-03-13 04:30 | EKG12_ITS ---
Test Reason : REPEAT Blood Pressure : / mmHG Vent. Rate : 082 BPM Atrial Rate : 082 BPM P-R Int : 000 ms QRS Dur : 182 ms QT Int : 290 ms P-R-T Axes : 000 -80 082 degrees QTc Int : 338 ms Junctional bradycardia Left axis deviation Right bundle branch block Abnormal ECG Confirmed by CARLOS ADHIKARI, EAGLE ([id number]), newspaper managing editor IMELDA TORRES ([id number]) on 03/19/2020 9:17:57 AM Referred By: Gilmar Cardenas Confirmed By:TRUNG CARDENAS MD
--- NOTE | 2020-03-13 04:30 | EKG12_ITS ---
Test Reason : Blood Pressure : / mmHG Vent. Rate : 132 BPM Atrial Rate : 132 BPM P-R Int : 136 ms QRS Dur : 154 ms QT Int : 360 ms P-R-T Axes : -12 -51 110 degrees QTc Int : 533 ms Sinus tachycardia Left axis deviation Left bundle branch block Abnormal ECG Confirmed by CARLOS ADHIKARI, EAGLE ([id number]), market editor IMELDA TORRES ([id number]) on 03/19/2020 9:17:23 AM Referred By: Gilmar Cardenas Confirmed By:TRUNG CARDENAS MD
--- NOTE | 2020-03-13 04:32 | ED.RN ---
made contact with brother vincent made aware of patient and condition and status. Left message with POA to call back and talk to patient at this time.
[2020-03-13 04:49] LABS: ALB/GLOB Ratio 0.5 RATIO (0.9-2.4); AST(SGOT) 153 U/L (15-37); Alanine Aminotransfer ALT/SGPT 118 U/L (13-56); Albumin, Serum 1.5 g/dL (3.2-5.0); Alkaline Phosphatase 61 U/L (45-117); Anion Gap 27 (5-15); BUN 81 mg/dL (7-18); BUN/Creat Ratio 18.3 RATIO (10-20); CPK Total, Creatine Kinase 128 U/L (26-192); Calcium,Total 7.2 mg/dL (8.5-10.1); Chloride 102 mmol/L (98-107); Creatinine, Serum 4.43 mg/dL (0.55-1.02); EST Glomerular Filtration Rate 10 mL/min (>60); Est Glom Filt Rate - Afr Amer 12 mL/min (>60); Estimated Creatinine Clearance 10.27 ml/min; Globulin 3.1 g/dL (2.2-4.2); Glucose 53 mg/dL (74-106); LDH 360 U/L (84-246); Lactic Acid 22.1 mmol/L (0.4-1.9); Potassium 7.7 mmol/L (3.5-5.1); Protein, Total 4.6 g/dL (6.4-8.2); Sodium Level 141 mmol/L (136-145)
[2020-03-13 04:55] LABS: Procalcitonin 0.77 ng/mL (0.00-0.09)
[2020-03-13] MEDS: Dextrose 50%-Water 25 GM/50 ML DISP.SYRIN IV (05:30)
[2020-03-13] MEDS: Insulin Lispro 5 UNIT in Syringe 0 ML 3 UNIT IV (05:38)
--- NOTE | 2020-03-13 05:48 | ED.RN ---
see code blue doc for additional meds that were given
--- NOTE | 2020-03-13 06:21 | ED.RN ---
sister called back and updated on patient condition and status at this time. sister is POA and will be contact for medical decisions
--- NOTE | 2020-03-13 06:34 | NURSING ---
ICU ASHELFAH CARDIAC ARREST, ASPIRATION, UPPER GI BLEED, YVONNE METABOLIC ACIDOSIS
--- NOTE | 2020-03-13 06:35 | NURSING ---
ICU 1
[2020-03-13] MEDS: Adenosine 6 MG/2 ML Syringe IV (07:00)
[2020-03-13] MEDS: Sodium Bicarbonate 8.4% 50 ML Syringe 50 MEQ IV ×4 (07:01→08:31)
[2020-03-13] MEDS: Adenosine 6 MG/2 ML Syringe 12 MG IV (07:02)
[2020-03-13] MEDS: 0.9% Normal Saline 1,000 ML 999 ML IV (07:10)
[2020-03-13 07:14] LABS: Hematocrit 27.4 % (37-47); Hemoglobin 8.2 g/dL (12.0-15.0)
[2020-03-13] MEDS: Phenylephrine 10 MG/ML Vial IV ×6 (07:15→08:30)
[2020-03-13 07:30] LABS: Triglycerides 222 mg/dL
[2020-03-13] MEDS: Amiodarone 360 MG in Dextrose 5% Viaflo Bag 192.8 ML 16.7 MG CONT INF (07:32)
[2020-03-13 07:41] LABS: Absolute Lymphocyte Count 2.52 X10^3/uL (0.83-4.51); Absolute Neutrophil Count 20.9 X10^3/uL (2.0-7.7); Basophil# 0.06 X10^3/uL; Basophil% 0.2 % (0-1); Eosinophil# 0.15 X10^3/uL; Eosinophils% 0.6 % (0-5); Hematocrit 27.1 % (37-47); Hemoglobin 8.2 g/dL (12.0-15.0); Lymphocyte # 2.52 X10^3/ul (4.0); Mean Corp Hgb Conc 30.3 g/dL (32-36); Mean Corpuscular Hgb 30.1 pg (27.0-32.0); Mean Corpuscular Volume 99.6 fL (81-99); Mean Platelet Vol. 10.5 fl (6.2-12.0); Monocyte# 0.53 X10^3/uL; Monocyte% 2.1 % (0-10); NRBC Flagged by Analyzer 0.1 % (0-5); Neutrophil % 82.9 % (47-70); POSITIVE DIFFERENTIAL YES; POSITIVE MORPHOLOGY YES; Platelet Count 189 K/mm3 (150-450); RBC Distribution Width CV 15.1 % (11.6-14.6); RBC Distribution Width SD 54.4 fl (35.1-43.9); Red Blood Count 2.72 M/mm3 (4.2-5.4); White Blood Count 25.2 K/mm3 (4.4-11.0)
[2020-03-13 07:44] LABS: Differential Indicated SCAN CRITERIA MET
--- NOTE | 2020-03-13 08:03 | CCHN_ITS ---
Hospitalist Note Seen and examined in ICU. ER physician and H&P note reviewed. I also discussed with nighttime hospitalist who admitted the patient. Discussed with the quirk sander. Patient came to ER in critical condition in in cardiac arrest, ventricular tachycardia, agonal breathing and was intubated, CPR with ACLS protocol. It was also noticed that patient was having coffee-ground emesis during intubation. ABG 6.63, 55/25/5 0.8 on 100% FiO2/450/16/5. Potassium was 7.7, BUN 81, creatinine 4.43, bicarb 12 in BMP. Liver chemistry shows elevated tr ansaminases. LDH 360, CRP 44, lactic acid 22, D-dimer 11.08. Procalcitonin 0.77. In ICU, patient temperature 93.6 ?F, heart rate 1 40-160, SBP in 90s even on 3 vasopressors norepinephrine, vasopressin and phenylephrine. Patient on amiodarone. EKG was showing wide-complex tachycardia with anterior ST elevation VT as per ER physician and grocery bagger Dr. Cardenas was consulted. Functional bradycardia and LBBB and no evidence of ST elevation. Calcium gluconate was given. Currently patient is undergoing temporary hemodialysis catheter by surgeon. She has central venous catheter in left femoral vein, intraosseous line in left tibial plateau and IV line in right neck probably EJV. Oyster Culler and myself spoke to the patient's power of commercial litigation attorney for health/sister Mrs. Vita Ochoa. Living will/advanced directive/end of life care: Patient does not have living will or advanced directive. After discussion of benefits/risks procedures involved with full code, DNR CC arrest and DNR CC, the patient's POA her sister Ms. Vita Ochoa agreed for DNRCC arrest. Patient is already intubated. She has central venous catheter. Right IJ temporary dialysis catheter is ON the process per the surgeon. She agreed that patient would not have CPR or DC shock if she goes in cardiac arrest. She signed a DNR CCA document. Total time spent in [id number] encounter in discussion of advanced directive 16 minutes. Patient sister said she had left intertrochanteric hip fracture about 6 ago in SNF and had ORIF with intramedullary nail on 01/27/2020 and she had left humeral fracture came to ED on March 11, 2022 after mechanical fall and found to have acute commuted humeral neck fracture and acute nondisplaced oblique fracture of the base of the fourth and the fifth proximal phalanx and was discharged back to SNF on pain medication. After the start of hemodialysis about half an hour, patient succumbed to at 11:03 AM on 03/13/2020 Procedures: 35518 Advncd Care Plan 30 Min
[2020-03-13 08:04] LABS: ALB/GLOB Ratio 0.4 RATIO (0.9-2.4); AST(SGOT) 815 U/L (15-37); Alanine Aminotransfer ALT/SGPT 536 U/L (13-56); Albumin, Serum 1.3 g/dL (3.2-5.0); Alkaline Phosphatase 101 U/L (45-117); Anion Gap 25 (5-15); BUN 82 mg/dL (7-18); BUN/Creat Ratio 16.9 RATIO (10-20); Calcium,Total 6.8 mg/dL (8.5-10.1); Chloride 99 mmol/L (98-107); Creatinine, Serum 4.84 mg/dL (0.55-1.02); EST Glomerular Filtration Rate 9 mL/min (>60); Est Glom Filt Rate - Afr Amer 11 mL/min (>60); Globulin 3.1 g/dL (2.2-4.2); Glucose 213 mg/dL (74-106); Lactic Acid 19.8 mmol/L (0.4-1.9); Magnesium 2.4 mg/dL (1.6-2.6); Phosphorus 14.3 mg/dL (2.5-4.9); Potassium 6.6 mmol/L (3.5-5.1); Protein, Total 4.4 g/dL (6.4-8.2); Sodium Level 139 mmol/L (136-145)
[2020-03-13] MEDS: 0.9% Saline Lock 10 ML Syringe IV ×4 (08:07→08:10)
[2020-03-13 08:08] LABS: International Normalized Ratio 1.9; Prothrombin Time (Protime)PT. 20.9 SECONDS (11.7-14.9)
[2020-03-13 08:09] LABS: Partial Thromboplast Time 51.2 Seconds (24.1-36.2)
[2020-03-13 08:11] LABS: Reflex Lactate? Y
[2020-03-13] MEDS: Heparin 10,000 UNITS/10 ML Vial IV (08:20)
[2020-03-13 08:21] LABS: Bedside Glucose 83 mg/dL (70-110)
--- NOTE | 2020-03-13 08:21 | RAD_ITS ---
STUDY: X-RAY CHEST REASON FOR EXAM: Female, 74 years old. 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 TECHNIQUE: Single AP portable view of the chest. COMPARISON: 03/13/2020 FINDINGS: Interval placement of right internal jugular of the temporary dialysis catheter with tip the catheter overlying the junction of the right atrium and superior vena cava with no pneumothorax. Endotracheal tube and nasogastric tube both which are unchanged. Poor inspiration with some bibasilar atelectasis. There is no demonstrated pleural abnormality. Normal size heart. Normal mediastinum and alexys. Normal visualized pulmonary arteries. Normal visualized aortic arch and descending thoracic aorta. Normal visualized thoracic spine. Normal visualized ribs, clavicles, and shoulders. There is no demonstrated abnormality of the visualized soft tissue structures of the upper abdomen. RAD/CXR for Line Placement IMPRESSION: 1. Interval placement of right internal jugular temporal dialysis catheter with tip the catheter overlying the junction of the right atrium and superior vena cava with no pneumothorax. 2. Endotracheal tube and nasogastric tube both which are unchanged. 3. Poor inspiration with some bibasilar atelectasis. Electronically Signed: Dashawn Giang MD at 10:06 EST Tel , Service support ,
--- NOTE | 2020-03-13 08:33 | OP.PCM_ITS ---
Report of Operation Date of Procedure: 03/13/20 Pre-Operative Diagnosis: Acute kidney injury, Hyperkalemia Post-Operative Diagnosis: Same Surgery/Procedure Performed:: Placement of temporary right IJ dialysis catheter Type of Anesthesia:: Local Estimated Blood Loss (mL): Minimal Description of Procedure: Indications 74-year-old female initially found down and patient was resuscitated in the ER and intubated/sedated. Patient's Potassium 6.6 need of emergent dialysis. Procedure: A time-out was completed to verify correct patient, indication, medication allergies, procedure, coagulation studies, informed consent signed, and equipment needed. The patient was placed in the supine position for a central line placement to the Right IJ vein. The patients Right neck was prepped using chlorhexidine and a full body sterile drape was applied. 1% lidocaine was used to anesthetize the surrounding skin. A [employer] Elite 12 Turkish x16 cm Temporary hemodialysis catheter introduced into the internal jugular vein using the modified Seldinger technique with the assistance of ultrasound. The site was dilated up twice in a stepwise fashion. The catheter was threaded smoothly over the guidewire, the guidewire was removed easily, nonpulsatile blood returned. All ports were aspirated of air and flushed with sterile saline Then flushed with 1:10,000 heparin 1.4 mL to each port. The catheter was sutured in place and covered with an occlusive dressing impregnated with chlorhexidine. Patient tolerated procedure well. Chest x-ray ordered. - Complications none
--- NOTE | 2020-03-13 08:37 | CON.PCM_ITS ---
Reason for Consult Date of Consultation: 03/13/20 History of Present Illness: The patient is a 74 year old F Patient was found down and taken to the ER. Patient was resuscitated in the ER. Pt was sent to the ICU intubated and sedated in critical condition. Patient's potassium was found to be 6.6 as well as her pH 6.6 in need of emergent dialysis. Request dialysis line. Patient is currently on levo as well. 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 Lives: [facility] Smoking Status: Never smoker Alcohol: None Drugs: None - *Family History Maternal History Items: No pertinent history Paternal History Items: No pertinent history Review of Systems Unable to obtain accurate/complete ROS d/t: Patient was intubated and sedated in the ER Patient Problems: Active and Suspected Problems GI bleed (Acute) Anemia (Acute) Aspiration into airway (Acute) Lactic acidosis (Acute) Coagulopathy (Acute) Shock liver (Acute) Hyperkalemia (Acute) Severe metabolic acidosis (Acute) Acute renal failure superimposed on stage 3 chronic kidney disease (Acute) Cardiopulmonary arrest (Acute) - Physical Exam Vitals/I&O's: Vital Signs Temp Pulse Resp BP Pulse Ox 93.6 F L 163 H 21 H 80/55 L 98 03/13/20 06:23 03/13/20 06:23 03/13/20 06:23 03/13/20 06:23 03/13/20 06:00 Oxygen Delivery Method Mechanical Ventilator Weight: 155 lb 6.814 oz Body Mass Index (BMI) 25.0 Finger Stick Blood Glucose 83 Intake and Output for Last 24 Hours 03/11/20 03/12/20 03/13/20 23:59 23:59 23:59 Intake Total 704.48 / 704.48 Balance 704.48 / 704.48 General: - - Intubated and sedated HEENT: - - ET tube in place Cardiovascular: Tachycardic Abdomen: Soft Microbiology Past 72 Hours 03/13/20 04:35 Mucosa - Nose SARS-CoV-2 Antigen (Rapid) - Final Laboratory Results 03/13/20 03:20: POC Glucose 83 03/13/20 03:30: WBC 13.4 H, RBC 2.70 L, Hgb 8.0 L, Hct 27.1 L, MCV 100.4 H, MCH 29.6, MCHC 29.5 L, RDW Std Deviation 55.6 H, RDW Coeff of Moy 15.0 H, Plt Count 176, MPV 11.2, Immature Gran % (Auto) 1.900 H, Neut % (Auto) 79.5 H, Lymph % (Auto) 14.2 L, Cla[place]orne % (Auto) 4.2, Eos % (Auto) 0.1, Baso % (Auto) 0.1, Absolute Neuts (auto) 10.7 H, Absolute Lymphs (auto) 1.90, Nucleated RBC % 0.1 03/13/20 03:30: PT 20.6 H, INR 1.8, APTT 46.9 H, Fibrinogen 260, D-Dimer Quant (PE/DVT) 11.08 H* 03/13/20 03:30: Sodium 141, Potassium 7.7 H*, Chloride 102, Carbon Dioxide 12.0 L, Anion Gap 27 H, BUN 81 H, Creatinine 4.43 H, Estim Creat Clear Calc 10.27, Est GFR (MDRD) Af Amer 12 L, Est GFR (MDRD) Non-Af 10 L, BUN/Creatinine Ratio 18.3, Glucose 53 L, Calcium 7.2 L, Total Bilirubin 0.20, AST 153 H, ALT 118 H, Alkaline Phosphatase 61, Lactate Dehydrogenase 360 H, Troponin I 0.017, C-React Prot Ext Range 44.00 H, Total Protein 4.6 L, Albumin 1.5 L, Globulin 3.1, Albumin/Globulin Ratio 0.5 L 03/13/20 03:30: Lactic Acid 22.1 H* 03/13/20 03:30: Total Creatine Kinase 128 03/13/20 03:30: Procalcitonin 0.77 H 03/13/20 03:30: Triglycerides 222 H 03/13/20 03:44: Specimen Type ART, Sample Site L RADIAL, pH 6.63 L*, Bicarbonate Actual 5.8 L, Total CO2 8, Base Excess < -30 L, O2 Saturation 99, O2 % 100, ABG pCO2 55.5 H, ABG pO2 285 H, Bhavin Test N/A, Respiration Rate 16, O2 Delivery Device ADULT VENTILATOR, Vent Mode A-C, Tidal Volume 450, POC PEEP 5, Blood Gas Notified Whom ED MD, Blood Gas Notified Time 346 03/13/20 07:00: WBC 25.2 H, RBC 2.72 L, Hgb 8.2 L, Hct 27.1 L, MCV 99.6 H, MCH 30.1, MCHC 30.3 L, RDW Std Deviation 54.4 H, RDW Coeff of Moy 15.1 H, Plt Count 189, MPV 10.5, Immature Gran % (Auto) 4.200 H, Neut % (Auto) 82.9 H, Lymph % (Auto) 10.0 L, [place]orne % (Auto) 2.1, Eos % (Auto) 0.6, Baso % (Auto) 0.2, Absolute Neuts (auto) 20.9 H, Absolute Lymphs (auto) 2.52, Nucleated RBC % 0.1 03/13/20 07:00: PT 20.9 H, INR 1.9, APTT 51.2 H 03/13/20 07:00: Sodium 139, Potassium 6.6 H*, Chloride 99, Carbon Dioxide 15.0 L , Anion Gap 25 H, BUN 82 H, Creatinine 4.84 H, Estim Creat Clear Calc 9.40, Est GFR (MDRD) Af Amer 11 L, Est GFR (MDRD) Non-Af 9 L, BUN/Creatinine Ratio 16.9, Glucose 213 H, Calcium 6.8 L, Magnesium 2.4, Total Bilirubin 0.40, AST 815 H, ALT 536 H, Alkaline Phosphatase 101, Troponin I 0.070 H, Total Protein 4.4 L, Albumin 1.3 L, Globulin 3.1, Albumin/Globulin Ratio 0.4 L 03/13/20 07:00: Phosphorus 14.3 H* 03/13/20 07:00: Lactic Acid 19.8 H* 03/13/20 07:05: Hgb 8.2 L, Hct 27.4 L 03/13/20 07:05: Blood Type A POSITIVE, Antibody Screen NEGATIVE, Crossmatch See Detail Current Medications Norepinephrine Bitartrate 8 mg (/ Sodium Chloride) 250 mls @ 9.375 mls/hr CONT INF .[id number] ANA LAURA; Protocol Last Titration: 03/13/20 06:23 Dose: 20 mcg/min, 37.5 mls/hr Documented by: Sodium Bicarbonate 150 meq/ (Dextrose) 1,150 mls @ 200 mls/hr IV .[id number] ANA LAURA Last Infusion: 03/13/20 08:32 Dose: 200 mls/hr Documented by: Pantoprazole Sodium 80 mg/ (Sodium Chloride) 100 mls @ 10 mls/hr CONT INF Q10H ANA LAURA Last Admin: 03/13/20 05:23 Dose: 10 mls/hr Documented by: Propofol (Diprivan) 1,000 mg in 100 mls @ 4.23 mls/hr CONT INF .Q12H ANA LAURA; Protocol Last Admin: 03/13/20 07:52 Dose: Not Given Documented by: Sodium Chloride () 1,000 mls @ 100 mls/hr IV .Q10H ANA LAURA Sodium Chloride () 250 mls @ 15 mls/hr IV .[id number] PRN PRN Reason: Saline Flush Sodium Chloride () 250 mls @ 15 mls/hr IV .[id number] PRN PRN Reason: Additional IVPB Infusion Amiodarone HCl 360 mg/ (Dextrose) 200 mls @ 16.667 mls/hr CONT INF .Q12H ANA LAURA Last Admin: 03/13/20 07:32 Dose: 0.5 mg/min, 16.7 mls/hr Documented by: Vasopressin 20 units/ Sodium (Chloride) 25 mls @ 3 mls/hr IV .[id number] COUNTS INCLUDE 234 BEDS AT THE [facility] Last Admin: 03/13/20 07:30 Dose: 0.04 units/min, 3 mls/hr Documented by: Phenylephrine HCl 10 mg/ (Sodium Chloride) 250 mls @ 15 mls/hr CONT INF .[id number] COUNTS INCLUDE 234 BEDS AT THE [facility]; Protocol Insulin Human Lispro (Insulin Lispro 100 Unit/Ml Insuln.Pen) 0 unit SC Q6 COUNTS INCLUDE 234 BEDS AT THE [facility]; Protocol Ondansetron HCl (Ondansetron 4 Mg/2 Ml Vial) 4 mg IV Q8H PRN PRN PRN Reason: NAUSEA/VOMITING Sodium Chloride (0.9% Saline Lock 10 Ml Syringe) 10 - 40 ml IV UD PRN PRN Reason: SALINE FLUSH Last Admin: 03/13/20 08:10 Dose: 40 ml Documented by: Assessment/Plan All Active Problems GI bleed (Acute) Anemia (Acute) Aspiration into airway (Acute) Lactic acidosis (Acute) Coagulopathy (Acute) Shock liver (Acute) Hyperkalemia (Acute) Severe metabolic acidosis (Acute) Acute renal failure superimposed on stage 3 chronic kidney disease (Acute) Cardiopulmonary arrest (Acute) 74-year-old female found down status post resuscitation in ER, intubated/sedated, critical condition, hyper kalemia, metabolic acidosis Urgent dialysis catheter was placed, consent was obtained from the patient's sister. Patient continues to be in critical condition management per ICU. Susy Bingham M.D. Pager: [phone] [facility] [address] [place] [address], [facility], [address] [place] [address] Office: [phone] Inpatient E&M: [id number] Init Hosp L3
--- NOTE | 2020-03-13 08:48 | NURSING ---
0700 Dr Medeiros at bedside patient in [place] see MAY for medication administration orders 0705 [id number] shock administered per Dr medeiros orders
[2020-03-13 09:20] LABS: Allen Test Positive; Base Excess -22 mmol/L (-2 to +2); Bicarbonate 10.6 mmol/L (22-26); Blood Gas Specimen Type ART; FI02 80; Mode AC; O2 Delivery Device Adult Vent; PEEP 5; PO2 48 mmHG (75-100); RR 14; SITE R Brach; SO2 56 % (95-99); Total Carbon Dioxide 12 mmol/L; Vt 450; pCO2 52.3 mmHg (35-45); pH 6.92 (7.35-7.45)
--- NOTE | 2020-03-13 11:10 | CON.PCM_ITS ---
Reason for Consult Date of Consultation: 03/13/20 Reason for Consultation: Respiratory failure status post cardiac arrest History of Present Illness: The patient is a 74-year-old female, with a history as outlined below, who presented to the emergency department on March 13 after EMS was contacted due to shortness of breath. On EMS arrival, the patient apparently was experiencing agonal respirations and while in route to the hospital went into cardiac arrest. The patient was recently admitted to the hospital in mid January with a displaced left intertrochanteric fracture, for which she underwent open reduction and internal fixation. Again, on March 11, the patient was evaluated in the emergency department with a nondisplaced fracture of the base of the fourth and fifth proximal phalanx along with a comminuted humeral neck fracture. The patient was discharged from the ED with pain medications with plans for outpatient surgical intervention. On arrival to the emergency department, ACLS was initiated. Return of spontaneous circulation was achieved following 3 rounds of epinephrine and bicarbonate. The patient had IO access placed along with a femoral triple-lumen catheter. Initial laboratory evaluation revealed an elevated white blood cell count to 13,000 with a hemoglobin of 8.0. D-dimer was elevated to greater than 11. Chemistry profile was notable for a potassium of 7.7, bicarbonate of 12.0 and creatinine of 4.43. Lactate was elevated to 22. AST and ALT were increased to 153 and 118, respectively. Initial troponin was negative. Procalcitonin was elevated to 0.77. The patient was emergently intubated while in the emergency department. Arterial blood gas post intubation revealed a pH of 6.63 with a corresponding PCO2 of 55 and PO2 of 285. The patient was started on Levophed due to hemodynamic instability along with a continuous bicarbonate infusion. The patient was also noted to have coffee-ground emesis upon OG tube insertion. The patient was started on PPI therapy as well. General surgery and nephrology were consulted. The patient was subsequently admitted to the medical intensive care unit for further management. Shortly after the patient's arrival to the ICU, the patient developed a ventricular tachycardia but never lost a pulse. However, the patient became profoundly hypotensive. Adenosine, first at 6 mg and a second at 12 mg was administered. However, the patient remained tachycardic. Therefore, the decision was made to cardiovert the patient, which was again unsuccessful. Amiodarone 150 mg bolus was then administered, which eventually led to improvement in the patient's tachycardia. Despite this, the patient remained hypotensive and required an escalation in both her Levophed and the initiation of vasopressin. I personally spoke with nephrology who recommended emergent dialysis. General surgery presented to the bedside to assist with temporary dialysis catheter placement. During this time, the patient also had to be started on phenylephrine due to continued hemodynamic instability. The patient's family was contacted and her sister presented to the bedside. Following a discussion regarding goals of care, the patient's CODE STATUS was transitioned to DNR CCA. Following this, the patient was started on dialysis. All the while, the patient was maxed out on 3 different vasopressors in an attempt to maintain hemodynamic stability. Shortly after 11 AM, I was contacted by nursing staff, who indicated that the patient had spontaneously developed bradycardia. Upon my presentation to the bedside, the patient was noted to be in asystole. No pulses were palpable. Time of was declared at 11:03 AM on March 13, 2020. 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 Lives: Skilled Nursing Smoking Status: Never smoker Alcohol: None Drugs: None - *Family History Maternal History Items: No pertinent history Paternal History Items: No pertinent history Review of Systems Unable to obtain accurate/complete ROS d/t: Due to current intubation and mechanical ventilation status Patient Problems: Active and Suspected Problems GI bleed (Acute) Anemia (Acute) Aspiration into airway (Acute) Lactic acidosis (Acute) Coagulopathy (Acute) Shock liver (Acute) Hyperkalemia (Acute) Severe metabolic acidosis (Acute) Acute renal failure superimposed on stage 3 chronic kidney disease (Acute) Cardiopulmonary arrest (Acute) Objective: The patient's most recent lab work, culture data and imaging studies have all been personally reviewed. - Physical Exam Vitals/I&O's: Vital Signs Temp Pulse Resp BP Pulse Ox 95.5 F L 107 H 23 H 50/40 L 87 03/13/20 10:00 03/13/20 10:00 03/13/20 10:00 03/13/20 10:00 03/13/20 10:00 Oxygen Delivery Method Mechanical Ventilator Weight: 155 lb 6.814 oz Body Mass Index (BMI) 25.0 Finger Stick Blood Glucose 83 Intake and Output for Last 24 Hours 03/11/20 03/12/20 03/13/20 23:59 23:59 23:59 Intake Total 2053.36 / 2053. Output Total 0 / 0 Balance 2053. / 2053. General: - - Currently intubated and mechanically ventilated. Nonresponsive to verbal and tactile stimulation. HEENT: Atraumatic, Normocephalic Oral: No Gingival or Mucosal Lesions/ Ulcerations, - - Endotracheal and OG tubes in place Neck: Supple, No Nodes, Trachea Midline, - - Right EJ IV in place Lungs: Diminished Cardiovascular: Normal S1, Normal S2, Irregular Rate, Tachycardic Abdomen: Bowel Sounds Present, Soft Extremities: No clubbing, No cyanosis, Cool, Diminished Peripheral Pulses, Edema Skin: - - Ecchymoses noted over right upper extremity Lymphatic: No Cervical, Supraclavicular, or Inguinal Adenopathy Neurological: - - The patient is currently nonresponsive. Labs (Last 48 Hours) 03/13/20 03/13/20 03/13/20 03:20 03:30 03:30 WBC 13.4 H RBC 2.70 L Hgb 8.0 L Hct 27.1 L MCV 100.4 H MCH 29.6 MCHC 29.5 L RDW Std Deviation 55.6 H RDW Coeff of Moy 15.0 H Plt Count 176 MPV 11.2 Immature Gran % (Auto) 1.900 H Neut % (Auto) 79.5 H Lymph % (Auto) 14.2 L [place] % (Auto) 4.2 Eos % (Auto) 0.1 Baso % (Auto) 0.1 Absolute Neuts (auto) 10.7 H Absolute Lymphs (auto) 1.90 Nucleated RBC % 0.1 PT 20.6 H INR 1.8 APTT 46.9 H Fibrinogen 260 D-Dimer Quant (PE/DVT) 11.08 H* Specimen Type Sample Site pH Bicarbonate Actual Total CO2 Base Excess O2 Saturation O2 % ABG pCO2 ABG pO2 Bhavin Test Respiration Rate O2 Delivery Device Vent Mode Tidal Volume POC PEEP Blood Gas Notified Whom Blood Gas Notified Time Sodium Potassium Chloride Carbon Dioxide Anion Gap BUN Creatinine Estim Creat Clear Calc Est GFR (MDRD) Af Amer Est GFR (MDRD) Non-Af BUN/Creatinine Ratio Glucose Lactic Acid Calcium Phosphorus Magnesium Total Bilirubin AST ALT Alkaline Phosphatase Lactate Dehydrogenase Total Creatine Kinase Troponin I C-React Prot Ext Range Total Protein Albumin Globulin Albumin/Globulin Ratio Triglycerides Procalcitonin POC Glucose 83 Blood Type Antibody Screen Crossmatch 03/13/20 03/13/20 03/13/20 03:30 03:30 03:30 WBC RBC Hgb Hct MCV MCH MCHC RDW Std Deviation RDW Coeff of Moy Plt Count MPV Immature Gran % (Auto) Neut % (Auto) Lymph % (Auto) [place] % (Auto) Eos % (Auto) Baso % (Auto) Absolute Neuts (auto) Absolute Lymphs (auto) Nucleated RBC % PT INR APTT Fibrinogen D-Dimer Quant (PE/DVT) Specimen Type Sample Site pH Bicarbonate Actual Total CO2 Base Excess O2 Saturation O2 % ABG pCO2 ABG pO2 Bhavin Test Respiration Rate O2 Delivery Device Vent Mode Tidal Volume POC PEEP Blood Gas Notified Whom Blood Gas Notified Time Sodium 141 Potassium 7.7 H* Chloride 102 Carbon Dioxide 12.0 L Anion Gap 27 H BUN 81 H Creatinine 4.43 H Estim Creat Clear Calc 10.27 Est GFR (MDRD) Af Amer 12 L Est GFR (MDRD) Non-Af 10 L BUN/Creatinine Ratio 18.3 Glucose 53 L Lactic Acid 22.1 H* Calcium 7.2 L Phosphorus Magnesium Total Bilirubin 0.20 AST 153 H ALT 118 H Alkaline Phosphatase 61 Lactate Dehydrogenase 360 H Total Creatine Kinase 128 Troponin I 0.017 C-React Prot Ext Range 44.00 H Total Protein 4.6 L Albumin 1.5 L Globulin 3.1 Albumin/Globulin Ratio 0.5 L Triglycerides Procalcitonin POC Glucose Blood Type Antibody Screen Crossmatch 03/13/20 03/13/20 03/13/20 03:30 03:30 03:44 WBC RBC Hgb Hct MCV MCH MCHC RDW Std Deviation RDW Coeff of Moy Plt Count MPV Immature Gran % (Auto) Neut % (Auto) Lymph % (Auto) [place] % (Auto) Eos % (Auto) Baso % (Auto) Absolute Neuts (auto) Absolute Lymphs (auto) Nucleated RBC % PT INR APTT Fibrinogen D-Dimer Quant (PE/DVT) Specimen Type ART Sample Site L RADIAL pH 6.63 L* Bicarbonate Actual 5.8 L Total CO2 8 Base Excess < -30 L O2 Saturation 99 O2 % 100 ABG pCO2 55.5 H ABG pO2 285 H Bhavin Test N/A Respiration Rate 16 O2 Delivery Device ADULT VENTILATOR Vent Mode A-C Tidal Volume 450 POC PEEP 5 Blood Gas Notified Whom ED MD Blood Gas Notified Time 346 Sodium Potassium Chloride Carbon Dioxide Anion Gap BUN Creatinine Estim Creat Clear Calc Est GFR (MDRD) Af Amer Est GFR (MDRD) Non-Af BUN/Creatinine Ratio Glucose Lactic Acid Calcium Phosphorus Magnesium Total Bilirubin AST ALT Alkaline Phosphatase Lactate Dehydrogenase Total Creatine Kinase Troponin I C-React Prot Ext Range Total Protein Albumin Globulin Albumin/Globulin Ratio Triglycerides 222 H Procalcitonin 0.77 H POC Glucose Blood Type Antibody Screen Crossmatch 03/13/20 03/13/20 03/13/20 07:00 07:00 07:00 WBC 25.2 H RBC 2.72 L Hgb 8.2 L Hct 27.1 L MCV 99.6 H MCH 30.1 MCHC 30.3 L RDW Std Deviation 54.4 H RDW Coeff of Moy 15.1 H Plt Count 189 MPV 10.5 Immature Gran % (Auto) 4.200 H Neut % (Auto) 82.9 H Lymph % (Auto) 10.0 L [place] % (Auto) 2.1 Eos % (Auto) 0.6 Baso % (Auto) 0.2 Absolute Neuts (auto) 20.9 H Absolute Lymphs (auto) 2.52 Nucleated RBC % 0.1 PT 20.9 H INR 1.9 APTT 51.2 H Fibrinogen D-Dimer Quant (PE/DVT) Specimen Type Sample Site pH Bicarbonate Actual Total CO2 Base Excess O2 Saturation O2 % ABG pCO2 ABG pO2 Bhavin Test Respiration Rate O2 Delivery Device Vent Mode Tidal Volume POC PEEP Blood Gas Notified Whom Blood Gas Notified Time Sodium 139 Potassium 6.6 H* Chloride 99 Carbon Dioxide 15.0 L Anion Gap 25 H BUN 82 H Creatinine 4.84 H Estim Creat Clear Calc 9.40 Est GFR (MDRD) Af Amer 11 L Est GFR (MDRD) Non-Af 9 L BUN/Creatinine Ratio 16.9 Glucose 213 H Lactic Acid Calcium 6.8 L Phosphorus Magnesium 2.4 Total Bilirubin 0.40 AST 815 H ALT 536 H Alkaline Phosphatase 101 Lactate Dehydrogenase Total Creatine Kinase Troponin I 0.070 H C-React Prot Ext Range Total Protein 4.4 L Albumin 1.3 L Globulin 3.1 Albumin/Globulin Ratio 0.4 L Triglycerides Procalcitonin POC Glucose Blood Type Antibody Screen Crossmatch 03/13/20 03/13/20 03/13/20 07:00 07:00 07:05 WBC RBC Hgb 8.2 L Hct 27.4 L MCV MCH MCHC RDW Std Deviation RDW Coeff of Moy Plt Count MPV Immature Gran % (Auto) Neut % (Auto) Lymph % (Auto) [place] % (Auto) Eos % (Auto) Baso % (Auto) Absolute Neuts (auto) Absolute Lymphs (auto) Nucleated RBC % PT INR APTT Fibrinogen D-Dimer Quant (PE/DVT) Specimen Type Sample Site pH Bicarbonate Actual Total CO2 Base Excess O2 Saturation O2 % ABG pCO2 ABG pO2 Bhavin Test Respiration Rate O2 Delivery Device Vent Mode Tidal Volume POC PEEP Blood Gas Notified Whom Blood Gas Notified Time Sodium Potassium Chloride Carbon Dioxide Anion Gap BUN Creatinine Estim Creat Clear Calc Est GFR (MDRD) Af Amer Est GFR (MDRD) Non-Af BUN/Creatinine Ratio Glucose Lactic Acid 19.8 H* Calcium Phosphorus 14.3 H* Magnesium Total Bilirubin AST ALT Alkaline Phosphatase Lactate Dehydrogenase Total Creatine Kinase Troponin I C-React Prot Ext Range Total Protein Albumin Globulin Albumin/Globulin Ratio Triglycerides Procalcitonin POC Glucose Blood Type Antibody Screen Crossmatch 03/13/20 03/13/20 07:05 09:14 WBC RBC Hgb Hct MCV MCH MCHC RDW Std Deviation RDW Coeff of Moy Plt Count MPV Immature Gran % (Auto) Neut % (Auto) Lymph % (Auto) [place] % (Auto) Eos % (Auto) Baso % (Auto) Absolute Neuts (auto) Absolute Lymphs (auto) Nucleated RBC % PT INR APTT Fibrinogen D-Dimer Quant (PE/DVT) Specimen Type ART Sample Site R Brach pH 6.92 L* Bicarbonate Actual 10.6 L Total CO2 12 Base Excess -22 L O2 Saturation 56 L O2 % 80 ABG pCO2 52.3 H ABG pO2 48 L Bhavin Test Positive Respiration Rate 14 O2 Delivery Device Adult Vent Vent Mode AC Tidal Volume 450 POC PEEP 5 Blood Gas Notified Whom Blood Gas Notified Time Sodium Potassium Chloride Carbon Dioxide Anion Gap BUN Creatinine Estim Creat Clear Calc Est GFR (MDRD) Af Amer Est GFR (MDRD) Non-Af BUN/Creatinine Ratio Glucose Lactic Acid Calcium Phosphorus Magnesium Total Bilirubin AST ALT Alkaline Phosphatase Lactate Dehydrogenase Total Creatine Kinase Troponin I C-React Prot Ext Range Total Protein Albumin Globulin Albumin/Globulin Ratio Triglycerides Procalcitonin POC Glucose Blood Type A POSITIVE Antibody Screen NEGATIVE Crossmatch See Detail Microbiology 03/13/20 04:35 Mucosa - Nose SARS-CoV-2 Antigen (Rapid) - Final Clinical Impression(s) from Imaging Studies Chest X-Ray 03/13/20 03:15 IMPRESSION: Support line and tube placement as described. No focal lung consolidative changes. Acute appearing fracture involving the proximal right humerus. Electronically Signed: Philip Brooke at 3:57 EST Tel , Service support , Chest CTA 03/13/20 04:06 IMPRESSION: No demonstrated pulmonary embolism or arterial dissection. Mild right greater than left lower lobe medial lung base opacities likely due to underlying atelectasis. Infectious process considered less likely. Electronically Signed: Philip Brooke, at 5:44 EST Tel , Service support , Chest X-Ray 03/13/20 08:21 IMPRESSION: 1. Interval placement of right internal jugular temporal dialysis catheter with tip the catheter overlying the junction of the right atrium and superior vena cava with no pneumothorax. 2. Endotracheal tube and nasogastric tube both which are unchanged. 3. Poor inspiration with some bibasilar atelectasis. Electronically Signed: Dashawn Giang MD at 10:06 EST Tel , Service support , Current Medications Norepinephrine Bitartrate 8 mg (/ Sodium Chloride) 250 mls @ 9.375 mls/hr CONT INF .[id number] ANA LAURA; Protocol Last Admin: 03/13/20 09:38 Dose: 40 mcg/min, 75 mls/hr Documented by: Sodium Bicarbonate 150 meq/ (Dextrose) 1,150 mls @ 200 mls/hr IV .Q5H45M ANA LAURA Last Infusion: 03/13/20 08:32 Dose: 200 mls/hr Documented by: Propofol (Diprivan) 1,000 mg in 100 mls @ 4.23 mls/hr CONT INF .Q12H ANA LAURA; Protocol Last Admin: 03/13/20 07:52 Dose: Not Given Documented by: Sodium Chloride () 250 mls @ 15 mls/hr IV .[id number] PRN PRN Reason: Saline Flush Sodium Chloride () 250 mls @ 15 mls/hr IV .[id number] PRN PRN Reason: Additional IVPB Infusion Amiodarone HCl 360 mg/ (Dextrose) 200 mls @ 16.667 mls/hr CONT INF .Q12H ANA LAURA Last Admin: 03/13/20 07:32 Dose: 0.5 mg/min, 16.7 mls/hr Documented by: Vasopressin 20 units/ Sodium (Chloride) 25 mls @ 3 mls/hr IV .Q8H20M ANA LAURA Last Admin: 03/13/20 07:30 Dose: 0.04 units/min, 3 mls/hr Documented by: Pantoprazole Sodium 40 mg/ (Sodium Chloride) 110 mls @ 330 mls/hr IV Q12 ANA LAURA Phenylephrine HCl 40 mg/ (Sodium Chloride) 250 mls @ 67.5 mls/hr CONT INF .Q3H43M ANA LAURA; Protocol Insulin Human Lispro (Insulin Lispro 100 Unit/Ml Insuln.Pen) 0 unit SC Q6 ANA LAURA; Protocol Ondansetron HCl (Ondansetron 4 Mg/2 Ml Vial) 4 mg IV Q8H PRN PRN PRN Reason: NAUSEA/VOMITING Sodium Chloride (0.9% Saline Lock 10 Ml Syringe) 10 - 40 ml IV UD PRN PRN Reason: SALINE FLUSH Last Admin: 03/13/20 08:10 Dose: 40 ml Documented by: Assessment/Plan Active and Suspected Problems GI bleed (Acute) Anemia (Acute) Aspiration into airway (Acute) Lactic acidosis (Acute) Coagulopathy (Acute) Shock liver (Acute) Hyperkalemia (Acute) Severe metabolic acidosis (Acute) Acute renal failure superimposed on stage 3 chronic kidney disease (Acute) Cardiopulmonary arrest (Acute) RECOMMENDATIONS: 1. Start empiric antimicrobials. 2. Additional fluid resuscitation. 3. Place temporary hemodialysis catheter. 4. Nephrology consultation, re: need for emergent dialysis. 5. Continue vasopressor support in an attempt to maintain a mean arterial pressure at or above 65 mmHg. 6. Continue bicarbonate infusion. Give additional boluses of bicarbonate as well. 7. Start continuous amiodarone infusion. 8. Start twice daily PPI. IMPRESSIONS: 1. Acute combined respiratory failure status post cardiac arrest/ventricular tachycardia Although exact precipitating etiology is unclear, I do suspect that the patient's profound metabolic/electrolyte abnormalities may have led to her clinical decompensation and subsequent cardiac arrest. The patient will be continued on invasive mechanical ventilatory support. Antimicrobials will be initiated. Due to the development of ventricular tachycardia, the patient was placed on amiodarone, with improvement noted. Cardiology is currently consulted to evaluate the patient. 2. Severe anion gap metabolic acidosis/hyperkalemia/acute on chronic kidney disease/hyperphosphatemia Nephrology was contacted early this morning to assist with management. Emergent temporary hemodialysis line will be placed with plans to initiate dialysis given profound metabolic derangements. 3. Septic shock Acute aspiration event is likely, given the patient's hospital presentation. The patient did receive supplemental IV fluids but remains hemodynamically unstable. She will be initiated on vasopressor support in hopes of maintaining hemodynamic stability. I do anticipate that it will be difficult to stabilize the patient without addressing her significant acid-base disturbance. Nephrolog y is planning for urgent dialysis this morning. We will continue current supportive measures in the interim. 4. Encephalopathy Clinical concern for possible anoxic event. The patient is currently nonresponsive to stimulation. We will continue supportive measures as noted above. If the patient stabilizes from a medical perspective, will consider additional head imaging for further prognostication. For now, continue to hold all sedating medications. 5. Anemia The patient presented to the hospital with a hemoglobin of 8.0 along with cof fee-ground emesis noted upon OG placement. Accordingly, the patient will be continued on twice daily PPI therapy. I see no urgent need for transfusion of blood products. Continue to monitor H&H, with plans to transfuse if hemoglobin drops below 7 g/dL. 6. Shock liver Likely secondary to hemodynamic instability in the setting of cardiopulmonary arrest and septic shock. We will continue to monitor. Anticipate improvement with stabilization of hemodynamics. 7. Recent fall with fractures/advanced age/diabetes mellitus/hypertension/Alzheimer's Complicates care, management, recovery and prognosis. Outpatient medications are currently on hold. TIME: 85 minutes of critical care time, independent of procedures, was spent addressing the patient's acute combined respiratory failure status post cardiac arrest, ventricular tachycardia, severe anion gap metabolic acidosis, hyperkalemia, hyperphosphatemia, acute on chronic kidney disease, septic shock, encephalopathy, anemia, shock liver, review of all data and collaboration with the care team. ([id number], [id number]) Procedures: [id number] Critial Care Addl 30 Min [id number]: [id number] Critical care first hour
--- NOTE | 2020-03-13 11:30 | PCM.DEATH ---
Preliminary Cause of Acute SD with cardiac arrest, ventricular tachycardia Date of Admission: 03/13/20 Date of : 03/13/20 - Principle Diagnosis Acute SD with cardiac arrest, ventricular tachycardia Acute combined respiratory failure Septic shock Acute kidney injury on CKD stage III, hyperphosphatemia, severe anion gap metabolic acidosis, hyperkalemia Acute encephalopathy possible metabolic/anoxic encephalopathy. Acute upper GI bleed with hematemesis Shock liver Recent fall with comminuted humeral neck fracture and acute nondisplaced oblique fracture of the base of the fourth and the fifth proximal phalanx Problem List: Active and Suspected Problems GI bleed (Acute) Anemia (Acute) Aspiration into airway (Acute) Lactic acidosis (Acute) Coagulopathy (Acute) Shock liver (Acute) Hyperkalemia (Acute) Severe metabolic acidosis (Acute) Acute renal failure superimposed on stage 3 chronic kidney disease (Acute) Cardiopulmonary arrest (Acute) Fall with left intertrochanteric hip fracture and left humeral fracture Hospital Course This is a 72-year-old female with past medical history as mentioned above was brought to the ED in critical condition by EMS with shortness of breath, agonal breathing and in route cardiac arrest. On arrival to ER, ACLS protocol was started. Patient had 3 rounds of epinephrine, IO access. Bicarbonate and had ROSC. Subsequently left femoral triple-lumen catheter was inserted. Patient initial EKG showed wide-complex tachycardia. As per ER physician it seems that patient had SD, ventricular tachycardia and had synchronized cardioversion and 150 mg of IV amiodarone. Control Director on-call Dr. Cardenas was called and STEMI alert was deactivated and ruled out. As per Dr. Cardenas, EKG showed junctional bradycardia with no evidence of acute ST changes and continue LBBB. Patient had atropine. Patient also has coffee-ground emesis, concern for upper GI bleed during OG tube insertion. As per ER physician there was concern of PE in view of recent left hip fracture and left humerus fracture but patient also had acute kidney injury with hyperkalemia and severe high anion gap metabolic acidosis therefore CT angiogram was not done and TPA was not given for concern of PE. Instead, patient was started on Protonix drip after bolus. Hyperkalemia cocktail calcium gluconate, dextrose and insulin was given for potassium 7.7. Patient most recent hemoglobin was 9.5 g at outside hospital as per ER physician and dropped to 8.0 during this visit. ABG showed 6.6 3/55/285/5 0.8 on FiO2 100%/450/16/5 on ventilator. D-dimer 11.08. Potassium 7.7, lactic acid 22, anion gap 27, bicarb 12, BUN/creatinine 81/4.43, calcium 7.2, phosphorus 14.3. Patient also had elevated ALT and AST which on repeat lab increased mostly due to shock liver. LDH 360. Procalcitonin 0.77. Patient was admitted in ICU. Patient was on vasopressor Levophed drip and continuous bicarb drip in ED which was subsequently escalated to maximum, then vasopressin and phenylephrine. Patient was seen by public works laborer and general surgeon. Patient on arrival to ICU had ventricular tachycardia and adenosine was first tried but was unsuccessful therefore was electrical cardioversion tried but unsuccessful. Subsequently amiodarone 50 mg was administered. General surgery was on the bedside for temporary dialysis catheter was inserted. By that time, patient was on maximum 3 vasopressor but is still hypotensive. Trolley Coach Driver and I discussed the CODE STATUS to the patient's power of workers compensation defense attorney for health and sister, Ms. Rosana Ochoa who understood the clinical situation. She changed her CODE STATUS to DNR CCA and signed the paper. In the meantime, hemodialysis was initiated after confirmation of right temporary IJ dialysis catheter. After about half an hour to 45 minutes on dialysis, patient continued to be hypotensive, developed bradycardia progressed to asystole. Pulses not palpable. Patient was declared at 11:03 AM on March 13, 2020. Inpatient E&M: [id number] [facility]
[2020-03-13 11:33] LABS: Reflex Lactate? Y
--- NOTE | 2020-03-13 11:44 | CASEMGMT ---
Social Work Phone call to [facility] and spoke with pt nurse and notified that pt this morning. SANDRA Rivera
--- NOTE | 2020-03-13 11:57 | DIALYSIS ---
Pt unstable, taken of HD tx after 35mins d/t low bp and decreasing HR. Dr. Mckee aware, no new orders rec'd. See flow record for tx data.
--- NOTE | 2020-03-13 12:06 | CHAPLAIN ---
Type of Pastoral Visit ___ Initial Visit ___ Follow-up Visit ___ On-call Visit ___ General Patient Visit ___ Spiritual Assessment ___ Family Conference _x__ Bereavement ___ Rapid Response ___ Code Blue ___ Other (describe below) Pastoral Care Referral From ___ Patient ___ Family _x__ Nurse ___ Physician ___ Rent And Housing Investigator ___ Odd Ticket Clerk ___ Other (describe below) Sacrament/Intervention ___ Active listening ___ Anointing ___ Mormonism _x_ Bereavement ___ Communion ___ Anali exploration ___ ___ Life review ___ Prayer ___ Reconciliation ___ Sacrament of Sick _x__ Supportive presence ___ Wedding ___ Other (describe below) Pastoral Comments upon rounding in ICU discovered patient had and sister was still in the unit; spoke with sister of patient and offered support; escorted sister to ground level for her departure from hospital; listening and presence
--- NOTE | 2020-03-13 12:34 | NURSING ---
TAR charting system did not save blood unit administration. see paper documentation for verification start time at 0930 end time at 1000
--- NOTE | 2020-03-13 12:54 | NURSING ---
1103 Dr alcala at bedside announced time of
--- NOTE | 2020-03-13 14:53 | CPS ---
ABG ran only once due to not having enough blood to run twice. Critical value of Ph 6.915 Doctor Medeiros was notified
== END 2020-03-13 11:03 | DRG 871 ==
LOC: ED 03:34 → ICU 04:25
PROVIDERS: Internal Medicine Critical Care Medicine; Admitting Provider Hospitalist; Emergency Provider Emergency Medicine; PCP Family Medicine; Referring Provider Specialist; Visit Provider Internal Medicine
DX: A41.9 Sepsis, unspecified organism (principal); R65.21 Severe sepsis with septic shock; K72.00 Acute and subacute hepatic failure without coma; J96.22 Acute and chronic respiratory failure with hypercapnia; J96.21 Acute and chronic respiratory failure with hypoxia; S42.301A Unspecified fracture of shaft of humerus, right arm, initial encounter for closed fracture; N17.9 Acute kidney failure, unspecified; E87.2 Acidosis; G93.40 Encephalopathy, unspecified; K92.2 Gastrointestinal hemorrhage, unspecified; I47.2 Ventricular tachycardia; I46.9 Cardiac arrest, cause unspecified; N18.30 Chronic kidney disease, stage 3 unspecified; E83.39 Other disorders of phosphorus metabolism; T18.118A Gastric contents in esophagus causing other injury, initial encounter; E87.5 Hyperkalemia; I44.7 Left bundle-branch block, unspecified; W18.30XD Fall on same level, unspecified, subsequent encounter; S42.215D Unspecified nondisplaced fracture of surgical neck of left humerus, subsequent encounter for fracture with routine healing; S62.648 Nondisplaced fracture of proximal phalanx of other finger; D64.9 Anemia, unspecified; E11.22 Type 2 diabetes mellitus with diabetic chronic kidney disease; I12.9 Hypertensive chronic kidney disease with stage 1 through stage 4 chronic kidney disease, or unspecified chronic kidney disease; F02.80 Dementia in other diseases classified elsewhere, unspecified severity, without behavioral disturbance, psychotic disturbance, mood disturbance, and anxiety; G30.9 Alzheimer's disease, unspecified; Z79.84 Long term (current) use of oral hypoglycemic drugs; F32.9 Major depressive disorder, single episode, unspecified; M10.9 Gout, unspecified; Z66 Do not resuscitate; S62.644A Nondisplaced fracture of proximal phalanx of right ring finger, initial encounter for closed fracture; S62.646A Nondisplaced fracture of proximal phalanx of right little finger, initial encounter for closed fracture; W18.30XA Fall on same level, unspecified, initial encounter; Y92.129 Unspecified place in nursing home as the place of occurrence of the external cause; Y93.89 Activity, other specified; Y99.8 Other external cause status
CPT/HCPCS: 31500; 31720; 36556; 36591; 36600; 51702; 71045; 71275; 73060; 73130; 80053; 82550; 82803; 82962; 83605; 83615; 83735; 84100; 84145; 84478; 84484; 85014; 85018; 85025; 85379; 85384; 85610; 85730; 86140; 86850; 86900; 86901; 86920; 86922; 87040; 87426; 90937; 92950; 93005; 94002; 99285; J7030; J7050; P9016; Q9967; A4216; C1752; G0257; J0153; J0610; J3490